=== PATIENT | male | born 1965 | race African-American/Black ===

== ENCOUNTER 2021-02-26 08:40 | Emergency (ER) | payer OTHER, SELFPAY ==
[2021-02-26 08:48] VITALS: BP 140/94; PULSE 78; RESP 20; TEMP 36.6; O2SAT 100
--- NOTE | 2021-02-26 09:06 | ED.URI ---
HPI - URI/Sore Throat General Chief Complaint: Nausea/Vomiting/Diarrhea Stated Complaint: nausea/flu Time Seen by Provider: 02/26/21 08:50 Source: patient and RN notes reviewed Mode of arrival: ambulatory Limitations: no limitations History of Present Illness HPI Narrative: 55-year-old male presents to the [facility] with complaints of generalized body aches and I am sick. States symptoms started after his booster shot of Covid. Received his Covid booster, Pfizer on 02/20. States I am just very unwell. Has a history of kidney disease hypertension and high cholesterol. Related Data Home Medications Medication Instructions Recorded Confirmed amlodipine 02/26/21 atorvastatin 02/26/21 carvedilol 02/26/21 Allergies Allergy/AdvReac Type Severity Reaction Status Date / Time No Known Allergies Allergy Verified 02/26/21 09:06 Review of Systems Review of Systems: All systems reviewed & are unremarkable except as noted in HPI and below Constitutional: Constitutional: Reports as per HPI, Denies chills, Reports fatigue and Denies fever(s) Eyes: Eyes: Reports no additional eye complaints ENT: Reports as per HPI and Reports nasal congestion Cardiovascular: Cardiovascular: Reports no additional cardiovascular complaints and Denies chest pain Respiratory: Respiratory: Reports no additional respiratory complaints and Denies cough Gastrointestinal: Gastrointestinal: Reports no additional gastrointestinal complaints Musculoskeletal: Musculoskeletal: Reports no additional musculoskeletal complaints Integumentary/Breasts: Skin/Breast: Reports system reviewed and no additional complaints, except as docu Neurologic: Reports as per HPI and Reports headache(s) (Intermittent) Psychiatric: Psychiatric: Reports no additional psychiatric complaints Allergic/Immunologic: Allergic/Immunologic: Reports no additional allergic/immunologic complaints [facility] Past Medical History Medical History (Updated 02/26/21 @ 09:16 by Tamra Gabriel) High cholesterol Hypertension Kidney disease Surgical History Surgical History (Updated 02/26/21 @ 09:17 by Tamra Gabriel) No significant past surgical history Social History Social History (Updated 02/26/21 @ 09:17 by Tamra Gabriel) Living arrangements: with family Occupation/Education: retired Gender identity (if verbalized by the patient): Male Comments At the time of my signature, I reviewed and agree with the nursing past medical, surgical, social, and family history. There is no relevant family history pertinent to the patient complaint. Exam Const: General: healthy appearing, no acute distress and alert Nutritional Appearance: well nourished Orientation/consciousness: patient oriented x3 Limitations: no limitations and altered mental status HENMT: Head: normal to inspection Ears: external ears normal, TM's normal bilaterally (Post cerumen removal) and Abnormal EAC present cerumen impaction bilateral Eyes: Conjunctivae: conjunctivae normal Pupils: Equal, round and reactive pupils present Neck: Neck: normal visual inspection, no lymphadenopathy and no meningeal signs Chest: Chest palpation & inspection: normal inspection of the chest Resp: Effort & Inspection: normal respiratory effort Auscultation: clear to auscultation bilaterally Cardio: Rate: regular rate Rhythm: regular rhythm GI: GI Palp: Yes Soft to palpation and No Tenderness to palpation present (GI) Back/Spine/Pelvis: Back: no CVA tenderness Skin: General skin exam: normal color Rashes: no rashes Wounds: no wounds Neuro: General: patient oriented x3, moves all extremities, no meningeal signs and no focal motor deficits Cranial nerves: Yes Nystagmus not present Speech: normal speech Gait exam (Neuro): Normal gait present Extrem: General: normal to inspection and no pedal edema Psych: Appearance: grossly normal Mental Status: mental status grossly normal Affect: normal affect At
== END 2021-02-26 09:18 | disposition home or self-care (01) ==
PROVIDERS: Emergency Provider Nurse Practitioner; PCP Internal Medicine
DX: R53.83 Other fatigue (principal); U09.9 Post COVID-19 condition, unspecified; H61.23 Impacted cerumen, bilateral; E78.00 Pure hypercholesterolemia, unspecified; I10 Essential (primary) hypertension
CPT/HCPCS: 69210; 99202; G0463

== ENCOUNTER 2022-08-10 07:14 | Outpatient (CLI) | payer OTHER, SELFPAY ==
[2022-08-10 08:24] LABS: Basophils Percent Auto 0.5 % (0.2-1.2); Eosinophils Absolute Auto 0.4 K/mm3 (0-0.3); Eosinophils Percent Auto 6.9 % (0-4.4); Hematocrit 43.2 % (42.0-52.0); Hemoglobin 14.6 g/dL (14.0-18.0); Immature Granulocyte Absolute 0.04 K/mm3 (0.00-0.031); Immature Granulocyte Percent A 0.6 % (0-0.5); Lymphocytes Absolute Auto 0.95 K/mm3 (0.9-3.2); Mean Corpuscular HGB Conc 33.8 g/dl (32-36); Mean Corpuscular Hemoglobin 28.9 pg (26-34); Mean Corpuscular Volume 85.5 fl (80-100); Mean Platelet Volume 9.6 fl (7.4-10.4); Monocytes Absolute Auto 0.6 K/mm3 (0.1-0.6); Monocytes Percent Auto 9.4 % (2.6-8.5); Neutrophils Absolute Auto 4.3 K/mm3 (1.3-6.7); Neutrophils Percent Auto 67.6 % (45.5-73.1); Platelet Count Result 254 k/mm3 (150-375); Red Blood Count 5.05 M/mm3 (4.6-6.20); Red Cell Distribution Width 13.3 % (11.5-14.5); White Blood Count 6.4 K/mm3 (4.5-10.0)
[2022-08-10 08:30] LABS: Albumin Level 4.6 g/dL (3.5-5.1); Anion Gap 10 mmol/L (8-16); Blood Urea Nitrogen 17 mg/dL (9-20); Carbon Dioxide 28 mmol/L (22-30); Chloride 104 mmol/L (98-107); Estimated Glomerular Filt Rate 45; Glucose 77 mg/dL (65-110); Phosphorus 3.1 mg/dL (2.5-4.5); Sodium 142 mmol/L (137-145)
[2022-08-10 08:37] LABS: Creatinine Urine 282.7 mg/dL
[2022-08-10 08:40] LABS: Appearance Urine Clear (Clear); Bacteria Urine None Seen /hpf; Bilirubin Urine Negative (Negative); Blood Urine Negative (Negative); Color Urine Yellow (Yellow); Glucose Urine UA Negative (Negative); Ketones Urine Trace mg/dL (Negative); Leukocyte Esterase Ur Negative LEU/UL (Negative); Need Manual Microscopic Reviewed; Nitrate Urine Negative (Negative); Non Pathogenic Casts >20; Protein Urine 2+ mg/dL (Negative); RBC Urine 0-2 /hpf (0-2); Squamous Epithelial Cell Urine Occasional /hpf (Few); WBC Urine 0-5 /hpf; pH Urine 6.5 (5.0-9.0)
[2022-08-10 08:42] LABS: Add Urine Microscopic? YES
[2022-08-10 08:53] LABS: Alanine Aminotransferase 49 U/L (6-50); Alkaline Phosphatase 146 U/L (38-126); Aspartate Amino Transferase 41 U/L (17-59); Bilirubin,Total 0.9 mg/dL (0.2-1.3)
[2022-08-10 09:00] LABS: Total Protein Urine Random 78 mg/dL
[2022-08-10 09:03] LABS: Parathyroid Intact 208.7 pg/mL (7.5-53.5)
[2022-08-10 09:05] LABS: Vitamin D 25 Hydroxy 20.3 ng/mL
[2022-08-13 20:12] LABS: Vitamin D 1,25 (OH)2 Total 41 pg/mL (18-72); Vitamin D2 1,25 (OH)2 18 pg/mL; Vitamin D3 1,25 (OH)2 23 pg/mL
== END 2022-08-10 07:15 | disposition home or self-care (01) ==
PROVIDERS: PCP Internal Medicine; Visit Provider Internal Medicine Nephrology
DX: I50.22 Chronic systolic (congestive) heart failure (principal); N25.81 Secondary hyperparathyroidism of renal origin; I12.9 Hypertensive chronic kidney disease with stage 1 through stage 4 chronic kidney disease, or unspecified chronic kidney disease; N18.32 Chronic kidney disease, stage 3b
CPT/HCPCS: 36415; 80069; 80076; 81001; 81050; 82306; 82570; 82652; 83970; 84156; 85025

== ENCOUNTER 2023-01-14 10:31 | Outpatient (CLI) | payer OTHER, SELFPAY ==
[2023-01-14 11:16] LABS: Basophils Percent Auto 0.4 % (0.2-1.2); Eosinophils Absolute Auto 0.8 K/mm3 (0-0.3); Eosinophils Percent Auto 11.1 % (0-4.4); Hematocrit 45.6 % (42.0-52.0); Hemoglobin 15.3 g/dL (14.0-18.0); Immature Granulocyte Absolute 0.03 K/mm3 (0.00-0.031); Immature Granulocyte Percent A 0.4 % (0-0.5); Lymphocytes Absolute Auto 1.54 K/mm3 (0.9-3.2); Lymphocytes Percent Auto 20.6 % (18.3-44.2); Mean Corpuscular HGB Conc 33.6 g/dl (32-36); Mean Corpuscular Hemoglobin 28.8 pg (26-34); Mean Corpuscular Volume 85.9 fl (80-100); Mean Platelet Volume 8.8 fl (7.4-10.4); Monocytes Absolute Auto 0.7 K/mm3 (0.1-0.6); Monocytes Percent Auto 8.9 % (2.6-8.5); Neutrophils Absolute Auto 4.4 K/mm3 (1.3-6.7); Neutrophils Percent Auto 58.6 % (45.5-73.1); Platelet Count Result 284 k/mm3 (150-375); Red Blood Count 5.31 M/mm3 (4.6-6.20); Red Cell Distribution Width 14.4 % (11.5-14.5); White Blood Count 7.5 K/mm3 (4.5-10.0)
[2023-01-14 11:30] LABS: Albumin Level 4.4 g/dL (3.5-5.1); Anion Gap 12 mmol/L (8-16); Blood Urea Nitrogen 24 mg/dL (9-20); Calcium 9.1 mg/dL (8.4-10.2); Carbon Dioxide 24 mmol/L (22-30); Chloride 104 mmol/L (98-107); Estimated Glomerular Filt Rate 33; Glucose 95 mg/dL (65-110); Phosphorus 4.1 mg/dL (2.5-4.5); Potassium 3.6 mmol/L (3.4-5.0); Sodium 140 mmol/L (137-145)
[2023-01-14 11:42] LABS: Parathyroid Intact 295.7 pg/mL (7.5-53.5)
== END 2023-01-14 10:32 | disposition home or self-care (01) ==
PROVIDERS: PCP Internal Medicine; Visit Provider Internal Medicine Nephrology
DX: I12.9 Hypertensive chronic kidney disease with stage 1 through stage 4 chronic kidney disease, or unspecified chronic kidney disease (principal); N18.32 Chronic kidney disease, stage 3b
CPT/HCPCS: 36415; 80069; 83970; 85025

== ENCOUNTER 2023-03-28 14:36 | Outpatient (CLI) | payer OTHER, SELFPAY ==
[2023-03-29 11:59] LABS: Collection Time Urine 24 HOURS
[2023-03-29 12:55] LABS: Creatinine Urine 103.1 mg/dL; Patient Weight 195 Lbs
[2023-03-29 13:08] LABS: Total Volume 24 Hour Urine 1100 ml
[2023-03-30 13:59] LABS: Estimated Glomerular Filt Rate 42
[2023-03-31 07:59] LABS: Creatinine Clearance Urine 32.8 ml/min (75-125)
== END 2023-03-29 06:20 | disposition home or self-care (01) ==
LOC: ANHLAB 04-19 14:36
PROVIDERS: PCP Surgery; Visit Provider Internal Medicine Nephrology
DX: I12.9 Hypertensive chronic kidney disease with stage 1 through stage 4 chronic kidney disease, or unspecified chronic kidney disease (principal); N18.32 Chronic kidney disease, stage 3b
CPT/HCPCS: 36415; 82565; 82575

== ENCOUNTER 2023-07-13 07:28 | Outpatient (CLI) | payer OTHER, SELFPAY ==
[2023-07-13 08:09] LABS: Basophils Percent Auto 0.4 % (0.2-1.2); Eosinophils Absolute Auto 0.4 K/mm3 (0-0.3); Eosinophils Percent Auto 4.5 % (0-4.4); Hematocrit 46.7 % (42.0-52.0); Hemoglobin 15.7 g/dL (14.0-18.0); Immature Granulocyte Absolute 0.02 K/mm3 (0.00-0.031); Immature Granulocyte Percent A 0.3 % (0-0.5); Lymphocytes Absolute Auto 1.23 K/mm3 (0.9-3.2); Lymphocytes Percent Auto 15.9 % (18.3-44.2); Mean Corpuscular HGB Conc 33.6 g/dl (32-36); Mean Corpuscular Hemoglobin 29.1 pg (26-34); Mean Corpuscular Volume 86.5 fl (80-100); Mean Platelet Volume 8.9 fl (7.4-10.4); Monocytes Absolute Auto 0.7 K/mm3 (0.1-0.6); Monocytes Percent Auto 8.9 % (2.6-8.5); Neutrophils Absolute Auto 5.4 K/mm3 (1.3-6.7); Platelet Count Result 253 k/mm3 (150-375); Red Cell Distribution Width 13.9 % (11.5-14.5); White Blood Count 7.7 K/mm3 (4.5-10.0)
[2023-07-13 08:18] LABS: Albumin Level 4.7 g/dL (3.5-5.1); Anion Gap 9 mmol/L (8-16); Blood Urea Nitrogen 13 mg/dL (9-20); Calcium 9.6 mg/dL (8.4-10.2); Carbon Dioxide 28 mmol/L (22-30); Chloride 104 mmol/L (98-107); Estimated Glomerular Filt Rate 38; Glucose 91 mg/dL (65-110); Phosphorus 3.9 mg/dL (2.5-4.5); Potassium 3.8 mmol/L (3.4-5.0); Sodium 141 mmol/L (137-145)
[2023-07-13 08:27] LABS: Parathyroid Intact 282.7 pg/mL (7.5-53.5)
== END 2023-07-13 07:29 | disposition home or self-care (01) ==
LOC: ANHLAB 07:29
PROVIDERS: PCP Surgery; Visit Provider Internal Medicine Nephrology
DX: N18.4 Chronic kidney disease, stage 4 (severe) (principal); I50.22 Chronic systolic (congestive) heart failure; N25.81 Secondary hyperparathyroidism of renal origin
CPT/HCPCS: 36415; 80069; 83970; 85025

== ENCOUNTER 2024-03-03 06:36 | Outpatient (CLI) | payer OTHER, SELFPAY ==
[2024-03-03 07:46] LABS: Basophils Percent Auto 0.4 % (0.2-1.2); Eosinophils Absolute Auto 0.7 K/mm3 (0-0.3); Eosinophils Percent Auto 9.1 % (0-4.4); Hematocrit 46.2 % (42.0-52.0); Immature Granulocyte Absolute 0.02 K/mm3 (0.00-0.031); Immature Granulocyte Percent A 0.3 % (0-0.5); Lymphocytes Absolute Auto 1.15 K/mm3 (0.9-3.2); Lymphocytes Percent Auto 15.4 % (18.3-44.2); Mean Corpuscular HGB Conc 34.6 g/dl (32-36); Mean Corpuscular Hemoglobin 29.4 pg (26-34); Mean Corpuscular Volume 84.8 fl (80-100); Mean Platelet Volume 8.3 fl (7.4-10.4); Monocytes Absolute Auto 0.6 K/mm3 (0.1-0.6); Neutrophils Percent Auto 66.8 % (45.5-73.1); Platelet Count Result 264 k/mm3 (150-375); Red Blood Count 5.45 M/mm3 (4.6-6.20); Red Cell Distribution Width 13.4 % (11.5-14.5); White Blood Count 7.5 K/mm3 (4.5-10.0)
[2024-03-03 07:58] LABS: Alanine Aminotransferase 20 U/L (6-50); Albumin Level 4.5 g/dL (3.5-5.1); Alkaline Phosphatase 136 U/L (38-126); Anion Gap 8 mmol/L (4-12); Aspartate Amino Transferase 28 U/L (17-59); Blood Urea Nitrogen 15 mg/dL (9-20); Calcium 9.4 mg/dL (8.4-10.2); Carbon Dioxide 27 mmol/L (22-30); Chloride 105 mmol/L (98-107); Cholesterol 186 mg/dL (0-200); Estimated Glomerular Filt Rate 45; Glucose 91 mg/dL (65-110); HDL Direct 67 mg/dL; Potassium 4.2 mmol/L (3.4-5.0); Sodium 140 mmol/L (137-145); Triglycerides 121 mg/dL (<150)
[2024-03-03 08:09] LABS: LDL Cholesterol Direct 70 mg/dL
[2024-03-03 09:56] LABS: Hemoglobin A1C 5.7 % (<5.7)
== END 2024-03-03 06:37 | disposition home or self-care (01) ==
PROVIDERS: PCP Internal Medicine; Visit Provider Internal Medicine
DX: F31.9 Bipolar disorder, unspecified (principal); E78.5 Hyperlipidemia, unspecified
CPT/HCPCS: 36415; 80053; 80061; 83036; 84443; 85025

== ENCOUNTER 2024-05-10 08:02 | Emergency (ER) | payer OTHER, SELFPAY ==
[2024-05-10] VITALS (20 sets, daily range): BP systolic 113–148; BP diastolic 79–100; PULSE 70–105; RESP 14–27; TEMP 35.9–36.6; O2SAT 93–100
--- NOTE | ~2024-05-10 | XR_ITS ---
EXAMINATION: XR chest 2V DATE: 05/10/2024 10:06 INDICATION: Shortness of breath TECHNIQUE: PA and lateral views of the chest were obtained. COMPARISON: None FINDINGS: The lungs are clear with no focal airspace opacities, pulmonary edema, pleural effusion or pneumothor ax. The cardiomediastinal silhouette is normal. Three lead pacemaker/AICD seen with leads projecting over the expected locations of the right atrial appendage, apex of the right ventricle and overlying the left ventricle likely having traversed the coronary sinus. IMPRESSION: 1. No acute cardiopulmonary disease. Reviewed, dictated and finalized at location [employer]
--- NOTE | 2024-05-10 08:47 | ECG_ITS ---
Test Date: 2024-05-10 09:05:09 Measurements Intervals [place] Rate: 100 P: 68 IA: 157 QRS: 155 QRSD: 159 T: 4 QT: 398 QTc: 515 Interpretive Statements ELECTRONIC VENTRICULAR PACEMAKER ABNORMAL RHYTHM ECG Electronically Signed On 05-10-2024 12:06:01 ENTRY WRITER by Melvin Encinas M.D.
--- NOTE | 2024-05-10 08:48 | ED_ITS ---
HPI - General Adult General Chief complaint: Shortness of Breath/Dyspnea Stated complaint: fluid in lungs, sob Time Seen by Provider: 05/10/24 08:35 History of Present Illness HPI narrative: 58-year-old male presenting to the emergency department for evaluation for worsening shortness breath is recurrent over the last 2 weeks. Patient does have a history of chronic kidney disease and congestive heart failure. Patient states his current symptoms started approximately 2 weeks ago and was associated with increased cough and congestion. Patient is on a diuretic but states he is not taking it regularly. Patient feels that he takes it too often that he feels lightheaded and drained. Patient did present to an outside hospital on Tuesday and received no specific diagnosis other than that his lungs were noisy. Patient does complain increased shortness of breath when lying down flat. Patient denies any chest pain. Patient has noticed no increased lower extremity swelling. Related Data Home Medications ?Medication ?Instructions ?Recorded ?Confirmed ?Last Taken ?Type albuterol sulfate 90 mcg/actuation 2 puff inhalation TID 11/11/22 Unknown History aerosol inhaler amitriptyline 150 mg tablet 150 mg PO QHS 11/11/22 Unknown History amlodipine 10 mg tablet 10 mg PO DAILY 11/11/22 Unknown History atorvastatin 40 mg tablet 40 mg PO DAILY 11/11/22 Unknown History carvedilol 25 mg tablet 25 mg PO BID 11/11/22 Unknown History cyanocobalamin (vitamin B-12) 1,000 mcg subcut MONTHLY 11/11/22 Unknown History 1,000 mcg/mL injection kit famotidine 20 mg tablet 20 mg PO BID 11/11/22 Unknown History furosemide 40 mg tablet 40 mg PO BID 11/11/22 Unknown History hydralazine 10 mg tablet 20 mg PO TID 11/11/22 Unknown History hydroxyzine HCl 10 mg tablet 10 mg PO DAILY PRN 11/11/22 Unknown History isosorbide dinitrate 20 mg tablet 20 mg PO DAILY 11/11/22 Unknown History loratadine 10 mg tablet 10 mg PO DAILY PRN 11/11/22 Unknown History losartan 100 mg tablet 100 mg PO DAILY 11/11/22 Unknown History lurasidone 20 mg tablet (Latuda) 20 mg PO DAILY 11/11/22 Unknown History paroxetine HCl 40 mg tablet 40 mg PO DAILY 11/11/22 Unknown History spironolactone 25 mg tablet 25 mg PO DAILY 11/11/22 Unknown History tizanidine 4 mg capsule 4 mg PO BID PRN 11/11/22 Unknown History Allergies Allergy/AdvReac Type Severity Reaction Status Date / Time No Known Allergies Allergy Verified 05/10/24 08:08 Review of Systems 2 Review of Systems: All systems reviewed & are unremarkable except as noted in HPI and below PMFSH Past Medical History Medical History (Updated 05/10/24 @ 11:31 by Gregory Phillips MD) Asthma Obesity Vitamin D deficiency Chronic GERD Essential hypertension CHF (congestive heart failure) Agoraphobia with panic attacks Recurrent major depression Antinuclear factor positive Chronic fatigue syndrome CKD (chronic kidney disease) stage 2 Hyperlipidemia Generalized anxiety disorder Bipolar 1 disorder Surgical History Surgical History (System 03/02/24 @ 11:34 by Monica Vick) History of tonsillectomy History of cardiac cath Family History Family History (System 03/02/24 @ 11:34 by Monica Vick) Mother Kidney disease Hypothyroidism Cataracts, bilateral Asthma Other Bipolar 1 disorder Schizophrenia Amyotrophic lateral sclerosis (ALS) Father Mental disorder Hypertension Heart disease Grandparent Diabetes mellitus Social History Social History (System 03/02/24 @ 11:34 by Monica Vick) Living arrangements: with family Occupation/Education: retired Gender identity (if verbalized by the patient): Male Exam 2 Narrative: APPEARANCE: Well appearing, no pain, no distress, well-nourished. HEAD: normocephalic, atraumatic. EYES: PERRLA/EOMI, conjunctivae clear. NOSE: Normal no drainage EARS:TMS clear with good light reflex. THROAT: Pharynx clear, no exudate. NECK: Supple. No adenopathy, no masses. RESPIRATORY: Wheezing and rhonchi bilaterally CARDIOVASCULAR: Regular rate and rhythm without murmurs rubs or gallops. ABDOMINAL: Soft, nontender, nondistended, normal bowel sounds MUSCULOSKELETAL: Moves all extremities. Strength/ROM intact, No edema, No calf tenderness. NEURO: Alert. Cranial nerves II through XII intact. Good gait. Good coordination SKIN: Warm, dry. Normal Color Course Vital Signs Vital signs: Vital Signs Temperature 97.5 F L 05/10/24 08:04 Pulse Rate 70 05/10/24 08:04 Respiratory Rate 18 05/10/24 08:04 Blood Pressure 148/93 H 05/10/24 08:04 Pulse Oximetry 93 05/10/24 08:04 Oxygen Delivery Room Air 05/10/24 08:04 Temperature 96.7 F L 05/10/24 11:11 Pulse Rate 93 05/10/24 11:11 Respiratory Rate 19 05/10/24 11:11 Blood Pressure 141/100 H 05/10/24 11:10 Pulse Oximetry 100 05/10/24 11:11 Oxygen Delivery Room Air 05/10/24 08:47 Medical Decision Making MDM Narrative Medical decision making narrative: 58-year-old male presenting to the emergency department for evaluation for cough congested and orthopnea. Patient is afebrile with no leukocytosis and hemoglobin of 15.3. Patient's INR 0.9. Patient has no acute abnormalities on his CMP patient's BNP is not significantly elevated it is 232. UA was negative for infection patient was negative influenza RSV and for COVID. Chest x-ray showed no acute cardiopulmonary abnormality. Upon initial evaluation patient was wheezing. Patient was treated with nebulized albuterol and does feel improved. Suspect viral etiology causing wheeze. Patient states the symptoms have been ongoing for greater than 2 weeks. Patient will be treated for suspected pneumonia. Patient will be started on antibiotics in the emergency department discharged home with antibiotics Tessalon Perles and albuterol. Patient was updated the results of the workup was comfortable the plan for discharge and close follow-up. Differential Diagnosis Differential Diagnosis: Pneumonia, CHF, COPD, pneumothorax COVID, RSV, influenza Vital Signs Vital Signs: Vital Signs Temperature 97.5 F L 05/10/24 08:04 Pulse Rate 70 05/10/24 08:04 Respiratory Rate 18 05/10/24 08:04 Blood Pressure 148/93 H 05/10/24 08:04 Pulse Oximetry 93 05/10/24 08:04 Oxygen Delivery Room Air 05/10/24 08:04 Temperature 96.7 F L 05/10/24 11:11 Pulse Rate 93 05/10/24 11:11 Respiratory Rate 19 05/10/24 11:11 Blood Pressure 141/100 H 05/10/24 11:10 Pulse Oximetry 100 05/10/24 11:11 Oxygen Delivery Room Air 05/10/24 08:47 Lab Data Lab results reviewed: Yes I reviewed the patient's lab results. 05/10/24 09:01 05/10/24 09:01 Labs: Lab Results 05/10/24 05/10/24 05/10/24 Range/Units 08:57 09:01 10:41 WBC 9.1 (4.5-10.0) K/mm3 RBC 5.34 (4.6-6.20) M/mm3 Hgb 15.3 (14.0-18.0) g/dL Hct 46.1 (42.0-52.0) % MCV 86.3 (80-100) fl MCH 28.7 (26-34) pg MCHC 33.2 (32-36) g/dl RDW 14.5 (11.5-14.5) % Plt Count 256 (150-375) k/mm3 MPV 8.6 (7.4-10.4) fl Immature Gran % (Auto) 0.6 H (0-0.5) % Neut % (Auto) 65.0 (45.5-73.1) % Lymph % (Auto) 14.8 L (18.3-44.2) % [place] % (Auto) 8.6 H (2.6-8.5) % Eos % (Auto) 10.6 H (0-4.4) % Baso % (Auto) 0.4 (0.2-1.2) % Lymph # (Auto) 1.34 (0.9-3.2) K/mm3 [place] # (Auto) 0.8 H (0.1-0.6) K/mm3 Eos # (Auto) 1.0 H (0-0.3) K/mm3 Baso # (Auto) 0.0 (0.0-0.1) K/mm3 Abs Immat Gran (auto) 0.05 H (0.00-0.031) K/mm3 Absolute Neuts (auto) 5.9 (1.3-6.7) K/mm3 Absolute Nucleated RBC 0.000 (0.0-0.012) K/mm3 Nucleated RBC % 0.0 (0.0-0.2) % PT 12.8 (11.1-14.7) Seconds INR 0.9 APTT 26.6 (22.3-36.8) Seconds Sodium 139 (137-145) mmol/L Potassium 3.9 (3.4-5.0) mmol/L Chloride 108 H (98-107) mmol/L Carbon Dioxide 26 (22-30) mmol/L Anion Gap 5 (4-12) mmol/L BUN 15 (9-20) mg/dL Creatinine 1.60 H (0.7-1.3) mg/dL Estim Creat Clear Calc 48 ml/min Estimated GFR 54 L (59 - ) Glucose 94 (65-110) mg/dL Calcium 9.0 (8.4-10.2) mg/dL Total Bilirubin 0.7 (0.2-1.3) mg/dL AST 28 (17-59) U/L ALT 22 (6-50) U/L Alkaline Phosphatase 121 (38-126) U/L NT-Pro-B Natriuret Pep 232 H (19.9-100) pg/mL Total Protein 8.0 (6.3-8.2) g/dL Albumin 4.5 (3.5-5.1) g/dL Urine Color Yellow (Yellow) Urine Appearance Clear (Clear) Urine pH 5.5 (5.0-9.0) Ur Specific [place] 1.025 (1.001-1.035) Urine Protein 1+ H (Negative) mg/dL Urine Glucose (UA) 3+ H (Negative) mg/dL Urine Ketones Negative (Negative) mg/dL Ur Blood (Man) Negative (Negative) Urine Nitrate Negative (Negative) Urine Bilirubin Negative (Negative) Urine Urobilinogen 1.0 (<2.0) mg/dL Leukocyte Esterase Rfl Negative (Negative) UMA/UL Influenza A (RT-PCR) Negative (Negative) Influenza B (RT-PCR) Negative (Negative) RSV (RT-PCR) Negative (Negative) SARS-CoV-2 RNA (RT-PCR) Negative (Negative) Imaging Data Radiologist's impression: Impressions Chest X-Ray 05/10/24 10:11 IMPRESSION: 1. No acute cardiopulmonary disease. Discharge Plan Discharge Clinical Impression: Community acquired pneumonia Patient Disposition: Home, Self-Care Condition: Stable Instructions: Antibiotic Form, Community Acquired Pneumonia (ED), Wheezing (ED) Additional Instructions: Antibiotics as directed until completed. Albuterol inhaler for cough and shortness of breath. Tessalon Perles for cough. Have close follow-up with your primary care physician. Take your other home medications as scheduled. If you have any worsening symptoms then please call or return to the emergency department. Patient Language: Greenlandic Prescriptions: New amoxicillin-pot clavulanate 875-125 mg tablet 1 tablet PO Q12H Qty: 14 0RF azithromycin 250 mg tablet See Rx Instructions .ROUTE .COMPLEX Qty: 6 0RF Rx Instructions: For 250 mg dose pack: take 500 mg today (day 1), then 250 mg for 4 days (days 2-5) albuterol sulfate 90 mcg/actuation HFA aerosol inhaler 1 inh inhalation QID PRN (Reason: shortness of breath or wheezing) Qty: 6.7 0RF benzonatate 100 mg capsule 100 mg PO TID PRN (Reason: cough) Qty: 14 0RF No Action albuterol sulfate 90 mcg/actuation HFA aerosol inhaler 2 puff inhalation TID amitriptyline 150 mg tablet 150 mg PO QHS amlodipine 10 mg tablet 10 mg PO DAILY atorvastatin 40 mg tablet 40 mg PO DAILY carvedilol 25 mg tablet 25 mg PO BID cyanocobalamin (vitamin B-12) 1,000 mcg/mL kit 1,000 mcg subcut MONTHLY famotidine 20 mg tablet 20 mg PO BID furosemide 40 mg tablet 40 mg PO BID hydralazine 10 mg tablet 20 mg PO TID hydroxyzine HCl 10 mg tablet 10 mg PO DAILY PRN isosorbide dinitrate 20 mg tablet 20 mg PO DAILY lurasidone [Latuda] 20 mg tablet 20 mg PO DAILY Rx Instructions: must administer with food (at least 350 calories) loratadine 10 mg tablet 10 mg PO DAILY PRN losartan 100 mg tablet 100 mg PO DAILY paroxetine HCl 40 mg tablet 40 mg PO DAILY spironolactone 25 mg tablet 25 mg PO DAILY tizanidine 4 mg capsule 4 mg PO BID PRN Follow-up/Referrals: Varsha,MD Naomy [Primary Care Provider] -
[2024-05-10] MEDS: ALBUTEROL SULFATE NEB 2.5 MG/3 ML INH 5 MG INHALATION (09:01)
[2024-05-10 09:09] LABS: Basophils Percent Auto 0.4 % (0.2-1.2); Eosinophils Percent Auto 10.6 % (0-4.4); Hematocrit 46.1 % (42.0-52.0); Hemoglobin 15.3 g/dL (14.0-18.0); Immature Granulocyte Absolute 0.05 K/mm3 (0.00-0.031); Immature Granulocyte Percent A 0.6 % (0-0.5); Lymphocytes Absolute Auto 1.34 K/mm3 (0.9-3.2); Lymphocytes Percent Auto 14.8 % (18.3-44.2); Mean Corpuscular HGB Conc 33.2 g/dl (32-36); Mean Corpuscular Hemoglobin 28.7 pg (26-34); Mean Corpuscular Volume 86.3 fl (80-100); Mean Platelet Volume 8.6 fl (7.4-10.4); Monocytes Absolute Auto 0.8 K/mm3 (0.1-0.6); Monocytes Percent Auto 8.6 % (2.6-8.5); Neutrophils Absolute Auto 5.9 K/mm3 (1.3-6.7); Platelet Count Result 256 k/mm3 (150-375); Red Blood Count 5.34 M/mm3 (4.6-6.20); Red Cell Distribution Width 14.5 % (11.5-14.5); White Blood Count 9.1 K/mm3 (4.5-10.0)
[2024-05-10 09:19] LABS: Alanine Aminotransferase 22 U/L (6-50); Albumin Level 4.5 g/dL (3.5-5.1); Alkaline Phosphatase 121 U/L (38-126); Anion Gap 5 mmol/L (4-12); Aspartate Amino Transferase 28 U/L (17-59); Bilirubin,Total 0.7 mg/dL (0.2-1.3); Blood Urea Nitrogen 15 mg/dL (9-20); Carbon Dioxide 26 mmol/L (22-30); Chloride 108 mmol/L (98-107); Estimated CRCL calculation 48 ml/min; Estimated Glomerular Filt Rate 54; Glucose 94 mg/dL (65-110); Potassium 3.9 mmol/L (3.4-5.0); Sodium 139 mmol/L (137-145)
[2024-05-10 09:27] LABS: INR 0.9; NT Pro B Type Natriuretic Pept 232 pg/mL (19.9-100); Prothrombin Time 12.8 Seconds (11.1-14.7)
[2024-05-10 09:28] LABS: Partial Thromboplastin Time 26.6 Seconds (22.3-36.8)
[2024-05-10 09:32] LABS: Add Urine Microscopic? YES; Appearance Urine Clear (Clear); Bilirubin Urine Negative (Negative); Blood Urine Negative (Negative); Color Urine Yellow (Yellow); Glucose Urine UA 3+ mg/dL (Negative); Ketones Urine Negative (Negative); Leukocyte Esterase Ur Negative LEU/UL (Negative); Nitrate Urine Negative (Negative); Protein Urine 1+ mg/dL (Negative); Specific Grav Ur 1.025 (1.001-1.035); pH Urine 5.5 (5.0-9.0)
[2024-05-10 11:23] LABS: Influenza A QL RT-PCR Negative (Negative); Influenza B QL RT-PCR Negative (Negative); RSV RNA, RT-PCR Negative (Negative); SARS-CoV-2 RNA PCR Negative (Negative)
--- OUTSIDE RECORDS SUMMARY | 2024-05-17 12:00 | XMS_ITS | Encounter Summary ---
Author Organization [facility] Address [address] [place] [address]. [address] [address] Care Team Providers Care Real Estate Assistant Name Role Phone Naomy Maddox MD Primary Care Provider [phone] Encounter Details Date Type Department Care Team (Latest Contact Info) Description 02/28/2024 Travel Social History Tobacco Use Types Packs/Day Years Used Date Smoking Tobacco: Never Smokeless Tobacco: Never Alcohol Use Standard Drinks/Week Comments Yes 0 (1 standard drink = 0.6 oz pur e alcohol) Sex and Gender Information Value Date Recorded Sex Assigned at Not on file Legal Sex Male 8:04 PM CDT Gender Identity Not on file Sexual Orientation Not on file documented as of this encounter Plan of Treatment Not on file documented as of this encounter Visit Diagnoses Not on filedocumented in this encounter Care Teams Real Estate Assistant Relationship Specialty Start Date End Date Naomy Maddox MD [address] [place] [address] PCP - General INTERNAL MEDICINE 07/07/22 05/05/24 documented as of this encounter
--- OUTSIDE RECORDS SUMMARY | 2024-05-17 12:00 | XMS_ITS | Encounter Summary ---
Author Organization [facility] Address [address] [place] [address]. [place], [place] [id number] [place] [id number] Care Team Providers Care Physical Geographer Name Role Phone Naomy Maddox MD Primary Care Provider [phone] Encounter Details Date Type Department Care Team (Late st Contact Info) Description 02/03/2024 Orders Only [facility] [address] [id number] [place] [address] [facility] [address] [place] [address] Social History Tobacco Use Types Packs/Day Years [...] on file documented as of this encounter Results * (ABNORMAL) RENAL FUNCTION PANEL (02/03/2024 8:33 AM CDT) GLUCOSE 87 70 - 99 MG/DL 02/03/2024 9:58 AM CDT [facility] BUN 11 7 - 18 MG/DL 02/03/2024 9:58 AM CDT [facility] CREATININE S/P/B 1.92(H) 0.7 - 1.3 MG/DL 02/03/2024 9:58 AM [facility] SODIUM S/P/B 142 136 - 145 MMOL/L 02/03/2024 9:58 AM [facility] POTASSIUM S/P/B 4.0 3.5 - 5.1 MMOL/L 02/03/2024 9:58 AM [facility] CHLORIDE S/P/B 105 100 - 108 MMOL/L 02/03/2024 9:58 AM [facility] CO2 27.8 21 - 32 MMOL/L 02/03/2024 9:58 AM [facility] CALCIUM S/P/B 9.3 8.5 - 10.1 MG/DL 02/03/2024 9:58 AM [facility] ALBUMIN S/P/B 3.8 3.4 - 5.0 G/DL 02/03/2024 9:58 AM [facility] PHOSPHORUS 2.1(L) 2.5 - 4.9 MG/DL 02/03/2024 9:58 AM [facility] ANION GAP 9.2 5 - 15 MMOL/L 02/03/2024 9:58 AM [facility] BUN CREATININE RATIO 5.7(L) 6 - 26 02/03/2024 9:58 AM [facility] GFR ESTIMATE 40(L) >90 ML/MIN/1.7 3 M2 02/03/2024 9:58 AM [facility] Comment: NOTE: eGFR is not calculated for patients <18 years of age. This is an estimated GFR calculation using the new CKD EPI creatinine equation without race and so does not require a correction factor for race. This estimated GFR should not be used for calculating drug doses. 02/03/2024 8:33 AM CDT us Bryon Meeks MD LABORATORY Final Result [facility] [address] [place] [address], [place] [phone] * (ABNORMAL) CBC W/DIFF AUTOMATED (02/03/2024 8:33 AM CDT) WBC 7.51 4.4 - 11.0 x10'3/uL 02/03/2024 9:38 AM CDT [facility] RBC 5.34 4.50 - 5.90 x10'6/uL 02/03/2024 9:38 AM CDT [facility] HGB 15.7 14.0 - 17.5 G/DL 02/03/2024 9:38 AM CDT [facility] HCT 46.3 41.5 - 50.4 % 02/03/2024 9:38 AM CDT [facility] MCV 86.7 80.0 - 96.0 FL 02/03/2024 9:38 AM CDT [facility] MCH 29.4 26.5 - 31.4 PG 02/03/2024 9:38 AM CDT [facility] MCHC 33.9 31.9 - 34.8 G/DL 02/03/2024 9:38 AM CDT [facility] RDW 13.6 12.3 - 14.3 % 02/03/2024 9:38 AM CDT [facility] PLT 245 151 - 353 x10'3/uL 02/03/2024 9:38 AM CDT [facility] MPV 9.3(L) 9.7 - 11.9 FL 02/03/2024 9:38 AM CDT [facility] RBC MORPHOLOGY NORMAL 02/03/2024 9:38 AM CDT [facility] PLT MORPH. NORMAL 02/03/2024 9:38 AM CDT [facility] WBC MORPHOLOGY NORMAL 02/03/2024 9:38 AM CDT [facility] LYMPHOCYTES % 11.9(L) 15.8 - 45.0 % 02/03/2024 9:38 AM CDT [facility] NEUTROPHILS % 71.5 42.1 - 71.9 % 02/03/2024 9:38 AM CDT [facility] MONOCYTES % 7.6 5.7 - 12.5 % 02/03/2024 9:38 AM CDT [facility] EOSINOPHILS 8.3(H) 0.0 - 5.6 % 02/03/2024 9:38 AM CDT [facility] BASOPHILS 0.4 0.0 - 1.3 % 02/03/2024 9:38 AM CDT [facility] ABS. NEUTROPHILS 5.38 1.40 - 6.00 x10'3/uL 02/03/2024 9:38 AM CDT [facility] IMMATURE GRANS % 0.3 0.0 - 0.5 % 02/03/2024 9:38 AM CDT [facility] ABS. LYMPHOCYTES 0.89 0.80 - 4.70 x10'3/uL 02/03/2024 9:38 AM T [facility] 02/03/2024 8:33 AM CDT us Bryon Meeks MD LABORATORY Final Result [facility] [address] [place] [address], [place] [phone] * (ABNORMAL) PROTEIN CREAT RATIO URINE (02/03/2024 8:33 AM CDT) PROTEIN URINE TOTAL RANDOM 37.9(H) <10 MG/DL 02/03/2024 10:14 AM CDT [facility] CREATININE (U) 229.8 39 - 259 MG/DL 02/03/2024 10:14 AM CDT [facility] PROTEIN/CREATIN INE RATIO 0.2 02/03/2024 10:14 AM CDT [facility] URINE SPECIMEN / Unknown 02/03/2024 8:33 AM CDT us Bryon Meeks MD URINE ORDERABLES Final Result [facility] [address] [place] [address], [place] [phone] * (ABNORMAL) PTH - INTACT (02/03/2024 8:33 AM CDT) PTH INTACT 151.3(H) 18.4 - 80.1 PG/ML 02/03/2024 3:16 PM CDT [facility] 02/03/2024 8:33 AM CDT us Bryon Meeks MD LABORATORY Final Result [facility] [address] [place] [address], [place] [phone] documented in this encounter Visit Diagnoses Diagnosis Chronic kidney disease, stage IV (severe) (CMS/HCC [facility]/HCC)- Primary Chronic kidney disease, Stage IV (severe) Renal hypertension Unspecified hypertensive kidney disease with chronic kidney disease stage I through stage IV, or unspecified Essential hypertension, malignant documented in this encounter Care Teams Physical Geographer Relationship Specialty Start Date End Date Naomy Maddox MD [address] [place] [address] PCP - General INTERNAL MEDICINE 07/07/22 05/05/24 documented as of this encounter
--- OUTSIDE RECORDS SUMMARY | 2024-05-17 12:00 | XMS_ITS | Encounter Summary ---
Author Organization [facility] Address [address] [place] [address]. [address] [address] Care Team Providers Care Spectral Scientist Name Role Phone Zak Anderson MD Primary Care Provider [phone] Encounter Details Date Type Department Care Team (Latest Contact Info) Description 05/06/2024 Travel Social History Tobacco Use Types Packs/Day [...] on filedocumented in this encounter Care Teams Spectral Scientist Relationship Specialty Start Date End Date Zak Anderson MD [address] [place] [address] PCP - General INTERVENTIONAL CARDIOLOGY 05/06/24 documented as of this encounter
--- OUTSIDE RECORDS SUMMARY | 2024-05-17 12:00 | XMS_ITS | Clinical Summary ---
Author Organization [facility] Address [address] [place] [address]. [place], [place] [address] [place] [id number] Care Team Providers Care Dog Breeder Name Role Phone Zak Anderson MD Primary Care Provider [phone] Allergies No known active allergies Medications ondansetron (ZOFRAN-ODT) 4 MG disintegrating tablet Take 1 tablet (4 mg total) by mouth every 8 (eight) hours as needed for Nausea. 20 tablet 3 Active metoclopramide (REGLAN) 5 MG tablet Take 1 tablet (5 mg total) by mouth every 6 (six) hours as needed. 15 tablet 3 Active amLODIPine (NORVASC) 10 MG tablet Take 1 tablet (10 mg total) by mouth daily. 4 Active ARIPiprazole (ABILIFY) 5 MG tablet Take 1 tablet (5 mg total) by mouth daily. 4 Active atorvastatin (LIPITOR) 40 MG tablet Take 1 tablet (40 mg total) by mouth daily. 4 Active carvedilol (COREG) 25 MG tablet Take 1 tablet (25 mg total) by mouth 2 (two) times daily. Active furosemide (LASIX) 40 MG tablet Take 1 tablet (40 mg total) by mouth 2 (two) times daily. Active hydrALAZINE (APRESOLINE) 10 MG tablet Take 2 tablets (20 mg total) by mouth 3 (three) times daily. 4 09/07/19 25 Active hydrOXYzine (ATARAX) 10 MG tablet Take 1 tablet (10 mg total) by mouth daily. 4 Active PARoxetine (PAXIL) 40 MG tablet Take 1 tablet (40 mg total) by mouth daily. 4 Active albuterol sulfate HFA 108 (90 Base) MCG/ACT inhaler Inhale 2 puffs into the lungs every 6 (six) hours as needed for Wheezing. 8 g 4 Active LORazepam (ATIVAN) 0.5 MG tabletIndications:S OB (shortness of breath) Take 1 tablet (0.5 mg total) by mouth every 8 (eight) hours as needed for Anxiety. 2 tablet 5 Active carbamide peroxide (EAR DROPS) 6.5 % otic solution Place 5 drops into both ears 2 (two) times daily for 10 days. 15 mL 4 04/22/20 24 ciprofloxacin-dexam ethasone (CIPRODEX) otic suspension Place 4 drops into the right ear 2 (two) times daily for 5 days. 7.5 mL 4 04/17/20 24 Encounters Date Type Department Care Team Description 05/17/2024 5:20 AM [facility] - 05/17/2024 7:07 AM [facility] Emergency [facility] Emergency Room [address] [place] [id number] Esteban Whittington MD Shortness Of Breath Discharge Disposition: Home or Self Care (Routine Discharge) 05/17/2024 Travel 05/06/2024 8:45 AM PATHOLOGY LAB TECHNICIAN - 05/06/2024 10:42 AM [facility] Emergency [facility] Emergency Room [address] [place] [id number] Wilian Granado MD Medical Problem Discharge Disposition: Home or Self Care (Routine Discharge) 05/06/2024 Travel 04/12/2024 12:33 PM PATHOLOGY LAB TECHNICIAN - 04/12/2024 1:17 PM [facility] Emergency Room [address] [place] [id number] Soraida Laguna MD URI Discharge Disposition: Home or Self Care (Routine Discharge) 04/12/2024 Travel 02/28/2024 12:43 AM CDT - 02/28/2024 1:52 AM CDT Emergency [facility] Emergency Room [id number] [place] [address] Chuck Cormier MD Urinary Symptoms Discharge Disposition: Home or Self Care (Routine Discharge) 02/28/2024 Travel from Last 3 Months Social History Tobacco Use Types Packs/Day Years Used Date Smoking Tobacco: Never Smokeless Tobacco: Never Tobacco Cessation:Counseling Given: Not Answered Alcohol Use Standard Drinks/Week Comments Not Currently 0 (1 standard drink = 0.6 oz pur e alcohol) Sex and Gender Information Value Date Recorded Sex Assigned at Not on file Legal Sex Male 8:04 PM CDT Gender Identity Not on file Sexual Orientation Not on file Last Filed Vital Signs Vital Sign Reading Time Taken Comments Blood Pressure 140/94 05/17/2024 6:30 AM PATHOLOGY LAB TECHNICIAN Pulse 86 05/17/2024 6:45 AM PATHOLOGY LAB TECHNICIAN Temperature 37.2 ??C (98.9 ??F) 05/17/2024 7:00 AM CS T Respiratory Rate 18 05/17/2024 6:45 AM PATHOLOGY LAB TECHNICIAN Oxygen Saturation 96% 05/17/2024 6:45 AM PATHOLOGY LAB TECHNICIAN Inhaled Oxygen Concentration - - Weight 88.5 kg (195 lb) 05/17/2024 5:25 AM PATHOLOGY LAB TECHNICIAN Height 177.8 cm (5' 10 ) 05/17/2024 5:25 AM PATHOLOGY LAB TECHNICIAN Body Mass Index 27.98 05/17/2024 5:25 AM PATHOLOGY LAB TECHNICIAN Plan of Treatment Health Maintenance Due Date Last Done Comments Colorectal Cancer Screening Colonoscopy (10 Years) 1965 Annual Physical 10/07/1970 Hepatitis C 10/07/1985 Hepatitis B Vaccines (1 of 3 - 19+ 3-dose series) 10/07/1986 Zoster Vaccines (1 of 2) 10/07/2017 COVID-19 Vaccine (2023-2 5 season) 2024 02/20/2021, 08/20/2020, 07/23/2020 Influenza Adult (#1) 2024 04/13/2021, 08/13/2015 DTaP, Tdap and Td Vaccines ( 2 - Td or Tdap) 08/12/2025 08/13/2015 Meningococcal Vaccine Aged Out No nola ernesto eligible based on patient's age to complete this topic Pneumococcal Vaccine: Pediatrics (0 to 5 Years) and At-Risk Patients (6 to 64 Years) Aged Out No longer eligible b ased on patient's age to complete this topic RSV Immunizations Under 20 Months Aged Out No longer eligible b ased on patient's age to complete this topic Procedures Procedure Name Priority Date/Time Associated Diagnosis Comments XR CHEST PORTABLE STAT 05/17/2024 6:2 1 AM PATHOLOGY LAB TECHNICIAN INFLUENZA A & B STAT 05/17/2024 5:48 AM PATHOLOGY LAB TECHNICIAN CORONAVIRUS (COVID 19) STAT 05/17/2024 5:48 AM PATHOLOGY LAB TECHNICIAN TROPONIN, QUANT STAT 05/17/2024 5:44 AM PATHOLOGY LAB TECHNICIAN PRO-BRAIN NATRIURETIC PEPTIDE STAT 05/17/2024 5:44 AM PATHOLOGY LAB TECHNICIAN COMPREHENSIVE METABOLIC PANEL STAT 05/17/2024 5:44 AM PATHOLOGY LAB TECHNICIAN CBC W/DIFF AUTOMATED STAT 05/17/2024 5:44 AM PATHOLOGY LAB TECHNICIAN ECG 12-LEAD Routine 05/17/2024 5:43 AM PATHOLOGY LAB TECHNICIAN Procedure Note - 05/17/2024 5:43 AM CSTThis note is in progress. [facility] Test Date: 2024-05-17 Pat Name: NATAN LAGUNA Department: 85 Room: EXAM 303 Gender: Male It Administrative Assistant: : [id number] Requested By: ESTEBAN WHITTINGTON Order Number: [id number] Stephanie MD: Measurements Intervals [place] Rate: 89 P: 74 MT: 157 QRS: 182 QRSD: 165 T: 67 QT: 425 QTc: 520 Interpretive Statements ELECTRONIC VENTRICULAR PACEMAKER ABNORMAL RHYTHM ECG Compared to ECG 05/06/2024 09:08:59 No significant changes XR CHEST PA+LAT STAT 05/06/2024 9:21 AM PATHOLOGY LAB TECHNICIAN PRO-BRAIN NATRIURETIC PEPTIDE STAT 05/06/2024 9:16 AM PATHOLOGY LAB TECHNICIAN TROPONIN, QUANT STAT 05/06/2024 9:16 AM PATHOLOGY LAB TECHNICIAN COMPREHENSIVE METABOLIC PANEL STAT 05/06/2024 9:16 AM PATHOLOGY LAB TECHNICIAN CBC W/DIFF AUTOMATED STAT 05/06/2024 9:16 AM PATHOLOGY LAB TECHNICIAN ECG 12-LEAD Routine 05/06/2024 9:08 AM PATHOLOGY LAB TECHNICIAN CHLAMYDIA GC RNA STAT 02/28/2024 12:46 AM CDT URINALYSIS, AUTO, COMPLETE STAT 02/28/2024 12:46 AM CDT from Last 3 Months Results * XR CHEST PORTABLE (05/17/2024 6:21 AM PATHOLOGY LAB TECHNICIAN) Anatomical Region Laterality Modality Chest Radiographic Lucila ging 05/17/2024 6:32 AM PATHOLOGY LAB TECHNICIAN Impressions 05/17/2024 6:33 AM PATHOLOGY LAB TECHNICIAN IMPRESSION: 1. ??NO RADIOGRAPHIC EVIDENCE OF ACTIVE DISEASE THE CHEST. Signed: Winston Bassett MD Referred By: ?? Interpreted By: Winston Bassett MD, 05/17/2024 6:32 AM Narrative 05/17/2024 6:33 AM PATHOLOGY LAB TECHNICIAN [facility] [address] [facility] [place] [address] PATIENT NAME: NATAN LAGUNA EXAM: Chest one view DATE OF EXAM: 05/17/2024 COMPARISON EXAM: 05/06/2024 INDICATION: Short of breath TECHNIQUE: AP chest FINDINGS: Patient slightly rotated. ??Heart size within normal limits. ??Pulmonary vasculature unremarkable. ??Left subclavian transvenous ICD lead placements unchanged. ??No acute pulmonary parenchymal opacity. ??No pleural effusion. ??No hyperinflation. Procedure Note Winston Bassett MD - 05/17/2024 [facility] [address] [facility] [place] [address] PATIENT NAME: NATAN LAGUNA EXAM: Chest one view DATE OF EXAM: 05/17/2024 COMPARISON EXAM: 05/06/2024 INDICATION: Short of breath TECHNIQUE: AP chest FINDINGS: Patient slightly rotated. Heart size within normal limits.Pulmonary vasculature unremarkable. Left subclavian transvenous ICD leadplacements unchanged. No acute pulmonary parenchymal opacity. No pleuraleffusion. No hyperinflation. IMPRESSION: 1. NO RADIOGRAPHIC EVIDENCE OF ACTIVE DISEASE THE CHEST. Signed: Winston Bassett MD Referred By: Interpreted By: Winston Bassett MD, 05/17/2024 6:32 AM Esteban Whittington MD GENERAL IMAGING Final Result * CORONAVIRUS (COVID-19) MOLECULAR (05/17/2024 5:48 AM PATHOLOGY LAB TECHNICIAN) CORONAVIRUS SARS COV 2 RNA NEGATIVE NEGATIVE 05/17/2024 6:12 AM PATHOLOGY LAB TECHNICIAN [facility] Comment: NEGATIVE RESULTS DO NOT RULE OUT COVID 19 AND SHOULD NOT BE USED THE SOLE BASIS FOR TREATMENT OR PATIENT MANAGEMENT DECISIONS, INCLUDING INFECTION CONTROL DECISIONS. NEGATIVE RESULTS SHOULD BE CONSIDERED IN THE CONTEXT OF A PATIENT'S RECENT EXPOSURES, HISTORY AND THE PRESENCE OF CLINICAL SIGNS AND SYMPTOMS CONSISTENT WITH COVID 19. THE ID NOW COVID-19 2.0 TEST HAS BEEN AUTHORIZED BY THE FDA UNDER EAU FOR USE BY AUTHORIZED LABORATORIES. PERFORMED BY NUCLEIC ACID AMPLIFICATION FOR MOLECULAR QUALITATIVE DETECTION OF SARS-COV-2. SPECIMEN TYPE NASAL 05/17/2024 5:50 AM PATHOLOGY LAB TECHNICIAN [facility] NASOPHARYNGEAL SWAB / Unknown 05/17/2024 5:48 AM PATHOLOGY LAB TECHNICIAN Esteban Whittington MD MICROBIOLOGY - G ENERAL ORDERABLES Final Result [facility] [address] [place] [address], * INFLUENZA A & B (05/17/2024 5:48 AM PATHOLOGY LAB TECHNICIAN) SPECIMEN TYPE NASOPHARYNX 05/17/2024 5:58 AM PATHOLOGY LAB TECHNICIAN [facility] INFLUENZA A NEGATIVE NEGATIVE 05/17/2024 6:17 AM PATHOLOGY LAB TECHNICIAN [facility] INFLUENZA B NEGATIVE NEGATIVE 05/17/2024 6:17 AM PATHOLOGY LAB TECHNICIAN [facility] NASAL STRUCTURE / Unknown 05/17/2024 5:48 AM PATHOLOGY LAB TECHNICIAN Esteban Whittington MD MICROBIOLOGY - G ENERAL ORDERABLES Final Result [facility] [address] [place] [address], * PRO-BRAIN NATRIURETIC PEPTIDE (05/17/2024 5:44 AM PATHOLOGY LAB TECHNICIAN) Only the most recent of2 resultswithin the time period is included. PRO-B TYPE NATRIURETIC PEPTIDE 110 <125 PG/ML 05/17/2024 6:15 AM PATHOLOGY LAB TECHNICIAN [facility] Comment: CUT POINTS ESTABLISHED BY [employer] ON NT PROBNP (ICON) STUDY (2006). AGE INDEPENDENT: <300 PG/ML HAS A 99% NEGATIVE PREDICTIVE VALUE FOR EXCLUDING ACUTE CHF <50 YEARS: >450 PG/ML IS CONSISTENT WITH ACUTE CHF 50-75 YEARS: >900 PG/ML IS CONSISTENT WITH ACUTE CHF >75 YEARS: >1800 PG/ML IS CONSISTENT WITH ACUTE CHF IN PATIENTS WITH RENAL INSUFFICIENCY (GFR <60), >1200 PG/ML YIELDS A DIAGNOSTIC SENSITIVITY AND SPECIFICITY OF 89% AND 72% FOR ACUTE CHF. 05/17/2024 5:44 AM PATHOLOGY LAB TECHNICIAN us Esteban Whittington MD LABORATORY Final Result [facility] [address] [place] [address], [place] [phone] * (ABNORMAL) COMPREHENSIVE METABOLIC PANEL (05/17/2024 5:44 AM PATHOLOGY LAB TECHNICIAN) Only the most recent of2 resultswithin the time period is included. [facility] GLUCOSE 107(H) 70 - 99 MG/DL 05/17/2024 6:15 AM [facility] BUN 11 7 - 18 MG/DL 05/17/2024 6:15 AM [facility] CREATININE S/P/B 1.72(H) 0.7 - 1.3 MG/DL 05/17/2024 6:15 AM [facility] SODIUM S/P/B 141 136 - 145 MMOL/L 05/17/2024 6:15 AM [facility] POTASSIUM S/P/B 4.1 3.5 - 5.1 MMOL/L 05/17/2024 6:15 AM [facility] CHLORIDE S/P/B 105 100 - 108 MMOL/L 05/17/2024 6:15 AM [facility] CO2 24.3 21 - 32 MMOL/L 05/17/2024 6:15 AM [facility] CALCIUM S/P/B 8.8 8.5 - 10.1 MG/DL 05/17/2024 6:15 AM [facility] BILIRUBIN TOTAL S/P/B 0.8 0.2 - 1.2 MG/DL 05/17/2024 6:15 AM [facility] TOTAL PROTEIN S/P/B 7.5 6.4 - 8.2 G/DL 05/17/2024 6:15 AM [facility] ALBUMIN S/P/B 3.7 3.4 - 5.0 G/DL 05/17/2024 6:15 AM [facility] AST 21 15 - 37 U/L 05/17/2024 6:15 AM [facility] ALT 17 16 - 60 U/L 05/17/2024 6:15 AM [facility] ALKALINE PHOSPHATASE S/P/B 129 50 - 136 U/L 05/17/2024 6:15 AM [facility] ANION GAP 11.7 5 - 15 MMOL/L 05/17/2024 6:15 AM [facility] BUN CREATININE RATIO 6.4 6 - 26 05/17/2024 6:15 AM [facility] A/G RATIO 1.0 1.0 - 2.0 RATIO 05/17/2024 6:15 AM [facility] GFR ESTIMATE 46(L) >90 ML/MIN/1.7 3 M2 05/17/2024 6:15 AM [facility] Comment: NOTE: eGFR is not calculated for patients <18 years of age. This is an estimated GFR calculation using the new CKD EPI creatinine equation without race and so does not require a correction factor for race. This estimated GFR should not be used for calculating drug doses. 05/17/2024 5:44 AM PATHOLOGY LAB TECHNICIAN Esteban Whittington MD LABORATORY Final Result [facility] [address] [place] [address], * (ABNORMAL) CBC W/DIFF AUTOMATED (05/17/2024 5:44 AM PATHOLOGY LAB TECHNICIAN) Only the most recent of2 resultswithin the time period is included. WBC 7.58 4.4 - 11.0 x10'3/uL 05/17/2024 5:58 AM [facility] RBC 5.00 4.50 - 5.90 x10'6/uL 05/17/2024 5:58 AM [facility] HGB 14.3 14.0 - 17.5 G/DL 05/17/2024 5:58 AM [facility] HCT 42.6 41.5 - 50.4 % 05/17/2024 5:58 AM [facility] MCV 85.2 80.0 - 96.0 FL 05/17/2024 5:58 AM [facility] MCH 28.6 26.5 - 31.4 PG 05/17/2024 5:58 AM [facility] MCHC 33.6 31.9 - 34.8 G/DL 05/17/2024 5:58 AM [facility] RDW 14.6(H) 12.3 - 14.3 % 05/17/2024 5:58 AM [facility] PLT 244 151 - 353 x10'3/uL 05/17/2024 5:58 AM [facility] MPV 8.9(L) 9.7 - 11.9 FL 05/17/2024 5:58 AM [facility] RBC MORPHOLOGY NORMAL 05/17/2024 5:58 AM [facility] PLT MORPH. NORMAL 05/17/2024 5:58 AM [facility] WBC MORPHOLOGY NORMAL 05/17/2024 5:58 AM [facility] LYMPHOCYTES % 10.8(L) 15.8 - 45.0 % 05/17/2024 5:58 AM [facility] NEUTROPHILS % 72.7(H) 42.1 - 71.9 % 05/17/2024 5:58 AM [facility] MONOCYTES % 8.3 5.7 - 12.5 % 05/17/2024 5:58 AM [facility] EOSINOPHILS 7.5(H) 0.0 - 5.6 % 05/17/2024 5:58 AM PATHOLOGY LAB TECHNICIAN [facility] BASOPHILS 0.4 0.0 - 1.3 % 05/17/2024 5:58 AM [facility] ABS. NEUTROPHILS 5.51 1.40 - 6.00 x10'3/uL 05/17/2024 5:58 AM PATHOLOGY LAB TECHNICIAN [facility] IMMATURE GRANS % 0.3 0.0 - 0.5 % 05/17/2024 5:58 AM [facility] ABS. LYMPHOCYTES 0.82 0.80 - 4.70 x10'3/uL 05/17/2024 5:58 AM [facility] 05/17/2024 5:44 AM PATHOLOGY LAB TECHNICIAN us Esteban Whittington MD LABORATORY Final Result Performing Organization Address [facility]/ZIP Co de Phone Number [facility] [address] [place] [address], [place] [phone] * TROPONIN, QUANT (05/17/2024 5:44 AM PATHOLOGY LAB TECHNICIAN) Only the most recent of2 resultswithin the time period is included. TROPONIN I HIGH SENSITIVITY 10 0 - 75 ng/L 05/17/2024 6:13 AM PATHOLOGY LAB TECHNICIAN [facility] Comment: HIGH DOSES OF BIOTIN, TROPONIN-SPECIFIC AUTOANTIBODIES, AND ANTIBODY THERAPY CONTAINING HAMA MAY INTERFERE WITH THIS TEST RESULT. CORRELATION TO CLINICAL HISTORY AND PRESENTATION RECOMMENDED. 05/17/2024 5:44 AM PATHOLOGY LAB TECHNICIAN us Esteban Whittington MD LABORATORY Final Result Performing Organization Address [facility]/ZIP Co de Phone Number [facility] [address] [place] [address], [place] [phone] * XR CHEST PA+LAT (05/06/2024 9:21 AM PATHOLOGY LAB TECHNICIAN) Anatomical Region Laterality Modality Chest Radiographic Lucila ging 05/06/2024 9:23 AM PATHOLOGY LAB TECHNICIAN Impressions 05/06/2024 9:25 AM PATHOLOGY LAB TECHNICIAN IMPRESSION: No acute cardiopulmonary findings. Referred By: ?? Interpreted By: Agusto Oconnell MD, 05/06/2024 9:23 AM Narrative 05/06/2024 9:25 AM PATHOLOGY LAB TECHNICIAN [facility] [address] [place] [address] XR CHEST PA+LAT INDICATION: noises in lungs , shortness of breath. TECHNIQUE: PA and lateral view of the chest. COMPARISON: Chest radiograph 09/22/2023. FINDINGS: Left subclavian approach biventricular AICD in similar position. ??Cardiomediastinal silhouette is within normal limits. ??No pulmonary vascular congestion. ??No focal pulmonary consolidation, pleural effusions, or pneumothorax identified. ??Mild thoracic spondylosis. Procedure Note Agusto Oconnell MD - 05/06/2024 [facility] [address] [place] [address] XR CHEST PA+LAT INDICATION: noises in lungs , shortness of breath. TECHNIQUE: PA and lateral view of the chest. COMPARISON: Chest radiograph 09/22/2023. FINDINGS: Left subclavian approach biventricular AICD in similar position.Cardiomediastinal silhouette is within normal limits. No pulmonaryvascular congestion. No focal pulmonary consolidation, pleural effusions,or pneumothorax identified. Mild thoracic spondylosis. IMPRESSION: No acute cardiopulmonary findings. Referred By: Interpreted By: Agusto Oconnell MD, 05/06/2024 9:23 AM us Wilian Granado MD GENERAL IMAGING Final R esult * ECG 12 lead (05/06/2024 9:08 AM PATHOLOGY LAB TECHNICIAN) 05/06/2024 9:08 AM PATHOLOGY LAB TECHNICIAN Narrative [facility] - 05/06/2024 11:14 AM PATHOLOGY LAB TECHNICIAN ?[facility] ? Test Date: ?2024-05-06 Pat Name: ? NATAN LAGUNA ?Department: ?? 85 ? Room: ? EXAM 101 Gender: ? Male ? It Administrative Assistant: ?? : ?[id number] ? Requested By: WILIAN GRANADO Order Number: [id number] ? Reading MD: ?? Benson Russo ? Measurements Intervals ?[place] ? Rate: ? 103 ?P: ?76 MT: ? 163 ?QRS: ?124 QRSD: ? 167 ?T: ?29 QT: ? 409 ? QTc: ?536 ? Interpretive Statements ELECTRONIC VENTRICULAR PACEMAKER ABNORMAL RHYTHM ECG Compared to ECG 09/22/2023 14:50:31 No significant changes OLOGY LAB TECHNICIAN Procedure Note Benson Russo MD - 05/06/2024 [facility] Test Date: 2024-05-06 Pat Name: NATAN LAGUNA Department: 85 Room: EXAM 101 Gender: Male It Administrative Assistant: : 1965 Requested By: WILIAN GRANADO Order Number: [id number] Reading MD: Benson Russo Measurements Intervals [place] Rate: 103 P: 76 MT: 163 QRS: 124 QRSD: 167 T: 29 QT: 409 QTc: 536 Interpretive Statements ELECTRONIC VENTRICULAR PACEMAKER ABNORMAL RHYTHM ECG Compared to ECG 09/22/2023 14:50:31 No significant changes OLOGY LAB TECHNICIAN us Wilian Granado MD ECG ORDERABLES Final R esult [facility] * CHLAMYDIA GC RNA (02/28/2024 12:46 AM CDT) SPECIMEN SOURCE URINE 1:41 AM CDT [facility] CHLAMYDIA PCR NEGATIVE NEGATIVE 02/29/2024 12:39 AM CDT [facility] Comment:PERFORMED BY NUCLEIC ACID AMPLIFICATION N.GONORRHOEAE RNA TMA NEGATIVE NEGATIVE 02/29/2024 12:39 AM CDT [facility] Comment:PERFORMED BY NUCLEIC ACID AMPLIFICATION URINE SPECIMEN / Unknown 02/28/2024 12:46 AM CDT Chuck Cormier MD MICROBIOLOGY - GENERAL ORD ERABLES Final Result [facility] [address] [place] [address], [place] [phone] [facility] [address] [place] [address], [place] [phone] * (ABNORMAL) URINALYSIS, AUTO, COMPLETE (02/28/2024 12:46 AM CDT) COLOR (U) YELLOW 02/28/2024 1:25 AM CDT [facility] TRANSPARENCY HAZY 02/28/2024 1:25 AM CDT [facility] SPECIFIC GRAVITY (U) 1.025 1.000 - 1.030 02/28/2024 1:25 AM CDT [facility] U PH 6.0 5.0 - 9.0 02/28/2024 1:25 AM CDT [facility] LEUKOCYTES (U) NEGATIVE NEGATIVE 02/28/2024 1:25 AM CDT [facility] NITRITES NEGATIVE NEGATIVE 02/28/2024 1:25 AM CDT [facility] PROTEIN RANDOM (U) 2+(A) NEGATIVE 02/28/2024 1:25 AM CDT [facility] GLUCOSE (U) 3+(A) NEGATIVE 02/28/2024 1:25 AM CDT [facility] KETONES MG/DL (U) NEGATIVE NEGATIVE 02/28/2024 1:25 AM CDT [facility] BILIRUBIN (U) NEGATIVE NEGATIVE 02/28/2024 1:25 AM CDT [facility] BLOOD (U) 3+(A) NEGATIVE 02/28/2024 1:25 AM CDT [facility] WBC/HPF 0-5 0 - 5 /HPF 02/28/2024 1:25 AM CDT [facility] RBC/HPF 10-25 0 - 5 /HPF 02/28/2024 1:25 AM CDT [facility] EPI/HPF NONE SEEN /HPF 02/28/2024 1:25 AM CDT [facility] URINE SPECIMEN OBTAINED BY CLEAN CATCH PROCEDURE / Unknown 02/28/2024 12:46 AM CDT us Chuck Cormier MD URINE ORDERABLES Final Res ult [facility] [address] [place] [address], [place] [phone] from Last 3 Months Insurance Care Teams Dog Breeder Relationship Specialty Start Date End Date Zak Anderson MD [address] [place] [address] PCP - General INTERVENTIONAL CARDIOLOGY 05/06/24
--- OUTSIDE RECORDS SUMMARY | 2024-05-17 12:00 | XMS_ITS | Encounter Summary ---
Author Organization [facility] Address [address] [place] [address]. [place], [place] [id number] [place] [address] Care Team Providers Care Export Sales Manager Name Role Phone Naomy Maddox MD Primary Care Provider [phone] Reason for Visit * Reason Comments URI Encounter Details Date Type Department Care Team (Late st Contact Info) Description 04/12/2024 12:33 PM SHEETER MACHINE OPERATOR - 04/12/2024 1:17 PM SHEETER MACHINE OPERATOR Emergency [facility] Emergency Room [address] [place] [address] Soraida Laguna MD [address] [place] [address] URI Discharge Disposition: Home or Self Care (Routine Discharge) Social History Tobacco Use Types Packs/Day Years [...] on file documented as of this encounter Last Filed Vital Signs Vital Sign Reading Time Taken Comments Blood Pressure 153/110 04/12/2024 12:36 PM SHEETER MACHINE OPERATOR Pulse 88 04/12/2024 12:36 PM SHEETER MACHINE OPERATOR Temperature 36.7 ??C (98 ??F) 04/12/2024 12:36 PM SHEETER MACHINE OPERATOR Respiratory Rate 18 04/12/2024 12:36 PM SHEETER MACHINE OPERATOR Oxygen Saturation 99% 04/12/2024 12:36 PM SHEETER MACHINE OPERATOR Inhaled Oxygen Concentration - - Weight 88.5 kg (195 lb 1.7 oz) 04/12/2024 12:36 PM SHEETER MACHINE OPERATOR Height 177.8 cm (5' 10 ) 04/12/2024 12:36 PM SHEETER MACHINE OPERATOR Body Mass Index 27.99 04/12/2024 12:36 PM SHEETER MACHINE OPERATOR documented in this encounter Discharge Instructions * Discharge Instructions* Soraida Laguna MD - 04/12/2024 12:57 PM SHEETER MACHINE OPERATOR You had ear wax impaction. You will be sent home with prescriptions for antibiotic ear drops, you can use these for 5 days to help with healing/removal of wax. You can also get over the counter ear drops with carbamide peroxide. I have sent a prescription but these are over the counter. You can use Flonase to help with nasalcongestion, nasal saline and you can use zyrtec to help with your symptoms. Please schedule a follow up appointment with your primary care physician within the next 5-7 days Please return to the Emergency Department for any new or worsening concern TER MACHINE OPERATOR TER MACHINE OPERATOR * Attachments The following attachments cannot be sent through Care Everywhere. * Ear wax impaction (Turkish) documented in this encounter Medications at Time of Discharge albuterol sulfate HFA 108 (90 Base) MCG/ACT inhaler Inhale 2 puffs into the lungs every 6 (six) hours as needed for Wheezing. 8 g 09/22/2023 amLODIPine (NORVASC) 10 MG tablet Take 1 tablet (10 mg total) by mouth daily. 08/05/2023 ARIPiprazole (ABILIFY) 5 MG tablet Take 1 tablet (5 mg total) by mouth daily. 09/07/2023 atorvastatin (LIPITOR) 40 MG tablet Take 1 tablet (40 mg total) by mouth daily. 08/05/2023 carvedilol (COREG) 25 MG tablet Take 1 tablet (25 mg total) by mouth 2 (two) times daily. furosemide (LASIX) 40 MG tablet Take 1 tablet (40 mg total) by mouth 2 (two) times daily. hydrALAZINE (APRESOLINE) 10 MG tablet Take 2 tablets (20 mg total) by mouth 3 (three) times daily. 09/07/2023 5 hydrOXYzine (ATARAX) 10 MG tablet Take 1 tablet (10 mg total) by mouth daily. 08/08/2023 metoclopramide (REGLAN) 5 MG tablet Take 1 tablet (5 mg total) by mouth every 6 (six) hours as needed. 15 tablet 10/14/2022 ondansetron (ZOFRAN-ODT) 4 MG disintegrating tablet Take 1 tablet (4 mg total) by mouth every 8 (eight) hours as needed for Nausea. 20 tablet 07/07/2022 PARoxetine (PAXIL) 40 MG tablet Take 1 tablet (40 mg total) by mouth daily. 09/04/2023 carbamide peroxide (EAR DROPS) 6.5 % otic solution Place 5 drops into both ears 2 (two) times daily for 10 days. 15 mL 04/12/2024 4 ciprofloxacin-dexame thasone (CIPRODEX) otic suspension Place 4 drops into the right ear 2 (two) times daily for 5 days. 7.5 mL 04/12/2024 4 documented as of this encounter ED Notes * Mandi Lundberg RN - 04/12/2024 12:38 PM CST 3 day history of right ear pain and sinus congestion TER MACHINE OPERATOR * Soraida Laguna MD - 04/12/2024 12:31 PM CST Chief Complaint Chief Complaint Patient presents with URI History of Present Illness Patient is a 58 yo M w/ PMH of HTN, CHF, CKD presenting with ear pain and fullness. He reports for about 3 days he has had ear pain. He is supposed to see his primary care physician tomorrow but was uncomfortable and couldn't wait. He also notes rhinorrhea, congestion. No fevers or chills. He has marci, nonproductive cough. No CP or lightheadedness, no dyspnea. No nausea, vomiting, abdominal pain. No other complaints at this time. He hasn't yet taken his morning BP medications. No known COVID/flu exposures. Medical History ALLERGIES: Review of patient's allergies indicates: No Known Allergies MEDICATIONS: Prior to Admission medications Medication Sig Start Date End Date Taking? Authorizing Provider carbamide peroxide (EAR DROPS) 6.5 % otic solution Place 5 drops into both ears 2 (two) times dailyfor 10 days. 04/12/24 04/22/24 Yes Soraida Laguna MD ciprofloxacin-dexamethasone (CIPRODEX) otic suspension Place 4 drops into the right ear 2 (two) times daily for 5 days. 04/12/24 04/17/24 Yes Soraida Laguna MD albuterol sulfate HFA 108 (90 Base) MCG/ACT inhaler Inhale 2 puffs into the lungs every 6 (six) hours as needed for Wheezing. 09/22/23 Ping Hernández MD amLODIPine (NORVASC) 10 MG tablet Take 1 tablet (10 mg total) by mouth daily. 08/05/23 Default History Genericprovider ARIPiprazole (ABILIFY) 5 MG tablet Take 1 tablet (5 mg total) by mouth daily. 09/07/23 Default History Genericprovider atorvastatin (LIPITOR) 40 MG tablet Take 1 tablet (40 mg total) by mouth daily. 08/05/23 Default History Genericprovider carvedilol (COREG) 25 MG tablet Take 1 tablet (25 mg total) by mouth 2 (two) times daily. Default History Genericprovider furosemide (LASIX) 40 MG tablet Take 1 tablet (40 mg total) by mouth 2 (two) times daily. Default History Genericprovider hydrALAZINE (APRESOLINE) 10 MG tablet Take 2 tablets (20 mg total) by mouth 3 (three) times daily. 09/07/23 09/06/24 Default History Genericprovider hydrOXYzine (ATARAX) 10 MG tablet Take 1 tablet (10 mg total) by mouth daily. 08/08/23 Default History Genericprovider metoclopramide (REGLAN) 5 MG tablet Take 1 tablet (5 mg total) by mouth every 6 (six) hours as needed. 10/14/22 Pascual Leal MD ondansetron (ZOFRAN-ODT) 4 MG disintegrating tablet Take 1 tablet (4 mg total) by mouth every 8 (eight) hours as needed for Nausea. 07/07/22 Devonte Mckinnon MD,PHD PARoxetine (PAXIL) 40 MG tablet Take 1 tablet (40 mg total) by mouth daily. 09/04/23 Default HistoryGenericprovider PAST MEDICAL HISTORY: Past Medical History: Diagnosis Date CHF (congestive heart failure) ([facility]) Hypertension Renal disorder PAST SURGICAL HISTORY: Past Surgical History: Procedure Laterality Date INTERNAL DEFIBRILLATOR TONSILLECTOMY FAMILY HISTORY: No family history on file. SOCIAL HISTORY: Social History Tobacco Use Smoking status: Never Smokeless tobacco: Never Vaping Use Vaping status: Never Used Substance Use Topics Alcohol use: Yes Drug use: Never Review of Systems Review of Systems Constitutional: Negative for chills and fever. HENT: Positive for congestion, ear pain and rhinorrhea. Negative for ear discharge and sore throat. Respiratory: Negative for cough and shortness of breath. Cardiovascular: Negative for chest pain. Gastrointestinal: Negative for abdominal pain, constipation, diarrhea, nausea and vomiting. Genitourinary: Negative for decreased urine volume and difficulty urinating. Physical Exam Filed Vitals: 04/12/24 1236 BP: (!) 153/110 Pulse: 88 Resp: 18 Temp: 98 ??F (36.7 ??C) TempSrc: Temporal SpO2: 99% Weight: 88.5 kg (195 lb 1.7 oz) Height: 1.778 m (5' 10 ) Physical Exam Vitals and nursing note reviewed. Constitutional: General: He is not in acute distress. Appearance: Normal appearance. HENT: Head: Normocephalic and atraumatic. Right Ear: There is impacted cerumen. Left Ear: Tympanic membrane, ear canal and external ear normal. Mouth/Throat: Mouth: Mucous membranes are moist. Pharynx: Oropharynx is clear. No oropharyngeal exudate or posterior oropharyngeal erythema. Cardiovascular: Rate and Rhythm: Normal rate and regular rhythm. Pulmonary: Effort: Pulmonary effort is normal. Breath sounds: Normal breath sounds. Abdominal: Tenderness: There is no abdominal tenderness. Neurological: Mental Status: He is alert. Psychiatric: Behavior: Behavior normal. Diagnostic Studies / Procedures ELECTROCARDIOGRAMS: No results found for this visit on 04/12/24. LABORATORY STUDIES: No results found for this visit on 04/12/24. IMAGING STUDIES No orders to display ED Course / Medical Decision Making Patient is a 55-year-old male presenting with ear pain as described above. Hemodynamically he is hypertensive on arrival. States he has not yet taken his blood pressure medication this morning. Denies chest pain, lightheadedness, dyspnea. He reports rhinorrhea, congestion, cough. He does not want COVID, flu testing at this time. He is not worried about strep throat. Lungs are clear bilaterally, offered chest x-ray but at this time he does not want that done. On examination he does have earwax impaction of the right ear canal. Using an ear curette I was able to remove a large portion of the cerumen buildup in his ear. He is feeling better and hearing much better. He does have some erythema of the canal will treat with Ciprodex drops. I also given information for carbamide peroxide that he can use when he is in the Ciprodex drops. Recommended Flonase, nasal saline rinses and his nose to help with rhinorrhea and congestion. He does not want any blood work done at this time as he is otherwise feeling well. He feels safe for discharge to home. He is going to see his primary care provider tomorrow. Discussed strict return precautions. Recommended he take his blood pressure medications as soon as he gets home, he does not want to take them here. Patient is able to express understandingof diagnosis and care plan. Medical Decision Making Clinical Impression Right ear impacted cerumen (Primary) Disposition: Discharge Soraida Laguna MD 04/12/24 1304 TER MACHINE OPERATOR documented in this encounter Plan of Treatment Not on file documented as of this encounter Visit Diagnoses Diagnosis Right ear impacted cerumen- Primary Impacted cerumen documented in this encounter Care Teams Export Sales Manager Relationship Specialty Start Date End Date Naomy Maddox MD [address] [place] [address] PCP - General INTERNAL MEDICINE 07/07/22 05/05/24 documented as of this encounter
--- OUTSIDE RECORDS SUMMARY | 2024-05-17 12:00 | XMS_ITS | Encounter Summary ---
Author Organization [facility] Address [address] [place] [address]. [address] [address] Care Team Providers Care Watch Inspector Name Role Phone Naomy Maddox MD Primary Care Provider [phone] Encounter Details Date Type Department Care Team (Latest Contact Info) Description 09/22/2023 Travel Social History Tobacco Use Types Packs/Day [...] on filedocumented in this encounter Care Teams Watch Inspector Relationship Specialty Start Date End Date Naomy Maddox MD [address] [place] [address] PCP - General INTERNAL MEDICINE 07/07/22 05/05/24 documented as of this encounter
--- OUTSIDE RECORDS SUMMARY | 2024-05-17 12:00 | XMS_ITS | Encounter Summary ---
Author Organization [facility] Address [address] [place] [address]. [place], [place] [address] [place] [address] Care Team Providers Care Mgmt Analyst Name Role Phone Naomy Maddox MD Primary Care Provider [phone] Encounter Details Date Type Department Care Team (Latest Contact Info) Description 02/03/2024 7:10 AM CDT - 02/03/2024 11:59 PM T Hospital Encounter [facility] [address] [place] [address] [place] [address] [facility] [address] [place] [address] Discharge Disposition: Home or Self Care (Routine [...] on file documented as of this encounter Medications at Time of Discharge [...] by mouth 3 (three) times daily. 09/07/2023 hydrOXYzine (ATARAX) 10 MG tablet Take 1 [...] (40 mg total) by mouth daily. 09/04/2023 calcitriol (ROCALTROL) 0.25 MCG capsule Take 1 capsule (0.25 mcg total) by mouth. 04/12/2023 4 documented as of this encounter Plan of Treatment Not on file documented as of this encounter Procedures Procedure Name Priority Date/Time Associated Diagnosis Comments HC CREATININE OTH SOURCE Routine 02/03/2024 8:33 AM CDT Chronic kidney disease, stage IV (severe) ([facility]/HCC HHS/HCC) Renal hypertension Essential hypertension, malignant PTH - INTACT Routine 02/03/2024 8:33 AM CDT Chronic kidney disease, stage IV (severe) (CMS/HCC HHS/HCC) Renal hypertension Essential hypertension, malignant RENAL FUNCTION PANEL Routine 02/03/2024 8:33 AM CDT Chronic kidney disease, stage IV (severe) (CMS/HCC HHS/HCC) Renal hypertension Essential hypertension, malignant CBC W/DIFF AUTOMATED Routine 02/03/2024 8:33 AM CDT Chronic kidney disease, stage IV (severe) (CMS/HCC HHS/HCC) Renal hypertension Essential hypertension, malignant documented in this encounter Results * (ABNORMAL) RENAL FUNCTION PANEL (02/03/2024 8:33 AM CDT) GLUCOSE 87 70 - 99 MG/DL 02/03/2024 9:58 AM T [facility] BUN 11 7 - 18 MG/DL 02/03/2024 9:58 AM T [facility] CREATININE S/P/B 1.92(H) 0.7 - 1.3 MG/DL 02/03/2024 9:58 AM T [facility] SODIUM S/P/B 142 136 - 145 MMOL/L 02/03/2024 9:58 AM CDT [facility] POTASSIUM S/P/B 4.0 3.5 - 5.1 MMOL/L 02/03/2024 9:58 AM T [facility] CHLORIDE S/P/B 105 100 - 108 MMOL/L 02/03/2024 9:58 AM T [facility] CO2 27.8 21 - 32 MMOL/L 02/03/2024 9:58 AM [facility] CALCIUM S/P/B 9.3 8.5 - 10.1 MG/DL 02/03/2024 9:58 AM T [facility] ALBUMIN S/P/B 3.8 3.4 - 5.0 G/DL 02/03/2024 9:58 AM T [facility] PHOSPHORUS 2.1(L) 2.5 - 4.9 MG/DL 02/03/2024 9:58 AM T [facility] ANION GAP 9.2 5 - 15 MMOL/L 02/03/2024 9:58 AM CDT [facility] BUN CREATININE RATIO 5.7(L) 6 - 26 02/03/2024 9:58 AM CDT [facility] GFR ESTIMATE 40(L) >90 ML/MIN/1.7 3 M2 02/03/2024 9:58 AM CDT [facility] Comment: NOTE: eGFR is not calculated for patients <18 years of age. This is an estimated GFR calculation using the new CKD EPI creatinine equation without race and so does not require a correction factor for race. This estimated GFR should not be used for calculating drug doses. 02/03/2024 8:33 AM CDT Bryon Meeks MD LABORATORY Final Result [facility] [address] [place] [address], * (ABNORMAL) CBC W/DIFF AUTOMATED (02/03/2024 8:33 AM CDT) WBC 7.51 4.4 - 11.0 x10'3/uL 02/03/2024 9:38 AM CDT [facility] RBC 5.34 4.50 - 5.90 x10'6/uL 02/03/2024 9:38 AM CDT [facility] HGB 15.7 14.0 - 17.5 G/DL 02/03/2024 9:38 AM CDT [facility] HCT 46.3 41.5 - 50.4 % 02/03/2024 9:38 AM CDT [facility] MCV 86.7 80.0 - 96.0 FL 02/03/2024 9:38 AM CDT [facility] MCH 29.4 26.5 - 31.4 PG 02/03/2024 9:38 AM CDT [facility] MCHC 33.9 31.9 - 34.8 G/DL 02/03/2024 9:38 AM CDT [facility] RDW 13.6 12.3 - 14.3 % 02/03/2024 9:38 AM CDT [facility] PLT 245 151 - 353 x10'3/uL 02/03/2024 9:38 AM T [facility] MPV 9.3(L) 9.7 - 11.9 FL 02/03/2024 9:38 AM T [facility] RBC MORPHOLOGY NORMAL 02/03/2024 9:38 AM T [facility] PLT MORPH. NORMAL 02/03/2024 9:38 AM T [facility] WBC MORPHOLOGY NORMAL 02/03/2024 9:38 AM T [facility] LYMPHOCYTES % 11.9(L) 15.8 - 45.0 % 02/03/2024 9:38 AM CDT [facility] NEUTROPHILS % 71.5 42.1 - 71.9 % 02/03/2024 9:38 AM T [facility] MONOCYTES % 7.6 5.7 - 12.5 % 02/03/2024 9:38 AM T [facility] EOSINOPHILS 8.3(H) 0.0 - 5.6 % 02/03/2024 9:38 AM T [facility] BASOPHILS 0.4 0.0 - 1.3 % 02/03/2024 9:38 AM T [facility] ABS. NEUTROPHILS 5.38 1.40 - 6.00 x10'3/uL 02/03/2024 9:38 AM CDT [facility] IMMATURE GRANS % 0.3 0.0 - 0.5 % 02/03/2024 9:38 AM CDT [facility] ABS. LYMPHOCYTES 0.89 0.80 - 4.70 x10'3/uL 02/03/2024 9:38 AM CDT [facility] 02/03/2024 8:33 AM CDT us Bryon Meeks MD LABORATORY Final Result Performing Organization Address [facility] Co de Phone Number [facility] [address] [place] [address], [place] [phone] * (ABNORMAL) PROTEIN CREAT RATIO URINE (02/03/2024 8:33 AM CDT) PROTEIN URINE TOTAL RANDOM 37.9(H) <10 MG/DL 02/03/2024 10:14 AM CDT [facility] CREATININE (U) 229.8 39 - 259 MG/DL 02/03/2024 10:14 AM CDT [facility] PROTEIN/CREATIN INE RATIO 0.2 02/03/2024 10:14 AM CDT [facility] URINE SPECIMEN / Unknown 02/03/2024 8:33 AM CDT us Bryon Meeks MD URINE ORDERABLES Final Result Performing Organization Address City/[facility]/ZIP Co de Phone Number [facility] [address] [place] [address], [place] [phone] * (ABNORMAL) PTH - INTACT (02/03/2024 8:33 AM CDT) PTH INTACT 151.3(H) 18.4 - 80.1 PG/ML 02/03/2024 3:[address] [facility] 02/03/2024 8:33 AM CDT Bryon Meeks MD LABORATORY Final Result [facility] [address] [place] [address], [place] [phone] documented in this encounter Visit Diagnoses Diagnosis Chronic kidney disease, stage IV (severe) (CMS/HCC [facility]/HCC) Chronic kidney disease, Stage IV (severe) Renal hypertension Unspecified hypertensive kidney disease with chronic kidney disease stage I through stage IV, or unspecified Essential hypertension, malignant documented in this encounter Care Teams Mgmt Analyst Relationship Specialty Start Date End Date Naomy Maddox MD [address] [place] [address] PCP - General INTERNAL MEDICINE 07/07/22 05/05/24 documented as of this encounter
--- OUTSIDE RECORDS SUMMARY | 2024-05-17 12:00 | XMS_ITS | Encounter Summary ---
Author Organization [facility] Address [address] [place] [address]. [place], [place] [address] [place] [id number] Care Team Providers Care Manager Of Health Name Role Phone Naomy Maddox MD Primary Care Provider [phone] Reason for Referral * Imaging (Emergency) - New Request Specialty Diagnoses / Procedures Referred By Tanesha dennis Referred To Contact RADIOLOGY Procedures CTA CHEST Ping Chaparro MD [address] [place] [address] Phone: tel: fax: Referral ID Status Reason Start Date Expiration Date V isits Requested Visits Authorized [id number] New Request 09/22/2023 09/21/2024 1 1 Reason for Visit * Reason Comments Medical Problem States he has fluid on his lungs Encounter Details Date Type Department Care Team (Late st Contact Info) Description 09/22/2023 2:11 PM CDT - 09/22/2023 5:44 PM CDT Emergency [facility] Emergency Room [address] [place] [address] Ping Chaparro MD [address] [place] [id number] Medical Problem (States he has fluid on his lungs) Discharge Disposition: Home or Self Care (Routine [...] Sign Reading Time Taken Comments Blood Pressure 104/74 09/22/2023 2:30 PM CDT Pulse 95 09/22/2023 2:30 PM CDT Temperature 36.4 ??C (97.6 ??F) 09/22/2023 2:11 PM CD T Respiratory Rate 20 09/22/2023 2:30 PM CDT Oxygen Saturation 95% 09/22/2023 2:30 PM CDT Inhaled Oxygen Concentration - - Weight 88.5 kg (195 lb) 09/22/2023 2:11 PM CDT Height 177.8 cm (5' 10 ) 09/22/2023 2:11 PM CDT Body Mass Index 27.98 09/22/2023 2:11 PM CDT documented in this encounter Discharge Instructions * Discharge Instructions* Ping Chaparro MD - 09/22/2023 5:08 PM CDT Take medications as prescribed. Follow-up with primary care doctor in 2 to 3 days. Return to ED symptoms worsen. Continue your other routine medications. * Attachments The following attachments cannot be sent through Care Everywhere. * Acute Bronchitis Discharge Instructions, Adult (Kazakh) documented in this encounter Medications at Time [...] (0.25 mcg total) by mouth. 04/12/2023 4 furosemide (LASIX) 80 MG tablet Take 1 tablet (80 mg total) by mouth daily. 09/09/2023 4 predniSONE (DELTASONE) 20 MG tablet Take 2 tablets (40 mg total) by mouth daily for 5 days. 10 tablet 09/22/2023 4 documented as of this encounter ED Notes * Ping Chaparro MD - 09/22/2023 2:44 PM CDT Chief Complaint Chief Complaint Patient presents with Medical Problem States he has fluid on his lungs History of Present Illness Patient is a 57-year-old male who presents with complaints of shortness of breath. He reports that he had increased shortness of breath over the past 2 days. Of note patient has a history of congestive heart failure and has a pacemaker defibrillator in place. He denies any lower extremity swelling.He denies any nausea or vomiting. No chest pain. No cough. No fever or chills. Medical History ALLERGIES: Review of patient's allergies indicates: No Known Allergies MEDICATIONS: Prior to Admission medications Medication Sig Start Date End Date Taking? Authorizing Provider albuterol sulfate HFA 108 (90 Base) MCG/ACT inhaler Inhale 2 puffs into the lungs every 6 (six) hours as needed for Wheezing. 09/22/23 Yes Ping Moreno MD furosemide (LASIX) 80 MG tablet Take 1 tablet (80 mg total) by mouth daily. 09/09/23 10/09/23 Yes Default History Genericprovider predniSONE (DELTASONE) 20 MG tablet Take 2 tablets (40 mg total) by mouth daily for 5 days. 09/22/23 09/27/23 Yes Ping Chaparro MD amLODIPine (NORVASC) 10 MG tablet Take 1 tablet (10 mg total) by mouth daily. 08/05/23 Default History Genericprovider ARIPiprazole (ABILIFY) 5 MG tablet Take 1 tablet (5 mg total) by mouth daily. 09/07/23 Default History Genericprovider atorvastatin (LIPITOR) 40 MG tablet Take 1 tablet (40 mg total) by mouth daily. 08/05/23 Default History Genericprovider calcitriol (ROCALTROL) 0.25 MCG capsule Take 1 capsule (0.25 mcg total) by mouth. 04/12/23 04/11/24Default History Genericprovider carvedilol (COREG) 25 MG tablet [...] History: Diagnosis Date CHF (congestive heart failure) ([facility]) Hypertension Renal disorder PAST SURGICAL HISTORY: Past Surgical History: Procedure Laterality Date INTERNAL DEFIBRILLATOR TONSILLECTOMY FAMILY HISTORY: No family history on file. SOCIAL HISTORY: Social History Tobacco Use Smoking status: Never Smokeless tobacco: Never Vaping Use Vaping status: Never Used Substance Use Topics Alcohol use: Yes Drug use: Never Review of Systems Review of Systems Constitutional: Negative for chills and fever. HENT: Negative for ear pain and sore throat. Eyes: Negative for visual disturbance. Respiratory: Positive for shortness of breath and wheezing. Negative for cough. Cardiovascular: Negative for chest pain, palpitations and leg swelling. Gastrointestinal: Negative for abdominal pain, nausea and vomiting. Endocrine: Negative. Genitourinary: Negative for dysuria, flank pain and frequency. Musculoskeletal: Negative for back pain and neck pain. Skin: Negative for rash. Allergic/Immunologic: Negative. Neurological: Negative for dizziness and headaches. Psychiatric/Behavioral: Negative. Physical Exam Filed Vitals: 09/22/23 1411 09/22/23 1430 BP: 106/71 104/74 Pulse: 97 95 Resp: 22 20 Temp: 97.6 ??F (36.4 ??C) SpO2: 92% 95% Weight: 88.5 kg (195 lb) Height: 1.778 m (5' 10 ) Physical Exam Vitals and nursing note reviewed. Constitutional: General: He is not in acute distress. Appearance: Normal appearance. HENT: Head: Normocephalic. Nose: Nose normal. Mouth/Throat: Mouth: Mucous membranes are moist. Cardiovascular: Rate and Rhythm: Normal rate and regular rhythm. Heart sounds: Normal heart sounds. Pulmonary: Effort: Pulmonary effort is normal. Breath sounds: Normal breath sounds. Abdominal: General: Bowel sounds are normal. Palpations: Abdomen is soft. Tenderness: There is no abdominal tenderness. Musculoskeletal: General: No swelling or tenderness. Normal range of motion. Cervical back: Normal range of motion and neck supple. Neurological: General: No focal deficit present. Mental Status: He is alert and oriented to person, place, and time. Psychiatric: Mood and Affect: Mood normal. Diagnostic Studies / Procedures ELECTROCARDIOGRAMS: Results for orders placed or performed during the hospital encounter of 09/22/[address] 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1965 Requested By: PING CHAPARRO Order Number: [id number] Reading MD: Sujit Hunter Measurements Intervals [place] Rate: 91 P: 63 VA: 167 QRS: 111 QRSD: 147 T: -40 QT: 399 QTc: 492 Interpretive Statements ELECTRONIC VENTRICULAR PACEMAKER ABNORMAL RHYTHM ECG Compared to ECG 09/15/2023 09:17:03 No significant changes LABORATORY STUDIES: Results for orders placed or performed during the hospital encounter of 09/22/23 COMPREHENSIVE METABOLIC PANEL Result Value Ref Range GLUCOSE 106 (H) 70 - 99 MG/DL BUN 16 7 - 18 MG/DL CREATININE S/P/B 2.01 (H) 0.7 - 1.3 MG/DL SODIUM S/P/B 138 136 - 145 MMOL/L POTASSIUM S/P/B 3.9 3.5 - 5.1 MMOL/L CHLORIDE S/P/B 101 100 - 108 MMOL/L CO2 26.4 21 - 32 MMOL/L CALCIUM S/P/B 8.9 8.5 - 10.1 MG/DL BILIRUBIN TOTAL S/P/B 0.6 0.2 - 1.2 MG/DL TOTAL PROTEIN S/P/B 7.9 6.4 - 8.2 G/DL ALBUMIN S/P/B 3.7 3.4 - 5.0 G/DL AST 22 15 - 37 U/L ALT 18 16 - 60 U/L ALKALINE PHOSPHATASE S/P/B 119 50 - 136 U/L ANION GAP 10.6 5 - 15 MMOL/L BUN CREATININE RATIO 8.0 6 - 26 A/G RATIO 0.9 (L) 1.0 - 2.0 RATIO GFR ESTIMATE 38 (L) >90 ML/MIN/1.73 M2 CBC W/DIFF AUTOMATED Result Value Ref Range WBC 8.53 4.4 - 11.0 x10'3/uL RBC 5.19 4.50 - 5.90 x10'6/uL HGB 15.2 14.0 - 17.5 G/DL HCT 44.5 41.5 - 50.4 % MCV 85.7 80.0 - 96.0 FL MCH 29.3 26.5 - 31.4 PG MCHC 34.2 31.9 - 34.8 G/DL RDW 13.7 12.3 - 14.3 % PLT 268 151 - 353 x10'3/uL MPV 9.0 (L) 9.7 - 11.9 FL RBC MORPHOLOGY NORMAL PLT MORPH. NORMAL WBC MORPHOLOGY NORMAL LYMPHOCYTES 16.8 15.8 - 45.0 % NEUTROPHILS 62.6 42.1 - 71.9 % MONOCYTES 8.9 5.7 - 12.5 % EOSINOPHILS 10.7 (H) 0.0 - 5.6 % BASOPHILS 0.6 0.0 - 1.3 % ABS. NEUTROPHILS 5.35 1.40 - 6.00 x10'3/uL IMMATURE GRANS 0.4 0.0 - 0.5 % ABS. LYMPHOCYTES 1.43 0.80 - 4.70 x10'3/uL PRO-BRAIN NATRIURETIC PEPTIDE Result Value Ref Range PRO-B TYPE NATRIURETIC PEPTIDE 43 <125 PG/ML TROPONIN, QUANT Result Value Ref Range TROPONIN I HIGH SENSITIVITY 5 <76 ng/L D-DIMER, QUANTITATIVE Result Value Ref Range D-DIMER 904 (H) 0 - 500 ng[FEU]/mL IMAGING STUDIES CTA CHEST Final Result by User, [id number] (09/21 1618) EXAMINATION: CTA CHEST WITH CONTRAST EXAM DATE/TIME: 09/22/2023 3:36 PM REASON FOR EXAM: Pulmonary embolism (PE) suspected, unknown D-dimer History of CHF COMPARISON: 09/15/2023 TECHNIQUE: Computed tomography angiography was performed of the chest after administration of intravenous contrast, 50 mL of Isovue-370, according to routine protocol. Additional 3-D reconstructions and postprocessing were performed independently by the attending radiologist and a separate dedicated 3-D workstation. A dose lowering technique was used for this procedure, which may include, but is not limited to, dose reduction technique, automated exposure control, iterative reconstruction, ALARA (As Low As Reasonably Achievable), or Image Gently techniques. Due to technical factors, there is a delay in contrast bolus timing. The mass, opacification of the pulmonary arteries is suboptimal. FINDINGS: VASCULAR FINDINGS: Poor opacification of the pulmonary arteries. No evidence of acute pulmonary embolism. Segmental and subsegmental branches not well evaluated.. Atherosclerotic aorta without dilatation or dissection.. Stable enlargement of the main pulmonary outflow tract at 3.6 cm. May be due to pulmonary arterial hypertension. NONVASCULAR FINDINGS: On lung windows, no suspicious pulmonary lesion, pneumothorax, or pleural effusion.. Mild peribronchial wall thickening may be due to bronchitis versus reactive airway disease. Resolution of secretions within the trachea. On soft tissue windows, no axillary or supraclavicular lymphadenopathy. On mediastinal windows, no evidence of hilar or mediastinal lymphadenopathy. Heart size normal. No pericardial effusion Advanced coronary artery calcifications. Please correlate with cardiac risk profile in this 57-year-old. Left-sided pacer leads in place. Epicardial leads noted. Limited evaluation of the upper abdomen demonstrates no acute abnormality.. 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 Cystic lesion in mid right kidney measuring 7.1 cm. On bone windows, no suspicious skeletal lesion or acute compression fracture deformity. IMPRESSION: 1. No evidence of acute pulmonary embolism. Exam is limited due to poor contrast bolus as detailed above.. 2. Stable possible pulmonary control hypertension as detailed above. 3. No patchy infiltrate or effusion. Possible mild bronchitis versus reactive airway disease. Ordered By: PING CHAPARRO Interpreted By: Gary Meléndez, 09/22/2023 4:05 PM XR CHEST PORTABLE Final Result by User, [id number] (09/22 1519) EXAMINATION: CHEST RADIOGRAPH SINGLE VIEW Exam date/time: 09/22/2023 2:54 PM Reason For Exam: sob Comparison: September 15, 2023 Technique: Upright AP view of the chest Findings: Heart size normal. Proximal airways unremarkable. No suspicious pulmonary lesion, pneumothorax, or pleural effusion.. Poor inspiration limits exam. Intact left-sided pacer leads. =====IMPRESSION:===== No acute findings. Ordered By: PING CHAPARRO Interpreted By: Gary Meléndez, 09/22/2023 3:16 PM ED Course / Medical Decision Making Medical Decision Making Patient presents with symptoms secondary to acute bronchitis. He will continue albuterol inhaler asneeded and prednisone course for 5 days. Problems Addressed: Acute bronchitis: acute illness or injury Amount and/or Complexity of Data Reviewed Labs: ordered. Radiology: ordered. ECG/medicine tests: ordered. Risk OTC drugs. Prescription drug management. ED Course as of 09/23/23 0715 [place] September 22, 2023 1712 He reports significant improvement with DuoNeb treatment today. CT suggestive of acute bronchitis versus reactive airway disease. Patient will continue outpatient follow-up for further pulmonaryevaluation. [AK] ED Course User Index [AK] Ping Chaparro MD Clinical Impression Acute bronchitis (Primary) Disposition: Discharge iPng Chaparro MD 09/23/23 0717 * Rita Leija RN - 09/22/2023 2:13 PM CDT 57 year old male in with complaints of feeling there is fluid on his lungs. Patient notes he has felt like there has been fluid he can hear on his lungs for over 2 weeks, patient states he takes 80 mg of lasix daily with no improvement. Patient notes he recently increased his lasix from 40 to 80 approx 10-11 days ago. Patient alert and oriented. documented in this encounter Plan of Treatment Not on file documented as of this encounter Procedures Procedure Name Priority Date/Time Associated Diagnosis Comments CTA CHEST STAT 09/22/2023 3:59 PM CDT XR CHEST PORTABLE STAT 09/22/2023 3:0 0 PM CDT ECG 12-LEAD Routine 09/22/2023 2:50 PM CDT PRO-BRAIN NATRIURETIC PEPTIDE STAT 09/22/2023 2:19 PM CDT COMPREHENSIVE METABOLIC PANEL STAT 09/22/2023 2:19 PM CDT D-DIMER, QUANTITATIVE STAT 09/22/2023 2:19 PM CDT CBC W/DIFF AUTOMATED STAT 09/22/2023 2:19 PM CDT TROPONIN, QUANT STAT 09/22/2023 2:19 PM CDT documented in this encounter Results * CTA CHEST (09/22/2023 3:59 PM CDT) Anatomical Region Laterality Modality Chest Computed Tomogra phy 09/22/2023 4:05 PM CDT Impressions 09/22/2023 4:16 PM CDT IMPRESSION: 1. ??No evidence of acute pulmonary embolism. Exam is limited due to poor contrast bolus as detailed above.. 2. ??Stable possible pulmonary control hypertension as detailed above. 3. ??No patchy infiltrate or effusion. Possible mild bronchitis versus reactive airway disease. Ordered By: PING CHAPARRO Interpreted By: Gary Meléndez, 09/22/2023 4:05 PM Narrative 09/22/2023 4:16 PM CDT EXAMINATION: CTA CHEST WITH CONTRAST EXAM DATE/TIME: 09/22/2023 3:36 PM REASON FOR EXAM: ??Pulmonary embolism (PE) suspected, unknown D-dimer ? History of CHF COMPARISON: 09/15/2023 TECHNIQUE: Computed tomography angiography was performed of the chest after administration of intravenous contrast, 50 mL of Isovue-370, according to routine protocol. Additional 3-D reconstructions and postprocessing were performed independently by the attending radiologist and a separate dedicated 3-D workstation. A dose lowering technique was used for this procedure, which may include, but is not limited to, dose reduction technique, automated exposure control, iterative reconstruction, ALARA (As Low As Reasonably Achievable), or Image Gently techniques. Due to technical factors, there is a delay in contrast bolus timing. The mass, opacification of the pulmonary arteries is suboptimal. FINDINGS: VASCULAR FINDINGS: Poor opacification of the pulmonary arteries. No evidence of acute pulmonary embolism. Segmental and subsegmental branches not well evaluated.. Atherosclerotic aorta without dilatation or dissection.. Stable enlargement of the main pulmonary outflow tract at 3.6 cm. May be due to pulmonary arterial hypertension. NONVASCULAR FINDINGS: On lung windows, no suspicious pulmonary lesion, pneumothorax, or pleural effusion.. Mild peribronchial wall thickening may be due to bronchitis versus reactive airway disease. Resolution of secretions within the trachea. On soft tissue windows, no axillary or supraclavicular lymphadenopathy. On mediastinal windows, no evidence of hilar or mediastinal lymphadenopathy. Heart size normal. No pericardial effusion Advanced coronary artery calcifications. Please correlate with cardiac risk profile in this 57-year-old. Left-sided pacer leads in place. Epicardial leads noted. Limited evaluation of the upper abdomen demonstrates no acute abnormality.. 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 Cystic lesion in mid right kidney measuring 7.1 cm. On bone windows, no suspicious skeletal lesion or acute compression fracture deformity. Procedure Note Richard Meléndez MD - 09/22/2023 EXAMINATION: CTA CHEST WITH CONTRAST EXAM DATE/TIME: 09/22/2023 3:36 PM REASON FOR EXAM: Pulmonary embolism (PE) suspected, unknown D-dimer History of CHF COMPARISON: 09/15/2023 TECHNIQUE: Computed tomography angiography was performed of the chestafter administration of intravenous contrast, 50 mL of Isovue-370,according to routine protocol. Additional 3-D reconstructions andpostprocessing were performed independently by the attending radiologistand a separate dedicated 3-D workstation. A dose lowering technique was used for this procedure, which may include,but is not limited to, dose reduction technique, automated exposurecontrol, iterative reconstruction, ALARA (As Low As ReasonablyAchievable), or Image Gently techniques. Due to technical factors, there is a delay in contrast bolus timing. Themass, opacification of the pulmonary arteries is suboptimal. FINDINGS: VASCULAR FINDINGS: Poor opacification of the pulmonary arteries. No evidence of acutepulmonary embolism. Segmental and subsegmental branches not wellevaluated.. Atherosclerotic aorta without dilatation or dissection.. Stable enlargement of the main pulmonary outflow tract at 3.6 cm. May bedue to pulmonary arterial hypertension. NONVASCULAR FINDINGS: On lung windows, no suspicious pulmonary lesion, pneumothorax, or pleuraleffusion.. Mild peribronchial wall thickening may be due to bronchitis versusreactive airway disease. Resolution of secretions within the trachea. On soft tissue windows, no axillary or supraclavicular lymphadenopathy. On mediastinal windows, no evidence of hilar or mediastinallymphadenopathy. Heart size normal. No pericardial effusion Advanced coronary artery calcifications. Please correlate with cardiacrisk profile in this 57-year-old. Left-sided pacer leads in place.Epicardial leads noted. Limited evaluation of the upper abdomen demonstrates no acuteabnormality.. 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 Cystic lesion in midright kidney measuring 7.1 cm. On bone windows, no suspicious skeletal lesion or acute compressionfracture deformity. IMPRESSION: 1. No evidence of acute pulmonary embolism. Exam is limited due to poorcontrast bolus as detailed above.. 2. Stable possible pulmonary control hypertension as detailed above. 3. No patchy infiltrate or effusion. Possible mild bronchitis versusreactive airway disease. Ordered By: PING CHAPARRO Interpreted By: Gary Meléndez, 09/22/2023 4:05 PM us Ping Chaparro MD CT Final Res ult * XR CHEST PORTABLE (09/22/2023 3:00 PM CDT) Anatomical Region Laterality Modality Chest Radiographic Lucila ging 09/22/2023 3:16 PM CDT Impressions 09/22/2023 3:17 PM CDT =====IMPRESSION:===== No acute findings. Ordered By: PING CHAPARRO Interpreted By: Gary Meléndez, 09/22/2023 3:16 PM Narrative 09/22/2023 3:17 PM CDT EXAMINATION: CHEST RADIOGRAPH SINGLE VIEW Exam date/time: 09/22/2023 2:54 PM Reason For Exam: ??sob ? Comparison: September 15, 2023 Technique: Upright AP view of the chest Findings: ??Heart size normal. Proximal airways unremarkable. No suspicious pulmonary lesion, pneumothorax, or pleural effusion.. Poor inspiration limits exam. Intact left-sided pacer leads. Procedure Note Richard Meléndez MD - 09/22/2023 EXAMINATION: CHEST RADIOGRAPH SINGLE VIEW Exam date/time: 09/22/2023 2:54 PM Reason For Exam: sob Comparison: September 15, 2023 Technique: Upright AP view of the chest Findings: Heart size normal. Proximal airways unremarkable. No suspiciouspulmonary lesion, pneumothorax, or pleural effusion.. Poor inspiration limits exam. Intact left-sided pacer leads. =====IMPRESSION:===== No acute findings. Ordered By: PING CHAPARRO Interpreted By: Gary Meléndez, 09/22/2023 3:16 PM us Ping Chaparro MD GENERAL IMAGING Final Res ult * ECG 12 lead (09/22/2023 2:50 PM CDT) 09/22/2023 2:50 PM CDT Narrative [facility] RAD - 09/23/2023 5:24 AM CDT ?[facility] ? Test Date: ?2023-09-22 Pat Name: ? NATAN LAGUNA ?Department: ?? 85 ? Room: ? EXAM 303 Gender: ? Male ? 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 : ?1965 ? Requested By: PING MORENO Order Number: [id number] ? Reading MD: ?? Sujit Scally ? Measurements Intervals ?[place] ? Rate: ? 91 ? P: ?63 VA: ? 167 ?QRS: ?111 QRSD: ? 147 ?T: ?-40 QT: ? 399 ? QTc: ?492 ? 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1965 Requested By: PING CHAPARRO Order Number: [id number] Reading MD: Sujit Hunter Measurements Intervals [place] Rate: 91 P: 63 VA: 167 QRS: 111 QRSD: 147 T: -40 QT: 399 QTc: 492 Interpretive Statements ELECTRONIC VENTRICULAR PACEMAKER ABNORMAL RHYTHM ECG Compared to ECG 09/15/2023 09:17:03 No significant changes us Ping Chaparro MD ECG ORDERABLES Final Res ult [facility] RAD * (ABNORMAL) D-DIMER, QUANTITATIVE (09/22/2023 2:19 PM CDT) D-DIMER 904(H) 0 - 500 ng{FEU}/mL 09/22/2023 3:04 PM CDT [facility] Comment: D-Dimer values less than or equal to 500 ng/mL FEU have a negative predictive value of >95% for exclusion of deep vein thrombosis and pulmonary embolism. In patients over 50 (who tend to have higher normal baseline D-Dimer values), recent studies suggest age-adjusted D-Dimer cutoff values (calculated as: age [years] x 10 ng/mL) result in equivalent outcomes and no additional false negative findings. 09/22/2023 2:19 PM CDT us Ping Chaparro MD LABORATORY Final Res ult Performing Organization Address [facility]/ZIP Co de Phone Number [facility] [address] [place] [address], [place] [phone] * TROPONIN, QUANT (09/22/2023 2:19 PM CDT) TROPONIN I HIGH SENSITIVITY 5 <76 ng/L 09/22/2023 3:08 PM CDT [facility] Comment: HIGH DOSES OF BIOTIN, TROPONIN-SPECIFIC AUTOANTIBODIES, AND ANTIBODY THERAPY CONTAINING HAMA MAY INTERFERE WITH THIS TEST RESULT. CORRELATION TO CLINICAL HISTORY AND PRESENTATION RECOMMENDED. 09/22/2023 2:19 PM CDT us Ping Chaparro MD LABORATORY Final Res ult Performing Organization Address [facility] Co de Phone Number [facility] [address] [place] [address], [place] [phone] * PRO-BRAIN NATRIURETIC PEPTIDE (09/22/2023 2:19 PM CDT) PRO-B TYPE NATRIURETIC PEPTIDE 43 <125 PG/ML 09/22/2023 3:14 PM CDT [facility] Comment: CUT POINTS ESTABLISHED BY INTERNATIONAL [...] OF 89% AND 72% FOR ACUTE CHF. 09/22/2023 2:19 PM CDT us Ping Chaparro MD LABORATORY Final Res ult [facility] [address] [place] [address], [place] [phone] * (ABNORMAL) CBC W/DIFF AUTOMATED (09/22/2023 2:19 PM CDT) WBC 8.53 4.4 - 11.0 x10'3/uL 09/22/2023 2:55 PM CDT [facility] RBC 5.19 4.50 - 5.90 x10'6/uL 09/22/2023 2:55 PM CDT [facility] HGB 15.2 14.0 - 17.5 G/DL 09/22/2023 2:55 PM CDT [facility] HCT 44.5 41.5 - 50.4 % 09/22/2023 2:55 PM CDT [facility] MCV 85.7 80.0 - 96.0 FL 09/22/2023 2:55 PM CDT [facility] MCH 29.3 26.5 - 31.4 PG 09/22/2023 2:55 PM CDT [facility] MCHC 34.2 31.9 - 34.8 G/DL 09/22/2023 2:55 PM CDT [facility] RDW 13.7 12.3 - 14.3 % 09/22/2023 2:55 PM CDT [facility] PLT 268 151 - 353 x10'3/uL 09/22/2023 2:55 PM CDT [facility] MPV 9.0(L) 9.7 - 11.9 FL 09/22/2023 2:55 PM CDT [facility] RBC MORPHOLOGY NORMAL 09/22/2023 2:55 PM CDT [facility] PLT MORPH. NORMAL 09/22/2023 2:55 PM CDT [facility] WBC MORPHOLOGY NORMAL 09/22/2023 2:55 PM CDT [facility] LYMPHOCYTES % 16.8 15.8 - 45.0 % 09/22/2023 2:55 PM CDT [facility] NEUTROPHILS % 62.6 42.1 - 71.9 % 09/22/2023 2:55 PM CDT [facility] MONOCYTES % 8.9 5.7 - 12.5 % 09/22/2023 2:55 PM CDT [facility] EOSINOPHILS 10.7(H) 0.0 - 5.6 % 09/22/2023 2:55 PM CDT [facility] BASOPHILS 0.6 0.0 - 1.3 % 09/22/2023 2:55 PM CDT [facility] ABS. NEUTROPHILS 5.35 1.40 - 6.00 x10'3/uL 09/22/2023 2:55 PM CDT [facility] IMMATURE GRANS % 0.4 0.0 - 0.5 % 09/22/2023 2:55 PM CDT [facility] ABS. LYMPHOCYTES 1.43 0.80 - 4.70 x10'3/uL 09/22/2023 2:55 PM CDT [facility] 09/22/2023 2:19 PM CDT us Ping Chaparro MD LABORATORY Final Res ult [facility] [address] [place] [address], [place] [phone] * (ABNORMAL) COMPREHENSIVE METABOLIC PANEL (09/22/2023 2:19 PM CDT) GLUCOSE 106(H) 70 - 99 MG/DL 09/22/2023 3:14 PM [facility] BUN 16 7 - 18 MG/DL 09/22/2023 3:14 PM [facility] CREATININE S/P/B 2.01(H) 0.7 - 1.3 MG/DL 09/22/2023 3:14 PM [facility] SODIUM S/P/B 138 136 - 145 MMOL/L 09/22/2023 3:14 PM T [facility] POTASSIUM S/P/B 3.9 3.5 - 5.1 MMOL/L 09/22/2023 3:14 PM [facility] CHLORIDE S/P/B 101 100 - 108 MMOL/L 09/22/2023 3:14 PM [facility] CO2 26.4 21 - 32 MMOL/L 09/22/2023 3:14 PM [facility] CALCIUM S/P/B 8.9 8.5 - 10.1 MG/DL 09/22/2023 3:14 PM [facility] BILIRUBIN TOTAL S/P/B 0.6 0.2 - 1.2 MG/DL 09/22/2023 3:14 PM [facility] TOTAL PROTEIN S/P/B 7.9 6.4 - 8.2 G/DL 09/22/2023 3:14 PM [facility] ALBUMIN S/P/B 3.7 3.4 - 5.0 G/DL 09/22/2023 3:14 PM [facility] AST 22 15 - 37 U/L 09/22/2023 3:14 PM [facility] ALT 18 16 - 60 U/L 09/22/2023 3:14 PM [facility] ALKALINE PHOSPHATASE S/P/B 119 50 - 136 U/L 09/22/2023 3:14 PM CDT [facility] ANION GAP 10.6 5 - 15 MMOL/L 09/22/2023 3:14 PM CDT [facility] BUN CREATININE RATIO 8.0 6 - 26 09/22/2023 3:14 PM CDT [facility] A/G RATIO 0.9(L) 1.0 - 2.0 RATIO 09/22/2023 3:14 PM CDT [facility] GFR ESTIMATE 38(L) >90 ML/MIN/1.7 3 M2 09/22/2023 3:14 PM CDT [facility] Comment: NOTE: eGFR is not calculated for patients <18 years of age. This is an estimated GFR calculation using the new CKD EPI creatinine equation without race and so does not require a correction factor for race. This estimated GFR should not be used for calculating drug doses. 09/22/2023 2:19 PM CDT us Ping Chaparro MD LABORATORY Final Res ult [facility] [address] [place] [address], [place] [phone] documented in this encounter Visit Diagnoses Diagnosis Acute bronchitis- Primary documented in this encounter Administered Medications Inactive Administered Medications - up to 3 most recent administrations Medication Order MAR Action Action Date Dose Rate Site iopamidol (ISOVUE-370) 76 % injection 50 mL 50 mL, Intravenous, IMG once as needed, Contrast, 1 dose, Starting on Tue09/22/23 at 1600, Until Tue09/22/23 at 1558 Given 09/22/2023 3:58 PM CDT 50 mLs Right Arm ipratropium-albuterol (DUONEB) 0.5-2.5 (3) MG/3ML nebulizer solution 3 mL 3 mL, Nebulization, Once, 1 dose, On Malu 09/22/23 at 1700 Given 09/22/2023 4:49 PM CDT 3 mLs methylPREDNISolone sodium succinate (SOLU-Medrol) injection 125 mg 125 mg, Intravenous, Once, 1 dose, On Malu 09/22/23 at 1715, If ordered IV, administer into a vein over 3-15 minutes. Doses >= 2 mg/kg or 250mg should be given by infusion, unless the benefits of IV injection outweigh the risks (life-threatening shock) Given 09/22/2023 5:17 PM CDT 125 mg documented in this encounter Active and Recently Administered Medications Times are shown in CDT. Scheduled Medication Order 09/20/2023 09/21/2023 09/22/2023 ipratropium-albuterol (DUONEB) 0.5-2.5 (3) MG/3ML nebulizer solution 3 mL (COMPLETED) 3 mL, Nebulization, Once, 1 dose, On Malu 09/22/23 at 1700 1649 (Given - Provid er: Lynne Wolf, FINANCIAL COMPLIANCE EXAMINER) methylPREDNISolone sodium succinate (SOLU-Medrol) injection 125 mg (COMPLETED) 125 mg, Intravenous, Once, 1 dose, On Malu 09/22/23 at 1715, If ordered IV, administer into a vein over 3-15 minutes. Doses >= 2 mg/kg or 250mg should be given by infusion, unless the benefits of IV injection outweigh the risks (life-threatening shock) 1717 (Given - Provid er: Olamide Castellanos RN) PRN Medication Order 09/20/2023 09/21/2023 09/22/2023 iopamidol (ISOVUE-370) 76 % injection 50 mL (COMPLETED) 50 mL, Intravenous, IMG once as needed, Contrast, 1 dose, Starting on Malu 09/22/23 at 1600, Until Malu 09/22/23 at 1558 1558 (Given - Provid er: Alis Talley RTR) documented in this encounter Care Teams Manager Of Health Relationship Specialty Start Date End Date Naomy Maddox MD [address] [place] [address] PCP - General INTERNAL MEDICINE 07/07/22 05/05/24 documented as of this encounter
--- OUTSIDE RECORDS SUMMARY | 2024-05-17 12:00 | XMS_ITS | Encounter Summary ---
Author Organization [facility] Address [address] [place] [address]. [place], [place] [address] [place] [id number] Care Team Providers Care Advertising Account Representative Name Role Phone Zak [facility] MD Primary Care Provider [phone] Reason for Visit * Reason Comments Medical Problem Encounter Details Date Type Department Care Team (Late st Contact Info) Description 05/06/2024 8:45 AM [facility] - 05/06/2024 10:42 AM [facility] Emergency [facility] Emergency Room [id number] [place] [address] Wilian Granado MD [address] [place], [place] [address] Medical Problem Discharge Disposition: Home or Self [...] Sign Reading Time Taken Comments Blood Pressure 110/80 05/06/2024 10:29 AM [facility] Pulse 98 05/06/2024 10:29 AM [facility] Temperature 37.1 ??C (98.7 ??F) 05/06/2024 8:51 AM CS T Respiratory Rate 21 05/06/2024 10:29 AM [facility] Oxygen Saturation 96% 05/06/2024 10:29 AM [facility] Inhaled Oxygen Concentration - - Weight 88.5 kg (195 lb 1.7 oz) 05/06/2024 8:51 A M [facility] Height 177.8 cm (5' 10 ) 05/06/2024 8:51 AM [facility] Body Mass Index 27.99 05/06/2024 8:51 AM [facility] documented in this encounter Discharge Instructions * Attachments The following attachments cannot be sent through Care Everywhere. * Heart Failure, Adult (Albanian) documented in this encounter Medications at Time [...] (40 mg total) by mouth daily. 09/04/2023 documented as of this encounter ED Notes * Mandi Lundberg RN - 05/06/2024 10:42 AM CST Patient called and voiced concern due to him feeling he has fluid in his lungs Patient was reassured all testing and results were negative, patient stated I wanted to let you know I'm seeing anattorney tomorrow and will not be back to your hospital Encouraged patient to return to the ER ifconcerned for additional follow up [facility] * Wilian Granado MD - 05/06/2024 9:04 AM CSTSummary: ED NOTE Chief Complaint Chief Complaint Patient presents with Medical Problem History of Present Illness Patient is a 58-year-old male with a past medical history of hypertension, CHF, CKD who presents tot emergency department with concerns of worsening heart failure and fluid on lungs. Patient reports that he can hear some noises when he breathes. He denies any cough. No shortness of breath. No chest pain. No fevers or chills. No nausea or vomiting. He says that he feels like he can hear a wheeze or a noise in his throat while breathing. Medical History ALLERGIES: Review of patient's allergies [...] History: Diagnosis Date CHF (congestive heart failure) ([facility]) Hypertension Renal disorder PAST SURGICAL HISTORY: Past Surgical History: Procedure Laterality Date INTERNAL DEFIBRILLATOR TONSILLECTOMY FAMILY HISTORY: No family history on file. SOCIAL HISTORY: Social History Tobacco Use Smoking status: Never Smokeless tobacco: Never Vaping Use Vaping status: Never Used Substance Use Topics Alcohol use: Yes Drug use: Never Review of Systems Review of Systems Constitutional: Negative for chills, fatigue and fever. HENT: Negative for rhinorrhea and sore throat. Respiratory: Negative for cough and shortness of breath. Cardiovascular: Negative for chest pain. Gastrointestinal: Negative for abdominal pain, diarrhea, nausea and vomiting. Endocrine: Negative for polyuria. Genitourinary: Negative for dysuria and frequency. Musculoskeletal: Negative for joint swelling. Skin: Negative for rash. Allergic/Immunologic: Negative for immunocompromised state. Neurological: Negative for dizziness and headaches. Hematological: Negative for adenopathy. Psychiatric/Behavioral: Negative for confusion. Physical Exam Filed Vitals: 05/06/24 0851 BP: (!) 148/90 Pulse: (!) 107 Resp: 20 Temp: 98.7 ??F (37.1 ??C) TempSrc: Temporal SpO2: 95% Weight: 88.5 kg (195 lb 1.7 oz) Height: 1.778 m (5' 10 ) Physical Exam Constitutional: General: He is not in acute distress. Appearance: Normal appearance. HENT: Head: Normocephalic. Comments: There is no elevated JVP Mouth/Throat: Mouth: Mucous membranes are moist. Pharynx: Oropharynx is clear. Eyes: Conjunctiva/sclera: Conjunctivae normal. Pupils: Pupils are equal, round, and reactive to light. Cardiovascular: Rate and Rhythm: Normal rate and regular rhythm. Pulses: Normal pulses. Heart sounds: No murmur heard. No gallop. Pulmonary: Effort: Pulmonary effort is normal. Breath sounds: No wheezing, rhonchi or rales. Abdominal: General: Abdomen is flat. There is no distension. Tenderness: There is no abdominal tenderness. There is no guarding. Musculoskeletal: Cervical back: Neck supple. Right lower leg: No edema. Left lower leg: No edema. Skin: General: Skin is warm and dry. Capillary Refill: Capillary refill takes less than 2 seconds. Findings: No rash. Neurological: Mental Status: He is alert and oriented to person, place, and time. Mental status is at baseline. Psychiatric: Mood and Affect: Mood normal. Diagnostic Studies / Procedures ELECTROCARDIOGRAMS: Results for orders placed or performed during the hospital encounter of 05/06/24 ECG 12 lead Narrative [facility] Test Date: 2024-05-06 Pat Name: NATAN LAGUNA Department: 85 Room: EXAM 101 Gender: Male Real Estate Financial Analyst: : 1965 Requested By: WILIAN GRANADO Order Number: [id number] Reading MD: Measurements Intervals Brandon Rate: 103 P: 76 TN: 163 QRS: 124 QRSD: 167 T: 29 QT: 409 QTc: 536 Interpretive Statements ELECTRONIC VENTRICULAR PACEMAKER ABNORMAL RHYTHM ECG Compared to ECG 09/22/2023 14:50:31 No significant changes EKG obtained at 0913. Rate 93. Rhythm normal sinus. Brandon normal. Intervals TN 194. QRS 97. QTc 385.There are no clear ST segment changes concerning for MA LABORATORY STUDIES: Results for orders placed or performed during the hospital encounter of 05/06/24 CBC W/DIFF AUTOMATED Result Value Ref Range WBC 7.98 4.4 - 11.0 x10'3/uL RBC 5.29 4.50 - 5.90 x10'6/uL HGB 15.3 14.0 - 17.5 G/DL HCT 44.4 41.5 - 50.4 % MCV 83.9 80.0 - 96.0 FL MCH 28.9 26.5 - 31.4 PG MCHC 34.5 31.9 - 34.8 G/DL RDW 14.4 (H) 12.3 - 14.3 % PLT 267 151 - 353 x10'3/uL MPV 9.3 (L) 9.7 - 11.9 FL RBC MORPHOLOGY NORMAL PLT MORPH. NORMAL WBC MORPHOLOGY NORMAL LYMPHOCYTES % 15.9 15.8 - 45.0 % NEUTROPHILS % 64.5 42.1 - 71.9 % MONOCYTES % 9.5 5.7 - 12.5 % EOSINOPHILS 9.3 (H) 0.0 - 5.6 % BASOPHILS 0.5 0.0 - 1.3 % ABS. NEUTROPHILS 5.15 1.40 - 6.00 x10'3/uL IMMATURE GRANS % 0.3 0.0 - 0.5 % ABS. LYMPHOCYTES 1.27 0.80 - 4.70 x10'3/uL COMPREHENSIVE METABOLIC PANEL Result Value Ref Range GLUCOSE 94 70 - 99 MG/DL BUN 22 (H) 7 - 18 MG/DL CREATININE S/P/B 2.13 (H) 0.7 - 1.3 MG/DL SODIUM S/P/B 142 136 - 145 MMOL/L POTASSIUM S/P/B 3.7 3.5 - 5.1 MMOL/L CHLORIDE S/P/B 104 100 - 108 MMOL/L CO2 25.0 21 - 32 MMOL/L CALCIUM S/P/B 8.8 8.5 - 10.1 MG/DL BILIRUBIN TOTAL S/P/B 0.7 0.2 - 1.2 MG/DL TOTAL PROTEIN S/P/B 7.6 6.4 - 8.2 G/DL ALBUMIN S/P/B 3.6 3.4 - 5.0 G/DL AST 29 15 - 37 U/L ALT 28 16 - 60 U/L ALKALINE PHOSPHATASE S/P/B 139 (H) 50 - 136 U/L ANION GAP 13.0 5 - 15 MMOL/L BUN CREATININE RATIO 10.3 6 - 26 A/G RATIO 0.9 (L) 1.0 - 2.0 RATIO GFR ESTIMATE 36 (L) >90 ML/MIN/1.73 M2 TROPONIN, QUANT Result Value Ref Range TROPONIN I HIGH SENSITIVITY 7 0 - 75 ng/L PRO-BRAIN NATRIURETIC PEPTIDE Result Value Ref Range PRO-B TYPE NATRIURETIC PEPTIDE 52 <125 PG/ML IMAGING STUDIES XR CHEST PA+LAT Final Result by User, [id number] (05/06 930) [facility] [address] [place] [address] XR CHEST PA+LAT INDICATION: noises in lungs , shortness of breath. TECHNIQUE: PA and lateral view of the chest. COMPARISON: Chest radiograph 09/22/2023. FINDINGS: Left subclavian approach biventricular AICD in similar position. Cardiomediastinal silhouette is within normal limits. No pulmonary vascular congestion. No focal pulmonary consolidation, pleural effusions, or pneumothorax identified. Mild thoracic spondylosis. IMPRESSION: No acute cardiopulmonary findings. Referred By: Interpreted By: Agusto Oconnell MD, 05/06/2024 9:23 AM ED Course / Medical Decision Making Ddx: Viral syndrome, ACS, heart failure, PE, COPD Patient is a 58-year-old male with a past medical history of hypertension, CHF, CKD who presents tot emergency department with concerns of worsening heart failure and fluid on lungs. On arrival vitals were remarkable for tachycardia with a heart rate of 107. On exam patient is overall well-appearing. He says that he hears a noise when he breathes although I do not hear any noise when he breathes. His lungs are clear and his heart is regular. Above differentials were considered and labs were obtained. The patient's EKG was without ST segment changes concerning for MA. Patient CBC and CMP were largely within normal limits. Patient does have CKD but no findings concerning for TATUM. His BNP was 52. Troponin was negative. Please note that I actually recommended against obtaining labs but patient was requesting labs multiple times and therefore they were obtained. Chest x-ray was negative. I reassured patient. Told patient to follow-up with PCP and return for new or worsening symptoms. Patient was agreeable with above plan and discharged in good condition. Medical Decision Making Amount and/or Complexity of Data Reviewed Labs: ordered. Radiology: ordered. ECG/medicine tests: ordered. Clinical Impression Noisy breathing (Primary) Disposition: Discharge Wilian Granado MD 05/06/24 1024 [facility] * Mandi Lundberg RN - 05/06/2024 8:53 AM CST Has a history of CHF is concerned he may have fluid in his lungs no edema and no weight gain. Has been in contact with his health club attendant through my chart. Resp easy and non labored skin warm and dry color good will continue to observe [facility] documented in this encounter Plan of Treatment Not on file documented as of this encounter Procedures Procedure Name Priority Date/Time Associated Diagnosis Comments XR CHEST PA+LAT STAT 05/06/2024 9:21 AM [facility] PRO-BRAIN NATRIURETIC PEPTIDE STAT 05/06/2024 9:16 AM [facility] COMPREHENSIVE METABOLIC PANEL STAT 05/06/2024 9:16 AM [facility] CBC W/DIFF AUTOMATED STAT 05/06/2024 9:16 AM [facility] TROPONIN, QUANT STAT 05/06/2024 9:16 AM [facility] ECG 12-LEAD Routine 05/06/2024 9:08 AM [facility] documented in this encounter Results * XR CHEST PA+LAT (05/06/2024 9:21 AM [facility]) Anatomical Region Laterality Modality Chest Radiographic Lucila ging 05/06/2024 9:23 AM [facility] Impressions 05/06/2024 9:25 AM [facility] IMPRESSION: No acute cardiopulmonary findings. Referred By: ?? Interpreted By: Agusto Oconnell MD, 05/06/2024 9:23 AM Narrative 05/06/2024 9:25 AM [facility] [address] [place] [address] XR CHEST PA+LAT INDICATION: noises in lungs , shortness of breath. TECHNIQUE: PA and lateral view of the chest. COMPARISON: Chest radiograph 09/22/2023. FINDINGS: Left subclavian approach biventricular AICD in similar position. ??Cardiomediastinal silhouette is within normal limits. ??No pulmonary vascular congestion. ??No focal pulmonary consolidation, pleural effusions, or pneumothorax identified. ??Mild thoracic spondylosis. Procedure Note Agusto Oconnell MD - 05/06/2024 [facility] [address] [place] [address] XR CHEST PA+LAT INDICATION: noises in lungs [...] By: Agusto Oconnell MD, 05/06/2024 9:23 AM Wilian Granado MD GENERAL IMAGING Final R esult * PRO-BRAIN NATRIURETIC PEPTIDE (05/06/2024 9:16 AM [facility]) PRO-B TYPE NATRIURETIC PEPTIDE 52 <125 PG/ML 05/06/2024 10:17 AM [facility] Comment: CUT POINTS ESTABLISHED BY INTERNATIONAL [...] OF 89% AND 72% FOR ACUTE CHF. 05/06/2024 9:16 AM [facility] Wilian Granado MD [facility]ORATORY [facility] Performing Organization Address [facility]/ZIP Co de Phone Number [facility] [address] [place] [address], [place] [phone] * TROPONIN, QUANT (05/06/2024 9:16 AM [facility]) Pathologist [facility] TROPONIN I HIGH SENSITIVITY 7 0 - 75 ng/L 05/06/2024 10:14 AM [facility] Comment: HIGH DOSES OF BIOTIN, TROPONIN-SPECIFIC AUTOANTIBODIES, AND ANTIBODY THERAPY CONTAINING HAMA MAY INTERFERE WITH THIS TEST RESULT. CORRELATION TO CLINICAL HISTORY AND PRESENTATION RECOMMENDED. 05/06/2024 9:16 AM [facility] Wilian Granado MD LABORATORY Final R [facility] Performing Organization Address [facility] Co de Phone Number [facility] [address] [place] [address], [place] [phone] * (ABNORMAL) COMPREHENSIVE METABOLIC PANEL (05/06/2024 9:16 AM [facility]) [facility] GLUCOSE 94 70 - 99 MG/DL 05/06/2024 10:17 AM [facility] BUN 22(H) 7 - 18 MG/DL 05/06/2024 10:17 AM [facility] CREATININE S/P/B 2.13(H) 0.7 - 1.3 MG/DL 05/06/2024 10:17 AM [facility] SODIUM S/P/B 142 136 - 145 MMOL/L 05/06/2024 10:17 AM [facility] POTASSIUM S/P/B 3.7 3.5 - 5.1 MMOL/L 05/06/2024 10:17 AM [facility] CHLORIDE S/P/B 104 100 - 108 MMOL/L 05/06/2024 10:17 AM [facility] CO2 25.0 21 - 32 MMOL/L 05/06/2024 10:17 AM [facility] CALCIUM S/P/B 8.8 8.5 - 10.1 MG/DL 05/06/2024 10:17 AM [facility] BILIRUBIN TOTAL S/P/B 0.7 0.2 - 1.2 MG/DL 05/06/2024 10:17 AM [facility] TOTAL PROTEIN S/P/B 7.6 6.4 - 8.2 G/DL 05/06/2024 10:17 AM [facility] ALBUMIN S/P/B 3.6 3.4 - 5.0 G/DL 05/06/2024 10:17 AM [facility] AST 29 15 - 37 U/L 05/06/2024 10:17 AM [facility] ALT 28 16 - 60 U/L 05/06/2024 10:17 AM [facility] ALKALINE PHOSPHATASE S/P/B 139(H) 50 - 136 U/L 05/06/2024 10:17 AM [facility] ANION GAP 13.0 5 - 15 MMOL/L 05/06/2024 10:17 AM [facility] BUN CREATININE RATIO 10.3 6 - 26 05/06/2024 10:17 AM [facility] A/G RATIO 0.9(L) 1.0 - 2.0 RATIO 05/06/2024 10:17 AM [facility] GFR ESTIMATE 36(L) >90 ML/MIN/1.7 3 M2 05/06/2024 10:17 AM [facility] Comment: NOTE: eGFR is not calculated for patients <18 years of age. This is an estimated GFR calculation using the new CKD EPI creatinine equation without race and so does not require a correction factor for race. This estimated GFR should not be used for calculating drug doses. 05/06/2024 9:16 AM [facility] Wilian Granado MD LABORATORY Final R esult [facility] [address] [place] [address], * (ABNORMAL) CBC W/DIFF AUTOMATED (05/06/2024 9:16 AM [facility]) WBC 7.98 4.4 - 11.0 x10'3/uL 05/06/2024 9:55 AM [facility] RBC 5.29 4.50 - 5.90 x10'6/uL 05/06/2024 9:55 AM [facility] HGB 15.3 14.0 - 17.5 G/DL 05/06/2024 9:55 AM [facility] HCT 44.4 41.5 - 50.4 % 05/06/2024 9:55 AM [facility] MCV 83.9 80.0 - 96.0 FL 05/06/2024 9:55 AM [facility] MCH 28.9 26.5 - 31.4 PG 05/06/2024 9:55 AM [facility] MCHC 34.5 31.9 - 34.8 G/DL 05/06/2024 9:55 AM [facility] RDW 14.4(H) 12.3 - 14.3 % 05/06/2024 9:55 AM [facility] PLT 267 151 - 353 x10'3/uL 05/06/2024 9:55 AM [facility] MPV 9.3(L) 9.7 - 11.9 FL 05/06/2024 9:55 AM [facility] RBC MORPHOLOGY NORMAL 05/06/2024 9:55 AM [facility] PLT MORPH. NORMAL 05/06/2024 9:55 AM [facility] WBC MORPHOLOGY NORMAL 05/06/2024 9:55 AM [facility] LYMPHOCYTES % 15.9 15.8 - 45.0 % 05/06/2024 9:55 AM [facility] NEUTROPHILS % 64.5 42.1 - 71.9 % 05/06/2024 9:55 AM [facility] MONOCYTES % 9.5 5.7 - 12.5 % 05/06/2024 9:55 AM [facility] EOSINOPHILS 9.3(H) 0.0 - 5.6 % 05/06/2024 9:55 AM [facility] BASOPHILS 0.5 0.0 - 1.3 % 05/06/2024 9:55 AM [facility] ABS. NEUTROPHILS 5.15 1.40 - 6.00 x10'3/uL 05/06/2024 9:55 AM [facility] IMMATURE GRANS % 0.3 0.0 - 0.5 % 05/06/2024 9:55 AM [facility] ABS. LYMPHOCYTES 1.27 0.80 - 4.70 x10'3/uL 05/06/2024 9:55 AM [facility] 05/06/2024 9:16 AM [facility] us Wilian Granado MD LABORATORY Final R esult [facility] [address] [place] [address], * ECG 12 lead (05/06/2024 9:08 AM [facility]) 05/06/2024 9:08 AM [facility] Narrative [facility] RAD - 05/06/2024 11:14 AM [facility] ?[facility] ? Test Date: ?2024-05-06 Pat Name: ? NATAN LAGUNA ?Department: ?? 85 ? Room: ? EXAM 101 Gender: ? Male ? Real Estate Financial Analyst: ?? : ?1965 ? Requested By: WILIAN GRANADO Order Number: [id number] ? Reading MD: ?? Benson Russo ? Measurements Intervals ?Brandon ? Rate: ? 103 ?P: ?76 TN: ? 163 ?QRS: ?124 QRSD: ? 167 ?T: ?29 QT: ? 409 ? QTc: ?536 ? Interpretive Statements ELECTRONIC VENTRICULAR PACEMAKER ABNORMAL RHYTHM ECG Compared to ECG 09/22/2023 14:50:31 No significant changes [facility] Procedure Note Benson Russo MD - 05/06/2024 [facility] Test Date: 2024-05-06 Pat Name: NATAN LAGUNA Department: 85 Room: EXAM 101 Gender: Male Real Estate Financial Analyst: : 1965 Requested By: WILIAN GRANADO Order Number: [id number] Reading MD: Benson Russo Measurements Intervals Brandon Rate: 103 P: 76 TN: 163 QRS: 124 QRSD: 167 T: 29 QT: 409 QTc: 536 Interpretive Statements ELECTRONIC VENTRICULAR PACEMAKER ABNORMAL RHYTHM ECG Compared to ECG 09/22/2023 14:50:31 No significant changes [facility] us Wilian Granado MD ECG ORDERABLES Final R esult [facility] ([facility]) RAD documented in this encounter Visit Diagnoses Diagnosis Noisy breathing- Primary Other dyspnea and respiratory abnormality documented in this encounter Care Teams Advertising Account Representative Relationship Specialty Start Date End Date Zak Anderson MD [address] [place] [address] PCP - General INTERVENTIONAL CARDIOLOGY 05/06/24 documented as of this encounter
--- OUTSIDE RECORDS SUMMARY | 2024-05-17 12:00 | XMS_ITS | Encounter Summary ---
Author Organization [facility] Address [address] [place] [address]. [place] [id number] [place] [address] Care Team Providers Care Technical Editor Name Role Phone Naomy Maddox MD Primary Care Provider [phone] Encounter Details Date Type Department Care Team (Latest Contact Info) Description 09/15/2023 Travel Social History Tobacco Use Types Packs/Day [...] Diagnoses Not on filedocumented in this encounter Additional Health Concerns Infection Onset Date Last Indicated Resolved Time COVID-19 Rule Out 09/15/2023 09/15/2023 09/15/2023 10:07 AM CDT documented as of this encounter Care Teams Technical Editor Relationship Specialty Start Date End Date Naomy Maddox MD [address] [place] [address] PCP - General INTERNAL MEDICINE 07/07/22 05/05/24 documented as of this encounter
--- OUTSIDE RECORDS SUMMARY | 2024-05-17 12:00 | XMS_ITS | Encounter Summary ---
Author Organization [facility] Address [address] [place] [address]. [address] [address] Care Team Providers Care Can Labeler Name Role Phone Naomy Maddox MD Primary Care Provider [phone] Encounter Details Date Type Department Care Team (Latest Contact Info) Description 04/12/2024 Travel Social History Tobacco Use Types Packs/Day [...] on filedocumented in this encounter Care Teams Can Labeler Relationship Specialty Start Date End Date Naomy Maddox MD [address] [place] [address] PCP - General INTERNAL MEDICINE 07/07/22 05/05/24 documented as of this encounter
--- OUTSIDE RECORDS SUMMARY | 2024-05-17 12:00 | XMS_ITS | Encounter Summary ---
Author Organization [facility] Address [address] [place] [address]. [place], [place] [id number] [place] [address] Care Team Providers Care Leaded Glass Installer Name Role Phone Naomy Maddox MD Primary Care Provider [phone] Reason for Visit * Reason Comments Urinary Symptoms Encounter Details Date Type Department Care Team (Late st Contact Info) Description 02/28/2024 12:43 AM CDT - 02/28/2024 1:52 AM CDT Emergency [facility] Emergency Room [address] [place] [address] Chuck Cormier MD [address] [place] [address] Urinary Symptoms Discharge Disposition: Home or Self [...] Sign Reading Time Taken Comments Blood Pressure 128/84 02/28/2024 1:30 AM CDT Pulse 89 02/28/2024 1:30 AM CDT Temperature 36.4 ??C (97.5 ??F) 02/28/2024 12:49 AM C DT Respiratory Rate 17 02/28/2024 1:30 AM CDT Oxygen Saturation 96% 02/28/2024 1:30 AM CDT Inhaled Oxygen Concentration - - Weight 88.5 kg (195 lb) 02/28/2024 12:49 AM CDT Height 177.8 cm (5' 10 ) 02/28/2024 12:49 AM CDT Body Mass Index 27.98 02/28/2024 12:49 AM CDT documented in this encounter Discharge Instructions * Discharge Instructions* Chuck Cormier MD - 02/28/2024 1:46 AM CDT Take the Pyridium to see if it improves your urinary symptoms. There is no evidence of infection atthis time. Follow-up with your primary care doctor to continue to evaluate the glucose that is in your urine as this may indicate diabetes. Call in the morning to arrange follow-up * Attachments The following attachments cannot be sent through Care Everywhere. * Urethritis Discharge Instructions (Guamanian) documented in this encounter Medications at Time [...] (0.25 mcg total) by mouth. 04/12/2023 4 phenazopyridine (PYRIDIUM) 100 MG tablet Take 1 tablet (100 mg total) by mouth 3 (three) times daily as needed for Pain. 9 tablet 02/28/2024 4 documented as of this encounter ED Notes * Chuck Cormier MD - 02/28/2024 12:51 AM CDT Chief Complaint Chief Complaint Patient presents with ??? Urinary Symptoms History of Present Illness 58-year-old male with a history of hypertension, CHF, kidney disease here with complaints of burning with urination for the last 3 days. No fevers. He does report some urinary frequency. He denies other constitutional symptoms. Tolerating oral intake without difficulty. No nausea or vomiting. Medical History ALLERGIES: Review of patient's allergies indicates: No Known Allergies MEDICATIONS: Prior to Admission medications Medication Sig Start Date End Date Taking? Authorizing Provider phenazopyridine (PYRIDIUM) 100 MG tablet Take 1 tablet (100 mg total) by mouth 3 (three) times daily as needed for Pain. 02/28/24 03/02/24 Yes Chuck Cormier MD albuterol sulfate HFA 108 (90 Base) [...] MEDICAL HISTORY: Past Medical History: Diagnosis Date ??? CHF (congestive heart failure) (CMS/HCC HHS/HCC) ??? Hypertension ??? Renal disorder PAST SURGICAL HISTORY: Past Surgical History: Procedure Laterality Date ??? INTERNAL DEFIBRILLATOR ??? TONSILLECTOMY FAMILY HISTORY: No family history on file. SOCIAL HISTORY: Social History Tobacco Use ??? Smoking status: Never ??? Smokeless tobacco: Never Vaping Use ??? Vaping status: Never Used Substance Use Topics ??? Alcohol use: Yes ??? Drug use: Never Review of Systems Review of Systems Physical Exam Filed Vitals: 02/28/24 0049 02/28/24 0100 02/28/24 0130 BP: (!) 135/95 123/85 128/84 Pulse: 94 88 89 Resp: 19 17 17 Temp: 97.5 ??F (36.4 ??C) TempSrc: Oral SpO2: 100% 95% 96% Weight: 88.5 kg (195 lb) Height: 1.778 m (5' 10 ) Physical Exam Vitals and nursing note reviewed. Constitutional: General: He is not in acute distress. Appearance: He is well-developed. HENT: Head: Normocephalic and atraumatic. Right Ear: External ear normal. Left Ear: External ear normal. Nose: Nose normal. Eyes: General: No scleral icterus. Pupils: Pupils are equal, round, and reactive to light. Cardiovascular: Rate and Rhythm: Normal rate and regular rhythm. Pulses: Normal pulses. Heart sounds: Normal heart sounds. Pulmonary: Effort: Pulmonary effort is normal. No respiratory distress. Breath sounds: Normal breath sounds. No stridor. No wheezing. Abdominal: General: Bowel sounds are normal. There is no distension. Palpations: Abdomen is soft. Tenderness: There is no right CVA tenderness or left CVA tenderness. Comments: No palpable bladder distention Musculoskeletal: General: No deformity. Normal range of motion. Cervical back: Normal range of motion and neck supple. Skin: General: Skin is warm and dry. Capillary Refill: Capillary refill takes less than 2 seconds. Findings: No rash. Neurological: Mental Status: He is alert and oriented to person, place, and time. Cranial Nerves: No cranial nerve deficit. Psychiatric: Mood and Affect: Mood normal. Behavior: Behavior normal. Diagnostic Studies / Procedures ELECTROCARDIOGRAMS: No results found for this visit on 02/28/24. LABORATORY STUDIES: Results for orders placed or performed during the hospital encounter of 02/28/24 URINALYSIS, AUTO, COMPLETE Result Value Ref Range COLOR (U) YELLOW TRANSPARENCY HAZY SPECIFIC GRAVITY (U) 1.025 1.000 - 1.030 U PH 6.0 5.0 - 9.0 LEUKOCYTES (U) NEGATIVE NEGATIVE NITRITES NEGATIVE NEGATIVE PROTEIN RANDOM (U) 2+ (A) NEGATIVE GLUCOSE (U) 3+ (A) NEGATIVE KETONES MG/DL (U) NEGATIVE NEGATIVE BILIRUBIN (U) NEGATIVE NEGATIVE BLOOD (U) 3+ (A) NEGATIVE WBC/HPF 0-5 0 - 5 /HPF RBC/HPF 10-25 0 - 5 /HPF EPI/HPF NONE SEEN /HPF IMAGING STUDIES No orders to display ED Course / Medical Decision Making Medical Decision Making 58-year-old male with a history of hypertension, CHF, kidney disease here with complaints of burning with urination for the last 3 days. No fevers. He does report some urinary frequency. He denies other constitutional symptoms. Tolerating oral intake without difficulty. No nausea or vomiting. Vitalsigns are stable. Exam is benign. Urinalysis was obtained and demonstrated no evidence of UTI. GC and Chlamydia were added to the urine specimen provided. Those do not result today. Glucose was present in the urine. This may indicate diabetes which patient states his grape crusher has also considered. Patient was discharged to home. As a means of using symptoms a course of Pyridium was prescribed. Problems Addressed: Urethritis, nonspecific: acute illness or injury Amount and/or Complexity of Data Reviewed Labs: ordered. Decision-making details documented in ED Course. Risk OTC drugs. Clinical Impression Urethritis, nonspecific (Primary) Disposition: Discharge Chuck Cormier MD 02/28/24 0720 * Genaro eMndez RN - 02/28/2024 12:48 AM CDT Pt to ed with c/o burning with urination. State sx's have been going on for past 3 days. Denies fevers. Also reports urinary frequency. Pt a&ox4. documented in this encounter Plan of Treatment Not on file documented as of this encounter Procedures Procedure Name Priority Date/Time Associated Diagnosis Comments CHLAMYDIA GC RNA STAT 02/28/2024 12:4 6 AM CDT URINALYSIS, AUTO, COMPLETE STAT 02/28/2024 12:46 AM CDT documented in this encounter Results * CHLAMYDIA GC RNA (02/28/2024 12:46 AM CDT) SPECIMEN SOURCE URINE 1:41 AM CDT [facility] CHLAMYDIA PCR NEGATIVE NEGATIVE 02/29/2024 12:39 AM CDT [facility] Comment:PERFORMED BY NUCLEIC ACID AMPLIFICATION N.GONORRHOEAE RNA TMA NEGATIVE NEGATIVE 02/29/2024 12:39 AM CDT [facility] Comment:PERFORMED BY NUCLEIC ACID AMPLIFICATION URINE SPECIMEN / Unknown 02/28/2024 12:46 AM CDT Chuck Cormier MD MICROBIOLOGY - GENERAL ORD ERABLES Final Result Performing Organization Address City/State/[facility] Co de Phone Number [facility] [address] [place] [address], [place] [phone] [facility] [address] [place] [address], [place] [phone] * (ABNORMAL) URINALYSIS, AUTO, COMPLETE (02/28/2024 12:46 AM CDT) COLOR (U) YELLOW 02/28/2024 1:25 AM CDT [facility] TRANSPARENCY HAZY 02/28/2024 1:25 AM CDT [facility] SPECIFIC GRAVITY (U) 1.025 1.000 - 1.030 02/28/2024 1:25 AM CDT [facility] U PH 6.0 5.0 - 9.0 02/28/2024 1:25 AM CDT [facility] LEUKOCYTES (U) NEGATIVE NEGATIVE 02/28/2024 1:25 AM CDT [facility] NITRITES NEGATIVE NEGATIVE 02/28/2024 1:25 AM CDT [facility] PROTEIN RANDOM (U) 2+(A) NEGATIVE 02/28/2024 1:25 AM CDT [facility] GLUCOSE (U) 3+(A) NEGATIVE 02/28/2024 1:25 AM CDT [facility] KETONES MG/DL (U) NEGATIVE NEGATIVE 02/28/2024 1:25 AM CDT [facility] BILIRUBIN (U) NEGATIVE NEGATIVE 02/28/2024 1:25 AM CDT [facility] BLOOD (U) 3+(A) NEGATIVE 02/28/2024 1:25 AM CDT [facility] WBC/HPF 0-5 0 - 5 /HPF 02/28/2024 1:25 AM CDT [facility] RBC/HPF 10-25 0 - 5 /HPF 02/28/2024 1:25 AM CDT [facility] EPI/HPF NONE SEEN /HPF 02/28/2024 1:25 AM CDT [facility] URINE SPECIMEN OBTAINED BY CLEAN CATCH PROCEDURE / Unknown 02/28/2024 12:46 AM CDT us Chuck Cormier MD URINE ORDERABLES Final Res ult [facility] [address] [place] [address], [place] [phone] documented in this encounter Visit Diagnoses Diagnosis Urethritis, nonspecific- Primary Unspecified nongonococcal urethritis (KRYSTYNA) documented in this encounter Administered Medications Inactive Administered Medications - up to 3 most recent administrations Medication Order MAR Action Action Date Dose Rate Site phenazopyridine (PYRIDIUM) tablet 100 mg 100 mg, Oral, Once, 1 dose, On Tue02/28/24 at 0200 Given 02/28/2024 1:49 AM CDT 100 mg documented in this encounter Active and Recently Administered Medications Times are shown in CDT. Scheduled Medication Order 02/26/2024 02/27/2024 02/28/2024 phenazopyridine (PYRIDIUM) tablet 100 mg (COMPLETED) 100 mg, Oral, Once, 1 dose, On Tue02/28/24 at 0200 0149 (Given - Provid er: Genaro Mendez RN) documented in this encounter Care Teams Leaded Glass Installer Relationship Specialty Start Date End Date Naomy Maddox MD [address] [place] [address] PCP - General INTERNAL MEDICINE 07/07/22 05/05/24 documented as of this encounter
--- OUTSIDE RECORDS SUMMARY | 2024-05-17 12:00 | XMS_ITS | Encounter Summary ---
Author Organization [facility] Address [address] [place] [address]. [address] [address] Care Team Providers Care Mattress And Boxsprings Supervisor Name Role Phone Naomy Maddox MD Primary Care Provider [phone] Encounter Details Date Type Department Care Team (Latest Contact Info) Description 02/03/2024 Travel Social History Tobacco Use Types Packs/Day [...] on filedocumented in this encounter Care Teams Mattress And Boxsprings Supervisor Relationship Specialty Start Date End Date Naomy Maddox MD [address] [place] [address] PCP - General INTERNAL MEDICINE 07/07/22 05/05/24 documented as of this encounter
--- OUTSIDE RECORDS SUMMARY | 2024-05-17 12:01 | XMS_ITS | Encounter Summary ---
Author Organization [facility] Address [address] [place] [address]. [place], [place] [address] [place] [address] Care Team Providers Care Salesperson Florist Supplies Name Role Phone None, Provider MD Primary Care Provider Unavaila ble Reason for Visit * Reason Comments Sore Throat Congestion Encounter Details Date Type Department Care Team (Late st Contact Info) Description 05/05/2022 8:07 AM HOSPITAL PRODUCT SPECIALIST - 05/05/2022 9:38 AM HOSPITAL PRODUCT SPECIALIST Emergency [facility] Emergency Room [address] [place] [address] Kasia Kim MD [address] [place] [address] Sore Throat; Congestion Discharge Disposition: Home or Self Care (Routine Discharge) Social History Tobacco Use Types Packs/Day Years Used Date Smoking Tobacco: Never Assessed Sex and Gender Information Value Date Recorded Sex Assigned at Not on file Legal Sex Male 8:04 PM CDT Gender Identity Not on file Sexual Orientation Not on file COVID-19 Exposure Response Date Recorded In the last 10 days, have yo u been in contact with someone who was confirmed or suspected to have Coronavirus/COVID-19? No / Unsure 05/05/2022 7:50 AM HOSPITAL PRODUCT SPECIALIST documented as of this encounter Last Filed Vital Signs Vital Sign Reading Time Taken Comments Blood Pressure 130/74 05/05/2022 8:08 AM HOSPITAL PRODUCT SPECIALIST Pulse 105 05/05/2022 8:08 AM HOSPITAL PRODUCT SPECIALIST Temperature 36.4 ??C (97.6 ??F) 05/05/2022 8:08 AM CS T Respiratory Rate 18 05/05/2022 8:08 AM HOSPITAL PRODUCT SPECIALIST Oxygen Saturation 99% 05/05/2022 8:08 AM HOSPITAL PRODUCT SPECIALIST Inhaled Oxygen Concentration - - Weight 87.1 kg (192 lb) 05/05/2022 8:08 AM HOSPITAL PRODUCT SPECIALIST Height 177.8 cm (5' 10 ) 05/05/2022 8:08 AM HOSPITAL PRODUCT SPECIALIST Body Mass Index 27.55 05/05/2022 8:08 AM HOSPITAL PRODUCT SPECIALIST documented in this encounter Discharge Instructions * Discharge Instructions* Kasia Kim MD - 05/05/2022 8:58 AM HOSPITAL PRODUCT SPECIALIST Good handwashing. Drink plenty of fluids. Tylenol or ibuprofen for aches. Return to ED if worse in any way ITAL PRODUCT SPECIALIST * Attachments The following attachments cannot be sent through Care Everywhere. * Viral Syndrome Discharge Instructions (Chinese) documented in this encounter ED Notes * Kasia Kim MD - 05/05/2022 8:38 AM CST Chief Complaint Chief Complaint Patient presents with ??? Sore Throat ??? Congestion History of Present Illness This is a 56-year-old male with a history of CHF presenting with complaints of cough, congestion, body aches, sore throat that has been going on since Tuesday. He denies any fevers or chills. Denies feeling short of breath. Denies any chest pain. Denies ear pain. Medical History ALLERGIES: No Known Allergies MEDICATIONS: Prior to Admission medications Not on File PAST MEDICAL HISTORY: No past medical history on file. PAST SURGICAL HISTORY: No past surgical history on file. FAMILY HISTORY: No family history on file. SOCIAL HISTORY: Review of Systems Review of Systems Constitutional: Negative for chills and fever. HENT: Positive for congestion. Eyes: Negative for photophobia and visual disturbance. Respiratory: Positive for cough. Negative for chest tightness and shortness of breath. Cardiovascular: Negative for chest pain and leg swelling. Gastrointestinal: Negative for abdominal pain, diarrhea, nausea and vomiting. Musculoskeletal: Negative for neck pain and neck stiffness. Neurological: Negative for headaches. Psychiatric/Behavioral: Negative for confusion. All other systems reviewed and are negative. Physical Exam Filed Vitals: 05/05/22 0808 BP: 130/74 Pulse: 105 Resp: 18 Temp: 97.6 ??F (36.4 ??C) SpO2: 99% Weight: 87.1 kg (192 lb) Height: 5' 10 (1.778 m) Physical Exam Vitals and nursing note reviewed. Constitutional: Appearance: Normal appearance. HENT: Head: Normocephalic and atraumatic. Right Ear: External ear normal. Left Ear: External ear normal. Mouth/Throat: Mouth: Mucous membranes are moist. Comments: No oropharyngeal erythema. No exudates. No trip Eyes: Conjunctiva/sclera: Conjunctivae normal. Cardiovascular: Rate and Rhythm: Normal rate and regular rhythm. Pulses: Normal pulses. Pulmonary: Effort: Pulmonary effort is normal. No respiratory distress. Breath sounds: Normal breath sounds. No wheezing, rhonchi or rales. Chest: Chest wall: No tenderness. Abdominal: Palpations: Abdomen is soft. Tenderness: There is no abdominal tenderness. There is no guarding or rebound. Musculoskeletal: General: Normal range of motion. Cervical back: Normal range of motion and neck supple. No rigidity. Skin: General: Skin is warm and dry. Neurological: Mental Status: He is alert and oriented to person, place, and time. Diagnostic Studies / Procedures ELECTROCARDIOGRAMS: No results found for this visit on 05/05/22. LABORATORY STUDIES: Results for orders placed or performed during the hospital encounter of 05/05/22 RAPID STREP A Specimen: THROAT Result Value Ref Range RAPID STREP TEST NEGATIVE NEGATIVE CORONAVIRUS (COVID-19) ANTIGEN [RAPID IN HOUSE TEST] Specimen: NASAL Result Value Ref Range CORONAVIRUS ANTIGEN IA NEGATIVE NEGATIVE Specimen Type NASAL FIRST TEST UNKNOWN EMPLOYED IN HEALTHCARE NO SYMPTOMATIC DEFINED BY CDC YES DATE OF SYMPTOM ONSET [id number] HOSPITALIZATION STATUS UNKNOWN PATIENT IN ICU UNKNOWN RESIDENT OF [facility] CARE NO NO INFLUENZA A & B Specimen: NASOPHARYNGEAL SWAB Result Value Ref Range Specimen Type NASOPHARYNGEAL SWAB INFLUENZA A NEGATIVE NEGATIVE INFLUENZA B NEGATIVE NEGATIVE IMAGING STUDIES No orders to display ED Course / Medical Decision Making MDM Number of Diagnoses or Management Options Viral URI with cough Diagnosis management comments: 56yo male presenting with cough, congestion, body aches since Tuesday. Lungs are clear to auscultation bilaterally. He is 99% on room air. He has normal vital signs on my evaluation. COVID and strep testing are negative. Influenza negative. Patient reassured. Likely viral URI. Discussed reasons to return to ED. Will be discharged home in stable condition. Discussed supportive care. He was comfortable with this plan and will return if worse in any way Amount and/or Complexity of Data Reviewed Clinical lab tests: reviewed ED Course as of 05/05/22 0900 TueMay 05, 2022 0856 INFLUENZA A & B [GJ] ED Course User Index [GJ] Kasia Kim MD Clinical Impression Viral URI with cough (Primary) Disposition: Discharge Kasia Kim MD 05/05/22 0900 ITAL PRODUCT SPECIALIST * Teresita Castillo RN - 05/05/2022 8:07 AM CST Pt ambulated into ER with c/o congestion and sore throat since this past Tuesday. Pt denies fever, SOB or chest pain. ITAL PRODUCT SPECIALIST documented in this encounter Plan of Treatment Not on file documented as of this encounter Procedures Procedure Name Priority Date/Time Associated Diagnosis Comments CORONAVIRUS (COVID-19) ANTIGEN DIRECT OPTICAL STAT 05/05/2022 8:13 AM HOSPITAL PRODUCT SPECIALIST RAPID STREP A STAT 05/05/2022 8:13 AM HOSPITAL PRODUCT SPECIALIST HC QL INFLUENZA A/B STAT 05/05/2022 8 :13 AM HOSPITAL PRODUCT SPECIALIST documented in this encounter Results * INFLUENZA A & B (05/05/2022 8:13 AM HOSPITAL PRODUCT SPECIALIST) SPECIMEN TYPE NASOPHARYNGEAL SWAB 05/05/2022 8:18 AM HOSPITAL PRODUCT SPECIALIST [facility] INFLUENZA A NEGATIVE NEGATIVE 05/05/2022 8:52 AM HOSPITAL PRODUCT SPECIALIST [facility] INFLUENZA B NEGATIVE NEGATIVE 05/05/2022 8:52 AM HOSPITAL PRODUCT SPECIALIST [facility] NASOPHARYNGEAL SWAB / Unknown 05/05/2022 8:13 AM HOSPITAL PRODUCT SPECIALIST Kasia Kim MD MICROBIOLOGY - GENERAL ORD ERABLES Final Result [facility] [address] [place] [address], * CORONAVIRUS (COVID-19) ANTIGEN [RAPID IN HOUSE TEST] (05/05/2022 8:13 AM HOSPITAL PRODUCT SPECIALIST) CORONAVIRUS ANTIGEN IA NEGATIVE NEGATIVE 05/05/2022 8:34 AM HOSPITAL PRODUCT SPECIALIST [facility] Comment: NEGATIVE RESULTS DO NOT RULE OUT SARS-COV-2 INFECTION AND SHOULD NOT BE USED THE SOLE BASIS FOR TREATMENT OR PATIENT MANAGEMENT DECISIONS, INCLUDING INFECTION CONTROL DECISIONS. NEGATIVE RESULTS SHOULD BE CONSIDERED IN THE CONTEXT OF A PATIENT'S RECENT EXPOSURES, HISTORY AND THE PRESENCE OF CLINICAL SIGNS AND SYMPTOMS CONSISTENT WITH COVID 19. THIS TEST HAS BEEN AUTHORIZED BY THE FDA UNDER AN EMERGENCY USE AUTHORIZATION (EUA) FOR USE BY AUTHORIZED LABORATORIES. SPECIMEN TYPE NASAL 05/05/2022 8:13 AM [facility] FIRST TEST UNKNOWN 05/05/2022 8:13 AM [facility] EMPLOYED IN HEALTHCARE NO 05/05/2022 8:13 AM [facility] SYMPTOMATIC DEFINED BY CDC YES 05/05/2022 8:13 AM [facility] DATE OF SYMPTOM ONSET 2022050405/05/2022 8:13 AM [facility] HOSPITALIZATION STATUS UNKNOWN 05/05/2022 8:13 AM HOSPITAL PRODUCT SPECIALIST [facility] PATIENT IN ICU UNKNOWN 05/05/2022 8:18 AM [facility] RESIDENT OF [facility] CARE NO 05/05/2022 8:13 AM [facility] NO 05/05/2022 8:18 AM HOSPITAL PRODUCT SPECIALIST [facility] NASAL NASAL STRUCTURE / Unknown 05/05/2022 8:13 AM HOSPITAL PRODUCT SPECIALIST Kasia Kim MD MICROBIOLOGY - GENERAL ORD ERABLES Final Result Performing Organization Address City/[facility]/ZIP Co de Phone Number [facility] [address] [place] [address], [place] [phone] * RAPID STREP A (05/05/2022 8:13 AM HOSPITAL PRODUCT SPECIALIST) RAPID STREP TEST NEGATIVE NEGATIVE 05/05/2022 8:31 AM HOSPITAL PRODUCT SPECIALIST [facility] STRUCTURE OF ANTERIOR PORTION OF NECK / Unknown 05/05/2022 8:13 AM HOSPITAL PRODUCT SPECIALIST Kasia Kim MD MICROBIOLOGY - GENERAL ORD ERABLES Final Result Performing Organization Address City/[facility] Co de Phone Number [facility] [address] [place] [address], [place] [phone] documented in this encounter Visit Diagnoses Diagnosis Viral URI with cough- Primary Acute upper respiratory infections of unspecified site documented in this encounter Additional Health Concerns Infection Onset Date Last Indicated Resolved Time COVID-19 Rule Out 05/05/2022 05/05/2022 05/05/2022 8:34 AM HOSPITAL PRODUCT SPECIALIST documented as of this encounter Care Teams Salesperson Florist Supplies Relationship Specialty Start Date End Date None, Provider, PCP - General UNKNOWN PHYSICIAN SPECIALTY 03/16/22 documented as of this encounter
--- OUTSIDE RECORDS SUMMARY | 2024-05-17 12:01 | XMS_ITS | Encounter Summary ---
Author Organization [facility] Address [address] [place] [address]. [place], [place] [id number] [place] [id number] Care Team Providers Care Housing Case Manager Name Role Phone None, Provider Primary Care Provider Unavaila ble Encounter Details Date Type Department Care Team (Latest Contact Info) Description 05/05/2022 Travel Social History Tobacco Use Types Packs/Day Years Used Date Smoking Tobacco: Never Assessed Sex and Gender Information Value Date Recorded Sex Assigned at Not on file Legal Sex Male 8:04 PM CDT Gender Identity Not on file Sexual Orientation Not on file COVID-19 Exposure Response Date Recorded In the last 10 days, have alcides u been in contact with someone who was confirmed or suspected to have Coronavirus/COVID-19? No / Unsure 05/05/2022 7:50 AM BODY COVERER documented as of this encounter Plan of Treatment Not on file documented as of this encounter Visit Diagnoses Not on filedocumented in this encounter Additional Health Concerns Infection Onset Date Last Indicated Resolved Time COVID-19 Rule Out 05/05/2022 05/05/2022 05/05/2022 8:34 AM BODY COVERER documented as of this encounter Care Teams Housing Case Manager Relationship Specialty Start Date End Date None, Provider, PCP - General UNKNOWN PHYSICIAN SPECIALTY 03/16/22 documented as of this encounter
--- OUTSIDE RECORDS SUMMARY | 2024-05-17 12:01 | XMS_ITS | Encounter Summary ---
Author Organization [facility] Address [address] [place] [address]. [place], [place] [id number] [place] [id number] Care Team Providers Care Client Account Assistant Name Role Phone Naomy Maddox MD Primary Care Provider [phone] Encounter Details Date Type Department Care Team (Latest Contact Info) Description 08/04/2022 Travel Social History Tobacco Use Types Packs/Day [...] suspected to have Coronavirus/COVID-19? No / Unsure 08/04/2022 10:45 AM CDT documented as of this encounter Plan of Treatment Not on file documented as of this encounter Visit Diagnoses Not on filedocumented in this encounter Care Teams Client Account Assistant Relationship Specialty Start Date End Date Naomy Maddox MD [address] [place] [address] PCP - General INTERNAL MEDICINE 07/07/22 05/05/24 documented as of this encounter
--- OUTSIDE RECORDS SUMMARY | 2024-05-17 12:01 | XMS_ITS | Encounter Summary ---
Author Organization [facility] Address [address] [place] [address]. [place], [place] [id number] [place] [id number] Care Team Providers Care Clinical Data Programmer Name Role Phone Naomy Maddox MD Primary Care Provider [phone] Encounter Details Date Type Department Care Team (Latest Contact Info) Description 10/14/2022 Travel Social History Tobacco Use Types Packs/Day [...] suspected to have Coronavirus/COVID-19? No / Unsure 10/14/2022 5:36 PM CDT documented as of this encounter Plan of Treatment Not on file documented as of this encounter Visit Diagnoses Not on filedocumented in this encounter Care Teams Clinical Data Programmer Relationship Specialty Start Date End Date Naomy Maddox MD [address] [place] [address] PCP - General INTERNAL MEDICINE 07/07/22 05/05/24 documented as of this encounter
--- OUTSIDE RECORDS SUMMARY | 2024-05-17 12:01 | XMS_ITS | Encounter Summary ---
Author Organization [facility] Address [address] [place] [address]. [place], [place] [id number] [place] [id number] Care Team Providers Care Assisted Living Executive Director Name Role Phone Naomy Maddox MD Primary Care Provider [phone] Encounter Details Date Type Department Care Team (Latest Contact Info) Description 07/07/2022 Travel Social History Tobacco Use Types Packs/Day [...] suspected to have Coronavirus/COVID-19? 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
--- OUTSIDE RECORDS SUMMARY | 2024-05-17 12:01 | XMS_ITS | Encounter Summary ---
Author Organization [facility] Address [address] [place] [address]. [place], [place] [id number] [place] [id number] Care Team Providers Care Marine Engineer Name Role Phone Naomy Maddox MD Primary Care Provider [phone] Reason for Referral * Imaging (Emergency) - Closed Specialty Diagnoses / Procedures Referred By Tanesha dennis Referred To Contact RADIOLOGY Procedures CT ABD+PEL WO CON Africa Trammell MD [address] [place] [address] Phone: tel: fax: Referral ID Status Reason Start Date Expiration Date Visits Re quested Visits Authorized [id number] Closed 07/07/2022 07/07/2023 1 1 S TYPE SCREW MACHINE OPERATOR Reason for Visit * Reason Comments Abdominal Pain Nausea Encounter Details Date Type Department Care Team (Late st Contact Info) Description 07/07/2022 2:29 PM SWISS TYPE SCREW MACHINE OPERATOR - 07/07/2022 10:07 PM SWISS TYPE SCREW MACHINE OPERATOR Emergency [facility] Emergency Room [address] [place] [address] Africa Trammell MD [address] [place] [address] Abdominal Pain; Nausea Discharge Disposition: Home or Self Care (Routine Discharge) Social History Tobacco Use Types Packs/Day Years Used Date Smoking Tobacco: Never Smokeless Tobacco: Never Tobacco Cessation:Counseling Given: Not Answered Alcohol Use Standard Drinks/Week Comments Yes 0 [...] Coronavirus/COVID-19? No / Unsure 07/07/2022 2:05 PM SWISS TYPE SCREW MACHINE OPERATOR documented as of this encounter Last Filed Vital Signs Vital Sign Reading Time Taken Comments Blood Pressure 116/73 07/07/2022 10:02 PM SWISS TYPE SCREW MACHINE OPERATOR Pulse 85 07/07/2022 10:02 PM SWISS TYPE SCREW MACHINE OPERATOR Temperature 36.7 ??C (98.1 ??F) 07/07/2022 10:[address] Respiratory Rate 18 07/07/2022 10:02 PM SWISS TYPE SCREW MACHINE OPERATOR Oxygen Saturation 100% 07/07/2022 10:02 PM SWISS TYPE SCREW MACHINE OPERATOR Inhaled Oxygen Concentration - - Weight 87.1 kg (192 lb) 07/07/2022 2:34 PM SWISS TYPE SCREW MACHINE OPERATOR Height 177.8 cm (5' 10 ) 07/07/2022 2:34 PM SWISS TYPE SCREW MACHINE OPERATOR Body Mass Index 27.55 07/07/2022 2:34 PM SWISS TYPE SCREW MACHINE OPERATOR documented in this encounter Discharge Instructions * Discharge Instructions* Devonte Mckinnon MD,PHD - 07/07/2022 9:51 PM SWISS TYPE SCREW MACHINE OPERATOR Clear liquid diet only for the next 24 hours S TYPE SCREW MACHINE OPERATOR * Attachments The following attachments cannot be sent through Care Everywhere. * Clear Liquid Diet (Mexican) documented in this encounter Medications at Time of Discharge ondansetron (ZOFRAN-ODT) 4 MG disintegrating tablet Take 1 tablet (4 mg total) by mouth every 8 (eight) hours as needed for Nausea. 20 tablet 07/07/2022 magnesium-aluminum- simethicone (MYLANTA MAXIMUM STRENGTH) 400-400-40 MG/5ML suspension Take 15 mLs by mouth every 6 (six) hours as needed for Indigestion (abdominal pain). 355 mL 07/07/2022 07/18/19 documented as of this encounter ED Notes * Devonte Mckinnon MD,PHD - 07/07/2022 9:52 PM CST Signed out to me pending a repeat troponin. His repeat troponin is normal and unchanged at 7. I reviewed his field marketing associate notes from care everywhere. He saw his field marketing associate in clinic on May 21, it is documented by the field marketing associate that he had a left bundle branch block at that time. He had a cardiac catheterization in March with 80% OM stenosis. Current management is medical in nature. The patient reports that he has an outpatient echo coming up. The patient's history of cardiomyopathy explains his elevated BNP. He denies being short of breath,dizzy, or having any chest pain. His abdominal pain and nausea have improved to near resolution. The patient tells me that his pain gets worse about 30 seconds to 1 minute after p.o. intake. He has improved after a Maalox and Pepcid. His CT is otherwise unremarkable. I thus suspect that his symptoms are due to gastritis. Patient was thus deemed stable for discharge from the emergency department CLINICAL IMPRESSION Upper abdominal pain DISPOSITION Discharge home Patient was provided with a prescription for ondansetron and maalox Patient provided with printed and verbal discharge care instructions and was instructed to return to the emergency department immediately with worsening symptoms or new worrisome symptoms. Patient was instructed to follow-up with primary care physician within 1 week for further evaluation and treatment. Diagnoses & treatment discussed with patient Patient expressed understanding and agreed. Devonte Mckinnon MD,PHD 07/07/22 [id number] S TYPE SCREW MACHINE OPERATOR * Africa Trammell MD - 07/07/2022 8:33 PM CSTAssociated Order(s): EKG Reading Chief Complaint Chief Complaint Patient presents with ??? Abdominal Pain ??? Nausea History of Present Illness The patient is a 56-year-old male with a past medical history of CHF, chronic renal disease, and coronary artery disease. Patient states that for the past several days has had upper abdominal pain. He cannot identify any exacerbating or alleviating factors other than drinking apple juice. The pain does not appear to radiate into his chest. He denies any significant shortness of breath, cough, chills or fevers. He denies any vomiting, diarrhea, or constipation. He denies similar symptoms in the past. He receives his care at an outside facility. Medical History ALLERGIES: No Known Allergies MEDICATIONS: Prior to Admission medications Not on File PAST MEDICAL HISTORY: Past Medical History: Diagnosis Date ??? CHF (congestive heart failure) ([facility]) ??? Hypertension ??? Renal disorder PAST SURGICAL HISTORY: Past Surgical History: Procedure Laterality Date ??? TONSILLECTOMY FAMILY HISTORY: No family history on file. SOCIAL HISTORY: Social History Tobacco Use ??? Smoking status: Never ??? Smokeless tobacco: Never Vaping Use ??? Vaping Use: Never used Substance Use Topics ??? Alcohol use: Yes ??? Drug use: Never Review of Systems Review of Systems Constitutional: Negative for chills and fever. HENT: Negative for congestion and sore throat. Eyes: Negative for pain and visual disturbance. Respiratory: Negative for cough and shortness of breath. Cardiovascular: Negative for chest pain and palpitations. Gastrointestinal: Positive for abdominal pain. Negative for diarrhea and vomiting. Genitourinary: Negative for difficulty urinating and dysuria. Musculoskeletal: Negative for back pain and neck pain. Skin: Negative for rash and wound. Neurological: Negative for syncope and headaches. Psychiatric/Behavioral: Negative for confusion and suicidal ideas. All other systems reviewed and are negative. Physical Exam Filed Vitals: 07/07/22 1434 07/07/22 1837 BP: 109/72 110/70 Pulse: 96 Resp: 18 18 Temp: 97.9 ??F (36.6 ??C) TempSrc: Temporal SpO2: 100% 100% Weight: 87.1 kg (192 lb) Height: 5' 10 (1.778 m) Physical Exam Vitals and nursing note reviewed. Constitutional: Appearance: Normal appearance. HENT: Head: Normocephalic and atraumatic. Nose: Nose normal. Mouth/Throat: Pharynx: Oropharynx is clear. Eyes: Conjunctiva/sclera: Conjunctivae normal. Cardiovascular: Rate and Rhythm: Normal rate and regular rhythm. Heart sounds: Normal heart sounds. Pulmonary: Effort: Pulmonary effort is normal. Breath sounds: Normal breath sounds. Abdominal: General: Bowel sounds are normal. Palpations: Abdomen is soft. Tenderness: There is abdominal tenderness (mild epigastric tenderness). Musculoskeletal: General: Normal range of motion. Cervical back: Normal range of motion and neck supple. Skin: General: Skin is warm and dry. Capillary Refill: Capillary refill takes less than 2 seconds. Neurological: General: No focal deficit present. Mental Status: He is alert and oriented to person, place, and time. Psychiatric: Mood and Affect: Mood normal. Behavior: Behavior normal. Diagnostic Studies / Procedures ELECTROCARDIOGRAMS: Results for orders placed or performed during the hospital encounter of 07/07/[address] [facility] Test Date: 2022-07-07 Pat Name: NATAN LAGUNA Department: 85 Room: [place] [address] Gender: Male Weigher And Mixer: : 1965 Requested By: AFRICA TRAMMELL Order Number: [id number] Reading MD: Measurements Intervals [place] Rate: 87 P: 56 PA: 188 QRS: -17 QRSD: 185 T: 143 QT: 418 QTc: 503 Interpretive Statements SINUS RHYTHM LEFT BUNDLE BRANCH BLOCK [120+ ms QRS DURATION, 80+ ms Q/S IN V1/V2, 85+ ms R IN I/aVL/V5/V6] Compared to ECG 01/27/2009 10:13:46 Left bundle-branch block now present Left ventricular hypertrophy no longer present LABORATORY STUDIES: Results for orders placed or performed during the hospital encounter of 07/07/22 CBC W/DIFF AUTOMATED Result Value Ref Range WBC 6.42 4.4 - 11.0 x10'3/uL RBC 4.79 4.50 - 5.90 x10'6/uL HGB 14.1 14.0 - 17.5 G/DL HCT 42.2 41.5 - 50.4 % MCV 88.1 80.0 - 96.0 FL MCH 29.4 26.5 - 31.4 PG MCHC 33.4 31.9 - 34.8 G/DL RDW 13.7 12.3 - 14.3 % PLT 284 151 - 353 x10'3/uL MPV 9.2 (L) 9.7 - 11.9 FL RBC MORPHOLOGY NORMAL PLT MORPH. NORMAL WBC MORPHOLOGY NORMAL LYMPHOCYTES 18.1 15.8 - 45.0 % NEUTROPHILS 64.7 42.1 - 71.9 % MONOCYTES 10.1 5.7 - 12.5 % EOSINOPHILS 5.8 (H) 0.0 - 5.6 % BASOPHILS 0.8 0.0 - 1.3 % ABS. NEUTROPHILS 4.16 1.40 - 6.00 x10'3/uL IMMATURE GRANS 0.5 0.0 - 0.5 % ABS. LYMPHOCYTES 1.16 0.80 - 4.70 x10'3/uL COMPREHENSIVE METABOLIC PANEL Result Value Ref Range GLUCOSE 107 (H) 70 - 99 MG/DL BUN 19 (H) 7 - 18 MG/DL CREATININE S/P/B 2.41 (H) 0.7 - 1.3 MG/DL SODIUM 142 136 - 145 MMOL/L POTASSIUM 4.1 3.5 - 5.1 MMOL/L CHLORIDE S/P/B 105 100 - 108 MMOL/L CO2 28.6 21 - 32 MMOL/L CALCIUM 9.1 8.5 - 10.1 MG/DL BILIRUBIN TOTAL S/P/B 0.3 0.2 - 1.2 MG/DL TOTAL PROTEIN S/P/B 7.6 6.4 - 8.2 G/DL ALBUMIN S/P/B 3.8 3.4 - 5.0 G/DL AST 28 15 - 37 U/L ALT 37 16 - 60 U/L ALKALINE PHOSPHATASE S/P/B 127 50 - 136 U/L ANION GAP 8.4 5 - 15 MMOL/L BUN CREATININE RATIO 7.9 6 - 26 A/G RATIO 1.0 1.0 - 2.0 RATIO GFR ESTIMATE 31 (L) >90 ML/MIN/1.73 M2 TROPONIN, QUANT Result Value Ref Range TROPONIN I HIGH SENSITIVITY 7 <76 ng/L LIPASE Result Value Ref Range LIPASE 260 73 - 393 UNITS/L PRO-BRAIN NATRIURETIC PEPTIDE Result Value Ref Range PRO-B TYPE NATRIURETIC PEPTIDE 538 (H) <125 PG/ML IMAGING STUDIES CT ABD+PEL WO CON Final Result by User, [id number] (07/07 1952) EXAMINATION: CT ABDOMEN/PELVIS WITHOUT CONTRAST INDICATION: upper abd pain Abdominal pain, acute, nonlocalized COMPARISON: None available. TECHNIQUE: Computed tomography of the abdomen, and pelvis was performed without administration of intravenous contrast. Sagittal and coronal reconstructions. A dose lowering technique was used for this procedure, which may include, but is not limited to, dose reduction techniques, automated exposure control, the use of a iterative reconstruction, and ALARA (as low as reasonably achievable)/image gently techniques. FINDINGS: Lower Chest: Visualized portions of the lung bases are clear. No cardiomegaly or pericardial thickening/effusion. No hiatal hernia. Hepatobiliary: Although limited due to lack of intravenous contrast, normal appearance without focal gross abnormality. No evidence of calcified gallstones or biliary ductal dilatation. Pancreas: No pancreatic ductal dilation or surrounding inflammatory changes. Spleen: Normal in size without focal abnormality. Adrenals/Urinary Tract: Both adrenal glands appear normal. There is a 5 cm low-density cyst seen within the upper pole the right kidney. There is a 3 mm calculus in the lower pole of the right kidney. No hydronephrosis. The bladder is unremarkable. Stomach/Bowel: The stomach, small bowel, and colon are normal in appearance. No inflammatory changes, wall thickening, or obstructive findings. The appendix is normal. Lymph Nodes/ Vascular: No significant gross vascular findings are present given the lack of intravenous contrast. There are no enlarged abdominal or pelvic lymph nodes. Pelvis: The prostate gland is unremarkable. Other: No abdominal wall mass or hernia. No free fluid. Musculoskeletal: No acute or significant osseous abnormality. IMPRESSION: No acute intra-abdominal or pelvic pathology to explain the patient's symptoms Nonobstructing right renal calculus. Referred By: Interpreted By: Jazzmine Olivo MD, 07/07/2022 7:42 PM XR CHEST PORTABLE (Results Pending) EKG Reading Date/Time: 07/07/2022 8:35 PM Performed by: Africa Trammell MD Authorized by: Africa Trammell MD Interpreted by ED physician Rhythm: sinus rhythm Comments: Wide QRS complex, Sgarbossa criteria not met ED Course / Medical Decision Making Medical Decision Making The patient had minimal relief after GI cocktail and Pepcid. CT without contrast due to his renal function was ordered, which was largely unrevealing for any acute pathology. EKG was wide-complex QRS; no previous EKG with which to compare, however notes from outside facility do note an intraventricular conduction delay. Initial troponin negative. Repeat troponin ordered along with a chest x-ray. The patient has been endorsed to oncoming ED MD. Amount and/or Complexity of Data Reviewed External Data Reviewed: ECG and notes. Labs: ordered. Decision-making details documented in ED Course. Radiology: ordered and independent interpretation performed. ECG/medicine tests: ordered. Decision-making details documented in ED Course. Clinical Impression Pain of upper abdomen (Primary) Disposition: Data Unavailable Africa Trammell MD 07/07/222037 S TYPE SCREW MACHINE OPERATOR * Juli Rivera RN - 07/07/2022 2:29 PM CST Pt presents to ED via self with C/O upper mid abdominal pain that has been going on for the past 10days. States he has a hx of acid reflux, but this isn't the same. Pain is rated 8/10 and he denies taking anything for pain. Denies calling his PCP due to her being in [place] and too far away. Denies any pain in chest and pain stays in same place. S TYPE SCREW MACHINE OPERATOR documented in this encounter Plan of Treatment Not on file documented as of this encounter Procedures Procedure Name Priority Date/Time Associated Diagnosis Comments TROPONIN, QUANT STAT 07/07/2022 8:56 PM SWISS TYPE SCREW MACHINE OPERATOR ECG 12-LEAD Routine 07/07/2022 8:53 PM SWISS TYPE SCREW MACHINE OPERATOR ELECTROCARDIOGRAM REPORT Routine 023 8:35 PM SWISS TYPE SCREW MACHINE OPERATOR XR CHEST PORTABLE STAT 07/07/2022 8:2 8 PM SWISS TYPE SCREW MACHINE OPERATOR CT ABD+PEL WO CON STAT 07/07/2022 7:3 1 PM SWISS TYPE SCREW MACHINE OPERATOR ECG 12-LEAD Routine 07/07/2022 5:33 PM SWISS TYPE SCREW MACHINE OPERATOR PRO-BRAIN NATRIURETIC PEPTIDE Routine 07/07/2022 5:27 PM SWISS TYPE SCREW MACHINE OPERATOR COMPREHENSIVE METABOLIC PANEL STAT 07/07/2022 5:26 PM SWISS TYPE SCREW MACHINE OPERATOR CBC W/DIFF AUTOMATED STAT 07/07/2022 5:26 PM SWISS TYPE SCREW MACHINE OPERATOR TROPONIN, QUANT STAT 07/07/2022 5:26 PM SWISS TYPE SCREW MACHINE OPERATOR LIPASE STAT 07/07/2022 5:26 PM SWISS TYPE SCREW MACHINE OPERATOR documented in this encounter Results * TROPONIN, QUANT (07/07/2022 8:56 PM SWISS TYPE SCREW MACHINE OPERATOR) TROPONIN I HIGH SENSITIVITY 7 <76 ng/L 07/07/2022 9:30 PM SWISS TYPE SCREW MACHINE OPERATOR [facility] Comment: HIGH DOSES OF BIOTIN, TROPONIN-SPECIFIC AUTOANTIBODIES, AND ANTIBODY THERAPY CONTAINING HAMA MAY INTERFERE WITH THIS TEST RESULT. CORRELATION TO CLINICAL HISTORY AND PRESENTATION RECOMMENDED. 07/07/2022 8:56 PM SWISS TYPE SCREW MACHINE OPERATOR us Africa Trammell MD LABORATORY Final Res ult [facility] [address] [place] [address], * ECG 12 lead (07/07/2022 8:53 PM SWISS TYPE SCREW MACHINE OPERATOR) 07/07/2022 8:53 PM SWISS TYPE SCREW MACHINE OPERATOR Narrative [facility] RAD - 07/09/2022 11:29 AM SWISS TYPE SCREW MACHINE OPERATOR ?[facility] ? Test Date: ?2022-07-07 Pat Name: ? NATAN LAGUNA ?Department: ?? 85 ? Room: ? HALLH01 Gender: ? Male ? Weigher And Mixer: ?? : ?1965 ? Requested By: AFRICA HORTONJIMMIE Order Number: [id number] ? Reading MD: ?? Sujit Scally ? Measurements Intervals ?[place] ? Rate: ? 88 ? P: ?56 PA: ? 210 ?QRS: ?-17 QRSD: ? 195 ?T: ?136 QT: ? 437 ? QTc: ?529 ? Interpretive Statements SINUS RHYTHM WITH FIRST DEGREE AV BLOCK LEFT BUNDLE BRANCH BLOCK ??[120+ ms QRS DURATION, 80+ ms Q/S IN V1/V2, 85+ ms R IN I/aVL/V5/V6] Compared to ECG 07/07/2022 17:33:49 First degree AV block now present S TYPE SCREW MACHINE OPERATOR Procedure Note Sujit Hunter MD - 07/09/[address]22 [facility] Test Date: 2022-07-07 Pat Name: NATAN LAGUNA Department: 85 Room: [place] [address] Gender: Male Weigher And Mixer: : 1965 Requested By: AFRICA TRAMMELL Order Number: [id number] Reading MD: Sujit Hunter Measurements Intervals [place] Rate: 88 P: 56 PA: 210 QRS: -17 QRSD: 195 T: 136 QT: 437 QTc: 529 Interpretive Statements SINUS RHYTHM WITH FIRST DEGREE AV BLOCK LEFT BUNDLE BRANCH BLOCK [120+ ms QRS DURATION, 80+ ms Q/S IN V1/V2, 85+ms R IN I/aVL/V5/V6] Compared to ECG 07/07/2022 17:33:49 First degree AV block now present S TYPE SCREW MACHINE OPERATOR us Africa Trammell MD ECG ORDERABLES Final Res ult [facility] ([facility]) RAD * EKG Reading (07/07/2022 8:35 PM SWISS TYPE SCREW MACHINE OPERATOR) Africa Ayon MD - 07/07/2022 8:35 PM SWISS TYPE SCREW MACHINE OPERATOR Africa Trammell MD ? 07/07/2022 ??8:38 PM EKG Reading Date/Time: 07/07/2022 8:35 PM Performed by: Africa Trammell MD Authorized by: Africa Trammell MD Interpreted by ED physician Rhythm: sinus rhythm Comments: Wide QRS complex, Sgarbossa criteria not met us Africa Trammell MD [facility] Final Result * XR CHEST PORTABLE (07/07/2022 8:28 PM SWISS TYPE SCREW MACHINE OPERATOR) Anatomical Region Laterality Modality Chest Radiographic Lucila ging 07/07/2022 8:36 PM SWISS TYPE SCREW MACHINE OPERATOR Impressions 07/07/2022 8:38 PM SWISS TYPE SCREW MACHINE OPERATOR Impression: No acute chest findings. Referred By: ?? Interpreted By: Jamaal Dukes MD, 07/07/2022 8:36 PM Narrative 07/07/2022 8:38 PM SWISS TYPE SCREW MACHINE OPERATOR Examination: Chest 1 view portable History: Upper abdominal pain DATE/TIME: 07/07/2022 8:23 PM Comparison: 01/27/2009 Technique: AP upright portable view of the chest was obtained. Findings: Heart size, mediastinal contours and pulmonary vasculature are within normal limits. ??No pulmonary consolidation, pleural effusion or pneumothorax. ??No acute osseous abnormality. Procedure Note Jamaal Dukes MD - 07/07/2022 Examination: Chest 1 view portable History: Upper abdominal pain DATE/TIME: 07/07/2022 8:23 PM Comparison: 01/27/2009 Technique: AP upright portable view of the chest was obtained. Findings: Heart size, mediastinal contours and pulmonary vasculature arewithin normal limits. No pulmonary consolidation, pleural effusion orpneumothorax. No acute osseous abnormality. Impression: No acute chest findings. Referred By: Interpreted By: Jamaal Dukes MD, 07/07/2022 8:36 PM us Africa Trammell MD GENERAL IMAGING Final Res ult * CT ABD+PEL WO CON (07/07/2022 7:31 PM SWISS TYPE SCREW MACHINE OPERATOR) Anatomical Region Laterality Modality Abdomen Computed Tomogra phy 07/07/2022 7:42 PM SWISS TYPE SCREW MACHINE OPERATOR Impressions 07/07/2022 7:48 PM SWISS TYPE SCREW MACHINE OPERATOR IMPRESSION: No acute intra-abdominal or pelvic pathology to explain the patient's symptoms Nonobstructing right renal calculus. Referred By: ?? Interpreted By: Jazzmine Olivo MD, 07/07/2022 7:42 PM Narrative 07/07/2022 7:48 PM SWISS TYPE SCREW MACHINE OPERATOR EXAMINATION: CT ABDOMEN/PELVIS WITHOUT CONTRAST INDICATION: upper abd pain Abdominal pain, acute, nonlocalized COMPARISON: None available. TECHNIQUE: Computed tomography of the abdomen, and pelvis was performed without administration of intravenous contrast. Sagittal and coronal reconstructions. A dose lowering technique was used for this procedure, which may include, but is not limited to, dose reduction techniques, automated exposure control, the use of a iterative reconstruction, and ALARA (as low as reasonably achievable)/image gently techniques. FINDINGS: Lower Chest: Visualized portions of the lung bases are clear. No cardiomegaly or pericardial thickening/effusion. No hiatal hernia. Hepatobiliary: Although limited due to lack of intravenous contrast, normal appearance without focal gross abnormality. No evidence of calcified gallstones or biliary ductal dilatation. Pancreas: No pancreatic ductal dilation or surrounding inflammatory changes. Spleen: Normal in size without focal abnormality. Adrenals/Urinary Tract: Both adrenal glands appear normal. ??There is a 5 cm low-density cyst seen within the upper pole the right kidney. ??There is a 3 mm calculus in the lower pole of the right kidney. ??No hydronephrosis. ??The bladder is unremarkable. Stomach/Bowel: The stomach, small bowel, and colon are normal in appearance. No inflammatory changes, wall thickening, or obstructive findings. ??The appendix is normal. Lymph Nodes/ Vascular: No significant gross vascular findings are present given the lack of intravenous contrast. There are no enlarged abdominal or pelvic lymph nodes. Pelvis: The prostate gland is unremarkable. Other: No abdominal wall mass or hernia. No free fluid. Musculoskeletal: No acute or significant osseous abnormality. Procedure Note Maddie Olivo MD - 07/07/2022 EXAMINATION: CT ABDOMEN/PELVIS WITHOUT CONTRAST INDICATION: upper abd pain Abdominal pain, acute, nonlocalized COMPARISON: None available. TECHNIQUE: Computed tomography of the abdomen, and pelvis was performedwithout administration of intravenous contrast. Sagittal and coronalreconstructions. A dose lowering technique was used for this procedure,which may include, but is not limited to, dose reduction techniques,automated exposure control, the use of a iterative reconstruction, andALARA (as low as reasonably achievable)/image gently techniques. FINDINGS: Lower Chest: Visualized portions of the lung bases are clear. Nocardiomegaly or pericardial thickening/effusion. No hiatal hernia. Hepatobiliary: Although limited due to lack of intravenous contrast,normal appearance without focal gross abnormality. No evidence ofcalcified gallstones or biliary ductal dilatation. Pancreas: No pancreatic ductal dilation or surrounding inflammatorychanges. Spleen: Normal in size without focal abnormality. Adrenals/Urinary Tract: Both adrenal glands appear normal. There is a 5cm low- density cyst seen within the upper pole the right kidney. There chavez 3 mm calculus in the lower pole of the right kidney. No hydronephrosis.The bladder is unremarkable. Stomach/Bowel: The stomach, small bowel, and colon are normal inappearance. No inflammatory changes, wall thickening, or obstructivefindings. The appendix is normal. Lymph Nodes/ Vascular: No significant gross vascular findings are presentgiven the lack of intravenous contrast. There are no enlarged abdominal orpelvic lymph nodes. Pelvis: The prostate gland is unremarkable. Other: No abdominal wall mass or hernia. No free fluid. Musculoskeletal: No acute or significant osseous abnormality. IMPRESSION: No acute intra-abdominal or pelvic pathology to explain the patient'ssymptoms Nonobstructing right renal calculus. Referred By: Interpreted By: Jazzmine Olivo MD, 07/07/2022 7:42 PM us Africa Trammell MD CT Final Res ult * ECG 12 lead (07/07/2022 5:33 PM SWISS TYPE SCREW MACHINE OPERATOR) 07/07/2022 5:33 PM SWISS TYPE SCREW MACHINE OPERATOR Narrative [facility] ([facility]) RAD - 07/09/2022 11:26 AM SWISS TYPE SCREW MACHINE OPERATOR ?[facility] ? Test Date: ?2022-07-07 Pat Name: ? NATAN LAGUNA ?Department: ?? 85 ? Room: ? HALLH01 Gender: ? Male ? Weigher And Mixer: ?? : ?1965 ? Requested By: AFRICA TRAMMELL Order Number: [id number] ? Reading MD: ?? Sujit Scally ? Measurements Intervals ?[place] ? Rate: ? 87 ? P: ?56 PA: ? 188 ?QRS: ?-17 QRSD: ? 185 ?T: ?143 QT: ? 418 ? QTc: ?503 ? Interpretive Statements SINUS RHYTHM LEFT BUNDLE BRANCH BLOCK ??[120+ ms QRS DURATION, 80+ ms Q/S IN V1/V2, 85+ ms R IN I/aVL/V5/V6] Compared to ECG 01/27/2009 10:13:46 Left bundle-branch block now present Left ventricular hypertrophy no longer present S TYPE SCREW MACHINE OPERATOR Procedure Note Sujit Hunter MD - 07/09/2022 [facility] Test Date: 2022-07-07 Pat Name: NATAN LAGUNA Department: 85 Room: [place] [address] Gender: Male Weigher And Mixer: : [id number] Requested By: AFRICA TRAMMELL Order Number: [id number] Reading MD: Sujit Hunter Measurements Intervals [place] Rate: 87 P: 56 PA: 188 QRS: -17 QRSD: 185 T: 143 QT: 418 QTc: 503 Interpretive Statements SINUS RHYTHM LEFT BUNDLE BRANCH BLOCK [120+ ms QRS DURATION, 80+ ms Q/S IN V1/V2, 85+ms R IN I/aVL/V5/V6] Compared to ECG 01/27/2009 10:13:46 Left bundle-branch block now present Left ventricular hypertrophy no longer present S TYPE SCREW MACHINE OPERATOR us Africa Trammell MD ECG ORDERABLES Final Res ult [facility] ([facility]) RAD * (ABNORMAL) PRO-BRAIN NATRIURETIC PEPTIDE (07/07/2022 5:27 PM SWISS TYPE SCREW MACHINE OPERATOR) [facility] PRO-B TYPE NATRIURETIC PEPTIDE 538(H) <125 PG/ML 07/07/2022 7:46 PM SWISS TYPE SCREW MACHINE OPERATOR [facility] Comment: CUT POINTS ESTABLISHED BY [...] OF 89% AND 72% FOR ACUTE CHF. 07/07/2022 5:27 PM SWISS TYPE SCREW MACHINE OPERATOR Africa Trammell MD LABORATORY Final Res ult Performing Organization Address [facility]/ZIP Co de Phone Number [facility] [address] [place] [address], [place] [phone] * LIPASE (07/07/2022 5:26 PM SWISS TYPE SCREW MACHINE OPERATOR) LIPASE 260 73 - 393 UNITS/L 07/07/2022 6:17 PM SWISS TYPE SCREW MACHINE OPERATOR [facility] 07/07/2022 5:26 PM SWISS TYPE SCREW MACHINE OPERATOR Africa Trammell MD LABORATORY Final Res ult Performing Organization Address [facility]/ZIP Co de Phone Number [facility] [address] [place] [address], [place] [phone] * TROPONIN, QUANT (07/07/2022 5:26 PM SWISS TYPE SCREW MACHINE OPERATOR) TROPONIN I HIGH SENSITIVITY 7 <76 ng/L 07/07/2022 5:54 PM SWISS TYPE SCREW MACHINE OPERATOR [facility] Comment: HIGH DOSES OF BIOTIN, TROPONIN-SPECIFIC AUTOANTIBODIES, AND ANTIBODY THERAPY CONTAINING HAMA MAY INTERFERE WITH THIS TEST RESULT. CORRELATION TO CLINICAL HISTORY AND PRESENTATION RECOMMENDED. 07/07/2022 5:26 PM SWISS TYPE SCREW MACHINE OPERATOR us Africa Trammell MD LABORATORY Final Res ult [facility] [address] [place] [address], [place] [phone] * (ABNORMAL) COMPREHENSIVE METABOLIC PANEL (07/07/2022 5:26 PM SWISS TYPE SCREW MACHINE OPERATOR) [facility] GLUCOSE 107(H) 70 - 99 MG/DL 07/07/2022 6:17 PM SWISS TYPE SCREW MACHINE OPERATOR [facility] BUN 19(H) 7 - 18 MG/DL 07/07/2022 6:17 PM [facility] CREATININE S/P/B 2.41(H) 0.7 - 1.3 MG/DL 07/07/2022 6:17 PM [facility] SODIUM S/P/B 142 136 - 145 MMOL/L 07/07/2022 6:17 PM [facility] POTASSIUM S/P/B 4.1 3.5 - 5.1 MMOL/L 07/07/2022 6:17 PM [facility] CHLORIDE S/P/B 105 100 - 108 MMOL/L 07/07/2022 6:17 PM [facility] CO2 28.6 21 - 32 MMOL/L 07/07/2022 6:17 PM [facility] CALCIUM S/P/B 9.1 8.5 - 10.1 MG/DL 07/07/2022 6:17 PM [facility] BILIRUBIN TOTAL S/P/B 0.3 0.2 - 1.2 MG/DL 07/07/2022 6:17 PM [facility] TOTAL PROTEIN S/P/B 7.6 6.4 - 8.2 G/DL 07/07/2022 6:17 PM [facility] ALBUMIN S/P/B 3.8 3.4 - 5.0 G/DL 07/07/2022 6:17 PM [facility] AST 28 15 - 37 U/L 07/07/2022 6:17 PM [facility] ALT 37 16 - 60 U/L 07/07/2022 6:17 PM [facility] ALKALINE PHOSPHATASE S/P/B 127 50 - 136 U/L 07/07/2022 6:17 PM [facility] ANION GAP 8.4 5 - 15 MMOL/L 07/07/2022 6:17 PM [facility] BUN CREATININE RATIO 7.9 6 - 26 07/07/2022 6:17 PM [facility] A/G RATIO 1.0 1.0 - 2.0 RATIO 07/07/2022 6:17 PM [facility] GFR ESTIMATE 31(L) >90 ML/MIN/1.7 3 M2 07/07/2022 6:17 PM [facility] Comment: NOTE: eGFR is not calculated for patients <18 years of age. This is an estimated GFR calculation using the new CKD EPI creatinine equation without race and so does not require a correction factor for race. This estimated GFR should not be used for calculating drug doses. 07/07/2022 5:26 PM SWISS TYPE SCREW MACHINE OPERATOR us Africa Trammell MD LABORATORY Final Res ult [facility] [address] [place] [address], [place] [phone] * (ABNORMAL) CBC W/DIFF AUTOMATED (07/07/2022 5:26 PM SWISS TYPE SCREW MACHINE OPERATOR) WBC 6.42 4.4 - 11.0 x10'3/uL 07/07/2022 5:29 PM [facility] RBC 4.79 4.50 - 5.90 x10'6/uL 07/07/2022 5:29 PM [facility] HGB 14.1 14.0 - 17.5 G/DL 07/07/2022 5:29 PM [facility] HCT 42.2 41.5 - 50.4 % 07/07/2022 5:29 PM [facility] MCV 88.1 80.0 - 96.0 FL 07/07/2022 5:29 PM [facility] MCH 29.4 26.5 - 31.4 PG 07/07/2022 5:29 PM [facility] MCHC 33.4 31.9 - 34.8 G/DL 07/07/2022 5:29 PM [facility] RDW 13.7 12.3 - 14.3 % 07/07/2022 5:29 PM [facility] PLT 284 151 - 353 x10'3/uL 07/07/2022 5:29 PM [facility] MPV 9.2(L) 9.7 - 11.9 FL 07/07/2022 5:29 PM [facility] RBC MORPHOLOGY NORMAL 07/07/2022 5:29 PM [facility] PLT MORPH. NORMAL 07/07/2022 5:29 PM [facility] WBC MORPHOLOGY NORMAL 07/07/2022 5:29 PM [facility] LYMPHOCYTES % 18.1 15.8 - 45.0 % 07/07/2022 5:29 PM [facility] NEUTROPHILS % 64.7 42.1 - 71.9 % 07/07/2022 5:29 PM [facility] MONOCYTES % 10.1 5.7 - 12.5 % 07/07/2022 5:29 PM SWISS TYPE SCREW MACHINE OPERATOR [facility] EOSINOPHILS 5.8(H) 0.0 - 5.6 % 07/07/2022 5:29 PM SWISS TYPE SCREW MACHINE OPERATOR [facility] BASOPHILS 0.8 0.0 - 1.3 % 07/07/2022 5:29 PM SWISS TYPE SCREW MACHINE OPERATOR [facility] ABS. NEUTROPHILS 4.16 1.40 - 6.00 x10'3/uL 07/07/2022 5:29 PM SWISS TYPE SCREW MACHINE OPERATOR [facility] IMMATURE GRANS % 0.5 0.0 - 0.5 % 07/07/2022 5:29 PM SWISS TYPE SCREW MACHINE OPERATOR [facility] ABS. LYMPHOCYTES 1.16 0.80 - 4.70 x10'3/uL 07/07/2022 5:29 PM [facility] 07/07/2022 5:26 PM SWISS TYPE SCREW MACHINE OPERATOR us Africa Trammell MD LABORATORY Final Res ult [facility] [address] [place] [address], documented in this encounter Visit Diagnoses Diagnosis Pain of upper abdomen- Primary Abdominal pain, other specified site documented in this encounter Administered Medications Inactive Administered Medications - up to 3 most recent administrations Medication Order MAR Action Action Date Dose Rate Site famotidine (PF) (PEPCID) injection 20 mg 20 mg, Intravenous, Once, 1 dose, On Tue07/07/22 at 1730, IV Push over 2 minutes Given 07/07/2022 6:04 PM SWISS TYPE SCREW MACHINE OPERATOR 20 mg maalox plus-lidocaine viscous (GI [place]) 45 mL suspension Oral, Once, 1 dose, On Tue07/07/22 at 1730 Given 07/07/2022 6:05 PM SWISS TYPE SCREW MACHINE OPERATOR documented in this encounter Active and Recently Administered Medications Times are shown in SWISS TYPE SCREW MACHINE OPERATOR. Scheduled Medication Order 07/05/2022 07/06/2022 07/07/2022 famotidine (PF) (PEPCID) injection 20 mg (COMPLETED) 20 mg, Intravenous, Once, 1 dose, On Tue07/07/22 at 1730, IV Push over 2 minutes 1804 (Given - Provid er: Juli Rivera RN) maalox plus-lidocaine viscous (GI [place]) 45 mL suspension (COMPLETED) Oral, Once, 1 dose, On Tue07/07/22 at 1730 1805 (Given - Provid er: Juli Rivera RN) documented in this encounter Care Teams Marine Engineer Relationship Specialty Start Date End Date Naomy Maddox MD [address] [place] [address] PCP - General INTERNAL MEDICINE 07/07/22 05/05/24 documented as of this encounter
--- OUTSIDE RECORDS SUMMARY | 2024-05-17 12:01 | XMS_ITS | Encounter Summary ---
Author Organization [facility] Address [address] [place] [address]. [place], [place] [id number] [place] [address] Care Team Providers Care Chart Picker Name Role Phone Renita Loya MD Primary Care Provider Unavailable Encounter Details Date Type Department Care Team (Late st Contact Info) Description 10/15/[address] [facility] [place] [address] Joseph Thomas MD [address] [place] [address] [place] [address] Social History Tobacco Use Types Packs/Day Years Used Date Smoking Tobacco: Never Assessed Sex and Gender Information Value Date Recorded Sex Assigned at Not on file Legal Sex Male 8:04 PM CDT Gender Identity Not on file Sexual Orientation Not on file documented as of this encounter Plan of Treatment Not on file documented as of this encounter Visit Diagnoses Diagnosis Headache(784.0) Headache documented in this encounter Care Teams Chart Picker Relationship Specialty Start Date End Date Renita Loya MD PCP - General 10/15/10 documented as of this encounter
--- OUTSIDE RECORDS SUMMARY | 2024-05-17 12:01 | XMS_ITS | Encounter Summary ---
Author Organization [facility] Address [address] [place] [address]. [place], [place] [id number] [place] [address] Care Team Providers Care Can Filling And Closing Machine Tender Name Role Phone Naomy Maddox MD Primary Care Provider [phone] Encounter Details Date Type Department Care Team (Late st Contact Info) Description 01/23/2023 2:26 PM CDT - 01/23/2023 3:11 PM CDT Emergency [facility] Emergency Room [address] [place] [address] Chuck Cormier MD [address] [place] [address] Discharge Disposition: Home or Self Care (Routine [...] this encounter Medications at Time of Discharge metoclopramide (REGLAN) 5 MG tablet Take 1 tablet (5 mg total) by mouth every 6 (six) hours as needed. 15 tablet 10/14/2022 ondansetron (ZOFRAN-ODT) 4 MG disintegrating tablet Take 1 tablet (4 mg total) by mouth every 8 (eight) hours as needed for Nausea. 20 tablet 07/07/2022 documented as of this encounter Progress Notes * Jasmin Guerrero MD - 01/23/2023 2:26 PM CDT Additional documentation from 01/09/23-01/25/23 may be found under the media tab. [employer] FIELD SUPERVISOR documented in this encounter Plan of Treatment Not on file documented as of this encounter Visit Diagnoses Not on filedocumented in this encounter Care Teams Can Filling And Closing Machine Tender Relationship Specialty Start Date End Date Naomy Maddox MD [address] [place] [address] PCP - General INTERNAL MEDICINE 07/07/22 05/05/24 documented as of this encounter
--- OUTSIDE RECORDS SUMMARY | 2024-05-17 12:01 | XMS_ITS | Encounter Summary ---
Author Organization [facility] Address [address] [place] [address]. [place] [address] [place] [address] Care Team Providers Care Oracle Technical Architect Name Role Phone Naomy Maddox MD Primary Care Provider [phone] Reason for Referral * Imaging (Urgent) - Closed Specialty Diagnoses / Procedures Referred By Tanesha dennis Referred To Contact RADIOLOGY Procedures CT ABD+PEL WO CON CT ABD+PEL W IV CON ONLY Tyson Solares MD [address] [place] [address] Phone: tel: fax: Referral ID Status Reason Start Date Expiration Date Visits Re quested Visits Authorized [id number] Closed 10/14/2022 10/15/2023 1 1 Reason for Visit * Reason Comments Abdominal Pain Encounter Details Date Type Department Care Team (Late st Contact Info) Description 10/14/2022 5:38 PM CDT - 10/14/2022 8:[address] [facility] Emergency Room [id number] [place] [id number] Tyson Solares MD [address] [place] [id number] Pascual Leal MD [address] [place] [address] Abdominal Pain Discharge Disposition: Home or Self Care (Routine [...] PM CDT documented as of this encounter Last Filed Vital Signs Vital Sign Reading Time Taken Comments Blood Pressure 110/80 10/14/2022 8:30 PM CDT Pulse 98 10/14/2022 8:30 PM CDT Temperature 36.4 ??C (97.6 ??F) 10/14/2022 8:30 PM CD T Respiratory Rate 18 10/14/2022 8:30 PM CDT Oxygen Saturation 99% 10/14/2022 8:30 PM CDT Inhaled Oxygen Concentration - - Weight 86.2 kg (190 lb) 10/14/2022 5:42 PM CDT Height 177.8 cm (5' 10 ) 10/14/2022 5:42 PM CDT Body Mass Index 27.26 10/14/2022 5:42 PM CDT documented in this encounter Discharge Instructions * Attachments The following attachments cannot be sent through Care Everywhere. * Abdominal pain (Venezuelan) * Nausea and Vomiting Discharge Instructions, Adult (Venezuelan) documented in this encounter Medications at Time of Discharge metoclopramide (REGLAN) 5 MG tablet Take 1 tablet (5 mg total) by mouth every 6 (six) hours as needed. 15 tablet 10/14/2022 ondansetron (ZOFRAN-ODT) 4 MG disintegrating tablet Take 1 tablet (4 mg total) by mouth every 8 (eight) hours as needed for Nausea. 20 tablet 07/07/2022 documented as of this encounter ED Notes * Pascual Leal MD - 10/14/2022 8:26 PM CDT Emergency Department Assumed Care Note Patient signed out to me by Dr Keys. Please see their note for details. Briefly, Natan Laguna is a 57-year-old male is being evaluated for nausea and LLQ abdominalpain. CT and labs showing only constipation and slightly worsened CKD. Patient given IVF. He has established nephrology. Plan discharge home with Rx reglan 5mg PO q6h PRN for nausea which should alsohelp with his constipation. Dose adjusted from 10mg given CKD and 50% dose reduction. Vitals: 10/14/22 1744 BP: Pulse: Resp: Temp: 97.6 ??F (36.4 ??C) SpO2: Labs Reviewed CBC W/DIFF AUTOMATED - Abnormal; Notable for the following components: Result Value HGB 13.8 (*) MPV 8.7 (*) EOSINOPHILS 8.5 (*) All other components within normal limits COMPREHENSIVE METABOLIC PANEL - Abnormal; Notable for the following components: GLUCOSE 106 (*) BUN 27 (*) CREATININE S/P/B 3.21 (*) GFR ESTIMATE 22 (*) All other components within normal limits TROPONIN, QUANT LIPASE URINALYSIS, AUTO, COMPLETE CT ABD+PEL WO CON Final Result by User, [id number] (10/15 1855) STUDY: CT ABD+PEL WO CON: 10/14/2022 6:25 PM CLINICAL INFORMATION: Abdominal pain, acute, nonlocalized COMPARISON: CT abdomen/pelvis 07/07/2022 TECHNIQUE: CT acquisition of the abdomen and pelvis. Coronal and sagittal reformatted images provided. A dose lowering technique was utilized for this procedure which may include but is not limited to dose reduction techniques, automated exposure control, and/or the use of iterative reconstruction in accordance with ALARA principle. IV Contrast: None Oral contrast: None. FINDINGS: LOWER CHEST: Moderate coronary artery calcifications. Prominent pulmonary vasculature in the dependent lower lobes. Dependent atelectasis. ABDOMEN/PELVIS: Liver: Normal. Gallbladder/biliary: Normal gallbladder. No biliary ductal dilation. Pancreas: Normal. Spleen: Normal. Adrenal glands: Normal. Kidneys and ureters: Unchanged water attenuating right renal cyst. Unchanged 3 mm calcification within the right inferior pole Bladder: Normal. Reproductive organs: Normal for age. Stomach/bowel: Unremarkable appearance of the stomach and small bowel. Moderate stool burden. Appendix: Normal. Lymph nodes: No lymphadenopathy. Peritoneum: No intraperitoneal free air. No intraperitoneal free fluid. Vessels: Diffuse arterial calcifications. MUSCULOSKELETAL: Abdominal wall: No hernia or soft tissue mass. Bones: No acute osseous abnormality. Soft tissues: Unremarkable. IMPRESSION: 1. No acute findings of the abdomen or pelvis. 2. Unchanged nonobstructing right renal stone. 3. Moderate stool burden. Referred By: Interpreted By: Teresita Guerrero DO, 10/14/2022 6:45 PM Medications metoclopramide (REGLAN) injection 5 mg (has no administration in time range) sodium chloride 0.9% bolus infusion 1,000 mL (0 mLs Intravenous Infusion Stop Time 10/14/22 191) ondansetron (ZOFRAN) injection 4 mg (4 mg Intravenous Given 10/14/22 180) Diagnosis: SNOMED CT(R) 1. Left lower quadrant abdominal pain LEFT LOWER QUADRANT PAIN 2. Nausea NAUSEA 3. Chronic kidney disease, unspecified CKD stage CHRONIC KIDNEY DISEASE Disposition: Discharge Pascual Leal MD 10/14/2022 8:27 PM Pascual Leal MD 10/14/222026 * Alicja Geller RN - 10/14/2022 5:47 PM CDT Patient presents to ED for chief complaint of lower abdominal pain and accompanying nausea that hasbeen going on for the past 2 days. Patient denies vomiting, diarrhea, or constipation. Patient had similar episode a few months ago and was seen in the ED at that time as well.Patient reports he did not follow up with his primary care after last visit. * Tyson Solares MD - 10/14/2022 5:44 PM CDT Chief Complaint Chief Complaint Patient presents with Abdominal Pain History of Present Illness 57yo male with hx of HTN and CHF presenting with complaints of nausea and abdominal pain. He statesthat its been going on for the last couple days. He states he has had this before a few months ago.He denies any dysuria. Denies any blood in the stool. Last bowel movement was today. Denies any chest pain or shortness of breath. Denies any fevers or chills. Denies vomiting or diarrhea Medical History ALLERGIES: Review of patient's allergies indicates: No Known Allergies MEDICATIONS: Prior to Admission medications Medication Sig Start Date End Date Taking? Authorizing Provider ondansetron (ZOFRAN-ODT) 4 MG disintegrating tablet Take 1 tablet (4 mg total) by mouth every 8 (eight) hours as needed for Nausea. 07/07/22 Devonte Mckinnon MD,PHD PAST MEDICAL HISTORY: Past Medical History: Diagnosis Date CHF (congestive heart failure) ([facility]) Hypertension Renal disorder PAST SURGICAL HISTORY: Past Surgical History: Procedure Laterality Date TONSILLECTOMY FAMILY HISTORY: No family history on file. SOCIAL HISTORY: Social History Tobacco Use Smoking status: Never Smokeless tobacco: Never Vaping Use Vaping Use: Never used Substance Use Topics Alcohol use: Yes Drug use: Never Review of Systems Review of Systems Constitutional: Negative for chills and fever. Respiratory: Negative for chest tightness and shortness of breath. Cardiovascular: Negative for chest pain. Gastrointestinal: Positive for abdominal pain and nausea. Negative for diarrhea and vomiting. All other systems reviewed and are negative. Physical Exam Filed Vitals: 10/14/22 1742 10/14/22 1744 BP: 117/73 Pulse: (!) 119 Resp: 18 Temp: 97.6 ??F (36.4 ??C) SpO2: 98% Weight: 86.2 kg (190 lb) Height: 5' 10 (1.778 m) Physical Exam Vitals and nursing note reviewed. Constitutional: Appearance: Normal appearance. HENT: Head: Normocephalic and atraumatic. Right Ear: External ear normal. Left Ear: External ear normal. Eyes: Conjunctiva/sclera: Conjunctivae normal. Cardiovascular: Rate and Rhythm: Regular rhythm. Tachycardia present. Pulses: Normal pulses. Pulmonary: Effort: Pulmonary effort is normal. Breath sounds: Normal breath sounds. Abdominal: General: Bowel sounds are normal. Palpations: Abdomen is soft. Tenderness: There is no right CVA tenderness or left CVA tenderness. Comments: Mild diffuse lower abdominal tenderness. No guarding or rebound Musculoskeletal: Cervical back: Normal range of motion and neck supple. Right lower leg: No edema. Left lower leg: No edema. Skin: General: Skin is warm and dry. Neurological: Mental Status: He is alert and oriented to person, place, and time. Diagnostic Studies / Procedures ELECTROCARDIOGRAMS: Results for orders placed or performed during the hospital encounter of 10/14/[address] [facility] Test Date: 2022-10-14 Pat Name: NATAN LAGUNA Department: 85 Room: [place] [address] Gender: Male Recording Engineer: : 1965 Requested By: TYSON SOLARES Order Number: [id number] Reading MD: Measurements Intervals [place] Rate: 103 P: 113 IA: 184 QRS: 64 QRSD: 203 T: -71 QT: 349 QTc: 457 Interpretive Statements SINUS TACHYCARDIA LEFT ATRIAL ENLARGEMENT [-0.15mV P-WAVE IN V1/V2] INTRAVENTRICULAR CONDUCTION DELAY [130+ ms QRS DURATION] LATERAL MYOCARDIAL INFARCTION , PROBABLY RECENT [40+ ms Q WAVE AND/OR ST/T ABNORMALITY IN I/aVL/V5/V6] PROBABLE INFERIOR MYOCARDIAL INFARCTION , OF INDETERMINATE AGE [35 ms Q WAVE IN II/aVF] +++ ACUTE NE +++ Compared to ECG 07/07/2022 20:53:42 Atrial abnormality now present Intraventricular conduction delay now present Myocardial infarct finding now present Sinus rhythm no longer present First degree AV block no longer present Left bundle-branch block no longer present LABORATORY STUDIES: Results for orders placed or performed during the hospital encounter of 10/14/22 CBC W/DIFF AUTOMATED Result Value Ref Range WBC 7.54 4.4 - 11.0 x10'3/uL RBC 4.89 4.50 - 5.90 x10'6/uL HGB 13.8 (L) 14.0 - 17.5 G/DL HCT 41.7 41.5 - 50.4 % MCV 85.3 80.0 - 96.0 FL MCH 28.2 26.5 - 31.4 PG MCHC 33.1 31.9 - 34.8 G/DL RDW 13.6 12.3 - 14.3 % PLT 268 151 - 353 x10'3/uL MPV 8.7 (L) 9.7 - 11.9 FL RBC MORPHOLOGY NORMAL PLT MORPH. NORMAL WBC MORPHOLOGY NORMAL LYMPHOCYTES 16.6 15.8 - 45.0 % NEUTROPHILS 64.7 42.1 - 71.9 % MONOCYTES 9.2 5.7 - 12.5 % EOSINOPHILS 8.5 (H) 0.0 - 5.6 % BASOPHILS 0.7 0.0 - 1.3 % ABS. NEUTROPHILS 4.89 1.40 - 6.00 x10'3/uL IMMATURE GRANS 0.3 0.0 - 0.5 % ABS. LYMPHOCYTES 1.25 0.80 - 4.70 x10'3/uL COMPREHENSIVE METABOLIC PANEL Result Value Ref Range GLUCOSE 106 (H) 70 - 99 MG/DL BUN 27 (H) 7 - 18 MG/DL CREATININE S/P/B 3.21 (H) 0.7 - 1.3 MG/DL SODIUM S/P/B 140 136 - 145 MMOL/L POTASSIUM S/P/B 3.8 3.5 - 5.1 MMOL/L CHLORIDE S/P/B 103 100 - 108 MMOL/L CO2 26.6 21 - 32 MMOL/L CALCIUM S/P/B 8.9 8.5 - 10.1 MG/DL BILIRUBIN TOTAL S/P/B 0.4 0.2 - 1.2 MG/DL TOTAL PROTEIN S/P/B 8.0 6.4 - 8.2 G/DL ALBUMIN S/P/B 4.0 3.4 - 5.0 G/DL AST 30 15 - 37 U/L ALT 38 16 - 60 U/L ALKALINE PHOSPHATASE S/P/B 134 50 - 136 U/L ANION GAP 10.4 5 - 15 MMOL/L BUN CREATININE RATIO 8.4 6 - 26 A/G RATIO 1.0 1.0 - 2.0 RATIO GFR ESTIMATE 22 (L) >90 ML/MIN/1.73 M2 TROPONIN, QUANT Result Value Ref Range TROPONIN I HIGH SENSITIVITY 8 <76 ng/L LIPASE Result Value Ref Range LIPASE 76 16 - 77 UNITS/L IMAGING STUDIES CT ABD+PEL WO CON (Results Pending) ED Course / Medical Decision Making Medical Decision Making ED Course as of 10/14/22 1852 [place] Oct 14, 2022 1758 EKG shows sinus tachycardia. Ventricular rate 103 bpm. IA interval is 184 ms, QRS duration 203ms. QTc 408 ms. There is a left bundle branch block. There is also T wave inversions in the inferior lateral leads. EKG looks similar to previous in June of 2022. [GJ] 1807 CBC W/DIFF AUTOMATED(!) WBC of 7.54. Hgb 13.8 [GJ] 1825 Patient has known renal disease. His last creatinine was 2.41 three months ago and today is 3.21 [GJ] 1825 TROPONIN, QUANT His troponin is not elevated at 8. This is unlikely to be ACS [GJ] 1825 LIPASE Lipase not elevated at 76. Unlikely to be pancreatitis [GJ] 1838 Due to renal function, CT will be performed without contrast [GJ] [address] imaging, patient care turned over to oncoming physician at shift change [GJ] ED Course User Index [] Tyson Solares MD Clinical Impression None Disposition: Data Unavailable Tyson Solares MD 10/14/221851 documented in this encounter Plan of Treatment Not on file documented as of this encounter Procedures Procedure Name Priority Date/Time Associated Diagnosis Comments URINALYSIS, AUTO, COMPLETE STAT 10/14/2022 7:[address] ABD+PEL WO CON STAT 10/14/2022 6:4 0 PM CDT ECG 12-LEAD Routine 10/14/2022 5:58 PM CDT COMPREHENSIVE METABOLIC PANEL STAT 10/14/2022 5:55 PM CDT CBC W/DIFF AUTOMATED STAT 10/14/2022 5:55 PM CDT TROPONIN, QUANT STAT 10/14/2022 5:55 PM CDT LIPASE STAT 10/14/2022 5:55 PM CDT documented in this encounter Results * URINALYSIS, AUTO, COMPLETE (10/14/2022 7:17 PM CDT) Pathologist [facility] COLOR (U) YELLOW 10/14/2022 7:33 PM CDT [facility] TRANSPARENCY CLEAR 10/14/2022 7:33 PM T [facility] SPECIFIC GRAVITY (U) 1.025 1.000 - 1.030 10/14/2022 7:33 PM T [facility] U PH 5.5 5.0 - 9.0 10/14/2022 7:33 PM T [facility] LEUKOCYTES (U) NEGATIVE NEGATIVE 10/14/2022 7:33 PM T [facility] NITRITES NEGATIVE NEGATIVE 10/14/2022 7:33 PM T [facility] PROTEIN (U) NEGATIVE NEGATIVE 10/14/2022 7:33 PM T [facility] URINE GLUCOSE NEGATIVE NEGATIVE 10/14/2022 7:33 PM T [facility] KETONES MG/DL (U) NEGATIVE NEGATIVE 10/14/2022 7:33 PM T [facility] BILIRUBIN (U) NEGATIVE NEGATIVE 10/14/2022 7:33 PM T [facility] BLOOD (U) NEGATIVE NEGATIVE 10/14/2022 7:33 PM T [facility] WBC/HPF NONE SEEN 0 - 5 /HPF 10/14/2022 7:33 PM T [facility] RBC/HPF NONE SEEN 0 - 5 /HPF 10/14/2022 7:33 PM T [facility] EPI/HPF FEW /HPF 10/14/2022 7:33 PM [facility] CULTURE & SENSITIVITY INDICATED? CULTURE IS NOT INDICATED 10/14/2022 7:33 PM T [facility] OTHER CASTS (U) FEW /LPF 7:33 PM T [facility] Comment:HYALINE URINE SPECIMEN OBTAINED BY CLEAN CATCH PROCEDURE / Unknown 10/14/2022 7:17 PM CDT Tyson Solares MD URINE ORDERABLES Final Res ult [facility] [address] [place] [address], * CT ABD+PEL WO CON (10/14/2022 6:40 PM CDT) Anatomical Region Laterality Modality Abdomen Computed Tomogra phy 10/14/2022 6:45 PM CDT Impressions 10/14/2022 6:51 PM CDT IMPRESSION: 1. ??No acute findings of the abdomen or pelvis. 2. ??Unchanged nonobstructing right renal stone. 3. ??Moderate stool burden. Referred By: ?? Interpreted By: Teresita Guerrero DO, 10/14/2022 6:45 PM Narrative 10/14/2022 6:51 PM CDT STUDY: CT ABD+PEL WO CON: 10/14/2022 6:25 PM CLINICAL INFORMATION: Abdominal pain, acute, nonlocalized COMPARISON: CT abdomen/pelvis 07/07/2022 TECHNIQUE: CT acquisition of the abdomen and pelvis. Coronal and sagittal reformatted images provided. A dose lowering technique was utilized for this procedure which may include but is not limited to dose reduction techniques, automated exposure control, and/or the use of iterative reconstruction in accordance with ALARA principle. IV Contrast: None Oral contrast: None. ?? FINDINGS: LOWER CHEST: Moderate coronary artery calcifications. ??Prominent pulmonary vasculature in the dependent lower lobes. ??Dependent atelectasis. ABDOMEN/PELVIS: Liver: Normal. Gallbladder/biliary: Normal gallbladder. No biliary ductal dilation. Pancreas: Normal. Spleen: Normal. Adrenal glands: Normal. Kidneys and ureters: Unchanged water attenuating right renal cyst. ??Unchanged 3 mm calcification within the right inferior pole Bladder: Normal. Reproductive organs: Normal for age. Stomach/bowel: Unremarkable appearance of the stomach and small bowel. ??Moderate stool burden. Appendix: Normal. Lymph nodes: No lymphadenopathy. Peritoneum: No intraperitoneal free air. No intraperitoneal free fluid. Vessels: Diffuse arterial calcifications. MUSCULOSKELETAL: Abdominal wall: No hernia or soft tissue mass. Bones: No acute osseous abnormality. Soft tissues: Unremarkable. Procedure Note Teresita Guerrero DO - 10/14/2022 STUDY: CT ABD+PEL WO CON: 10/14/2022 6:25 PM CLINICAL INFORMATION: Abdominal pain, acute, nonlocalized COMPARISON: CT abdomen/pelvis 07/07/2022 TECHNIQUE: CT acquisition of the abdomen and pelvis. Coronal and sagittalreformatted images provided. A dose lowering technique was utilized forthis procedure which may include but is not limited to dose reductiontechniques, automated exposure control, and/or the use of iterativereconstruction in accordance with ALARA principle. IV Contrast: None Oral contrast: None. FINDINGS: LOWER CHEST: Moderate coronary artery calcifications. Prominent pulmonary vasculaturein the dependent lower lobes. Dependent atelectasis. ABDOMEN/PELVIS: Liver: Normal. Gallbladder/biliary: Normal gallbladder. No biliary ductal dilation. Pancreas: Normal. Spleen: Normal. Adrenal glands: Normal. Kidneys and ureters: Unchanged water attenuating right renal cyst.Unchanged 3 mm calcification within the right inferior pole Bladder: Normal. Reproductive organs: Normal for age. Stomach/bowel: Unremarkable appearance of the stomach and small bowel.Moderate stool burden. Appendix: Normal. Lymph nodes: No lymphadenopathy. Peritoneum: No intraperitoneal free air. No intraperitoneal free fluid. Vessels: Diffuse arterial calcifications. MUSCULOSKELETAL: Abdominal wall: No hernia or soft tissue mass. Bones: No acute osseous abnormality. Soft tissues: Unremarkable. IMPRESSION: 1. No acute findings of the abdomen or pelvis. 2. Unchanged nonobstructing right renal stone. 3. Moderate stool burden. Referred By: Interpreted By: Teresita Guerrero DO, 10/14/2022 6:45 PM us Tyson Solares MD CT Final Resu lt * ECG 12 lead (10/14/2022 5:58 PM CDT) 10/14/2022 5:58 PM CDT Narrative [facility] - 10/14/2022 8:43 PM CDT ?[facility] ? Test Date: ?2022-10-14 Pat Name: ? NATAN LAGUNA ?Department: ?? 85 ? Room: ? TRA1 TR1 Gender: ? Male ? Recording Engineer: ?? : ?1965 ? Requested By: TYSON BECK Order Number: [id number] ? Reading MD: ?? Benson Russo ? Measurements Intervals ?[place] ? Rate: ? 103 ?P: ?113 IA: ? 184 ?QRS: ?64 QRSD: ? 203 ?T: ?-71 QT: ? 349 ? QTc: ?457 ? Interpretive Statements SINUS TACHYCARDIA left buddle branch block LEFT ATRIAL ENLARGEMENT ??[-0.15mV P-WAVE IN V1/V2] INTRAVENTRICULAR CONDUCTION DELAY ??[130+ ms QRS DURATION] LATERAL MYOCARDIAL INFARCTION , PROBABLY RECENT [40+ ms Q WAVE AND/OR ST/T ABNORMALITY IN I/aVL/V5/V6] PROBABLE INFERIOR MYOCARDIAL INFARCTION , OF INDETERMINATE AGE [35 ms Q WAVE IN II/aVF] +++ ACUTE NE +++ Compared to ECG 07/07/2022 20:53:42 Atrial abnormality now presen Myocardial infarct finding now present Procedure Note Benson Russo MD - 10/14/2022 [facility] Test Date: 2022-10-14 Pat Name: NATAN LAGUNA Department: 85 Room: [place] [address] Gender: Male Recording Engineer: : 1965 Requested By: TYSON SOLARES Order Number: [id number] Stephanie MD: Benson Russo Measurements Intervals [place] Rate: 103 P: 113 IA: 184 QRS: 64 QRSD: 203 T: -71 QT: 349 QTc: 457 Interpretive Statements SINUS TACHYCARDIA left buddle branch block LEFT ATRIAL ENLARGEMENT [-0.15mV P-WAVE IN V1/V2] INTRAVENTRICULAR CONDUCTION DELAY [130+ ms QRS DURATION] LATERAL MYOCARDIAL INFARCTION , PROBABLY RECENT [40+ ms Q WAVE AND/ORST/T ABNORMALITY IN I/aVL/V5/V6] PROBABLE INFERIOR MYOCARDIAL INFARCTION , OF INDETERMINATE AGE [35 ms QWAVE IN II/aVF] +++ ACUTE NE +++ Compared to ECG 07/07/2022 20:53:42 Atrial abnormality now presen Myocardial infarct finding now present Tyson Solares MD ECG ORDERABLES Final Resu lt Performing Organization Address City/[facility]/ZIP Co de Phone Number [facility] * LIPASE (10/14/2022 5:55 PM CDT) [facility] LIPASE 76 16 - 77 UNITS/L 10/14/2022 6:20 PM CDT [facility] Comment: PLEASE NOTE: NEW LIPASE REFERENCE RANGE, EFFECTIVE 09/07/2022 NEW REFERENCE RANGE 16-77 U/L 10/14/2022 5:55 PM CDT Tyson Solares MD LABORATORY Final Resu lt Performing Organization Address [facility] Co de Phone Number [facility] [address] [place] [address], [place] [phone] * TROPONIN, QUANT (10/14/2022 5:55 PM CDT) [facility] TROPONIN I HIGH SENSITIVITY 8 <76 ng/L 10/14/2022 6:22 PM CDT [facility] Comment: HIGH DOSES OF BIOTIN, TROPONIN-SPECIFIC AUTOANTIBODIES, AND ANTIBODY THERAPY CONTAINING HAMA MAY INTERFERE WITH THIS TEST RESULT. CORRELATION TO CLINICAL HISTORY AND PRESENTATION RECOMMENDED. 10/14/2022 5:55 PM CDT Tyson Solares MD LABORATORY Final Resu lt Performing Organization Address City/[facility]/ZIP Co de Phone Number [facility] [address] [place] [address], [place] [phone] * (ABNORMAL) COMPREHENSIVE METABOLIC PANEL (10/14/2022 5:55 PM CDT) [facility] GLUCOSE 106(H) 70 - 99 MG/DL 10/14/2022 6:20 PM CDT [facility] BUN 27(H) 7 - 18 MG/DL 10/14/2022 6:20 PM CDT [facility] CREATININE S/P/B 3.21(H) 0.7 - 1.3 MG/DL 10/14/2022 6:20 PM CDT [facility] SODIUM S/P/B 140 136 - 145 MMOL/L 10/14/2022 6:20 PM CDT [facility] POTASSIUM S/P/B 3.8 3.5 - 5.1 MMOL/L 10/14/2022 6:20 PM CDT [facility] CHLORIDE S/P/B 103 100 - 108 MMOL/L 10/14/2022 6:20 PM T [facility] CO2 26.6 21 - 32 MMOL/L 10/14/2022 6:20 PM CDT [facility] CALCIUM S/P/B 8.9 8.5 - 10.1 MG/DL 10/14/2022 6:20 PM T [facility] BILIRUBIN TOTAL S/P/B 0.4 0.2 - 1.2 MG/DL 10/14/2022 6:20 PM CDT [facility] TOTAL PROTEIN S/P/B 8.0 6.4 - 8.2 G/DL 10/14/2022 6:20 PM CDT [facility] ALBUMIN S/P/B 4.0 3.4 - 5.0 G/DL 10/14/2022 6:20 PM CDT [facility] AST 30 15 - 37 U/L 10/14/2022 6:20 PM CDT [facility] ALT 38 16 - 60 U/L 10/14/2022 6:20 PM CDT [facility] ALKALINE PHOSPHATASE S/P/B 134 50 - 136 U/L 10/14/2022 6:20 PM CDT [facility] ANION GAP 10.4 5 - 15 MMOL/L 10/14/2022 6:20 PM CDT [facility] BUN CREATININE RATIO 8.4 6 - 26 10/14/2022 6:20 PM T [facility] A/G RATIO 1.0 1.0 - 2.0 RATIO 10/14/2022 6:20 PM CDT [facility] GFR ESTIMATE 22(L) >90 ML/MIN/1.7 3 M2 10/14/2022 6:20 PM CDT [facility] Comment: NOTE: eGFR is not calculated for patients <18 years of age. This is an estimated GFR calculation using the new CKD EPI creatinine equation without race and so does not require a correction factor for race. This estimated GFR should not be used for calculating drug doses. 10/14/2022 5:55 PM CDT us Tyson Solares MD LABORATORY Final Resu lt [facility] [address] [place] [address], * (ABNORMAL) CBC W/DIFF AUTOMATED (10/14/2022 5:55 PM CDT) WBC 7.54 4.4 - 11.0 x10'3/uL 10/14/2022 6:05 PM CDT [facility] RBC 4.89 4.50 - 5.90 x10'6/uL 10/14/2022 6:05 PM CDT [facility] HGB 13.8(L) 14.0 - 17.5 G/DL 10/14/2022 6:05 PM T [facility] HCT 41.7 41.5 - 50.4 % 10/14/2022 6:05 PM T [facility] MCV 85.3 80.0 - 96.0 FL 10/14/2022 6:05 PM T [facility] MCH 28.2 26.5 - 31.4 PG 10/14/2022 6:05 PM T [facility] MCHC 33.1 31.9 - 34.8 G/DL 10/14/2022 6:05 PM T [facility] RDW 13.6 12.3 - 14.3 % 10/14/2022 6:05 PM [facility] PLT 268 151 - 353 x10'3/uL 10/14/2022 6:05 PM [facility] MPV 8.7(L) 9.7 - 11.9 FL 10/14/2022 6:05 PM [facility] RBC MORPHOLOGY NORMAL 10/14/2022 6:05 PM [facility] PLT MORPH. NORMAL 10/14/2022 6:05 PM [facility] WBC MORPHOLOGY NORMAL 10/14/2022 6:05 PM T [facility] [facility] LYMPHOCYTES % 16.6 15.8 - 45.0 % 10/14/2022 6:05 PM [facility] NEUTROPHILS % 64.7 42.1 - 71.9 % 10/14/2022 6:05 PM T [facility] MONOCYTES % 9.2 5.7 - 12.5 % 10/14/2022 6:05 PM CDT [facility] EOSINOPHILS 8.5(H) 0.0 - 5.6 % 10/14/2022 6:05 PM CDT [facility] BASOPHILS 0.7 0.0 - 1.3 % 10/14/2022 6:05 PM CDT [facility] ABS. NEUTROPHILS 4.89 1.40 - 6.00 x10'3/uL 10/14/2022 6:05 PM CDT [facility] IMMATURE GRANS % 0.3 0.0 - 0.5 % 10/14/2022 6:05 PM CDT [facility] ABS. LYMPHOCYTES 1.25 0.80 - 4.70 x10'3/uL 10/14/2022 6:05 PM CDT [facility] 10/14/2022 5:55 PM CDT us Tyson Solares MD LABORATORY Final Resu lt [facility] [id number] [place] [address], documented in this encounter Visit Diagnoses Diagnosis Left lower quadrant abdominal pain- Primary Nausea Nausea alone Chronic kidney disease, unspecified CKD stage documented in this encounter Administered Medications Inactive Administered Medications - up to 3 most recent administrations Medication Order MAR Action Action Date Dose Rate Site metoclopramide (REGLAN) injection 5 mg 5 mg, Intravenous, Once, 1 dose, On [place]ml[place] 10/14/22 at 2030, Administer IV over 1-2 minutes Given 10/14/2022 8:27 PM CDT 5 mg ondansetron (ZOFRAN) injection 4 mg 4 mg, Intravenous, Once, 1 dose, On [place] 10/14/22 at 1800, IV push over 2-5 minutes. Given 10/14/2022 6:04 PM CDT 4 mg sodium chloride 0.9% bolus infusion 1,000 mL 1,000 mL, Intravenous, Administer over 60 Minutes, Once, 1 dose, On Malu 10/14/22 at 1800 New Bag 10/14/2022 6:04 PM CDT 1,000 mLs documented in this encounter Active and Recently Administered Medications Times are shown in CDT. Scheduled Medication Order 10/12/2022 10/13/2022 10/14/2022 metoclopramide (REGLAN) injection 5 mg (COMPLETED) 5 mg, Intravenous, Once, 1 dose, On Mal[place] 10/14/22 at 2030, Administer IV over 1-2 minutes 2026 (Given - Provid er: Janeen Ramos, MURPHY) ondansetron (ZOFRAN) injection 4 mg (COMPLETED) 4 mg, Intravenous, Once, 1 dose, On [place] 10/14/22 at 1800, IV push over 2-5 minutes. 1803 (Given - Provid er: Alicja Geller, MURPHY) sodium chloride 0.9% bolus infusion 1,000 mL (COMPLETED) 1,000 mL, Intravenous, Administer over 60 Minutes, Once, 1 dose, On Malu 10/14/22 at 1800 1804 (New Bag - Prov ider: Alicja Geller, MURPHY)191 (Infusion Stop Time - Provider: Rita Leija RN) documented in this encounter Care Teams Oracle Technical Architect Relationship Specialty Start Date End Date Naomy Maddox MD [address] [place] [address] PCP - General INTERNAL MEDICINE 07/07/22 05/05/24 documented as of this encounter
--- OUTSIDE RECORDS SUMMARY | 2024-05-17 12:01 | XMS_ITS | Encounter Summary ---
Author Organization [facility] Address [address] [place] [address]. [place], [place] [address] [place] [id number] Care Team Providers Care Wireless Watcher Name Role Phone Naomy Maddox MD Primary Care Provider [phone] Reason for Referral * Imaging (Emergency) - New Request Specialty Diagnoses / Procedures Referred By Tanesha dennis Referred To Contact RADIOLOGY Procedures CTA CHEST PE PROTOCOL Desi Michaud MD [address] [place] [address] Phone: tel: fax: Referral ID Status Reason Start Date Expiration Date V isits Requested Visits Authorized [id number] New Request 09/15/2023 09/14/2024 1 1 Reason for Visit * Reason Comments Cough Shortness Of Breath Encounter Details Date Type Department Care Team (Late st Contact Info) Description 09/15/2023 9:08 AM CDT - 09/15/2023 12:23 PM CDT Emergency [facility] Emergency Room [address] [place] [address] Desi Michaud MD [address] [place] [address] Cough; Shortness Of Breath Discharge Disposition: Home or [...] Sign Reading Time Taken Comments Blood Pressure 126/81 09/15/2023 12:00 PM CDT Pulse 79 09/15/2023 12:00 PM CDT Temperature 36.9 ??C (98.4 ??F) 09/15/2023 12:00 PM C DT Respiratory Rate 15 09/15/2023 12:00 PM CDT Oxygen Saturation 95% 09/15/2023 12:00 PM CDT Inhaled Oxygen Concentration - - Weight 88.5 kg (195 lb) 09/15/2023 9:08 AM CDT Height 177.8 cm (5' 10 ) 09/15/2023 9:08 AM CDT Body Mass Index 27.98 09/15/2023 9:08 AM CDT documented in this encounter Discharge Instructions * Discharge Instructions* Desi Michaud MD - 09/15/2023 12:[address] scan and chest x-rays were within normal limits. You have no congestive heart failure, pulmonary embolism, or pneumonia. All your viral studies are negative. You may have a viral syndrome butotherwise no acute findings. I recommend following up with your doctor in 1 week. But if you develop any chest pain or shortness of breath worsening cough runny nose or fever, return to the ED immediately. * Attachments The following attachments cannot be sent through Care Everywhere. * Viral Syndrome Discharge Instructions (Swiss) documented in this encounter Medications at Time of Discharge amLODIPine (NORVASC) 10 MG tablet Take 1 [...] capsule (0.25 mcg total) by mouth. 04/12/2023 furosemide (LASIX) 80 MG tablet Take 1 tablet (80 mg total) by mouth daily. 09/09/2023 4 documented as of this encounter ED Notes * Desi Michaud MD - 09/15/2023 9:25 AM CDT ED NOTE Chief Complaint Chief Complaint Patient presents with Cough Shortness Of Breath History of Present Illness Cough Associated symptoms: shortness of breath Associated symptoms: no chest pain, no chills, no fever and no headaches Shortness Of Breath Pertinent negatives include no abdominal pain, chest pain, fever, headaches or vomiting. Patient is a 57-year-old white male who presents to the emergency room with a complaint of shortness of breath and he states what appears to be flulike symptoms with some congestion and cough that isnonproductive but denies any fever or sore throat. Patient states he has a history of congestive heart failure and status post CO with implantation of AICD approximately 2 years ago. Patient is usually seen at [facility]. Patient states symptoms has been going on for few days. He denies any nausea vomiting diarrhea any runny nose but admits to some congestion. Patient states he has not taken his Lasix in the past 2 days. He states he has not taken it because it stopped working for him and th at he wants to be started on hydrochlorothiazide. 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 Patient states he is recently moved here. Patient is not up-to-date on his immunizations. He is without nausea vomiting diarrhea no dysuria urgency or frequency and no abdominal pain. Patient admits to dyspnea on exertion but denies orthopnea or PND. Patient comes to the emergency room by way of car and appears to be in no apparent distress respiratory otherwise satting 99% on room air Medical History ALLERGIES: Review of patient's allergies indicates: No Known Allergies MEDICATIONS: Prior to Admission medications Medication Sig Start Date End Date Taking? Authorizing Provider amLODIPine (NORVASC) 10 MG tablet Take 1 tablet (10 mg total) by mouth daily. 08/05/23 Yes Default History Genericprovider ARIPiprazole (ABILIFY) 5 MG tablet Take 1 tablet (5 mg total) by mouth daily. 09/07/23 Yes Default History Genericprovider atorvastatin (LIPITOR) 40 MG tablet Take 1 tablet (40 mg total) by mouth daily. 08/05/23 Yes DefaultHistory Genericprovider calcitriol (ROCALTROL) 0.25 MCG capsule Take 1 capsule (0.25 mcg total) by mouth. 04/12/23 04/11/24Yes Default History Genericprovider furosemide (LASIX) 80 MG tablet Take 1 tablet (80 mg total) by mouth daily. 09/09/23 10/09/23 Yes Default History Genericprovider hydrALAZINE (APRESOLINE) 10 MG tablet Take 2 tablets (20 mg total) by mouth 3 (three) times daily. 09/07/23 09/06/24 Yes Default History Genericprovider hydrOXYzine (ATARAX) 10 MG tablet Take 1 tablet (10 mg total) by mouth daily. 08/08/23 Yes Default History Genericprovider PARoxetine (PAXIL) 40 MG tablet Take 1 tablet (40 mg total) by mouth daily. 09/04/23 Yes Default History Genericprovider carvedilol (COREG) 25 MG tablet Take 1 tablet (25 mg total) by mouth 2 (two) times daily. Default History Genericprovider furosemide (LASIX) 40 MG tablet Take 1 tablet (40 mg total) by mouth 2 (two) times daily. Default History Genericprovider metoclopramide (REGLAN) 5 MG [...] History: Diagnosis Date CHF (congestive heart failure) ([facility]) Hypertension Renal disorder PAST SURGICAL HISTORY: Past Surgical History: Procedure Laterality Date TONSILLECTOMY FAMILY HISTORY: No family history on file. SOCIAL HISTORY: Social History Tobacco Use Smoking status: Never Smokeless tobacco: Never Vaping Use Vaping status: Never Used Substance Use Topics Alcohol use: Yes Drug use: Never Review of Systems Review of Systems Constitutional: Negative for chills and fever. HENT: Positive for congestion. Respiratory: Positive for cough and shortness of breath. Cardiovascular: Negative for chest pain. Gastrointestinal: Negative for abdominal pain, diarrhea, nausea and vomiting. Genitourinary: Negative for dysuria, frequency and urgency. Neurological: Negative for dizziness, weakness and headaches. All other systems reviewed and are negative. Physical Exam Filed Vitals: 09/15/23 1000 09/15/23 1125 09/15/23 1130 09/15/23 1135 BP: 111/75 125/83 125/83 Pulse: 83 81 89 84 Resp: 16 19 18 15 Temp: TempSrc: SpO2: 97% 96% 95% Weight: Height: Physical Exam Vitals and nursing note reviewed. Constitutional: General: He is not in acute distress. Appearance: Normal appearance. He is not ill-appearing, toxic-appearing or diaphoretic. HENT: Head: Normocephalic and atraumatic. Nose: Congestion present. No rhinorrhea. Mouth/Throat: Mouth: Mucous membranes are moist. Neck: Vascular: No carotid bruit. Cardiovascular: Rate and Rhythm: Normal rate and regular rhythm. Pulses: Normal pulses. Heart sounds: Normal heart sounds. No murmur heard. No friction rub. No gallop. Pulmonary: Effort: Pulmonary effort is normal. No respiratory distress. Breath sounds: Normal breath sounds. No stridor. No wheezing, rhonchi or rales. Chest: Chest wall: No tenderness. Abdominal: General: Abdomen is flat. Bowel sounds are normal. There is no distension. Palpations: There is no mass. Tenderness: There is no abdominal tenderness. There is no right CVA tenderness, left CVA tenderness, guarding or rebound. Hernia: No hernia is present. Musculoskeletal: General: No swelling, tenderness, deformity or signs of injury. Normal range of motion. Cervical back: Normal range of motion and neck supple. No rigidity or tenderness. Right lower leg: No edema. Left lower leg: No edema. Lymphadenopathy: Cervical: No cervical adenopathy. Skin: General: Skin is warm. Capillary Refill: Capillary refill takes less than 2 seconds. Coloration: Skin is not jaundiced or pale. Findings: No bruising, erythema, lesion or rash. Neurological: General: No focal deficit present. Mental Status: He is alert and oriented to person, place, and time. Cranial Nerves: No cranial nerve deficit. Sensory: No sensory deficit. Motor: No weakness. Coordination: Coordination normal. Psychiatric: Mood and Affect: Mood normal. Behavior: Behavior normal. Thought Content: Thought content normal. 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[id number] Requested By: DESI MICHAUD Order Number: [id number] Reading MD: Measurements Intervals [place] Rate: 87 P: 65 NH: 173 QRS: 108 QRSD: 158 T: -34 QT: 397 QTc: 480 Interpretive Statements ELECTRONIC VENTRICULAR PACEMAKER ABNORMAL RHYTHM ECG Compared to ECG 10/14/2022 17:58:57 Sinus tachycardia no longer present Atrial abnormality no longer present Intraventricular conduction delay no longer present Myocardial infarct finding no longer present LABORATORY STUDIES: Results for orders placed or performed during the hospital encounter of 09/15/23 CBC W/DIFF AUTOMATED Result Value Ref Range WBC 7.61 4.4 - 11.0 x10'3/uL RBC 5.01 4.50 - 5.90 x10'6/uL HGB 14.6 14.0 - 17.5 G/DL HCT 42.7 41.5 - 50.4 % MCV 85.2 80.0 - 96.0 FL MCH 29.1 26.5 - 31.4 PG MCHC 34.2 31.9 - 34.8 G/DL RDW 13.3 12.3 - 14.3 % PLT 248 151 - 353 x10'3/uL MPV 8.7 (L) 9.7 - 11.9 FL RBC MORPHOLOGY NORMAL PLT MORPH. NORMAL WBC MORPHOLOGY NORMAL LYMPHOCYTES 15.2 (L) 15.8 - 45.0 % NEUTROPHILS 65.6 42.1 - 71.9 % MONOCYTES 7.4 5.7 - 12.5 % EOSINOPHILS 11.0 (H) 0.0 - 5.6 % BASOPHILS 0.5 0.0 - 1.3 % ABS. NEUTROPHILS 4.99 1.40 - 6.00 x10'3/uL IMMATURE GRANS 0.3 0.0 - 0.5 % ABS. LYMPHOCYTES 1.16 0.80 - 4.70 x10'3/uL PROTIME/INR, VENOUS Result Value Ref Range PROTIME 12.0 9.1 - 12.4 SEC INR 1.1 PARTIAL THROMBOPLASTIN TIME,PTT Result Value Ref Range PTT 36.9 (H) 27.0 - 36.8 SEC D-DIMER, QUANTITATIVE Result Value Ref Range D-DIMER 1,166 (H) 0 - 500 ng[FEU]/mL COMPREHENSIVE METABOLIC PANEL Result Value Ref Range GLUCOSE 117 (H) 70 - 99 MG/DL BUN 8 7 - 18 MG/DL CREATININE S/P/B 1.93 (H) 0.7 - 1.3 MG/DL SODIUM S/P/B 138 136 - 145 MMOL/L POTASSIUM S/P/B 3.4 (L) 3.5 - 5.1 MMOL/L CHLORIDE S/P/B 102 100 - 108 MMOL/L CO2 24.9 21 - 32 MMOL/L CALCIUM S/P/B 8.3 (L) 8.5 - 10.1 MG/DL BILIRUBIN TOTAL S/P/B 0.7 0.2 - 1.2 MG/DL TOTAL PROTEIN S/P/B 7.1 6.4 - 8.2 G/DL ALBUMIN S/P/B 3.4 3.4 - 5.0 G/DL AST 19 15 - 37 U/L ALT 19 16 - 60 U/L ALKALINE PHOSPHATASE S/P/B 110 50 - 136 U/L ANION GAP 11.1 5 - 15 MMOL/L BUN CREATININE RATIO 4.1 (L) 6 - 26 A/G RATIO 0.9 (L) 1.0 - 2.0 RATIO GFR ESTIMATE 40 (L) >90 ML/MIN/1.73 M2 TROPONIN, QUANT Result Value Ref Range TROPONIN I HIGH SENSITIVITY 7 <76 ng/L CK (CPK) Result Value Ref Range CPK 139 39 - 308 U/L LIPASE Result Value Ref Range LIPASE 74 16 - 77 UNITS/L LACTIC ACID W REFLEX (SEPSIS) Result Value Ref Range LACTIC ACID VENOUS 1.5 0.4 - 2.0 MMOL/L PRO-BRAIN NATRIURETIC PEPTIDE Result Value Ref Range PRO-B TYPE NATRIURETIC PEPTIDE 136 (H) <125 PG/ML TSH W/REFLEX Result Value Ref Range TSH 0.815 0.358 - 3.74 uIU/ML DRUG SCREEN RAPID Result Value Ref Range AMPHETAMINE (U) NONE DETECTED NONE DETECTED BARBITURATES SCREEN (U) NONE DETECTED NONE DETECTED BENZODIAZEPINES SCREEN (U) NONE DETECTED NONE DETECTED BUPRENORPHINE SCREEN (U) NONE DETECTED NONE DETECTED COCAINE METABOLITES (U) NONE DETECTED NONE DETECTED METHAMPHETAMINE (U) NONE DETECTED NONE DETECTED METHADONE (U) NONE DETECTED NONE DETECTED OPIATE SCREEN (U) NONE DETECTED NONE DETECTED OXYCODONE SCREEN (U) NONE DETECTED NONE DETECTED PHENCYCLIDINE PCP (U) NONE DETECTED NONE DETECTED CANNABINOIDS SCREEN (U) NONE DETECTED NONE DETECTED TRICYCLIC ANTIDEPRESSANT SCREEN (U) DETECTED (A) NONE DETECTED ARTERIAL BLOOD GAS Result Value Ref Range PH ARTERIAL 7.41 7.35 - 7.45 PCO2 35.4 35 - 48 MM HG PO2 74 (L) 83 - 108 MM HG BICARB ARTERIAL 23.5 21 - 28 MMOL/L BASE DEFICIT 1 0 - 2 MMOL/L TOTAL CO2 ARTERIAL 25.0 22 - 28 MMOL/L O2 SATURATION 96.4 95.0 - 99.0 % CARBON MONOXIDE 0.9 0.5 - 1.5 % METHEMOGLOBIN 0.1 0.0 - 1.5 % O2 ADMIN ARTERIAL ROOM AIR DRAW SITE DRAWN FROM RIGHT WRIST PERRY TEST POSITIVE PERRY TEST % O2 HEMOGLOBIN ARTERIAL 95.5 94.0 - 98.0 % REDUCED HGB ARTERIAL 3.6 0.0 - 5.0 % INFLUENZA A & B Specimen: NASOPHARYNGEAL SWAB; NASAL Result Value Ref Range Specimen Type NASOPHARYNGEAL SWAB INFLUENZA A NEGATIVE NEGATIVE INFLUENZA B NEGATIVE NEGATIVE RESP SYNCYTIAL VIRUS Specimen: NASOPHARYNGEAL SWAB Result Value Ref Range Specimen Type NASOPHARYNGEAL SWAB RAPID RSV NEGATIVE NEGATIVE CORONAVIRUS (COVID-19) MOLECULAR Specimen: NASOPHARYNGEAL SWAB Result Value Ref Range CORONAVIRUS SARS COV 2 RNA NEGATIVE NEGATIVE Specimen Type NASAL IMAGING STUDIES CTA CHEST PE PROTOCOL Final Result by User, [id number] (09/14 114) EXAMINATION: CTA CHEST WITH CONTRAST EXAM DATE/TIME: 09/15/2023 10:10 AM REASON FOR EXAM: Pulmonary embolism (PE) suspected, high prob Shortness of breath. Fluid retention. COMPARISON: TECHNIQUE: Computed tomography angiography was performed of the chest after administration of intravenous contrast, 75 mL of Isovue-370, according to routine protocol. Additional 3-D reconstructions and postprocessing were performed independently by the attending radiologist and a separate dedicated 3-D workstation. A dose lowering technique was used for this procedure, which may include, but is not limited to, dose reduction technique, automated exposure control, iterative reconstruction, ALARA (As Low As Reasonably Achievable), or Image Gently techniques. FINDINGS: VASCULAR FINDINGS: Adequate opacification of the pulmonary arteries. No evidence of acute pulmonary embolism.. Atherosclerotic aorta without dilatation or dissection. Enlargement of the main pulmonary outflow tract at 3.5 cm. May be due to pulmonary arterial hypertension. NONVASCULAR FINDINGS: On lung windows, no suspicious pulmonary lesion, pneumothorax, or pleural effusion. Mild peribronchial wall thickening may be due to bronchitis versus reactive airway disease. Mild retained secretions within the trachea. On soft tissue windows, no axillary or supraclavicular lymphadenopathy. On mediastinal windows, no evidence of hilar or mediastinal lymphadenopathy. Heart size normal. No pericardial effusion.. Advanced coronary artery calcifications. Please correlate with cardiac risk profile. Left-sided pacer leads are in place. Epicardial leads noted. Limited evaluation of the upper abdomen demonstrates no acute abnormality.. 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 Cystic lesion in mid right kidney measuring 7.1 cm. Nonobstructing 6 mm calculus in lower pole right kidney. On bone windows, no suspicious skeletal lesion or acute compression fracture deformity. IMPRESSION: 1. No evidence of acute pulmonary embolism.. 2. Possible pulmonary arterial hypertension as detailed above. 3. No patchy infiltrate or effusion. Possible mild bronchitis versus reactive airway disease with mild peribronchial wall thickening. Mild retained secretions within the trachea. Ordered By: DESI MICHAUD Interpreted By: Gary Meléndez, 09/15/2023 11:20 AM XR CHEST PORTABLE Final Result by User, [id number] (09/14 952) EXAMINATION: CHEST RADIOGRAPH SINGLE VIEW Exam date/time: 09/15/2023 9:40 AM Reason For Exam: sob Cough. Congestion. Comparison: July 07, 2022. Technique: Upright AP view of the chest Findings: Heart size normal. Proximal airways unremarkable. No suspicious pulmonary lesion, pneumothorax, or pleural effusion.. Intact left-sided pacer leads. =====IMPRESSION:===== No acute findings. Ordered By: DESI MICHAUD Interpreted By: Gary Meléndez, 09/15/2023 9:49 AM ED Course / Medical Decision Making MDM Number of Diagnoses or Management Options Diagnosis management comments: Patient has negative workup. While studies are negative patient CT of the chest revealed no pneumonia or congestive heart failure or PE chest x-ray is normal EKG reveals no acute changes troponin is negative as well patient has no white count he does not appear to be dehydrated. However patient has a low potassium. Patient may have a viral syndrome but I have not heard patient cough. He denies any sore throat and there is no shortness of breath or O2 sats of 99%. Patient's oxygen is at [address] scan shows the patient may have some pulmonary hypertension. Patient states he moved over here but his doctors in [place]. I do recommend the patient follow-up with his instruction librarian today. Patient develops any fever or shortness of breath or chest pain patient is to return here otherwise patient diagnosis is viral syndrome. Risk of Complications, Morbidity, and/or Mortality Presenting problems: high Diagnostic procedures: high Management options: low Patient Progress Patient progress: stable Medications potassium chloride CR (KLOR-CON M) tablet 40 mEq (40 mEq Oral Given 09/15/23 1128) iopamidol (ISOVUE-370) 76 % injection 75 mL (75 mLs Intravenous Given 09/15/23 1031) Clinical Impression Viral syndrome (Primary) Disposition: Discharge Current Discharge Medication List Follow-up: Naomy Maddox MD [address] [place] [id number] In 1 week Naomy Maddox MD [address] [place] [address] In 1 week Desi Michaud MD 09/15/2023 12:14 Desi Michaud MD 09/15/23 1214 * Rita Leija RN - 09/15/2023 9:09 AM CDT 57 year old male in with complaints of cough, congestion and increased shortness of breath since Tuesday. Patient notes he has history of heart failure and has had a 3 lb weight gain since Tuesday.Patient denies pain at this time but states he is experiencing increased shortness of breath with exertion and states he has not taken his water pill the last several days. documented in this encounter Plan of Treatment Not on file documented as of this encounter Procedures Procedure Name Priority Date/Time Associated Diagnosis Comments CTA CHEST PE PROTOCOL STAT 09/15/2023 10:31 AM CDT DRUG SCREEN RAPID STAT 09/15/2023 10: 06 AM CDT BLOOD GAS, ARTERIAL LAB STAT 09/15/19 9:48 AM CDT XR CHEST PORTABLE STAT 09/15/2023 9:4 6 AM CDT CULTURE, BACTERIA, BLOOD STAT 09/15/2023 9:45 AM CDT LACTIC ACID W REFLEX (SEPSIS) STAT 09/15/2023 9:35 AM CDT CULTURE, BACTERIA, BLOOD STAT 09/15/2023 9:35 AM CDT CORONAVIRUS (COVID 19) STAT 9:20 AM CDT TSH W/REFLEX STAT 09/15/2023 9:20 AM CDT PRO-BRAIN NATRIURETIC PEPTIDE STAT 09/15/2023 9:20 AM CDT INFLUENZA A & B STAT 09/15/2023 9:20 AM CDT PARTIAL THROMBOPLASTIN TIME,PTT STAT 09/15/2023 9:20 AM CDT RESP SYNCYTIAL VIRUS STAT 09/15/2023 9:20 AM CDT PROTHROMBIN TIME, VENOUS STAT 09/15/2023 9:20 AM CDT COMPREHENSIVE METABOLIC PANEL STAT 09/15/2023 9:20 AM CDT D-DIMER, QUANTITATIVE STAT 09/15/2023 9:20 AM CDT CBC W/DIFF AUTOMATED STAT 09/15/2023 9:20 AM CDT TROPONIN, QUANT STAT 09/15/2023 9:20 AM CDT LIPASE STAT 09/15/2023 9:20 AM CDT CK (CPK) STAT 09/15/2023 9:20 AM CDT ECG 12-LEAD Routine 09/15/2023 9:17 AM CDT documented in this encounter Results * CTA CHEST PE PROTOCOL (09/15/2023 10:31 AM CDT) Anatomical Region Laterality Modality Chest Computed Tomogra phy 09/15/2023 11:2 0 AM CDT Impressions 09/15/2023 11:44 AM CDT IMPRESSION: 1. ??No evidence of acute pulmonary embolism.. 2. ??Possible pulmonary arterial hypertension as detailed above. 3. ??No patchy infiltrate or effusion. Possible mild bronchitis versus reactive airway disease with mild peribronchial wall thickening. Mild retained secretions within the trachea. Ordered By: DESI MICHAUD Interpreted By: Gary Meléndez, 09/15/2023 11:20 AM Narrative 09/15/2023 11:44 AM CDT EXAMINATION: CTA CHEST WITH CONTRAST EXAM DATE/TIME: 09/15/2023 10:10 AM REASON FOR EXAM: ??Pulmonary embolism (PE) suspected, high prob ? Shortness of breath. Fluid retention. COMPARISON: TECHNIQUE: Computed tomography angiography was performed of the chest after administration of intravenous contrast, 75 mL of Isovue-370, according to routine protocol. Additional 3-D reconstructions and postprocessing were performed independently by the attending radiologist and a separate dedicated 3-D workstation. A dose lowering technique was used for this procedure, which may include, but is not limited to, dose reduction technique, automated exposure control, iterative reconstruction, ALARA (As Low As Reasonably Achievable), or Image Gently techniques. FINDINGS: VASCULAR FINDINGS: Adequate opacification of the pulmonary arteries. No evidence of acute pulmonary embolism.. Atherosclerotic aorta without dilatation or dissection. Enlargement of the main pulmonary outflow tract at 3.5 cm. May be due to pulmonary arterial hypertension. NONVASCULAR FINDINGS: On lung windows, no suspicious pulmonary lesion, pneumothorax, or pleural effusion. Mild peribronchial wall thickening may be due to bronchitis versus reactive airway disease. Mild retained secretions within the trachea. On soft tissue windows, no axillary or supraclavicular lymphadenopathy. On mediastinal windows, no evidence of hilar or mediastinal lymphadenopathy. Heart size normal. No pericardial effusion.. Advanced coronary artery calcifications. Please correlate with cardiac risk profile. Left-sided pacer leads are in place. Epicardial leads noted. Limited evaluation of the upper abdomen demonstrates no acute abnormality.. 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 Cystic lesion in mid right kidney measuring 7.1 cm. Nonobstructing 6 mm calculus in lower pole right kidney. On bone windows, no suspicious skeletal lesion or acute compression fracture deformity. Procedure Note Richard Meléndez MD - 09/15/2023 EXAMINATION: CTA CHEST WITH CONTRAST EXAM DATE/TIME: 09/15/2023 10:10 AM REASON FOR EXAM: Pulmonary embolism (PE) suspected, high prob Shortness of breath. Fluid retention. COMPARISON: TECHNIQUE: Computed tomography angiography was performed of the chestafter administration of intravenous contrast, 75 mL of Isovue-370,according to routine protocol. Additional 3-D reconstructions andpostprocessing were performed independently by the attending radiologistand a separate dedicated 3-D workstation. A dose lowering technique was used for this procedure, which may include,but is not limited to, dose reduction technique, automated exposurecontrol, iterative reconstruction, ALARA (As Low As ReasonablyAchievable), or Image Gently techniques. FINDINGS: VASCULAR FINDINGS: Adequate opacification of the pulmonary arteries. No evidence of acutepulmonary embolism.. Atherosclerotic aorta without dilatation or dissection. Enlargement of the main pulmonary outflow tract at 3.5 cm. May be due topulmonary arterial hypertension. NONVASCULAR FINDINGS: On lung windows, no suspicious pulmonary lesion, pneumothorax, or pleuraleffusion. Mild peribronchial wall thickening may be due to bronchitisversus reactive airway disease. Mild retained secretions within thetrachea. On soft tissue windows, no axillary or supraclavicular lymphadenopathy. On mediastinal windows, no evidence of hilar or mediastinallymphadenopathy. Heart size normal. No pericardial effusion.. Advanced coronary artery calcifications. Please correlate with cardiacrisk profile. Left-sided pacer leads are in place. Epicardial leadsnoted. Limited evaluation of the upper abdomen demonstrates no acuteabnormality.. 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 Cystic lesion in mid rightkidney measuring 7.1 cm. Nonobstructing 6 mm calculus in lower pole rightkidney. On bone windows, no suspicious skeletal lesion or acute compressionfracture deformity. IMPRESSION: 1. No evidence of acute pulmonary embolism.. 2. Possible pulmonary arterial hypertension as detailed above. 3. No patchy infiltrate or effusion. Possible mild bronchitis versusreactive airway disease with mild peribronchial wall thickening. Mildretained secretions within the trachea. Ordered By: DESI MICHAUD Interpreted By: Gary Meléndez, 09/15/2023 11:20 AM Desi Michaud MD CT Final Result * (ABNORMAL) DRUG SCREEN RAPID (09/15/2023 10:06 AM CDT) [facility] AMPHETAMINE (U) NONE DETECTED NONE DETECTED 09/15/2023 10:26 AM CDT [facility] BARBITURATES SCREEN (U) NONE DETECTED NONE DETECTED 09/15/2023 10:26 AM CDT [facility] BENZODIAZEPINES SCREEN (U) NONE DETECTED NONE DETECTED 09/15/2023 10:26 AM CDT [facility] BUPRENORPHINE SCREEN (U) NONE DETECTED NONE DETECTED 09/15/2023 10:26 AM T [facility] COCAINE METABOLITES (U) NONE DETECTED NONE DETECTED 09/15/2023 10:26 AM CDT [facility] METHAMPHETAMINE (U) NONE DETECTED NONE DETECTED 09/15/2023 10:26 AM T [facility] METHADONE (U) NONE DETECTED NONE DETECTED 09/15/2023 10:26 AM CDT [facility] OPIATE SCREEN (U) NONE DETECTED NONE DETECTED 09/15/2023 10:26 AM T [facility] OXYCODONE SCREEN (U) NONE DETECTED NONE DETECTED 09/15/2023 10:26 AM CDT [facility] PHENCYCLIDINE PCP (U) NONE DETECTED NONE DETECTED 09/15/2023 10:26 AM CDT [facility] CANNABINOIDS SCREEN (U) NONE DETECTED NONE DETECTED 09/15/2023 10:26 AM CDT [facility] TRICYCLIC ANTIDEPRESSANT SCREEN (U) DETECTED(A) NONE DETECTED 09/15/2023 10:26 AM CDT [facility] Comment: NOTE: RESULTS OF THIS DRUG SCREEN SHOULD BE USED FOR MEDICAL PURPOSES ONLY AND NOT FOR LEGAL OR EMPLOYEMENT PURPOSES. MEDICATIONS CONTAINING EPHEDRINE MAY CAUSE FALSE POSITIVE AMPHETAMINE. AMPHETAMINE- ?500 NG/ML BARBITURATE- ?200 NG/ML BENZODIAZEPINE- ?? 150 NG/ML BUPRENORPHINE- ? 10 NG/ML COCAINE- ?150 NG/ML METHAMPHETAMINES- 500 NG/ML METHADONE- ?200 NG/ML OPIATE- ? 100 NG/ML OXYCODONE- ?100 NG/ML PCP- ? 25 NG/ML THC- ? 50 NG/ML TCA- ?300 NG/ML URINE SPECIMEN / Unknown 09/15/2023 10:06 AM CDT Desi Michaud MD URINE ORDERABLES Final Result Performing Organization Address [facility]/State/[facility] Co de Phone Number [facility] [address] [place] [address], * (ABNORMAL) ARTERIAL BLOOD GAS (09/15/2023 9:48 AM CDT) Pathologist [facility] [place] PH ARTERIAL 7.41 7.35 - 7.45 09/15/2023 9:55 AM CDT [facility] PCO2 35.4 35 - 48 MM HG 09/15/2023 9:55 AM CDT [facility] PO2 74(L) 83 - 108 MM HG 09/15/2023 9:55 AM CDT [facility] BICARB ARTERIAL 23.5 21 - 28 MMOL/L 09/15/2023 9:55 AM [facility] BASE DEFICIT 1 0 - 2 MMOL/L 09/15/2023 9:55 AM [facility] TOTAL CO2 ARTERIAL 25.0 22 - 28 MMOL/L 09/15/2023 9:55 AM [facility] O2 SATURATION 96.4 95.0 - 99.0 % 09/15/2023 9:55 AM [facility] CARBON MONOXIDE 0.9 0.5 - 1.5 % 09/15/2023 9:55 AM [facility] Comment: CARBOXYHEMOGLOBIN RANGES NONSMOKER ? 0.5-1.5% MODERATE SMOKER ? <2.3% SMOKER ?2.1-4.2% HEAVY SMOKER ?8-9% METHEMOGLOBIN 0.1 0.0 - 1.5 % 09/15/2023 9:55 AM [facility] Comment: SYMPTOMS ASSOCIATED WITH HIGHER LEVELS OF METHEMOGLOIN ARE FOLLOWS. PERCENT ?? SYMPTOMS 15-20% ?? CYANOSIS 25-50% ?? HEADACHE, DYSPNEA, LIGHTHEADEDNESS, SYNSCOPE, ? WEAKNESS, PALPITATIONS 50-75% ?? ABNORMAL CARDIAC RHYTHMS, ALTERED MENTAL ? DELIRIUM, SEIZURES, COMA, PROFOUND ACIDOSIS >70% ? O2 ADMIN ARTERIAL ROOM AIR 024 9:55 AM [facility] DRAW SITE DRAWN FROM RIGHT WRIST 09/15/2023 9:55 AM [facility] PERRY TEST POSITIVE PRERY TEST 09/15/2023 9:55 AM [facility] % O2 HEMOGLOBIN ARTERIAL 95.5 94.0 - 98.0 % 09/15/2023 9:55 AM [facility] REDUCED HGB ARTERIAL 3.6 0.0 - 5.0 % 09/15/2023 9:55 AM CDT [facility] 09/15/2023 9:48 AM CDT Desi Michaud MD LABORATORY Final Result Performing Organization Address City/State/[facility] Co de Phone Number [facility] [address] [place] [address], * XR CHEST PORTABLE (09/15/2023 9:46 AM CDT) Anatomical Region Laterality Modality Chest Radiographic Lucila ging 09/15/2023 9:49 AM CDT Impressions 09/15/2023 9:50 AM CDT =====IMPRESSION:===== No acute findings. Ordered By: DESI MICHAUD Interpreted By: Gary Meléndez, 09/15/2023 9:49 AM Narrative 09/15/2023 9:50 AM CDT EXAMINATION: CHEST RADIOGRAPH SINGLE VIEW Exam date/time: 09/15/2023 9:40 AM Reason For Exam: ??sob ? Cough. Congestion. Comparison: July 07, 2022. Technique: Upright AP view of the chest Findings: ??Heart size normal. Proximal airways unremarkable. No suspicious pulmonary lesion, pneumothorax, or pleural effusion.. Intact left-sided pacer leads. Procedure Note Richard Meléndez MD - 09/15/2023 EXAMINATION: CHEST RADIOGRAPH SINGLE VIEW Exam date/time: 09/15/2023 9:40 AM Reason For Exam: sob Cough. Congestion. Comparison: July 07, 2022. Technique: Upright AP view of the chest Findings: Heart size normal. Proximal airways unremarkable. No suspiciouspulmonary lesion, pneumothorax, or pleural effusion.. Intact left-sided pacer leads. =====IMPRESSION:===== No acute findings. Ordered By: DESI MICHAUD Interpreted By: Gary Meléndez, 09/15/2023 9:49 AM us Desi Michaud MD GENERAL IMAGING Final Result * CULTURE, BACTERIA, BLOOD (09/15/2023 9:45 AM CDT) SPEC DESCRIPTION BLOOD 09/15/2023 9:27 AM CDT [facility] SPECIAL REQUESTS NO SPECIAL REQUEST 09/15/2023 9:27 AM CDT [facility] CULTURE RESULT NO GROWTH 5 DAYS 09/24/2023 11:01 AM CDT [facility] BLOOD SPECIMEN OBTAINED FOR BLOOD CULTURE / Unknown 09/15/2023 9:45 AM CDT 09/15/2023 9:54 AM CDT Desi Michaud MD MICROBIOLOGY - GENERAL ORDERABL ES Final Result Performing Organization Address [facility]/ZIP Co de Phone Number [facility] [address] [place] [address], [place] [phone] * CULTURE, BACTERIA, BLOOD (09/15/2023 9:35 AM CDT) SPEC DESCRIPTION BLOOD 09/15/2023 9:27 AM CDT [facility] SPECIAL REQUESTS NO SPECIAL REQUEST 09/15/2023 9:27 AM CDT [facility] CULTURE RESULT NO GROWTH 5 DAYS 09/24/2023 11:00 AM CDT [facility] BLOOD SPECIMEN OBTAINED FOR BLOOD CULTURE / Unknown 09/15/2023 9:35 AM CDT 09/15/2023 9:53 AM CDT us Desi Michaud MD MICROBIOLOGY - GENERAL ORDERABL ES Final Result [facility] [address] [place] [address], [place] [phone] * LACTIC ACID W REFLEX (SEPSIS) (09/15/2023 9:35 AM CDT) LACTIC ACID VENOUS 1.5 0.4 - 2.0 MMOL/L 09/15/2023 10:26 AM CDT [facility] 09/15/2023 9:35 AM CDT us Desi Michaud MD LABORATORY Final Result Performing Organization Address [facility] Co de Phone Number [facility] [address] [place] [address], [place] [phone] * CORONAVIRUS (COVID-19) MOLECULAR (09/15/2023 9:20 AM CDT) Pathologist [facility] [place] CORONAVIRUS SARS COV 2 RNA NEGATIVE NEGATIVE 09/15/2023 10:06 AM CDT [facility] Comment: NEGATIVE RESULTS DO NOT [...] QUALITATIVE DETECTION OF SARS-COV-2. SPECIMEN TYPE NASAL 09/15/2023 9:29 AM CDT [facility] NASOPHARYNGEAL SWAB / Unknown 09/15/2023 9:20 AM CDT us Desi Michaud MD MICROBIOLOGY - GENERAL ORDERABL ES Final Result Performing Organization Address City/[facility]/ZIP Co de Phone Number [facility] [address] [place] [address], [place] [phone] * RESP SYNCYTIAL VIRUS (09/15/2023 9:20 AM CDT) SPECIMEN TYPE NASOPHARYNGEAL SWAB 09/15/2023 9:29 AM CDT [facility] RAPID RSV NEGATIVE NEGATIVE 09/15/2023 10:03 AM CDT [facility] NASOPHARYNGEAL SWAB / Unknown 09/15/2023 9:20 AM CDT us Desi Michaud MD MICROBIOLOGY - GENERAL ORDERABL ES Final Result Performing Organization Address City/[facility]/ZIP Co de Phone Number [facility] [address] [place] [address], [place] [phone] * INFLUENZA A & B (09/15/2023 9:20 AM CDT) SPECIMEN TYPE NASOPHARYNGEAL SWAB 09/15/2023 9:36 AM CDT [facility] INFLUENZA A NEGATIVE NEGATIVE 09/15/2023 10:03 AM CDT [facility] INFLUENZA B NEGATIVE NEGATIVE 09/15/2023 10:03 AM CDT [facility] NASAL NASOPHARYNGEAL SWAB / Unknown 09/15/2023 9:20 AM CDT us Desi Michaud MD MICROBIOLOGY - GENERAL ORDERABL ES Final Result Performing Organization Address City/[facility]/ZIP Co de Phone Number [facility] [address] [place] [address], [place] [phone] * TSH W/REFLEX (09/15/2023 9:20 AM CDT) TSH 0.815 0.358 - 3.74 uIU/ML 09/15/2023 10:08 AM CDT [facility] Comment: HIGH DOSES OF BIOTIN MAY INTERFERE WITH THIS TEST RESULT. CORRELATION TO CLINICAL HISTORY AND PRESENTATION RECOMMENDED. FREE T4 NOT INDICATED 09/15/2023 9:20 AM CDT us Desi Michaud MD LABORATORY Final Result Performing Organization Address [facility] Co de Phone Number [facility] [address] [place] [address], [place] [phone] * (ABNORMAL) PRO-BRAIN NATRIURETIC PEPTIDE (09/15/2023 9:20 AM CDT) PRO-B TYPE NATRIURETIC PEPTIDE 136(H) <125 PG/ML 09/15/2023 10:08 AM CDT [facility] Comment: CUT POINTS ESTABLISHED BY [...] OF 89% AND 72% FOR ACUTE CHF. 09/15/2023 9:20 AM CDT us Desi Michaud MD LABORATORY Final Result Performing Organization Address [facility] Co de Phone Number [facility] [address] [place] [address], [place] [phone] * LIPASE (09/15/2023 9:20 AM CDT) LIPASE 74 16 - 77 UNITS/L 09/15/2023 10:08 AM CDT [facility] 09/15/2023 9:20 AM CDT us Desi Michaud MD LABORATORY Final Result Performing Organization Address City/[facility]/ZIP Co de Phone Number [facility] [address] [place] [address], [place] [phone] * CK (CPK) (09/15/2023 9:20 AM CDT) CPK 139 39 - 308 U/L 09/15/2023 10:08 AM CDT [facility] 09/15/2023 9:20 AM CDT us Desi Michaud MD LABORATORY Final Result Performing Organization Address City/[facility]/ZIP Co de Phone Number [facility] [address] [place] [address], [place] [phone] * TROPONIN, QUANT (09/15/2023 9:20 AM CDT) Pathologist [facility] [place] TROPONIN I HIGH SENSITIVITY 7 <76 ng/L 09/15/2023 10:05 AM CDT [facility] Comment: HIGH DOSES OF BIOTIN, TROPONIN-SPECIFIC AUTOANTIBODIES, AND ANTIBODY THERAPY CONTAINING HAMA MAY INTERFERE WITH THIS TEST RESULT. CORRELATION TO CLINICAL HISTORY AND PRESENTATION RECOMMENDED. 09/15/2023 9:20 AM CDT us Desi Michaud MD LABORATORY Final Result Performing Organization Address City/[facility]/ZIP Co de Phone Number [facility] [address] [place] [address], [place] [phone] * (ABNORMAL) COMPREHENSIVE METABOLIC PANEL (09/15/2023 9:20 AM CDT) GLUCOSE 117(H) 70 - 99 MG/DL 09/15/2023 10:08 AM CDT [facility] BUN 8 7 - 18 MG/DL 09/15/2023 10:08 AM CDT [facility] CREATININE S/P/B 1.93(H) 0.7 - 1.3 MG/DL 09/15/2023 10:08 AM [facility] SODIUM S/P/B 138 136 - 145 MMOL/L 09/15/2023 10:08 AM [facility] POTASSIUM S/P/B 3.4(L) 3.5 - 5.1 MMOL/L 09/15/2023 10:08 AM [facility] CHLORIDE S/P/B 102 100 - 108 MMOL/L 09/15/2023 10:08 AM [facility] CO2 24.9 21 - 32 MMOL/L 09/15/2023 10:08 AM [facility] CALCIUM S/P/B 8.3(L) 8.5 - 10.1 MG/DL 09/15/2023 10:08 AM [facility] BILIRUBIN TOTAL S/P/B 0.7 0.2 - 1.2 MG/DL 09/15/2023 10:08 AM [facility] TOTAL PROTEIN S/P/B 7.1 6.4 - 8.2 G/DL 09/15/2023 10:08 AM [facility] ALBUMIN S/P/B 3.4 3.4 - 5.0 G/DL 09/15/2023 10:08 AM [facility] AST 19 15 - 37 U/L 09/15/2023 10:08 AM [facility] ALT 19 16 - 60 U/L 09/15/2023 10:08 AM [facility] ALKALINE PHOSPHATASE S/P/B 110 50 - 136 U/L 09/15/2023 10:08 AM [facility] ANION GAP 11.1 5 - 15 MMOL/L 09/15/2023 10:08 AM CDT [facility] BUN CREATININE RATIO 4.1(L) 6 - 26 09/15/2023 10:08 AM CDT [facility] A/G RATIO 0.9(L) 1.0 - 2.0 RATIO 09/15/2023 10:08 AM CDT [facility] GFR ESTIMATE 40(L) >90 ML/MIN/1.7 3 M2 09/15/2023 10:08 AM CDT [facility] Comment: NOTE: eGFR is not calculated for patients <18 years of age. This is an estimated GFR calculation using the new CKD EPI creatinine equation without race and so does not require a correction factor for race. This estimated GFR should not be used for calculating drug doses. 09/15/2023 9:20 AM CDT Desi Michaud MD LABORATORY Final Result Performing Organization Address [facility] de Phone Number [facility] [address] [place] [address], [place] [phone] * (ABNORMAL) D-DIMER, QUANTITATIVE (09/15/2023 9:20 AM CDT) [facility] D-DIMER 1,166(H) 0 - 500 ng{FEU}/mL 09/15/2023 9:53 AM CDT [facility] Comment: D-Dimer values less than [...] outcomes and no additional false negative findings. 09/15/2023 9:20 AM CDT Desi Michaud MD LABORATORY Final Result Performing Organization Address [facility] Co de Phone Number [facility] [address] [place] [address], [place] [phone] * (ABNORMAL) PARTIAL THROMBOPLASTIN TIME,PTT (09/15/2023 9:20 AM CDT) Pathologist [facility] [place] PTT 36.9(H) 27.0 - 36.8 SEC 09/15/2023 9:53 AM CDT [facility] 09/15/2023 9:20 AM CDT us Desi Michaud MD LABORATORY Final Result [facility] [address] [place] [address], [place] [phone] * PROTIME/INR, VENOUS (09/15/2023 9:20 AM CDT) Pathologist [facility] [place] PROTIME 12.0 9.1 - 12.4 SEC 09/15/2023 9:53 AM CDT [facility] INR 1.1 09/15/2023 9:53 AM CDT [facility] Comment: Recommend INR ranges for Oral Anticoagulant Therapy: Mechanical Cardiac Values 2.5-3.5 All others indication 2.0-3.0 09/15/2023 9:20 AM CDT us Desi Michaud MD LABORATORY Final Result [facility] [address] [place] [address], [place] [phone] * (ABNORMAL) CBC W/DIFF AUTOMATED (09/15/2023 9:20 AM CDT) Pathologist [facility] [place] WBC 7.61 4.4 - 11.0 x10'3/uL 09/15/2023 9:43 AM CDT [facility] RBC 5.01 4.50 - 5.90 x10'6/uL 09/15/2023 9:43 AM CDT [facility] HGB 14.6 14.0 - 17.5 G/DL 09/15/2023 9:43 AM T [facility] HCT 42.7 41.5 - 50.4 % 09/15/2023 9:43 AM T [facility] MCV 85.2 80.0 - 96.0 FL 09/15/2023 9:43 AM T [facility] MCH 29.1 26.5 - 31.4 PG 09/15/2023 9:43 AM T [facility] MCHC 34.2 31.9 - 34.8 G/DL 09/15/2023 9:43 AM [facility] RDW 13.3 12.3 - 14.3 % 09/15/2023 9:43 AM [facility] PLT 248 151 - 353 x10'3/uL 09/15/2023 9:43 AM [facility] MPV 8.7(L) 9.7 - 11.9 FL 09/15/2023 9:43 AM [facility] RBC MORPHOLOGY NORMAL 09/15/2023 9:43 AM T [facility] PLT MORPH. NORMAL 09/15/2023 9:43 AM [facility] WBC MORPHOLOGY NORMAL 09/15/2023 9:43 AM T [facility] LYMPHOCYTES % 15.2(L) 15.8 - 45.0 % 09/15/2023 9:43 AM [facility] NEUTROPHILS % 65.6 42.1 - 71.9 % 09/15/2023 9:43 AM T [facility] MONOCYTES % 7.4 5.7 - 12.5 % 09/15/2023 9:43 AM CDT [facility] EOSINOPHILS 11.0(H) 0.0 - 5.6 % 09/15/2023 9:43 AM CDT [facility] BASOPHILS 0.5 0.0 - 1.3 % 09/15/2023 9:43 AM CDT [facility] ABS. NEUTROPHILS 4.99 1.40 - 6.00 x10'3/uL 09/15/2023 9:43 AM CDT [facility] IMMATURE GRANS % 0.3 0.0 - 0.5 % 09/15/2023 9:43 AM CDT [facility] ABS. LYMPHOCYTES 1.16 0.80 - 4.70 x10'3/uL 09/15/2023 9:43 AM CDT [facility] 09/15/2023 9:20 AM CDT us Desi Michaud MD LABORATORY Final Result Performing Organization Address City/State/[facility] Co de Phone Number [facility] [address] [place] [address], * ECG 12 lead (09/15/2023 9:17 AM CDT) 09/15/2023 9:17 AM CDT Narrative [facility] RAD - 09/15/2023 9:52 PM CDT ?[facility] ? Test Date: ?2023-09-15 Pat Name: ? NATAN LAGUNA ?Department: ?? 85 ? Room: ? EXAM 303 Gender: ? Male ? 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 Requested By: DESI PENAGS Order Number: [id number] ? Reading MD: ?? Benson Russo ? Measurements Intervals ?[place] ? Rate: ? 87 ? P: ?65 NH: ? 173 ?QRS: ?108 QRSD: ? 158 ?T: ?-34 QT: ? 397 ? QTc: ?480 ? 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: : 1965 Requested By: DESI MICHAUD Order Number: [id number] Reading MD: Benson Russo Measurements Intervals [place] Rate: 87 P: 65 NH: 173 QRS: 108 QRSD: 158 T: -34 QT: 397 QTc: 480 Interpretive Statements ELECTRONIC VENTRICULAR PACEMAKER ABNORMAL RHYTHM ECG Compared to ECG 10/14/2022 17:58:57 Sinus tachycardia no longer present Atrial abnormality no longer present Intraventricular conduction delay no longer present Myocardial infarct finding no longer present us Desi Michaud MD ECG ORDERABLES Final Result [facility] documented in this encounter Visit Diagnoses Diagnosis Viral syndrome- Primary Unspecified viral infection, in conditions classified elsewhere and of unspecified site documented in this encounter Administered Medications Inactive Administered Medications - up to 3 most recent administrations Medication Order MAR Action Action Date Dose Rate Site iopamidol (ISOVUE-370) 76 % injection 75 mL 75 mL, Intravenous, IMG once as needed, Contrast, 1 dose, Starting on Malu 09/15/23 at 1031, Until Malu 09/15/23 at 1031 Given 09/15/2023 10:31 AM CDT 75 mLs potassium chloride CR (KLOR-CON M) tablet 40 mEq 40 mEq, Oral, Once, 1 dose, On Malu 09/15/23 at 1030, Do not chew, crush, or suck on tablet. May break in half. May dissolve whole tablet in 120 mL of water and drink immediately. Given 09/15/2023 11:28 AM CDT 40 mEq documented in this encounter Active and Recently Administered Medications Times are shown in CDT. Scheduled Medication Order 09/13/2023 09/14/2023 09/15/2023 potassium chloride CR (KLOR-CON M) tablet 40 mEq (COMPLETED) 40 mEq, Oral, Once, 1 dose, On Malu 09/15/23 at 1030, Do not chew, crush, or suck on tablet. May break in half. May dissolve whole tablet in 120 mL of water and drink immediately. 1128 (Given - Provid er: Michelle Cordero RN) PRN Medication Order 09/13/2023 09/14/2023 09/15/2023 iopamidol (ISOVUE-370) 76 % injection 75 mL (COMPLETED) 75 mL, Intravenous, IMG once as needed, Contrast, 1 dose, Starting on Malu 09/15/23 at 1031, Until Malu 09/15/23 at 1031 1031 (Given - Provid er: DERECK Thomas) documented in this encounter Additional Health Concerns Infection Onset Date Last Indicated Resolved Time COVID-19 Rule Out 09/15/2023 09/15/2023 09/15/2023 10:07 AM CDT documented as of this encounter Care Teams Wireless Watcher Relationship Specialty Start Date End Date Naomy Maddox MD [address] [place] [address] PCP - General INTERNAL MEDICINE 07/07/22 05/05/24 documented as of this encounter
--- OUTSIDE RECORDS SUMMARY | 2024-05-17 12:02 | XMS_ITS | Encounter Summary ---
Author Organization [facility] Address [address] [place] [address]. [place], [place] [address] [place] [id number] Care Team Providers Care Social Media Coordinator Name Role Phone Renita Loya MD Primary Care Provider Unavailable Renita Loya MD Primary Care Provider Unavailable Encounter Details Date Type Department Care Team (Late st Contact Info) Description 07/03/2008 [place] [address] Renita Loya MD Social History Tobacco Use Types Packs/Day Years [...] on filedocumented in this encounter Care Teams Social Media Coordinator Relationship Specialty Start Date End Date Renita Loya MD PCP - General 10/15/10 Renita Loya MD PCP - General 10/03/10 1 documented as of this encounter
--- OUTSIDE RECORDS SUMMARY | 2024-05-17 12:02 | XMS_ITS | Encounter Summary ---
Author Organization [facility] Address [address] [place] [address]. [place], [place] [address] [place] [address] Care Team Providers Care Clinical Data Specialist Name Role Phone Renita Loya MD Primary Care Provider Unavailable Renita Loya MD Primary Care Provider Unavailable Encounter Details Date Type Department Care Team (Late st Contact Info) Description 12/19/2009 Abstract [place] [address] Tawnya Negron MD [address] [place] [id number] Social History Tobacco Use Types Packs/Day Years [...] in this encounter Care Teams Clinical Data Specialist Relationship Specialty Start Date End Date Renita Loya MD PCP - General 10/15/10 Renita Loya MD PCP - General 10/03/10 1 documented as of this encounter
--- OUTSIDE RECORDS SUMMARY | 2024-05-17 12:02 | XMS_ITS | Encounter Summary ---
Author Organization [facility] Address [address] [place] [address]. [place], [place] [id number] [place] [id number] Care Team Providers Care Hydro Sprayer Operator Name Role Phone Renita Loya MD Primary Care Provider Unavailable Renita Loya MD Primary Care Provider Unavailable Encounter Details Date Type Department Care Team (Late st Contact Info) Description 12/16/2009 Abstract [place] [address] Tawnya Negron MD [address] [place] [id number] Social History Tobacco Use Types Packs/Day [...] on filedocumented in this encounter Care Teams Hydro Sprayer Operator Relationship Specialty Start Date End Date Renita Loya MD PCP - General 10/15/10 Renita Loya MD PCP - General 10/03/10 1 documented as of this encounter
--- OUTSIDE RECORDS SUMMARY | 2024-05-17 12:02 | XMS_ITS | Encounter Summary ---
Author Organization [facility] Address [address] [place] [address]. [place], [place] [id number] [place] [id number] Care Team Providers Care Income Tax Investigator Name Role Phone Renita Loya MD Primary Care Provider Unavailable Renita Loya MD Primary Care Provider Unavailable Encounter Details Date Type Department Care Team (Late st Contact Info) Description 03/11/2008 Abstract [place] [address] Renita Loya MD Social History Tobacco Use [...] on filedocumented in this encounter Care Teams Income Tax Investigator Relationship Specialty Start Date End Date Renita Loya MD PCP - General 10/15/10 Renita Loya MD PCP - General 10/03/10 1 documented as of this encounter
--- OUTSIDE RECORDS SUMMARY | 2024-05-17 12:02 | XMS_ITS | Encounter Summary ---
Author Organization [facility] Address [address] [place] [address]. [place], [place] [address] [place] [address] Care Team Providers Care Manager Math Name Role Phone Renita Loya MD Primary Care Provider Unavailable Renita Loya MD Primary Care Provider Unavailable Encounter Details Date Type Department Care Team (Late st Contact Info) Description 10/29/1997 Abstract [place] [address] Renita Loya MD Social History Tobacco Use [...] on filedocumented in this encounter Care Teams Manager Math Relationship Specialty Start Date End Date Renita Loya MD PCP - General 10/15/10 Renita Loya MD PCP - General 10/03/10 1 documented as of this encounter
--- OUTSIDE RECORDS SUMMARY | 2024-05-17 12:02 | XMS_ITS | Encounter Summary ---
Author Organization [facility] Address [address] [place] [address]. [place], [place] [address] [place] [address] Care Team Providers Care Stonemason Apprentice Name Role Phone Renita Loya MD Primary Care Provider Unavailable Renita Loya MD Primary Care Provider Unavailable Encounter Details Date Type Department Care Team (Late st Contact Info) Description 05/19/2003 Abstract [facility] [address] [place] [address] Renita Loya MD Social History Tobacco Use [...] on filedocumented in this encounter Care Teams Stonemason Apprentice Relationship Specialty Start Date End Date Renita Loya MD PCP - General 10/15/10 Renita Loya MD PCP - General 10/03/10 1 documented as of this encounter
--- OUTSIDE RECORDS SUMMARY | 2024-05-17 12:02 | XMS_ITS | Encounter Summary ---
Author Organization [facility] Address [address] [place] [address]. [place], [place] [address] [place] [address] Care Team Providers Care Manager Of Program Name Role Phone Renita Loya MD Primary Care Provider Unavailable Renita Loya MD Primary Care Provider Unavailable Encounter Details Date Type Department Care Team (Late st Contact Info) Description 08/28/2005 Abstract [facility] [address] [place] [address] Renita Loya MD Social History Tobacco Use [...] filedocumented in this encounter Care Teams Manager Of Program Relationship Specialty Start Date End Date Renita Loya MD PCP - General 10/15/10 Renita Loya MD PCP - General 10/03/10 1 documented as of this encounter
--- OUTSIDE RECORDS SUMMARY | 2024-05-17 12:02 | XMS_ITS | Encounter Summary ---
Author Organization [facility] Address [address] [place] [address]. [place], [place] [address] [place] [address] Care Team Providers Care Coil Cutter Name Role Phone Renita Loya MD Primary Care Provider Unavailable Renita Loya MD Primary Care Provider Unavailable Encounter Details Date Type Department Care Team (Late st Contact Info) Description 12/08/1997 Abstract [place] [address] Renita Loya MD Social History Tobacco Use [...] on filedocumented in this encounter Care Teams Coil Cutter Relationship Specialty Start Date End Date Renita Loya MD PCP - General 10/15/10 Renita Loya MD PCP - General 10/03/10 1 documented as of this encounter
--- OUTSIDE RECORDS SUMMARY | 2024-05-17 12:02 | XMS_ITS | Encounter Summary ---
Author Organization [facility] Address [address] [place] [address]. [place], [place] [address] [place] [address] Care Team Providers Care Roll Operator Name Role Phone Renita Loya MD Primary Care Provider Unavailable Renita Loya MD Primary Care Provider Unavailable Encounter Details Date Type Department Care Team (Late st Contact Info) Description 09/24/2008 [place] [address] Renita Loya MD Social History Tobacco Use [...] on filedocumented in this encounter Care Teams Roll Operator Relationship Specialty Start Date End Date Renita Loya MD PCP - General 10/15/10 Renita Loya MD PCP - General 10/03/10 1 documented as of this encounter
--- OUTSIDE RECORDS SUMMARY | 2024-05-17 12:02 | XMS_ITS | Encounter Summary ---
Author Organization [facility] Address [address] [place] [address]. [place], [place] [address] [place] [address] Care Team Providers Care Data Collection Technician Name Role Phone Renita Loya MD Primary Care Provider Unavailable Renita Loya MD Primary Care Provider Unavailable Encounter Details Date Type Department Care Team (Late st Contact Info) Description 03/24/2008 Emergency [facility] [place] [address] Jamaica Nunes MD Social History Tobacco Use Types Packs/Day [...] on filedocumented in this encounter Care Teams Data Collection Technician Relationship Specialty Start Date End Date Renita Loya MD PCP - General 10/15/10 Renita Loya MD PCP - General 10/03/10 1 documented as of this encounter
--- OUTSIDE RECORDS SUMMARY | 2024-05-17 12:02 | XMS_ITS | Encounter Summary ---
Author Organization [facility] Address [address] [place] [address]. [place], [place] [address] [place] [address] Care Team Providers Care Terrazzo Polisher Helper Name Role Phone Renita Loya MD Primary Care Provider Unavailable Renita Loya MD Primary Care Provider Unavailable Encounter Details Date Type Department Care Team (Late st Contact Info) Description 01/27/2009 Abstract [place] [address] Renita Loya MD Social History Tobacco Use [...] on filedocumented in this encounter Care Teams Terrazzo Polisher Helper Relationship Specialty Start Date End Date Renita Loya MD PCP - General 10/15/10 Renita Loya MD PCP - General 10/03/10 1 documented as of this encounter
--- OUTSIDE RECORDS SUMMARY | 2024-05-17 12:02 | XMS_ITS | Encounter Summary ---
Author Organization [facility] Address [address] [place] [address]. [place], [place] [address] [place] [address] Care Team Providers Care Master Coastal Waters Name Role Phone Renita Loya MD Primary Care Provider Unavailable Renita Loya MD Primary Care Provider Unavailable Encounter Details Date Type Department Care Team (Late st Contact Info) Description 02/15/1998 [place] [address] Renita Loya MD Social History Tobacco Use [...] on filedocumented in this encounter Care Teams Master Coastal Waters Relationship Specialty Start Date End Date Renita Loya MD PCP - General 10/15/10 Renita Loya MD PCP - General 10/03/10 1 documented as of this encounter
--- OUTSIDE RECORDS SUMMARY | 2024-05-17 12:02 | XMS_ITS | Encounter Summary ---
Author Organization [facility] Address [address] [place] [address]. [place], [place] [address] [place] [address] Care Team Providers Care [place] Boatman Name Role Phone Renita Loya MD Primary Care Provider Unavailable Renita Loya MD Primary Care Provider Unavailable Encounter Details Date Type Department Care Team (Late st Contact Info) Description 08/02/2008 Abstract [place] [address] Renita Loya MD Social History Tobacco Use [...] on filedocumented in this encounter Care Teams [place] Boatman Relationship Specialty Start Date End Date Renita Loya MD PCP - General 10/15/10 Renita Loya MD PCP - General 10/03/10 1 documented as of this encounter
--- OUTSIDE RECORDS SUMMARY | 2024-05-17 12:02 | XMS_ITS | Encounter Summary ---
Author Organization [facility] Address [address] [place] [address]. [place], [place] [address] [place] [address] Care Team Providers Care Apprentice Architect Name Role Phone Renita Loya MD Primary Care Provider Unavailable Renita Loya MD Primary Care Provider Unavailable Encounter Details Date Type Department Care Team (Late st Contact Info) Description 10/03/2010 Abstract [facility] [place] [address] Tawnya Negron MD [address] [place] [id number] Rivas Gaming MD [address] [place] [address] Social History Tobacco Use Types Packs/Day Years Used Date Smoking Tobacco: Never Assessed Sex and Gender Information Value Date Recorded Sex Assigned at Not on file Legal Sex Male 8:04 PM CDT Gender Identity Not on file Sexual Orientation Not on file documented as of this encounter Plan of Treatment Not on file documented as of this encounter Visit Diagnoses Diagnosis Major depressive disorder, recurrent episode, moderate (CMS/HCC HHS/HCC) Major depressive disorder, recurrent episode, moderate documented in this encounter Care Teams Apprentice Architect Relationship Specialty Start Date End Date Renita Loya MD PCP - General 10/15/10 Renita Loya MD PCP - General 10/03/10 1 documented as of this encounter
--- OUTSIDE RECORDS SUMMARY | 2024-05-17 12:02 | XMS_ITS | Encounter Summary ---
Author Organization [facility] Address [address] [place] [address]. [place], [place] [address] [place] [address] Care Team Providers Care Depilatory Painter Name Role Phone Renita Loya MD Primary Care Provider Unavailable Renita Loya MD Primary Care Provider Unavailable Encounter Details Date Type Department Care Team (Late st Contact Info) Description 03/04/1998 Abstract [place] [address] Renita Loya MD Social History Tobacco Use [...] on filedocumented in this encounter Care Teams Depilatory Painter Relationship Specialty Start Date End Date Renita Loya MD PCP - General 10/15/10 Renita Loya MD PCP - General 10/03/10 1 documented as of this encounter
--- OUTSIDE RECORDS SUMMARY | 2024-05-17 12:02 | XMS_ITS | Encounter Summary ---
Author Organization [facility] Address [address] [place] [address]. [place], [place] [address] [place] [address] Care Team Providers Care Virtualization Engineer Name Role Phone Renita Loya MD Primary Care Provider Unavailable Renita Loya MD Primary Care Provider Unavailable Encounter Details Date Type Department Care Team (Late st Contact Info) Description 10/30/2003 Abstract [facility] [address] [place] [address] Curt Cordova MD Social History Tobacco Use Types Packs/Day [...] on filedocumented in this encounter Care Teams Virtualization Engineer Relationship Specialty Start Date End Date Renita Loya MD PCP - General 10/15/10 Renita Loya MD PCP - General 10/03/10 1 documented as of this encounter
--- OUTSIDE RECORDS SUMMARY | 2024-05-17 12:02 | XMS_ITS | Encounter Summary ---
Author Organization [facility] Address [address] [place] [address]. [place], [place] [address] [place] [address] Care Team Providers Care General Farm Hand Name Role Phone Renita Loya MD Primary Care Provider Unavailable Renita Loya MD Primary Care Provider Unavailable Encounter Details Date Type Department Care Team (Late st Contact Info) Description 01/31/1998 Abstract [place] [address] Renita Loya MD Social History Tobacco Use [...] on filedocumented in this encounter Care Teams General Farm Hand Relationship Specialty Start Date End Date Renita Loya MD PCP - General 10/15/10 Renita Loya MD PCP - General 10/03/10 1 documented as of this encounter
--- OUTSIDE RECORDS SUMMARY | 2024-05-17 12:02 | XMS_ITS | Encounter Summary ---
Author Organization [facility] Address [address] [place] [address]. [place], [place] [address] [place] [address] Care Team Providers Care Purse Seiner Name Role Phone Renita Loya MD Primary Care Provider Unavailable Renita Loya MD Primary Care Provider Unavailable Encounter Details Date Type Department Care Team (Late st Contact Info) Description 07/09/2008 Emergency [facility] [place] [address] Renita Loya MD Social History Tobacco Use [...] on filedocumented in this encounter Care Teams Purse Seiner Relationship Specialty Start Date End Date Renita Loya MD PCP - General 10/15/10 Renita Loya MD PCP - General 10/03/10 1 documented as of this encounter
--- OUTSIDE RECORDS SUMMARY | 2024-05-17 12:02 | XMS_ITS | Encounter Summary ---
Author Organization [facility] Address [address] [place] [address]. [place], [place] [address] [place] [address] Care Team Providers Care Clinical Mental Health Counselor Name Role Phone Renita Loya MD Primary Care Provider Unavailable Renita Loya MD Primary Care Provider Unavailable Encounter Details Date Type Department Care Team (Late st Contact Info) Description 01/04/1998 [place] [address] Renita Loya MD Social History Tobacco Use [...] filedocumented in this encounter Care Teams Clinical Mental Health Counselor Relationship Specialty Start Date End Date Renita Loya MD PCP - General 10/15/10 Renita Loya MD PCP - General 10/03/10 1 documented as of this encounter
--- OUTSIDE RECORDS SUMMARY | 2024-05-17 12:02 | XMS_ITS | Encounter Summary ---
Author Organization [facility] Address [address] [place] [address]. [place], [place] [address] [place] [address] Care Team Providers Care Religious Leader Name Role Phone Renita Loya MD Primary Care Provider Unavailable Renita Loya MD Primary Care Provider Unavailable Encounter Details Date Type Department Care Team (Late st Contact Info) Description 03/23/2008 Emergency [facility] [place] [address] Jamaica Nunes MD Social History Tobacco Use [...] on filedocumented in this encounter Care Teams Religious Leader Relationship Specialty Start Date End Date Renita Loya MD PCP - General 10/15/10 Renita Loya MD PCP - General 10/03/10 1 documented as of this encounter
--- OUTSIDE RECORDS SUMMARY | 2024-05-17 12:02 | XMS_ITS | Encounter Summary ---
Author Organization [facility] Address [address] [place] [address]. [place] [address] [place] [address] Care Team Providers Care Security Systems Administrator Name Role Phone Renita Loya MD Primary Care Provider Unavailable Renita Loya MD Primary Care Provider Unavailable Encounter Details Date Type Department Care Team (Late st Contact Info) Description 12/11/2009 Emergency [facility] Emergency Room [place], [place] [id number] Melissa Turpin MD [address] [place] [address] [id number] Social History Tobacco Use Types Packs/Day Years [...] on filedocumented in this encounter Care Teams Security Systems Administrator Relationship Specialty Start Date End Date Renita Loya MD PCP - General 10/15/10 Renita Loya MD PCP - General 10/03/10 1 documented as of this encounter
--- OUTSIDE RECORDS SUMMARY | 2024-05-17 12:03 | XMS_ITS | Encounter Summary ---
Author Organization [facility] Address [address] [place] [address]. [place], [place] [address] [place] [address] Care Team Providers Care Web Database Developer Name Role Phone Renita Loya MD Primary Care Provider Unavailable Renita Loya MD Primary Care Provider Unavailable Encounter Details Date Type Department Care Team (Late st Contact Info) Description 06/06/1995 Abstract [place] [address] Renita Loya MD Social History Tobacco Use [...] on filedocumented in this encounter Care Teams Web Database Developer Relationship Specialty Start Date End Date Renita Loya MD PCP - General 10/15/10 Renita Loya MD PCP - General 10/03/10 1 documented as of this encounter
--- OUTSIDE RECORDS SUMMARY | 2024-05-17 12:03 | XMS_ITS | Encounter Summary ---
Author Organization [facility] Address [address] [place] [address]. [place], [place] [address] [place] [address] Care Team Providers Care Speaking Unit Assembler Name Role Phone Renita Loya MD Primary Care Provider Unavailable Renita Loya MD Primary Care Provider Unavailable Encounter Details Date Type Department Care Team (Late st Contact Info) Description 07/14/1995 Abstract [place] [address] Renita Loya MD Social History Tobacco Use [...] on filedocumented in this encounter Care Teams Speaking Unit Assembler Relationship Specialty Start Date End Date Renita Loya MD PCP - General 10/15/10 Renita Loya MD PCP - General 10/03/10 1 documented as of this encounter
--- OUTSIDE RECORDS SUMMARY | 2024-05-17 12:03 | XMS_ITS | Encounter Summary ---
Author Organization [facility] Address [address] [place] [address]. [place], [place] [address] [place] [address] Care Team Providers Care Application Systems Engineer Name Role Phone Renita Loya MD Primary Care Provider Unavailable Renita Loya MD Primary Care Provider Unavailable Encounter Details Date Type Department Care Team (Late st Contact Info) Description 04/25/1997 [place] [address] Renita Loya MD Social History Tobacco Use [...] on filedocumented in this encounter Care Teams Application Systems Engineer Relationship Specialty Start Date End Date Renita Loya MD PCP - General 10/15/10 Renita Loya MD PCP - General 10/03/10 1 documented as of this encounter
--- OUTSIDE RECORDS SUMMARY | 2024-05-17 12:03 | XMS_ITS | Encounter Summary ---
Author Organization [facility] Address [address] [place] [address]. [place], [place] [address] [place] [address] Care Team Providers Care Key Account Coordinator Name Role Phone Renita Loya MD Primary Care Provider Unavailable Renita Loya MD Primary Care Provider Unavailable Encounter Details Date Type Department Care Team (Late st Contact Info) Description 09/28/1993 [place] [address] Renita Loya MD Social History Tobacco Use [...] on filedocumented in this encounter Care Teams Key Account Coordinator Relationship Specialty Start Date End Date Renita Loya MD PCP - General 10/15/10 Renita Loya MD PCP - General 10/03/10 1 documented as of this encounter
--- OUTSIDE RECORDS SUMMARY | 2024-05-17 12:03 | XMS_ITS | Encounter Summary ---
Author Organization [facility] Address [address] [place] [address]. [place], [place] [address] [place] [address] Care Team Providers Care Precision Grinder Name Role Phone Renita Loya MD Primary Care Provider Unavailable Renita Loya MD Primary Care Provider Unavailable Encounter Details Date Type Department Care Team (Late st Contact Info) Description 04/15/1995 Abstract [place] [address] Renita Loya MD Social History Tobacco Use [...] on filedocumented in this encounter Care Teams Precision Grinder Relationship Specialty Start Date End Date Renita Loya MD PCP - General 10/15/10 Renita Loya MD PCP - General 10/03/10 1 documented as of this encounter
--- OUTSIDE RECORDS SUMMARY | 2024-05-17 12:03 | XMS_ITS | Encounter Summary ---
Author Organization [facility] Address [address] [place] [address]. [place], [place] [address] [place] [address] Care Team Providers Care Electrical Automation Engineer Name Role Phone Renita Loya MD Primary Care Provider Unavailable Renita Loya MD Primary Care Provider Unavailable Encounter Details Date Type Department Care Team (Late st Contact Info) Description 11/25/1996 Abstract [place] [address] Renita Loya MD Social History Tobacco Use [...] on filedocumented in this encounter Care Teams Electrical Automation Engineer Relationship Specialty Start Date End Date Renita Loya MD PCP - General 10/15/10 Renita Loya MD PCP - General 10/03/10 1 documented as of this encounter
--- OUTSIDE RECORDS SUMMARY | 2024-05-17 12:03 | XMS_ITS | Encounter Summary ---
Author Organization [facility] Address [address] [place] [address]. [place], [place] [address] [place] [address] Care Team Providers Care Supervisor Unloading Name Role Phone Renita Loya MD Primary Care Provider Unavailable Renita Loya MD Primary Care Provider Unavailable Encounter Details Date Type Department Care Team (Late st Contact Info) Description 09/11/1994 Abstract [place] [address] Renita Loya MD Social History Tobacco Use [...] on filedocumented in this encounter Care Teams Supervisor Unloading Relationship Specialty Start Date End Date Renita Loya MD PCP - General 10/15/10 Renita Loya MD PCP - General 10/03/10 1 documented as of this encounter
--- OUTSIDE RECORDS SUMMARY | 2024-05-17 12:03 | XMS_ITS | Encounter Summary ---
Author Organization [facility] Address [address] [place] [address]. [place], [place] [address] [place] [address] Care Team Providers Care Keying Machine Operator Name Role Phone Renita Loya MD Primary Care Provider Unavailable Renita Loya MD Primary Care Provider Unavailable Encounter Details Date Type Department Care Team (Late st Contact Info) Description 02/14/1993 Abstract [place] [address] Renita Loya MD Social History Tobacco Use [...] on filedocumented in this encounter Care Teams Keying Machine Operator Relationship Specialty Start Date End Date Renita Loya MD PCP - General 10/15/10 Renita Loya MD PCP - General 10/03/10 1 documented as of this encounter
--- OUTSIDE RECORDS SUMMARY | 2024-05-17 12:03 | XMS_ITS | Encounter Summary ---
Author Organization [facility] Address [address] [place] [address]. [place], [place] [address] [place] [address] Care Team Providers Care Software Engineer Intern Name Role Phone Renita Loya MD Primary Care Provider Unavailable Renita Loya MD Primary Care Provider Unavailable Encounter Details Date Type Department Care Team (Late st Contact Info) Description 04/08/1993 Abstract [place] [address] Renita Loya MD Social History Tobacco Use [...] on filedocumented in this encounter Care Teams Software Engineer Intern Relationship Specialty Start Date End Date Renita Loya MD PCP - General 10/15/10 Renita Loya MD PCP - General 10/03/10 1 documented as of this encounter
--- OUTSIDE RECORDS SUMMARY | 2024-05-17 12:03 | XMS_ITS | Encounter Summary ---
Author Organization [facility] Address [address] [place] [address]. [place], [place] [address] [place] [address] Care Team Providers Care Superintendent Gas Distribution Name Role Phone Renita Loya MD Primary Care Provider Unavailable Renita Loya MD Primary Care Provider Unavailable Encounter Details Date Type Department Care Team (Late st Contact Info) Description 09/08/1995 Abstract [place] [address] Renita Loya MD Social History Tobacco Use [...] on filedocumented in this encounter Care Teams Superintendent Gas Distribution Relationship Specialty Start Date End Date Renita Loya MD PCP - General 10/15/10 Renita Loya MD PCP - General 10/03/10 1 documented as of this encounter
--- OUTSIDE RECORDS SUMMARY | 2024-05-17 12:03 | XMS_ITS | Encounter Summary ---
Author Organization [facility] Address [address] [place] [address]. [place], [place] [address] [place] [address] Care Team Providers Care Trail Maintenance Worker Name Role Phone Renita Loya MD Primary Care Provider Unavailable Renita Loya MD Primary Care Provider Unavailable Encounter Details Date Type Department Care Team (Late st Contact Info) Description 06/09/1993 Abstract [place] [address] Renita Loya MD Social History Tobacco Use [...] on filedocumented in this encounter Care Teams Trail Maintenance Worker Relationship Specialty Start Date End Date Renita Loya MD PCP - General 10/15/10 Renita Loya MD PCP - General 10/03/10 1 documented as of this encounter
--- OUTSIDE RECORDS SUMMARY | 2024-05-17 12:03 | XMS_ITS | Encounter Summary ---
Author Organization [facility] Address [address] [place] [address]. [place], [place] [id number] [place] [address] Care Team Providers Care On Line Csr Name Role Phone Renita Loya MD Primary Care Provider Unavailable Renita Loya MD Primary Care Provider Unavailable Encounter Details Date Type Department Care Team (Late st Contact Info) Description 11/21/1995 Abstract [place] [address] Renita Loya MD Social History Tobacco Use [...] on filedocumented in this encounter Care Teams On Line Csr Relationship Specialty Start Date End Date Renita Loya MD PCP - General 10/15/10 Renita Loya MD PCP - General 10/03/10 1 documented as of this encounter
--- OUTSIDE RECORDS SUMMARY | 2024-05-17 12:03 | XMS_ITS | Encounter Summary ---
Author Organization [facility] Address [address] [place] [address]. [place], [place] [id number] [place] [address] Care Team Providers Care Fabrication Technician Name Role Phone Renita Loya MD Primary Care Provider Unavailable Renita Loya MD Primary Care Provider Unavailable Encounter Details Date Type Department Care Team (Late st Contact Info) Description 03/18/1994 [place] [address] Renita Loya MD Social History Tobacco Use [...] on filedocumented in this encounter Care Teams Fabrication Technician Relationship Specialty Start Date End Date Renita Loya MD PCP - General 10/15/10 Renita Loya MD PCP - General 10/03/10 1 documented as of this encounter
--- OUTSIDE RECORDS SUMMARY | 2024-05-17 12:03 | XMS_ITS | Encounter Summary ---
Author Organization [facility] Address [address] [place] [address]. [place], [place] [id number] [place] [address] Care Team Providers Care Field Marketer Name Role Phone Renita Loya MD Primary Care Provider Unavailable Renita Loya MD Primary Care Provider Unavailable Encounter Details Date Type Department Care Team (Late st Contact Info) Description 08/03/1995 [place] [address] Renita Loya MD Social History Tobacco Use [...] on filedocumented in this encounter Care Teams Field Marketer Relationship Specialty Start Date End Date Renita Loya MD PCP - General 10/15/10 Renita Loya MD PCP - General 10/03/10 1 documented as of this encounter
--- OUTSIDE RECORDS SUMMARY | 2024-05-17 12:03 | XMS_ITS | Encounter Summary ---
Author Organization [facility] Address [address] [place] [address]. [place], [place] [id number] [place] [address] Care Team Providers Care Talent Acquisition Administrator Name Role Phone Renita Loya MD Primary Care Provider Unavailable Renita Loya MD Primary Care Provider Unavailable Encounter Details Date Type Department Care Team (Late st Contact Info) Description 08/30/1992 [place] [address] Renita Loya MD Social History Tobacco Use [...] on filedocumented in this encounter Care Teams Talent Acquisition Administrator Relationship Specialty Start Date End Date Renita Loya MD PCP - General 10/15/10 Renita Loya MD PCP - General 10/03/10 1 documented as of this encounter
--- OUTSIDE RECORDS SUMMARY | 2024-05-17 12:03 | XMS_ITS | Encounter Summary ---
Author Organization [facility] Address [address] [place] [address]. [place], [place] [id number] [place] [address] Care Team Providers Care Non Destructive Evaluation Specialist Name Role Phone Renita Loya MD Primary Care Provider Unavailable Renita Loya MD Primary Care Provider Unavailable Encounter Details Date Type Department Care Team (Late st Contact Info) Description 08/09/1994 [place] [address] Renita Loya MD Social History Tobacco Use [...] on filedocumented in this encounter Care Teams Non Destructive Evaluation Specialist Relationship Specialty Start Date End Date Renita Loya MD PCP - General 10/15/10 Renita Loya MD PCP - General 10/03/10 1 documented as of this encounter
--- OUTSIDE RECORDS SUMMARY | 2024-05-17 12:03 | XMS_ITS | Encounter Summary ---
Author Organization [facility] Address [address] [place] [address]. [place], [place] [address] [place] [address] Care Team Providers Care Bench Technician Name Role Phone Renita Loya MD Primary Care Provider Unavailable Renita Loya MD Primary Care Provider Unavailable Encounter Details Date Type Department Care Team (Late st Contact Info) Description 07/26/1991 [place] [address] Renita Loya MD Social History Tobacco Use [...] on filedocumented in this encounter Care Teams Bench Technician Relationship Specialty Start Date End Date Renita Loya MD PCP - General 10/15/10 Renita Loya MD PCP - General 10/03/10 1 documented as of this encounter
--- OUTSIDE RECORDS SUMMARY | 2024-05-17 12:03 | XMS_ITS | Encounter Summary ---
Author Organization [facility] Address [address] [place] [address]. [place], [place] [phone] [place] [address] Care Team Providers Care Remittance Clerk Name Role Phone Renita Loya MD Primary Care Provider Unavailable Renita Loya MD Primary Care Provider Unavailable Encounter Details Date Type Department Care Team (Late st Contact Info) Description 04/10/1993 [place] [address] Renita Loya MD Social History Tobacco Use [...] on filedocumented in this encounter Care Teams Remittance Clerk Relationship Specialty Start Date End Date Renita Loya MD PCP - General 10/15/10 Renita Loya MD PCP - General 10/03/10 1 documented as of this encounter
--- OUTSIDE RECORDS SUMMARY | 2024-05-17 12:03 | XMS_ITS | Encounter Summary ---
Author Organization [facility] Address [address] [place] [address]. [place], [place] [address] [place] [address] Care Team Providers Care Linoleum Installer Name Role Phone Renita Loya MD Primary Care Provider Unavailable Renita Loya MD Primary Care Provider Unavailable Encounter Details Date Type Department Care Team (Late st Contact Info) Description 06/29/1995 [place] [address] Renita Loya MD Social History Tobacco Use [...] on filedocumented in this encounter Care Teams Linoleum Installer Relationship Specialty Start Date End Date Renita Loya MD PCP - General 10/15/10 Renita Loya MD PCP - General 10/03/10 1 documented as of this encounter
--- OUTSIDE RECORDS SUMMARY | 2024-05-17 12:03 | XMS_ITS | Encounter Summary ---
Author Organization [facility] Address [address] [place] [address]. [place], [place] [phone] [place] [address] Care Team Providers Care Community Service Officer Coordinator Name Role Phone Renita Loya MD Primary Care Provider Unavailable Renita Loya MD Primary Care Provider Unavailable Encounter Details Date Type Department Care Team (Late st Contact Info) Description 02/18/1994 [place] [address] Renita Loya MD Social History Tobacco Use [...] on filedocumented in this encounter Care Teams Community Service Officer Coordinator Relationship Specialty Start Date End Date Renita Loya MD PCP - General 10/15/10 Renita Loya MD PCP - General 10/03/10 1 documented as of this encounter
--- OUTSIDE RECORDS SUMMARY | 2024-05-17 12:03 | XMS_ITS | Encounter Summary ---
Author Organization [facility] Address [address] [place] [address]. [place], [place] [id number] [place] [address] Care Team Providers Care Clay Hoister Name Role Phone Renita Loya MD Primary Care Provider Unavailable Renita Loya MD Primary Care Provider Unavailable Encounter Details Date Type Department Care Team (Late st Contact Info) Description 04/15/1991 [place] [address] Renita Loya MD Social History Tobacco Use [...] on filedocumented in this encounter Care Teams Clay Hoister Relationship Specialty Start Date End Date Renita Loya MD PCP - General 10/15/10 Renita Loya MD PCP - General 10/03/10 1 documented as of this encounter
--- OUTSIDE RECORDS SUMMARY | 2024-05-17 12:04 | XMS_ITS | Encounter Summary ---
Author Organization [facility] Address [address] [place] [address]. [place], [place] [address] [place] [address] Care Team Providers Care Manometer Technician Name Role Phone Renita Loya MD Primary Care Provider Unavailable Renita Loya MD Primary Care Provider Unavailable Encounter Details Date Type Department Care Team (Late st Contact Info) Description 07/26/1990 Abstract [place] [address] Renita Loya MD Social History Tobacco Use [...] on filedocumented in this encounter Care Teams Manometer Technician Relationship Specialty Start Date End Date Renita Loya MD PCP - General 10/15/10 Renita Loya MD PCP - General 10/03/10 1 documented as of this encounter
--- OUTSIDE RECORDS SUMMARY | 2024-05-17 12:04 | XMS_ITS | Encounter Summary ---
Author Organization [facility] Address [address] [place] [address]. [place], [place] [address] [place] [address] Care Team Providers Care Visual Aid Expert Name Role Phone Renita Loya MD Primary Care Provider Unavailable Renita Loya MD Primary Care Provider Unavailable Encounter Details Date Type Department Care Team (Late st Contact Info) Description 12/19/1990 Abstract [place] [address] Renita Loya MD Social History Tobacco Use [...] on filedocumented in this encounter Care Teams Visual Aid Expert Relationship Specialty Start Date End Date Renita Loya MD PCP - General 10/15/10 Renita Loya MD PCP - General 10/03/10 1 documented as of this encounter
--- OUTSIDE RECORDS SUMMARY | 2024-05-17 12:04 | XMS_ITS | Encounter Summary ---
Author Organization [facility] Address [address] [place] [address]. [place], [place] [address] [place] [address] Care Team Providers Care Junior Sales Representative Name Role Phone Renita Loya MD Primary Care Provider Unavailable Renita Loya MD Primary Care Provider Unavailable Encounter Details Date Type Department Care Team (Late st Contact Info) Description 12/04/1990 [place] [address] Renita Loya MD Social History Tobacco Use [...] on filedocumented in this encounter Care Teams Junior Sales Representative Relationship Specialty Start Date End Date Renita Loya MD PCP - General 10/15/10 Renita Loya MD PCP - General 10/03/10 1 documented as of this encounter
--- OUTSIDE RECORDS SUMMARY | 2024-05-17 12:04 | XMS_ITS | Encounter Summary ---
Author Organization [facility] Address [address] [place] [address]. [place], [place] [address] [place] [address] Care Team Providers Care Child Specialist Name Role Phone Renita Loya MD Primary Care Provider Unavailable Renita Loya MD Primary Care Provider Unavailable Encounter Details Date Type Department Care Team (Late st Contact Info) Description 06/11/1990 Abstract [place] [address] Renita Loya MD Social History Tobacco Use [...] on filedocumented in this encounter Care Teams Child Specialist Relationship Specialty Start Date End Date Renita Loya MD PCP - General 10/15/10 Renita Loya MD PCP - General 10/03/10 1 documented as of this encounter
--- OUTSIDE RECORDS SUMMARY | 2024-05-17 12:04 | XMS_ITS | Encounter Summary ---
Author Organization [facility] Address [address] [place] [address]. [place], [place] [address] [place] [address] Care Team Providers Care Tonsorial Artist Name Role Phone Renita Loya MD Primary Care Provider Unavailable Renita Lyoa MD Primary Care Provider Unavailable Encounter Details Date Type Department Care Team (Late st Contact Info) Description 04/14/1991 Abstract [place] [address] Renita Loya MD Social History Tobacco Use [...] on filedocumented in this encounter Care Teams Tonsorial Artist Relationship Specialty Start Date End Date Renita Loya MD PCP - General 10/15/10 Renita Loya MD PCP - General 10/03/10 1 documented as of this encounter
--- OUTSIDE RECORDS SUMMARY | 2024-05-17 12:04 | XMS_ITS | Encounter Summary ---
Author Organization [facility] Address [address] [place] [address]. [place], [place] [address] [place] [address] Care Team Providers Care Deputy Sheriff Generalist/Bailiff Name Role Phone Renita Loya MD Primary Care Provider Unavailable Renita Loya MD Primary Care Provider Unavailable Encounter Details Date Type Department Care Team (Late st Contact Info) Description 09/05/1990 [place] [address] Renita Loya MD Social History Tobacco Use [...] on filedocumented in this encounter Care Teams Deputy Sheriff Generalist/Bailiff Relationship Specialty Start Date End Date Renita Loya MD PCP - General 10/15/10 Renita Loya MD PCP - General 10/03/10 1 documented as of this encounter
--- OUTSIDE RECORDS SUMMARY | 2024-05-17 12:04 | XMS_ITS | Encounter Summary ---
Author Organization [facility] Address [address] [place] [address]. [place], [place] [address] [place] [address] Care Team Providers Care Strategy Associate Name Role Phone Renita Loya MD Primary Care Provider Unavailable Renita Loya MD Primary Care Provider Unavailable Encounter Details Date Type Department Care Team (Late st Contact Info) Description 12/02/1990 Abstract [place] [address] Renita Loya MD Social History Tobacco Use [...] on filedocumented in this encounter Care Teams Strategy Associate Relationship Specialty Start Date End Date Renita Loya MD PCP - General 10/15/10 Renita Loya MD PCP - General 10/03/10 1 documented as of this encounter
--- OUTSIDE RECORDS SUMMARY | 2024-05-17 12:04 | XMS_ITS | Encounter Summary ---
Author Organization [facility] Address [address] [place] [address]. [place], [place] [address] [place] [address] Care Team Providers Care Manager Agency Name Role Phone Renita Loya MD Primary Care Provider Unavailable Renita Loya MD Primary Care Provider Unavailable Encounter Details Date Type Department Care Team (Late st Contact Info) Description 03/18/1991 [place] [address] Renita Loya MD Social History Tobacco Use [...] filedocumented in this encounter Care Teams Manager Agency Relationship Specialty Start Date End Date Renita Loya MD PCP - General 10/15/10 Renita Loya MD PCP - General 10/03/10 1 documented as of this encounter
--- OUTSIDE RECORDS SUMMARY | 2024-05-17 12:06 | XMS_ITS | Encounter Summary ---
Author Organization [facility] Address [address] [place] [address] Phone Care Team Providers Care Advocacy Director Name Role Phone Naomy Maddox MD Primary Care Provider [phone] Encounter Details Date Type Department Care Team (Late Contact Info) Description 10/23/2021 Transcribe Orders [facility] Central Scheduling [address] [place] [address] Zak Anderson MD [address] [address] Shortness of breath (Primary Dx) Social History Tobacco Use Types Packs/Day Years Used Date Smoking Tobacco: Never Smokeless Tobacco: Never Alcohol Use Standard Drinks/Week Comments No 0 (1 standard drink = 0.6 oz pur e alcohol) Sex and Gender Information Value Date Recorded Sex Assigned at Not on file Legal Sex Male 11:49 PM CDT Gender Identity Not on file Sexual Orientation Not on file documented as of this encounter Plan of Treatment Upcoming Encounters Date Type Department Care Team (Late Contact Info) Description 11/14/2024 8:00 AM CDT Office Visit [facility] [address] [place] [address] George Wright MD #[address] [facility] [address] [place] [address] documented as of this encounter Visit Diagnoses Diagnosis Shortness of breath- Primary documented in this encounter Care Teams Advocacy Director Relationship Specialty Start Date End Date Naomy Maddox MD [address] [facility] [address] [place] [address] PCP - General Internal Medicine 10/13/21 documented as of this encounter
--- OUTSIDE RECORDS SUMMARY | 2024-05-17 12:06 | XMS_ITS | Encounter Summary ---
Author Organization [facility] Address [address] [place] [address] Phone Care Team Providers Care Sales Engineer Engineered Products Name Role Phone Homero Rogers MD Primary Care Provider [phone] George Wright MD Unavailable Reason for Referral * Radiology Services (Routine) - Closed Specialty Diagnoses / Procedures Referred By Tanesha dennis Referred To Contact Radiology Diagnoses Kidney cysts Procedures XR ABDOMEN KUB FLAT PLATE George Wright MD [address] [address] Phone: tel: fax: Referral ID Status Reason Start Date Expiration Date Visits Re quested Visits Authorized [id number] Closed 02/15/2024 1 1 Reason for Visit * Reason Comments New Patient Cyst on kidney * Consult, Test & Initiate Treatment (Routine) - Open Specialty Diagnoses / Procedures Referred By Tanesha dennis Referred To Contact Urology Diagnoses Cyst of kidney, acquired Homero Rogers MD [address] [place] [address] Phone: tel: fax: [facility] [address] [place] [address] Phone: tel: fax: Referral ID Status Reason Start Date Expiration Date Visits Re quested Visits Authorized [id number] Open 1 1 Encounter Details Date Type Department Care Team (Late st Contact Info) Description 02/15/2024 10:00 AM CDT Office Visit [facility] [address] [place] [address] George Wright MD [address], [address] [place] [address] Kidney cysts (Primary Dx) Discharge Disposition: Discharged to home or Selfcare Social History Tobacco Use Types Packs/Day Years Used Date Smoking Tobacco: Never Smokeless Tobacco: Never Alcohol Use Standard Drinks/Week Comments Not Currently 0 (1 standard drink = 0.6 oz pur e alcohol) Sexually Active Control Partners Comments Not Currently Sex and Gender Information Value Date Recorded Sex Assigned at Not on file Legal Sex Male 11:49 PM CDT Gender Identity Not on file Sexual Orientation Not on file documented as of this encounter Last Filed Vital Signs Vital Sign Reading Time Taken Comments Blood Pressure 106/72 02/15/2024 10:29 AM CDT Pulse 98 02/15/2024 10:29 AM CDT Temperature - - Respiratory Rate 18 02/15/2024 10:29 AM CDT Oxygen Saturation 98% 02/15/2024 10:29 AM CDT Inhaled Oxygen Concentration - - Weight 92.7 kg (204 lb 6.4 oz) 02/15/2024 10:29 AM CDT Height 177.8 cm (5' 10 ) 02/15/2024 10:29 AM CDT Body Mass Index 29.33 02/15/2024 10:29 AM CDT documented in this encounter Progress Notes * George Wright MD - 02/15/2024 10:00 AM CDT UROLOGY [facility] [address] [place] [address] PHONE: FAX: Assessment & Plan Renal cyst-enlarging but simple documented since 2017 3 mm right lower pole stone no obstruction Plan: Patient reassured recommended KUB in 9 months -prostate cancer screening PSA-returned today at 1.02 Subjective: 02/15/2024 HPI: HPI: Saroj Laguna presents with a chief complaint of as above. No Known Allergies Current Outpatient Medications on File Prior to Visit Medication Sig Dispense Refill albuterol 108 (90 Base) MCG/ACT Aerosol Solution take 2 Puffs by inhalation. amitriptyline (ELAVIL) 25 MG Tablet Take 150 mg by mouth. amLODIPine (NORVASC) 10 MG Tablet TK 1 T PO QD 2 atorvastatin (LIPITOR) 40 MG Tablet Take 40 mg by mouth daily. calcitRIOL (ROCALTROL) 0.25 MCG Capsule Take 0.25 mcg by mouth. carvedilol (COREG) 6.25 MG Tablet TK 1 T PO BID 0 Entresto 49-51 MG Tablet Take 1 Tablet by mouth 2 times daily. ergocalciferol (VITAMIN D) 83203 UNIT Capsule TK 1 C PO Q WEEK (Patient not taking: Reported on 02/15/2024) 0 furosemide (LASIX) 80 MG Tablet Take 80 mg by mouth. hydrALAZINE 10 MG Tablet TAKE 2 TABLETS BY MOUTH THREE TIMES DAILY hydrOXYzine (ATARAX) 10 MG Tablet TK 1 T PO Q 6 H PRN 0 isosorbide dinitrate (ISORDIL) 20 MG Tablet TAKE 1 TABLET(20 MG) BY MOUTH THREE TIMES DAILY Jardiance 10 MG Tablet Take by mouth. lamoTRIgine (LaMICtal) 25 MG Tablet ondansetron (ZOFRAN) 8 MG Tablet Take 8 mg by mouth. PARoxetine (PAXIL) 40 MG Tablet TK 1 T PO QD 0 pravastatin (PRAVACHOL) 40 MG Tablet Take 40 mg by mouth. No current facility-administered medications on file prior to visit. Past Medical History Positives Diagnosis Date CHF (congestive heart failure) (HCC) Hypertension Kidney disease Past Surgical History: Procedure Laterality Date CARDIAC DEFIBRILLATOR PLACEMENT TONSILLECTOMY Family History Problem Relation Age of Onset Thyroid Disease Mother Kidney Cancer Mother Social History Socioeconomic History Marital status: Single Spouse name: Not on file Number of children: Not on file Years of education: Not on file Highest education level: Not on file Occupational History Not on file Tobacco Use Smoking status: Never Smokeless tobacco: Never Vaping Use Vaping status: Never Used Substance and Sexual Activity Alcohol use: Not Currently Drug use: Never Sexual activity: Not Currently Other Topics Concern Not on file Social History Narrative Not on file Social Determinants of Health Financial Resource Needs: Not on file Food Insecurity Needs: Not on file Transportation Needs: Not on file Physical Activity: Not on file Stress: Not on file Social Integration: Not on file Intimate Partner Violence: Not on file Housing Stability: Not on file ROS: Review of systems was negative, except as documented in HPI. Objective: Vital signs: BP 106/72 (BP Location: Left Arm, BP Position: Sitting, BP Cuff Size: Large) Pulse 98 Resp 18 Ht 5' 10 (1.778 m) Wt 204 lb 6.4 oz (92.7 kg) SpO2 98% BMI 29.33 kg/m?? Vitals: 02/15/24 1029 PainSc: 1 GENERAL: Normal appearance. Patient is sitting in the exam room comfortably. EYES: Extraocular movements intact. No scleral icterus, normal conjuctiva. ENT: Normal external appearance; oral mucosa is pink and moist. NECK: Symmetrical, no visible thyromegaly or masses. CARDIAC: Regular rate RESPIRATORY: Unlabored respirations. Symmetric chest expansion. GASTROINTESTINAL: Abdomen soft, non-tender. GENITOURINARY: Penis normal Testes normal. No appreciable inguinal hernia PAUL - prostate 30 g, smooth, no palpable nodules MUSCULOSKELETAL: No obvious cyanosis or clubbing of digits SKIN: Skin appears pink and dry. No obvious rashes over face, neck, or arms. PSYCHIATRIC: Normal judgment and insight. Oriented to person, place, and time; mood and affect are normal. No results found for: WBC , HEMOGLOBIN , HEMATOCRIT , PLATELETCNT , MCV No results found for: SODIUM , POTASSIUM , CHLORIDE , CO2VEN , ANIONGAP , GLUCOSE , BUN , CREATININE , BCRATIO8 , TOTALPROTEIN , ALBUMIN , AGRATIO , CALCIUM , TBIL , SGOTAST , SGPTALT , ALKALINEPHO , GFRNA , GFRA Lab Results Component Value Date PSASCREEN 1.02 02/15/2024 No results found for this or any previous visit. No results found for: TESTOSTTTL No results found for this or any previous visit from the past 365 days. No results found for this or any previous visit from the past 365 days. No results found for this or any previous visit from the past 365 days. Saroj was seen today for new patient and cyst on kidney. Diagnoses and all orders for this visit: Kidney cysts - POCT UA AUTOMATED W/O MICRO - PSA SCREEN - XR ABDOMEN KUB FLAT PLATE; Future By: George Wright MD, 02/15/2024, 2:49 PM CDT Primary Care Physician: HOMERO ROGERS MD documented in this encounter Plan of Treatment Upcoming Encounters Date Type Department Care Team (Late st Contact Info) Description 11/14/2024 8:00 AM CDT Office Visit [facility] [address] [place] [address] George Wright MD [address], [address] [address] Scheduled Orders Name Type Priority Associated Diagnoses Orde r Schedule XR ABDOMEN KUB FLAT PLATE Imaging Routine Kidney cysts Expected: 02/15/2024, Expires: 03/17/2024 documented as of this encounter Procedures Procedure Name Priority Date/Time Associated Diagnosis Comments PSA SCREEN Routine 02/15/2024 11:18 AM CDT Kidney cysts POCT UA AUTOMATED W/O MICRO Routine 02/15/2024 9:51 AM CDT Kidney cysts documented in this encounter Results * PSA SCREEN (02/15/2024 11:18 AM CDT) PSA SCREEN, TOTAL 1.02 <4.00 ng/mL 02/15/2024 12:54 PM CDT [facility] Blood Venipuncture / Unknown 02/15/2024 11:18 AM CDT 02/15/2024 12:07 PM CDT Narrative [facility] - 02/15/2024 12:54 PM CDT The ALINITY Total PSA assay is a Chemiluminescent Microparticle Immunoassay (CMIA) for the quantitative determination of total PSA (both free PSA and PSA complexed to [id number]) in human serum. Total PSA values obtained with different assay methods, including Elizalde PSA assays, cannot be used interchangeably. us George Wright MD CHEMISTRY ORDERABLES Final Resul t [facility] [address] [place] [address] * (ABNORMAL) POCT UA AUTOMATED W/O MICRO (02/15/2024 9:51 AM CDT) POC UA SPECIFIC GRAVITY 1.015 URINE PH 5.0 5.0 - 9.0 POC URINE LEUKOCYTES Negative Negative Neil/uL POC URINE NITRITE Negative Negative POC URINE PROTEIN Negative Negative mg/dL POC URINE GLUCOSE >1000 mg/dL(A) Negative, Norm mg/dL POC URINE KETONE Negative Negative mg/dL POC URINE UROBILINOGEN Norm Norm, 0.2 E.U./dL (mg/dL), 1 E.U./dL (mg/dL) POC URINE BILIRUBIN Negative Negative mg/dL POC URINE BLOOD INSTRUMENT Negative Negative Edgar/uL POC URINE COLOR Yellow POC URINE CLARITY Clear Urine 02/15/2024 9:51 AM CDT George Wright MD POINT OF CARE TESTING (MANUAL) F inal Result documented in this encounter Visit Diagnoses Diagnosis Kidney cysts- Primary Unspecified congenital cystic kidney disease documented in this encounter Care Teams Sales Engineer Engineered Products Relationship Specialty Start Date End Date Homero Rogers MD [address] [place] [address] PCP - General Internal Medicine 10/13/21 George Wright MD [address], [facility] [address] [place] [address] Consulting Physician Urology 02/15/24 documented as of this encounter
--- OUTSIDE RECORDS SUMMARY | 2024-05-17 12:06 | XMS_ITS | Clinical Summary ---
Author Organization [facility] Address [address] [address] Phone Care Team Providers Care Pairing Machine Operator Name Role Phone Naomy Maddox MD Primary Care Provider [phone] George Wright MD Unavailable Allergies No known active allergies Medications PARoxetine (PAXIL) 40 MG Tablet TK 1 T PO QD 0 10/13/2016 Active amLODIPine (NORVASC) 10 MG Tablet TK 1 T PO QD 2 10/13/2016 Active carvedilol (COREG) 6.25 MG Tablet TK 1 T PO BID 0 10/13/2016 Active ergocalciferol (VITAMIN D) 35130 UNIT Capsule TK 1 C PO Q WEEK 0 10/13/2016 Active hydrOXYzine (ATARAX) 10 MG Tablet TK 1 T PO Q 6 H PRN 0 10/13/2016 Active albuterol 108 (90 Base) MCG/ACT Aerosol Solution take 2 Puffs by inhalation. 09/22/2023 Active amitriptyline (ELAVIL) 25 MG Tablet Take 150 mg by mouth. 05/19/2020 Active atorvastatin (LIPITOR) 40 MG Tablet Take 40 mg by mouth daily. Active Jardiance 10 MG Tablet Take by mouth. 10/27/2023 Active furosemide (LASIX) 80 MG Tablet Take 80 mg by mouth. 09/09/2023 Active isosorbide dinitrate (ISORDIL) 20 MG Tablet TAKE 1 TABLET(20 MG) BY MOUTH THREE TIMES DAILY 11/16/2023 Active hydrALAZINE 10 MG Tablet TAKE 2 TABLETS BY MOUTH THREE TIMES DAILY Active lamoTRIgine (LaMICtal) 25 MG Tablet 02/14/2024 Active ondansetron (ZOFRAN) 8 MG Tablet Take 8 mg by mouth. Active Entresto 49-51 MG Tablet Take 1 Tablet by mouth 2 times daily. Active pravastatin (PRAVACHOL) 40 MG Tablet Take 40 mg by mouth. Active Encounters Date Type Department Care Team Description 02/15/2024 10:00 AM CDT Office Visit [facility] [address] [place] [address] George Wright MD Kidney cysts (Primary Dx) Discharge Disposition: Discharged to home or Selfcare 02/15/2024 Travel from Last 3 Months Immunizations Immunization Administration Dates Next Due Influenza, Injectable, Quadrivalent 04/13/2021,0 08/13/2015 TDAP Vaccine 08/13/2015 Family History Medical History Relation Name Comments Kidney Cancer Mother Thyroid Disease Mother Relation Name Status Comments Mother Social History Tobacco Use Types Packs/Day Years Used Date Smoking Tobacco: Never Smokeless Tobacco: Never Tobacco Cessation:Counseling Given: Yes Alcohol Use Standard Drinks/Week Comments Not Currently [...] Mass Index 29.33 02/15/2024 10:29 AM CDT Plan of Treatment Upcoming Encounters Date Type Department Care Team (Late st Contact Info) Description 11/14/2024 8:00 AM CDT Office Visit [facility] [address] [place] [address] George Wright MD [address], [address] [phone] Health Maintenance Due Date Last Done Comments Hepatitis C Virus (HCV) Screening 1965 Hepatitis B Immunization (1 of 3 - 19+ 3-dose series) 10/07/1986 Colonoscopy 10/07/2012 Colorectal Cancer Screening 10/07/2012 Cologuard 10/07/2017 Immunochemical Fecal Occult Blood 10/07/2017 Pneumococcal Immunization (5 0+ years) (1 of 1 - PCV) 10/07/2017 Zoster Immunization (1 of 2) 10/07/2017 Influenza Immunization (#1) 01/15/2024/2 01/2021, 08/13/2015 SARS-COV-2 Immunization ( season) 2024 02/20/2021, 08/20/2020, 07/23/2020 Td Immunization Every 10 Yea rs (Adults With 1 Tdap) 08/12/2025 08/13/2015 Respiratory Syncytial Virus (RSV) Immunization (Adult) (1 - 1-dose 75+ series) 10/07/2042 DTaP/Tdap/Td Immunization Discontinued 08/13/2015 TdaP Immunization Discontinued 08/13/2015 PSA Discussion Completed 02/15/2024 Meningococcal Immunization (ACWY) Aged Out No longer eligible based on patient's age to complete this topic Pneumococcal Immunization Combined Aged Out No longer eligible based on patient's age to complete this topic Rotavirus Immunization Aged Out No lo nger eligible based on patient's age to complete this topic Procedures Procedure Name Priority Date/Time Associated Diagnosis Comments PSA SCREEN Routine 02/15/2024 11:18 AM CDT Kidney cysts POCT UA AUTOMATED W/O MICRO Routine 02/15/2024 9:51 AM CDT Kidney cysts from Last 3 Months Results * PSA SCREEN (02/15/2024 11:18 AM CDT) [facility] PSA SCREEN, TOTAL 1.02 <4.00 ng/mL 02/15/2024 12:54 PM CDT [facility] Blood Venipuncture / Unknown 02/15/2024 11:18 AM CDT 02/15/2024 12:07 PM CDT Narrative [facility] - 02/15/2024 12:54 PM CDT The [employer] Total PSA assay is a Chemiluminescent Microparticle Immunoassay (CMIA) for the quantitative determination of total PSA (both free PSA and PSA complexed to [id number]) in human serum. Total PSA values obtained with different assay methods, including Elizalde PSA assays, cannot be used interchangeably. us George Wright MD CHEMISTRY ORDERABLES Final Resul t [facility] #[address] [place] [address] * (ABNORMAL) POCT UA AUTOMATED W/O MICRO (02/15/2024 9:51 AM CDT) [facility] POC UA SPECIFIC GRAVITY 1.015 URINE PH [...] CLARITY Clear Urine 02/15/2024 9:51 AM CDT us George Wright MD POINT OF CARE TESTING (MANUAL) F inal Result from Last 3 Months Insurance MEDICAID [facility] Care Teams Pairing Machine Operator Relationship Specialty Start Date End Date Naomy Maddox MD [address] [place] [address] PCP - General Internal Medicine 10/13/21 George Wright MD [address]2 [facility] [address] [place] [address] Consulting Physician Urology 02/15/24
--- OUTSIDE RECORDS SUMMARY | 2024-05-17 12:06 | XMS_ITS | Encounter Summary ---
Author Organization [facility] Address [address] [place] [address] Phone Care Team Providers Care Glue Cook Name Role Phone Grecia Wood Primary Care Provider [phone] Reason for Referral * Radiology Services (Routine) - Closed Specialty Diagnoses / Procedures Referred By Contac t Referred To Contact Radiology Diagnoses Hypertension, unspecified type Abnormal LFTs (liver function tests) Hypertensive kidney disease with stage 3 chronic kidney disease, unspecified whether stage 3a or 3b CKD (HCC) Stage 3 chronic kidney disease, unspecified whether stage 3a or 3b CKD (HCC) Procedures US RENAL COMPLETE Bryon Meeks MD Phone: tel: fax: Referral ID Status Reason Start Date Expiration Date Visits Re quested Visits Authorized [id number] Closed 09/09/2021 1 1 Encounter Details Date Type Department Care Team (Late st Contact Info) Description 09/09/2021 Transcribe Orders [facility] Scheduling [address] [place] [phone] Bryon Meeks MD [address] [place] [address] [id number] Hypertension, unspecified type (Primary Dx); Abnormal LFTs (liver function tests); Hypertensive kidney disease with stage 3 chronic kidney disease, unspecified whether stage 3a or 3b CKD (HCC); Stage 3 chronic kidney disease, unspecified whether stage 3a or 3b CKD (HCC) Social History Tobacco Use Types Packs/Day Years [...] Description 11/14/2024 8:00 AM CDT Office Visit [facility] [address] [place] [phone] George Wright MD #2 [facility], [address] [phone] Scheduled Orders Name Type Priority Associated Diagnoses Orde r Schedule US RENAL COMPLETE Imaging Routine Hypertension, unspecified type Abnormal LFTs (liver function tests) Hypertensive Kidney Disease With Stage 3 Chronic Kidney Disease, Unspecified Whether Stage 3a Or 3b Ckd (Hcc) Stage 3 Chronic Kidney Disease, Unspecified Whether Stage 3a Or 3b Ckd (Hcc) Expected: 09/09/2021, Expires: 09/09/2022 documented as of this encounter Visit Diagnoses Diagnosis Hypertension, unspecified type- Primary Abnormal LFTs (liver function tests) Other abnormal blood chemistry Hypertensive kidney disease with stage 3 chronic kidney disease, unspecified whether stage 3a or 3b CKD (HCC) Stage 3 chronic kidney disease, unspecified whether stage 3a or 3b CKD (HCC) documented in this encounter Care Teams Glue Cook Relationship Specialty Start Date End Date Grecia Wood PA [address] [place] [address] PCP - General Adult Medicine 07/08/16 10/12/21 documented as of this encounter
--- OUTSIDE RECORDS SUMMARY | 2024-05-17 12:06 | XMS_ITS | Encounter Summary ---
Author Organization [facility] Care Team Providers Care Coremaking Machine Operator Name Role Phone Naomy Maddox MD Primary Care Provider [phone] George Wright MD Unavailable Encounter Details Date Type Department Care Team (Latest Contact Info) Description 02/15/2024 Travel Social History Tobacco Use Types Packs/Day [...] Office Visit [facility] [address] [place] [address] George Wright MD [address] [address] documented as of this encounter Visit Diagnoses Not on filedocumented in this encounter Care Teams Coremaking Machine Operator Relationship Specialty Start Date End Date Naomy Maddox MD [address] [place] [address] PCP - General Internal Medicine 10/13/21 George Wright MD [facility] [address] [place] [address] Consulting Physician Urology 02/15/24 documented as of this encounter
--- OUTSIDE RECORDS SUMMARY | 2024-05-17 12:06 | XMS_ITS | Encounter Summary ---
Author Organization [facility] Address [address] [place] [address] Phone Care Team Providers Care Vermin Exterminator Name Role Phone Naomy Maddox MD Primary Care Provider [phone] Reason for Visit * Radiology Services (Routine) - Closed Specialty Diagnoses / Procedures Referred By Contac t Referred To Contact Radiology Diagnoses Shortness of breath Procedures ADULT TRANS THORACIC ECHO 2D COMPLT W CONT ADULT TRANS THORACIC ECHO 2D COMPLETE Zak Anderson MD [address] [place] [address] [address] [place] [address] Phone: tel: fax: Referral ID Status Reason Start Date Expiration Date Visits Re quested Visits Authorized [id number] Closed 10/23/2021 1 1 Encounter Details Date Type Department Care Team (Latest Contact Info) Description 11/04/2021 7:06 AM CDT - 11/04/2021 11:59 PM CDT Hospital [facility] [address] [place] [address] Zak Anderson MD [address] [facility] [address] MUN[address]Z [address] [place] [address] Discharge Disposition: Discharged to home or Selfcare [...] suspected to have Coronavirus/COVID-19? No / Unsure 11/04/2021 6:52 AM CDT documented as of this encounter Medications at Time of Discharge amitriptyline (ELAVIL) 25 MG Tablet Take 150 mg by mouth. 05/19/2020 amLODIPine (NORVASC) 10 MG Tablet TK 1 T PO QD 2 10/13/2016 carvedilol (COREG) 6.25 MG Tablet TK 1 T PO BID 0 10/13/2016 ergocalciferol (VITAMIN D) 49560 UNIT Capsule TK 1 C PO Q WEEK 0 10/13/2016 hydrOXYzine (ATARAX) 10 MG Tablet TK 1 T PO Q 6 H PRN 0 10/13/2016 PARoxetine (PAXIL) 40 MG Tablet TK 1 T PO QD 0 10/13/2016 documented as of this encounter Plan of Treatment Upcoming Encounters Date Type Department Care Team (Late st Contact Info) Description 11/14/2024 8:00 AM CDT Office Visit [facility] [address] [place] [address] George Wright MD [address] [address] [place] [id number] documented as of this encounter Procedures Procedure Name Priority Date/Time Associated Diagnosis Comments ADULT TRANS THORACIC ECHO 2D COMPLT W CONT Routine 11/04/2021 8:16 AM CDT Shortness of breath documented in this encounter Results * ADULT TRANS THORACIC ECHO 2D COMPLT W CONT (11/04/2021 8:16 AM CDT) AV Peak Grad mmHg 4.49 mmHg RESULTING AGENCY Mean Aortic Valve Gradient (MAVG) 3 mmHg RESULTING AGENCY LV end chiquis diam cm 4.58 cm RESULTING AGENCY LV end sys diam cm 3.94 cm RESULTING AGENCY Aortic Root Diam cm 3.5 cm RESULTING AGENCY LA vol index ml/m2 25 ml/m2 RESULTING AGENCY LVOT Peak Grayson m/sec 0.765 m/sec RESULTING AGENCY AV Peak Grayson m/sec 1.06 m/sec RESULTING AGENCY TR Grayson m/sec 2.1 m/sec RESULTI NG AGENCY E/E' 16.1 RESULTING AGENCY AV Area (VTI) cm2 2.36 cm2 RESULTING AGENCY SEPTUM DIASTOLIC CM 1.23 cm RESULTING AGENCY PW DIASTOLIC CM 1.01 cm RESU LTING AGENCY LA VOLUME 51.1 ml RESULTING AGENCY LV EF(estimated)% 30 RESULTING AGENCY Anatomical Region Laterality Modality CARDIO N/A Ultrasound Narrative 11/04/2021 8:41 AM CDT Transthoracic Echocardiography Report (TTE) Patient name ? HERBERT NATAN Plasencia ? 1965 Patient ID (UPI) ? [id number] ? Study Date11/04/2021 Technical quality: Adequate Type of Study: TTE procedure: Adult Trans Thoracic Echo 2D Complete, Adult Trans Thoracic Echo 2D Complt W Cont. Priority:RoutineHR: 86 bpmBP: 100/74 mmHg Contrast Medium: Lumason. Amount - 5 ml Conclusions Summary Left ventricle is mildly dilated. Dyskinetic septum and anterior wall. Ejection fraction is reduced and is estimated at 30%. 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 Mild mitral regurgitation is noted. Aortic Valve The aortic valve is trileaflet with normal structure. There is no evidence of aortic valve stenosis. There is no significant aortic valve insufficiency. 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 Mild tricuspid regurgitation is noted. Pulmonic Valve The pulmonic valve structure appears normal. Mild pulmonic insufficiency is noted Left Atrium The left atrium size is Dilated. Left Ventricle Left ventricle is mildly dilated. Dyskinetic septum and anterior wall. Ejection fraction is reduced and is estimated at 30%. Right Atrium The right atrium size is normal. Right Ventricle Normal right ventricular cavity size and normal systolic function. Pericardial Effusion No evidence of pericardial effusion. Miscellaneous Aortic root and proximal ascending aorta are normal in size. Images are limited due to body habitus and acoustic windows Valves Mitral Valve Peak E-Wave: 0.84 m/s Peak Gradient: 2.86 mmHg ? Deceleration Time: 106 msec Tissue Doppler E' Velocity: 0.09 m/s ?E/E':16.1 ?E/Lat E': 16.1 ?E/Med E':8.7 Aortic Valve Area (continuity): 2.36 cm^2 ? Mean Velocity: 0.75 m/s Area (VTI):2.36 cm^2 ? Mean Gradient: 3 mmHg Peak Velocity: 1.06 m/s ?AV VTI: 16.4 cm Peak Gradient: 4.49 mmHg Cusp Separation: 1.8 cm Tricuspid Valve TR Velocity: 2.1 m/s TR Gradient: 17.64 mmHg Pulmonic Valve Peak Velocity: 0.88 m/s Peak Gradient: 3.1 mmHg LVOT Peak Velocity: 0.76 m/s ? Mean Velocity: 0.52 m/s Peak Gradient: 2 mmHg ? Mean Gradient: 1 mmHg LVOT Diameter: 2 cm ? LVOT VTI: 12.3 cm Stroke Volume: 39 ml ?Stroke Volume Index: 19.02 ml/m^2 Structures Left Ventricle Diastolic Dimension: 4.58 cm ? Systolic Dimension: 3.94 cm Septum Diastolic: 1.23 cm ?Septum Systolic: 1.39 cm PW Diastolic: 1.01 cm ?PW Systolic: 1.44 cm Diastolic Length: 29.6 cm ?Systolic Length: 22.3 cm EF Calculated: 41.2% ? CI: 1.62 l/min*m^2 CO: 3.32 l/min RWT: 0.44 ?LV EDV: 100 ml FS: 13.97 % ?LV EDV Index: 49 m^2 LV Length: 8.23 cm ? LV ESV: 58.8 ml LVOT Diameter: 2 cm ?LV ESV Index: 29 m^2 Right Ventricle ? RVOT (PLAX) diameter:3.53 cm Tissue Doppler RV S': 6.74 Left Atrium LA Dimension: 2.3 cm ?LA Area: 17 cm^2 LA/Aorta: 0.66 ?LA Volume: 51.1 ml LA Systolic Pressure: 22.67 mmHg ?LA Index: 25ml/m^2 Right Atrium ?RA Area: 18.3 cm^2 Great Vessels Aorta Demographics Age ? 56 ?Gender ?Male Race ?Black ? Height ?70 in. ? Weight ?192 lbs. ? BMI (BSA) ? 27.55 kg/m^2 (2.05 ? m^2) Crown Attacher ? Isabella Winnie Interpreting ?Edmar Townsend ?? Referring ? Justin Millerayed Physician ? Faustino ? Physician ? MD Procedure Note Faustino Eddy MD - 11/04/2021 Transthoracic Echocardiography Report (TTE) Patient name HERBERT GAMA Luis Angel HernandezB. 1965 Patient ID (UPI) [id number] Study Date11/04/2021 Technical quality: Adequate Type of Study: TTE procedure: Adult Trans Thoracic Echo 2D Complete, Adult Trans Thoracic Echo 2D Complt W Cont. Priority:RoutineHR: 86 bpmBP: 100/74 mmHg Contrast Medium: Lumason. Amount - 5 ml Conclusions Summary Left ventricle is mildly dilated. Dyskinetic septum and anterior wall. Ejection fraction is reduced and is estimated at 30%. 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 Mild mitral regurgitation is noted. Aortic Valve The aortic valve is trileaflet with normal structure. There is no evidence of aortic valve stenosis. There is no significant aortic valve insufficiency. 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 Mild tricuspid regurgitation is noted. Pulmonic Valve The pulmonic valve structure appears normal. Mild pulmonic insufficiency is noted Left Atrium The left atrium size is Dilated. Left Ventricle Left ventricle is mildly dilated. Dyskinetic septum and anterior wall. Ejection fraction is reduced and is estimated at 30%. Right Atrium The right atrium size is normal. Right Ventricle Normal right ventricular cavity size and normal systolic function. Pericardial Effusion No evidence of pericardial effusion. Miscellaneous Aortic root and proximal ascending aorta are normal in size. Images are limited due to body habitus and acoustic windows Valves Mitral Valve Peak E-Wave: 0.84 m/s Peak Gradient: 2.86 mmHg Deceleration Time: 106 msec Tissue Doppler E' Velocity: 0.09 m/s E/E':16.1 E/Lat E': 16.1 E/Med E':8.7 Aortic Valve Area (continuity): 2.36 cm^2 Mean Velocity: 0.75 m/s Area (VTI):2.36 cm^2 Mean Gradient: 3 mmHg Peak Velocity: 1.06 m/s AV VTI: 16.4 cm Peak Gradient: 4.49 mmHg Cusp Separation: 1.8 cm Tricuspid Valve TR Velocity: 2.1 m/s TR Gradient: 17.64 mmHg Pulmonic Valve Peak Velocity: 0.88 m/s Peak Gradient: 3.1 mmHg LVOT Peak Velocity: 0.76 m/s Mean Velocity: 0.52 m/s Peak Gradient: 2 mmHg Mean Gradient: 1 mmHg LVOT Diameter: 2 cm LVOT VTI: 12.3 cm Stroke Volume: 39 ml Stroke Volume Index: 19.02 ml/m^2 Structures Left Ventricle Diastolic Dimension: 4.58 cm Systolic Dimension: 3.94 cm Septum Diastolic: 1.23 cm Septum Systolic: 1.39 cm PW Diastolic: 1.01 cm PW Systolic: 1.44 cm Diastolic Length: 29.6 cm Systolic Length: 22.3 cm EF Calculated: 41.2% CI: 1.62 l/min*m^2 CO: 3.32 l/min RWT: 0.44 LV EDV: 100 ml FS: 13.97 % LV EDV Index: 49 m^2 LV Length: 8.23 cm LV ESV: 58.8 ml LVOT Diameter: 2 cm LV ESV Index: 29 m^2 Right Ventricle RVOT (PLAX) diameter:3.53 cm Tissue Doppler RV S': 6.74 Left Atrium LA Dimension: 2.3 cm LA Area: 17 cm^2 LA/Aorta: 0.66 LA Volume: 51.1 ml LA Systolic Pressure: 22.67 mmHg LA Index: 25ml/m^2 Right Atrium RA Area: 18.3 cm^2 Great Vessels Aorta Demographics Age 56 Gender Male Race Black Height 70 in. Weight 192 lbs. BMI (BSA) 27.55 kg/m^2 (2.05 m^2) Crown Attacher Isabella Zhou Interpreting Edmar Townsend Referring Justin Crespo Physician Faustino Juarez MD Zak Anderson MD IMG ECHO ORDERABLES Edited Result - Final documented in this encounter Visit Diagnoses Diagnosis Shortness of breath documented in this encounter Administered Medications Inactive Administered Medications - up to 3 most recent administrations Medication Order MAR Action Action Date Dose Rate Site sulfur hexafluoride microsphere (LUMASON) 25 mg in sodium chloride 0.9 % 5 mL total volume syringe 1-5 mL, Intravenous, ONCE, 1 dose, On Tue11/04/21 at 0830 Given 11/04/2021 8:30 AM CDT 5 mL documented in this encounter Care Teams Vermin Exterminator Relationship Specialty Start Date End Date Naomy Maddox MD [address] [place] [address] PCP - General Internal Medicine 10/13/21 documented as of this encounter
--- OUTSIDE RECORDS SUMMARY | 2024-05-17 12:06 | XMS_ITS | Encounter Summary ---
Author Organization [facility] Care Team Providers Care Shagger Name Role Phone Naomy Maddox MD Primary Care Provider [phone] Encounter Details Date Type Department Care Team (Latest Contact Info) Description 11/04/2021 Travel Social History Tobacco Use Types Packs/Day [...] Description 11/14/2024 8:00 AM CDT Office Visit [facility] [address] [place] [address] George Wright MD [address] [address] documented as of this encounter Visit Diagnoses Not on filedocumented in this encounter Care Teams Shagger Relationship Specialty Start Date End Date Naomy Maddox MD [address] [place] [address] PCP - General Internal Medicine 10/13/21 documented as of this encounter
--- OUTSIDE RECORDS SUMMARY | 2024-05-17 12:07 | XMS_ITS | Encounter Summary ---
Author Organization [facility] Healthcare Address [address] [place] [address] Care Team Providers Care Windscreen Fitter Name Role Phone Naomy Maddox MD Primary Care Provider [phone] Encounter Details Date Type Department Care Team (Late st Contact Info) Description 05/04/2024 Orders Only [place] Sales Trader at [address] [address] Zak Anderson MD [address] [place] [address] [address] [place] [address] Congestive heart failure, unspecified HF chronicity, unspecified heart failure type (HCC) (Primary Dx) Social History Tobacco Use Types Packs/Day Years Used Date Smoking Tobacco: Never Personal Safety Answer Date Recorded Have you ever been in or are you currently in a harmful physical or emotional relationship or is someone making you feel afraid or unsafe? Yes;Denies 02/23/2023 Sex and Gender Information Value Date Recorded Sex Assigned at Not on file Legal Sex Male 9:23 PM BUSINESS DEPARTMENT CHAIR Gender Identity Not on file Sexual Orientation Not on file documented as of this encounter Ordered Prescriptions Prescription Sig Dispense Quantity Refills Last Filled Start Date End Date potassium chloride ER (KLOR-CON) 10 mEq CR tablet Take 1 tablet/caps ule (10 mEq total) by mouth daily 30 tablet/capsule 11 05/04/2024 05/04/2025 documented in this encounter Plan of Treatment Scheduled Orders Name Type Priority Associated Diagnoses Orde r Schedule Basic metabolic panel Lab Routine Congestive heart failure, unspecified HF chronicity, unspecified heart failure type (HCC) Expected: 05/04/2024, Expires: 05/04/2025 Pro B-type natriuretic peptide Lab Routine Congestive heart failure, unspecified HF chronicity, unspecified heart failure type (HCC) Expected: 05/04/2024, Expires: 05/04/2025 documented as of this encounter Visit Diagnoses Diagnosis Congestive heart failure, unspecified HF chronicity, unspecified heart failure type (HCC)- Primary documented in this encounter Care Teams Windscreen Fitter Relationship Specialty Start Date End Date Naomy Maddox MD [address] [place] [address] PCP - General Internal Medicine 05/06/20 documented as of this encounter
--- OUTSIDE RECORDS SUMMARY | 2024-05-17 12:07 | XMS_ITS | Referral Summary ---
Author Organization [facility] Address [address] [place] [address] Care Team Providers Care Window Repairer Name Role Phone Naomy Maddox MD Primary Care Provider [phone] Encounters Date Type Department Care Team Description 05/04/2024 Orders Only [place] Spool Sander at [address] [address] Zak Anderson MD Congestive heart failure, unspecified HF chronicity, unspecified heart failure type (HCC) (Primary Dx) 05/04/2024 Telephone [place] Spool Sander at [address] [address] Rosa Miranda MA from Last 3 Months Allergies No known active allergies Medications PARoxetine (PAXIL) 40 mg tablet Take 1 tablet (40 mg total) by mouth daily 10/13/2016 Active hydrOXYzine (ATARAX) 10 mg tablet 03/22/2020 Active famotidine (PEPCID) 20 mg tablet Take 1 tablet (20 mg total) by mouth 2 (two) times a day Active carvediloL (COREG) 25 mg tablet Take 1 tablet (25 mg total) by mouth Active atorvastatin (LIPITOR) 40 mg tablet 05/01/2020 Active amLODIPine (NORVASC) 10 mg tablet Take 1 tablet (10 mg total) by mouth daily 10/13/2016 Active amitriptyline (ELAVIL) 25 mg tablet Take 1 tablet (25 mg total) by mouth nightly 05/19/2020 Active hydrALAZINE (APRESOLINE) 10 mg tablet Take 2 tablets (20 mg total) by mouth 3 (three) times a day 540 tablet 3 09/07/2023 5 Active furosemide (LASIX) 80 mg tablet Take 1 tablet (80 mg total) by mouth daily 30 tablet 09/09/2023 Active Entresto 49-51 mg tablet TAKE 1 TABLET BY MOUTH TWICE DAILY 60 tablet 11 10/27/2023 Active Jardiance 10 mg tablet TAKE 1 TABLET(10 MG) BY MOUTH DAILY 30 tablet 11 10/27/2023 Active isosorbide dinitrate (ISORDIL) 20 mg tablet TAKE 1 TABLET(20 MG) BY MOUTH THREE TIMES DAILY 270 tablet 3 11/16/2023 Active potassium chloride ER (KLOR-CON) 10 mEq CR tablet Take 1 tablet/capsu le (10 mEq total) by mouth daily 30 tablet/capsul e 11 05/04/2024 5 Active Active Problems Problem Noted Date Diagnosed Date Chest pain 02/23/2023 Non-ischemic cardiomyopathy (CMS/HCC) 02/01/2023 LBBB (left bundle branch block) 01/20/2023 Systolic dysfunction 01/20/2023 Congestive heart failure (CMS/HCC) 01/20/2023 Abnormal stress test 01/25/2022 Overview (01/25/2022): Added automatically from request for surgery [id number] Acute on chronic systolic heart failure 09/05/19 22 Essential hypertension 05/20/2020 Assessment & Plan (05/20/2020 3:31 PM PROJECT ACCOUNT MANAGER): Controlled with medication Complicated with CKD Labs on 04/24/20 showing creatinine 1.93 with GFR 45 - patient will be starting with a methods study analyst. Bipolar 1 disorder 05/20/2020 Pure hypercholesterolemia 05/20/2020 Stage 3 chronic kidney disease 05/20/2020 Chronic fatigue syndrome 05/20/2020 Assessment & Plan (05/20/2020 3:35 PM PROJECT ACCOUNT MANAGER): Patient with chronic depression / bipolar disease Has family history of thyroid disease. Plan: We will screen for Hypothyroidism. Vitamin D deficiency 05/20/2020 Abnormal cortisol level 05/20/2020 Assessment & Plan (05/20/2020 3:34 PM PROJECT ACCOUNT MANAGER): Random am serum Cortisol of 4.2 ( 6-19) Done of 04/24/20 to investigate fatigue Labs and notes from PCP reviewed. Normal electrolytes Na 140- K of 4.5 No clinical evidence of low cortisol syndrome Plan: We will re-check Am serum Cortisol with ACTH Follow up and further investigation will be decided after we obtain above test results. Social History Tobacco Use Types Packs/Day Years Used Date Smoking Tobacco: Never Tobacco Cessation:Counseling Given: Not Answered Personal Safety Answer Date Recorded Have you ever been in or are you currently in a harmful physical or emotional relationship or is someone making you feel afraid or unsafe? Yes;Denies 02/23/2023 Sex and Gender Information Value Date Recorded Sex Assigned at Not on file Legal Sex Male 9:23 PM PROJECT ACCOUNT MANAGER Gender Identity Not on file Sexual Orientation Not on file Last Filed Vital Signs Vital Sign Reading Time Taken Comments Blood Pressure 114/78 06/14/2023 12:56 PM PROJECT ACCOUNT MANAGER Pulse 96 06/14/2023 12:56 PM PROJECT ACCOUNT MANAGER Temperature 36.6 ??C (97.9 ??F) 02/24/2023 11:43 AM C DT Respiratory Rate 18 03/03/2023 1:23 PM CDT Oxygen Saturation 93% 02/24/2023 11:43 AM CDT Inhaled Oxygen Concentration - - Weight 95.7 kg (211 lb) 06/14/2023 12:56 PM PROJECT ACCOUNT MANAGER Height 177.8 cm (5' 10 ) 06/14/2023 12:56 PM PROJECT ACCOUNT MANAGER Body Mass Index 30.28 06/14/2023 12:56 PM PROJECT ACCOUNT MANAGER Plan of Treatment Not on file Medical Devices Implanted Type Area Glassware Maker Device Identifier Shelf Expiration Date Model / Serial / Lot Med[employer]onic Inc Tyrx Absorbable Antibacterial Envelope-Large 3.3x2.9in [id number] - [id number] Implanted:Qty: 1 on 02/23/2023 by Gustabo Francisco MD at [facility] Collagen Left: Infraclavicular Anterior Chest Wall Medtronic Inc 11/14/2023 [id number] / / [id number] Bi[employer]ron[employer] Defibrillator Cardiac Rivacor Promri Implantable Df4 Is4 Sterile Latex Free 7 Hft Qp [id number] - [id number] - [id number] Implanted:Qty: 1 on 02/23/2023 by Gustabo Francisco MD at [facility] ICD Left: Infraclavicular Anterior Chest Wall [employer] 01/14/2024 [id number] / [id number] / [employer] Lead Drt Df4 S65 Icd Promri Plexa Tachycardia Devices [id number] - [id number] - [id number] Implanted:Qty: 1 on 02/23/2023 by Gustabo Francisco MD at [facility] Lead Right: Ventricle [employer] 09/12/2024 [id number] / [id number] / [employer] Solia S 45cm Bipolar Active Fixation Lead Pacing Steroid Eluting [id number] - [id number] - [id number] Implanted:Qty: 1 on 02/23/2023 by Gustabo Francisco MD at [facility] Lead Right: Atrial Appendage [employer] 01/13/2025 [id number] / [id number] / [employer] Sentus Promri Otw Quadripolar Left Ventricular Lead Icd L-85/49 [id number] - [id number] - [id number] Implanted:Qty: 1 on 02/23/2023 by Gustabo Francisco MD at [facility] Lead N/A: Coronary Sinus [employer] 11/12/2024 [id number] / [id number] / Procedures Procedure Name Priority Date/Time Associated Diagnosis Comments COLONOSCOPY IMAGES 06/12/2015 from Last 3 Months or Most Recently Relevant to Health Maintenance Results * COLONOSCOPY IMAGES (06/12/2015) Anatomical Region Laterality Modality Other Narrative 06/12/2015 Ordered by an unspecified provider. us Historical Provider GI PROCEDURE ORDERABLES F inal Result from Last 3 Months or Most Recently Relevant to Health Maintenance Insurance [facility] Care Teams Window Repairer Relationship Specialty Start Date End Date Naomy Maddox MD [address] [place] [address] PCP - General Internal Medicine 05/06/20
--- OUTSIDE RECORDS SUMMARY | 2024-05-17 12:07 | XMS_ITS | Encounter Summary ---
Author Organization [facility] Healthcare Address [address] [place] [address] Care Team Providers Care Conveyancer Name Role Phone Naomy Maddox MD Primary Care Provider Encounter Details Date Type Department Care Team (Late st Contact Info) Description 05/04/2024 Telephone [place] Hazardous Materials Analyst at [address] [address] Rosa Miranda MA Social History Tobacco Use Types Packs/Day Years Used Date Smoking Tobacco: Never Personal Safety Answer Date Recorded Have you ever been in or are you currently in a harmful physical or emotional relationship or is someone making you feel afraid or unsafe? Yes;Denies 02/23/2023 Sex and Gender Information Value Date Recorded Sex Assigned at Not on file Legal Sex Male 9:23 PM FAMILY MEDICINE RESIDENT Gender Identity Not on file Sexual Orientation Not on file documented as of this encounter Miscellaneous Notes * Telephone Encounter - Rosa Miranda MA - 05/04/2024 4:34 PM CST Sent message via Thanx and sent orders to [facility] and Medication to [facility] LY MEDICINE RESIDENT * Telephone Encounter - Rosa Miranda MA - 05/04/2024 2:26 PM CST Patient called stating that he has fluid in his lungs and he can hear it. He is taking his furosemide 80 mg every three days and wanted to know if there was another medication he could take. He has no SOB or lower extremity swelling. Please advise. LY MEDICINE RESIDENT documented in this encounter Plan of Treatment Not on file documented as of this encounter Visit Diagnoses Not on filedocumented in this encounter Care Teams Conveyancer Relationship Specialty Start Date End Date Naomy Maddox MD [address] [place] [address] PCP - General Internal Medicine 05/06/20 documented as of this encounter
--- OUTSIDE RECORDS SUMMARY | 2024-05-17 12:07 | XMS_ITS | Clinical Summary ---
Author Organization [facility] Medical Office Building A Address [address] [place] [address] Care Team Providers Care Mold Bunch Trimmer Name Role Phone Naomy Maddox MD Primary Care Provider [phone] Allergies No known active allergies Medications PARoxetine [...] mouth daily 30 tablet/capsul e 11 05/04/2024 Active Active Problems Problem Noted Date Diagnosed Date Chest pain 02/23/2023 Non-ischemic cardiomyopathy (CMS/HCC) 02/01/2023 LBBB (left bundle branch block) 01/20/2023 Systolic dysfunction 01/20/2023 Congestive heart failure (CMS/HCC) 01/20/2023 Abnormal stress test 01/25/2022 Overview (01/25/2022): Added automatically from request for surgery [id number] Acute on chronic systolic heart failure 09/05/19 22 Essential hypertension 05/20/2020 Assessment & Plan (05/20/2020 3:31 PM PROJECT PRODUCT MANAGER): Controlled with medication Complicated with CKD Labs on 04/24/20 showing creatinine 1.93 with GFR 45 - patient will be starting with a chaser helper. Bipolar 1 disorder 05/20/2020 Pure hypercholesterolemia 05/20/2020 Stage 3 chronic kidney disease 05/20/2020 Chronic fatigue syndrome 05/20/2020 Assessment & Plan (05/20/2020 3:35 PM PROJECT PRODUCT MANAGER): Patient with chronic depression / bipolar disease Has family history of thyroid disease. Plan: We will screen for Hypothyroidism. Vitamin D deficiency 05/20/2020 Abnormal cortisol level 05/20/2020 Assessment & Plan (05/20/2020 3:34 PM PROJECT PRODUCT MANAGER): Random am serum Cortisol of 4.2 ( 6-19) Done of 04/24/20 to investigate fatigue Labs and notes from PCP reviewed. Normal electrolytes Na 140- K of 4.5 No clinical evidence of low cortisol syndrome Plan: We will re-check Am serum Cortisol with ACTH Follow up and further investigation will be decided after we obtain above test results. Encounters Date Type Department Care Team Description 05/04/2024 Orders Only [place] Septic Tank Cleaner at [address] [place] [address] Zak Anderson MD Congestive heart failure, unspecified HF chronicity, unspecified heart failure type (HCC) (Primary Dx) 05/04/2024 Telephone [place] Septic Tank Cleaner at [address] [place] [address] Rosa Miranda MA from Last 3 Months Surgical History Surgery Date Site/Laterality Comments CARDIAC CATHETERIZATION Medical History Medical History Date Comments Hypertension Hypertension Hyperlipidemia LBBB (left bundle branch block) Systolic dysfunction CHF (congestive heart failure) (CMS/HCC) (HCC) Pneumonia GERD (gastroesophageal reflux disease) Anxiety Family History Medical History Relation Name Comments Hypertension Father Hypertension; Stroke Mother Stroke; Relation Name Status Comments Father Mother Social History Tobacco Use Types Packs/Day [...] file Legal Sex Male 9:23 PM PROJECT PRODUCT MANAGER Gender Identity Not on file Sexual Orientation Not on file Obstetrics History Last Filed Vital Signs Vital Sign Reading Time Taken Comments Blood Pressure 114/78 06/14/2023 12:56 PM PROJECT PRODUCT MANAGER Pulse 96 06/14/2023 12:56 PM PROJECT PRODUCT MANAGER Temperature 36.6 ??C (97.9 ??F) 02/24/2023 11:43 AM C DT Respiratory Rate 18 03/03/2023 1:23 PM CDT Oxygen Saturation 93% 02/24/2023 11:43 AM CDT Inhaled Oxygen Concentration - - Weight 95.7 kg (211 lb) 06/14/2023 12:56 PM PROJECT PRODUCT MANAGER Height 177.8 cm (5' 10 ) 06/14/2023 12:56 PM PROJECT PRODUCT MANAGER Body Mass Index 30.28 06/14/2023 12:56 PM PROJECT PRODUCT MANAGER Plan of Treatment Health Maintenance Due Date Last Done Comments Depression Screening 1965 Hepatitis C Screening 1967 Prostate Cancer Screening-PSA 1967 Pneumococcal vaccine <65 (1 of 2 - PCV) 10/07/1973 Hepatitis B Screening 10/07/1985 Regular Well Visit/Exam 18-64 10/07/1985 Zoster Vaccine (1 of 2) 10/07/2017 Influenza Vaccine (#1) 2024 04/13/2021, 2015 Colon Cancer Screening-Colonoscopy 06/12/20252015, 06/12/2015 DTaP/Tdap/Td Vaccine (2 - Td or Tdap) 08/12/2025 Medical Devices Implanted Type Area Cartridge Feeder Device Identifier Shelf Expiration Date Model / Serial / Lot Medtronic Inc Tyrx Absorbable Antibacterial Envelope-Large 3.3x2.9in [id number] - [id number] Implanted:Qty: 1 on 02/23/2023 by Gustabo Francisco MD at [facility] Collagen Left: Infraclavicular Anterior Chest Wall Medtronic Inc 11/14/2023 [id number] / / [id number] Biotronik Inc Defibrillator Cardiac Rivacor Promri Implantable Df4 Is4 Sterile Latex Free 7 Hft Qp [id number] - [id number] - [id number] Implanted:Qty: 1 on 02/23/2023 by Gustabo Francisco MD at [facility] ICD Left: Infraclavicular Anterior Chest Wall Biotronik Inc 01/14/2024 [id number] / [id number] / Biot[employer]ik Inc Lead Drt Df4 S65 Icd Promri Plexa Tachycardia Devices [id number] - [id number] - [id number] Implanted:Qty: 1 on 02/23/2023 by Gustabo Francisco MD at [facility] Lead Right: Ventricle Biotronik Inc 09/12/2024 [id number] / [id number] / Biot[employer] Inc Solia S 45cm Bipolar Active Fixation Lead Pacing Steroid Eluting [id number] - [id number] - [id number] Implanted:Qty: 1 on 02/23/2023 by Gustabo Francisco MD at [facility] Lead Right: Atrial Appendage [employer] Inc 01/13/2025 [id number] / [id number] / Biotronik Inc Sentus Promri Otw Quadripolar Left Ventricular Lead Icd L-85/49 [id number] - [id number] - [id number] Implanted:Qty: 1 on 02/23/2023 by Gustabo Francisco MD at [facility] Lead N/A: Coronary Sinus [employer] Inc 11/12/2024 [id number] / [id number] / Procedures Procedure Name Priority Date/Time Associated Diagnosis Comments COLONOSCOPY IMAGES 06/12/2015 from Last 3 Months or Most Recently Relevant to Health Maintenance Results * COLONOSCOPY IMAGES (06/12/2015) Anatomical Region Laterality Modality Other Narrative 06/12/2015 Ordered by an unspecified provider. us Historical Provider GI PROCEDURE ORDERABLES F inal Result from Last 3 Months or Most Recently Relevant to Health Maintenance Insurance [facility] [id number] [address] [facility] Care Teams Mold Bunch Trimmer Relationship Specialty Start Date End Date Naomy Maddox MD [address] [place] [address] PCP - General Internal Medicine 05/06/20
--- OUTSIDE RECORDS SUMMARY | 2024-05-17 12:07 | XMS_ITS | Encounter Summary ---
Author Organization [facility] Healthcare Address [address] [place] [address] Care Team Providers Care Electronic Component Processor Name Role Phone Naomy Maddox MD Primary Care Provider [phone] Encounter Details Date Type Department Care Team (Late st Contact Info) Description 11/01/2023 Telephone [place] Usability Engineer at [address] [address] Rosa Miranda MA Social History [...] on file Legal Sex Male 9:23 PM ACCOUNTING PRACTICE MANAGER Gender Identity Not on file Sexual Orientation Not on file documented as of this encounter Miscellaneous Notes * Telephone Encounter - Rosa Miranda MA - 11/02/2023 3:57 PM CDT Patient is coming in on 11/03 at 12:45 * Telephone Encounter - Rosa Miranda MA - 11/01/2023 12:18 PM CDT Patient called stating that he has been weak and tired and occasional SOB. He wanted to know if he needed any increase in his medications. Please advise. documented in this encounter Plan of Treatment Not on file documented as of this encounter Visit Diagnoses Not on filedocumented in this encounter Care Teams Electronic Component Processor Relationship Specialty Start Date End Date Naomy Maddox MD [address] [place] [address] PCP - General Internal Medicine 05/06/20 documented as of this encounter
--- OUTSIDE RECORDS SUMMARY | 2024-05-17 12:08 | XMS_ITS | Encounter Summary ---
Author Organization [facility] Healthcare Address [address] [place] [address] Care Team Providers Care Paint Line Operator Name Role Phone Naomy Maddox MD Primary Care Provider [phone] Reason for Referral * Cardiology (Routine) - Authorized Specialty Diagnoses / Procedures [facility]erred To Contact Diagnoses Non-ischemic cardiomyopathy (CMS/HCC) (HCC) HFrEF (heart failure with reduced ejection fraction) (CMS/HCC) (HCC) LBBB (left bundle branch block) Presence of biventricular automatic cardioverter/defibrillator (AICD) Procedures DEVICE CHECK - REMOTE Zak Anderson MD Phone: tel: fax: [facility] Referral ID Status Reason Start Date Expiration Date V isits Requested Visits Authorized [id number] Authorized 02/24/2023 08/25/2024 1 1 * Cardiology (Routine) - Closed Specialty Diagnoses / Procedures [facility] Referred To Contact Diagnoses Non-ischemic cardiomyopathy (CMS/HCC) (HCC) HFrEF (heart failure with reduced ejection fraction) (CMS/HCC) (HCC) LBBB (left bundle branch block) Presence of biventricular automatic cardioverter/defibrillator (AICD) Procedures DEVICE CHECK - IN OFFICE Zak Anderson MD Phone: tel: fax: Referral ID Status Reason Start Date Expiration Date Visits Re quested Visits Authorized [id number] Closed 02/24/2023 03/25/2024 1 1 Encounter Details Date Type Department Care Team (Late st Contact Info) Description 02/24/2023 Orders Only [place] [facility] [address] [place] [id number] China Lau MA Non-ischemic cardiomyopathy (CMS/HCC) (HCC) (Primary Dx); HFrEF (heart failure with reduced ejection fraction) (CMS/HCC) (HCC); LBBB (left bundle branch block); Presence of biventricular automatic cardioverter/defibrillat or (AICD) Social History Tobacco Use Types Packs/Day Years Used Date Smoking Tobacco: Never Personal Safety Answer Date Recorded Have you ever been in or are you currently in a harmful physical or emotional relationship or is someone making you feel afraid or unsafe? Yes;Denies 02/23/2023 Sex and Gender Information Value Date Recorded Sex Assigned at Not on file Legal Sex Male 9:23 PM STATION ATTENDANT Gender Identity Not on file Sexual Orientation Not on file documented as of this encounter Plan of Treatment Scheduled Orders Name Type Priority Associated Diagnoses Orde r Schedule DEVICE CHECK - IN OFFICE Cardiac Services Routine Non-ischemic cardiomyopathy (CMS/HCC) (HCC) HFrEF (heart failure with reduced ejection fraction) (CMS/HCC) (HCC) LBBB (left bundle branch block) Presence of biventricular automatic cardioverter/defibrillat or (AICD) Expected: 02/25/2024 (Approximate), Expires: 08/25/2024 DEVICE CHECK - REMOTE Cardiac Services Routine Non-ischemic cardiomyopathy (CMS/HCC) (HCC) HFrEF (heart failure with reduced ejection fraction) (CMS/HCC) (HCC) LBBB (left bundle branch block) Presence of biventricular automatic cardioverter/defibrillat or (AICD) Expected: 02/22/2024, Expires: 05/15/2024 documented as of this encounter Visit Diagnoses Diagnosis Non-ischemic cardiomyopathy (CMS/HCC) (HCC)- Primary Other primary cardiomyopathies HFrEF (heart failure with reduced ejection fraction) (CMS/HCC) (HCC) LBBB (left bundle branch block) Other left bundle branch block Presence of biventricular automatic cardioverter/defibrillator (AICD) documented in this encounter Care Teams Paint Line Operator Relationship Specialty Start Date End Date Naomy Maddox MD [address] [place] [address] PCP - General Internal Medicine 05/06/20 documented as of this encounter
--- OUTSIDE RECORDS SUMMARY | 2024-05-17 12:08 | XMS_ITS | Encounter Summary ---
Author Organization [facility] Address [address] [place] [address] Care Team Providers Care Director Of Marketing Name Role Phone Naomy Maddox MD Primary Care Provider [phone] Encounter Details Date Type Department Care Team (Late st Contact Info) Description 02/01/2023 Documentation [place] Medical Record Librarian [address] [facility] [address] [place] [address] Modesto Thakkar NP [address] [place] [address] Social History Tobacco Use Types Packs/Day Years Used Date Smoking Tobacco: Never Sex and Gender Information Value Date Recorded Sex Assigned at Not on file Legal Sex Male 9:23 PM BROTH MIXER Gender Identity Not on file Sexual Orientation Not on file documented as of this encounter Progress Notes * [place] Thakkar NP - 02/01/2023 12:00 PM CDT Patient plan of care was discussed with Dr. rFancisco Known dilated cardiomyopathy with an EF of 15-20%. Patient with high risk for sudden cardiac . LifeVest ordered documented in this encounter Plan of Treatment Not on file documented as of this encounter Visit Diagnoses Not on filedocumented in this encounter Care Teams Director Of Marketing Relationship Specialty Start Date End Date Naomy Maddox MD [address] [place] [address] PCP - General Internal Medicine 05/06/20 documented as of this encounter
--- OUTSIDE RECORDS SUMMARY | 2024-05-17 12:08 | XMS_ITS | Encounter Summary ---
Author Organization [facility] Healthcare Address [address] [place] [address] Care Team Providers Care Art Specialist Name Role Phone Noamy Maddox MD Primary Care Provider [phone] Encounter Details Date Type Department Care Team (Late st Contact Info) Description 02/28/2023 [facility] Post Discharge Follow up phone call [facility] [address] [place] [address] Blanca Abbasi, RN Social History Tobacco Use Types Packs/Day Years Used Date Smoking Tobacco: Never Personal Safety Answer Date Recorded Have you ever been in or are you currently in a harmful physical or emotional relationship or is someone making you feel afraid or unsafe? Yes;Denies 02/23/2023 Sex and Gender Information Value Date Recorded Sex Assigned at Not on file Legal Sex Male 9:23 PM COLLAR FUSER Gender Identity Not on file Sexual Orientation Not on file documented as of this encounter Plan of Treatment Not on file documented as of this encounter Visit Diagnoses Not on filedocumented in this encounter Care Teams Art Specialist Relationship Specialty Start Date End Date Naomy Maddox MD [address] [place] [address] PCP - General Internal Medicine 05/06/20 documented as of this encounter
--- OUTSIDE RECORDS SUMMARY | 2024-05-17 12:08 | XMS_ITS | Encounter Summary ---
Author Organization [facility] Healthcare Address [address] [place] [address] Care Team Providers Care Undraped Artist Model Name Role Phone Naomy Maddox MD Primary Care Provider [phone] Encounter Details Date Type Department Care Team (Late st Contact Info) Description 03/05/2023 Telephone [place] Machine Featheredger And Reducer at [address] [place] [address] Gustabo Francisco MD [address] [place] [address] [address] [place] [address] Social History Tobacco Use Types Packs/Day Years Used Date Smoking Tobacco: Never Personal Safety Answer Date Recorded Have you ever been in or are you currently in a harmful physical or emotional relationship or is someone making you feel afraid or unsafe? Yes;Denies 02/23/2023 Sex and Gender Information Value Date Recorded Sex Assigned at Not on file Legal Sex Male 9:23 PM SHACTOR Gender Identity Not on file Sexual Orientation Not on file documented as of this encounter Miscellaneous Notes * Telephone Encounter - Justine Evans - 03/05/2023 12:56 PM CDT Left message for patient to discuss MyChart messages to office staff. documented in this encounter Plan of Treatment Not on file documented as of this encounter Visit Diagnoses Not on filedocumented in this encounter Care Teams Undraped Artist Model Relationship Specialty Start Date End Date Naomy Maddox MD [address] [place] [id number] PCP - General Internal Medicine 05/06/20 documented as of this encounter
--- OUTSIDE RECORDS SUMMARY | 2024-05-17 12:08 | XMS_ITS | Encounter Summary ---
Author Organization [facility] Healthcare Address [address] [place] [address] Care Team Providers Care Quality Control Expert Name Role Phone Naomy Maddox MD Primary Care Provider [phone] Reason for Visit * Cardiology (Routine) - Closed Specialty Diagnoses / Procedures Referred By Tanesha dennis Referred To Contact Diagnoses Implantable defibrillator reprogramming/check Procedures DEVICE CHECK - IN OFFICE Gustabo Francisco MD Phone: tel: fax: [facility] Referral ID Status Reason Start Date Expiration Date Visits Re quested Visits Authorized [id number] Closed 03/03/2023 04/01/2024 1 1 Encounter Details Date Type Department Care Team (Latest Contact Info) Description 03/03/2023 1:15 PM CDT Ancillary Procedure [place] Procurement Clerk at [address] [address] Non-ischemic cardiomyopathy (CMS/HCC) (HCC) (Primary Dx); Implantable defibrillator reprogramming/check; Congestive heart failure, unspecified HF chronicity, unspecified heart failure type (HCC); LBBB (left bundle branch block) Social History Tobacco Use Types Packs/Day Years Used Date Smoking Tobacco: Never Personal Safety Answer Date Recorded Have you ever been in or are you currently in a harmful physical or emotional relationship or is someone making you feel afraid or unsafe? Yes;Denies 02/23/2023 Sex and Gender Information Value Date Recorded Sex Assigned at Not on file Legal Sex Male 9:23 PM CYBER SYSTEMS ENGINEER Gender Identity Not on file Sexual Orientation Not on file documented as of this encounter Plan of Treatment Not on file documented as of this encounter Procedures Procedure Name Priority Date/Time Associated Diagnosis Comments DEVICE CHECK - IN OFFICE Routine 03/03/2023 3:28 PM CDT Implantable defibrillator reprogramming/check documented in this encounter Results * DEVICE CHECK - IN OFFICE (03/03/2023 3:28 PM CDT) Anatomical Region Laterality Modality Other Gustabo Francisco MD [facility] OCEDURES Final Result documented in this encounter Visit Diagnoses Diagnosis Non-ischemic cardiomyopathy (CMS/HCC) (HCC)- Primary Other primary cardiomyopathies Implantable defibrillator reprogramming/check Fitting and adjustment of automatic implantable cardiac defibrillator Congestive heart failure, unspecified HF chronicity, unspecified heart failure type (HCC) LBBB (left bundle branch block) Other left bundle branch block documented in this encounter Care Teams Quality Control Expert Relationship Specialty Start Date End Date Naomy Maddox MD [address] [place] [address] PCP - General Internal Medicine 05/06/20 documented as of this encounter
--- OUTSIDE RECORDS SUMMARY | 2024-05-17 12:08 | XMS_ITS | Encounter Summary ---
Author Organization [facility] Address [address] [place] [address] Care Team Providers Care Special Loan Officer Name Role Phone Naomy Maddox MD Primary Care Provider [phone] Encounter Details Date Type Department Care Team (Late st Contact Info) Description 01/29/2023 Orders Only [place] Microbiology Instructor at [address] [place] [address] Brissa Whitney NP [address] [place] [address] [address] [place] [address] Social History Tobacco Use Types Packs/Day Years Used Date Smoking Tobacco: Never Sex and Gender Information Value Date Recorded Sex Assigned at Not on file Legal Sex Male 9:23 PM MINERAL WOOL INSULATION SUPERVISOR Gender Identity Not on file Sexual Orientation Not on file documented as of this encounter Plan of Treatment Not on file documented as of this encounter Visit Diagnoses Not on filedocumented in this encounter Care Teams Special Loan Officer Relationship Specialty Start Date End Date Naomy Maddox MD [address] [place] [address] PCP - General Internal Medicine 05/06/20 documented as of this encounter
--- OUTSIDE RECORDS SUMMARY | 2024-05-17 12:08 | XMS_ITS | Encounter Summary ---
Author Organization [facility] Address [address] [place] [address] Care Team Providers Care Phd Intern Name Role Phone Naomy Maddox MD Primary Care Provider [phone] Encounter Details Date Type Department Care Team (Late st Contact Info) Description 01/29/2023 Orders Only [place] Byproduct Engineer at [address] [place] [address] Gustabo Francisco MD [address] [place] [address] [address] [place] [address] Dilated cardiomyopathy (CMS/HCC) (HCC) (Primary Dx) Social History Tobacco Use Types Packs/Day Years Used Date Smoking Tobacco: Never Sex and Gender Information Value Date Recorded Sex Assigned at Not on file Legal Sex Male 9:23 PM MARKETING LIAISON Gender Identity Not on file Sexual Orientation Not on file documented as of this encounter Progress Notes * Brissa Whitney NP - 01/29/2023 9:14 AM CDT Life Vest order documented in this encounter Plan of Treatment Not on file documented as of this encounter Visit Diagnoses Diagnosis Dilated cardiomyopathy (CMS/HCC) (HCC)- Primary Other primary cardiomyopathies documented in this encounter Orders General Supply Count Last Ordered Date First Or dered Date WEARABLE CARDIOVERTER DEFIBRILLATOR 1 01/29 documented in this encounter Care Teams Phd Intern Relationship Specialty Start Date End Date Naomy Maddox MD [address] [place] [id number] PCP - General Internal Medicine 05/06/20 documented as of this encounter
--- OUTSIDE RECORDS SUMMARY | 2024-05-17 12:08 | XMS_ITS | Encounter Summary ---
Author Organization [facility] Healthcare Address [address] [place] [address] Care Team Providers Care Inspector Golf Ball Name Role Phone Naomy Maddox MD Primary Care Provider [phone] Encounter Details Date Type Department Care Team (Late st Contact Info) Description 02/25/2023 [facility] Post Discharge Follow up phone call [facility] [address] [place] [address] Blanca Abbasi, RN Social History Tobacco Use [...] on file Legal Sex Male 9:23 PM MEDICAL SCIENTIFIC LIAISON Gender Identity Not on file Sexual Orientation Not on file documented as of this encounter Plan of Treatment Not on file documented as of this encounter Visit Diagnoses Not on filedocumented in this encounter Care Teams Inspector Golf Ball Relationship Specialty Start Date End Date Naomy Maddox MD [address] [place] [address] PCP - General Internal Medicine 05/06/20 documented as of this encounter
--- OUTSIDE RECORDS SUMMARY | 2024-05-17 12:08 | XMS_ITS | Encounter Summary ---
Author Organization [facility] Healthcare Address [address] [place] [address] Care Team Providers Care Dobby Loom Weaver Name Role Phone Naomy Maddox MD Primary Care Provider [phone] Reason for Referral * Cardiology (Routine) - Closed Specialty Diagnoses / Procedures Referred By Contac t Referred To Contact Diagnoses Non-ischemic cardiomyopathy (CMS/HCC) (HCC) Procedures Transthoracic Echo (TTE) Complete W Doppler/CF Gustabo Francisco MD Phone: tel: fax: [address] [phone] Referral ID Status Reason Start Date Expiration Date Visits Re quested Visits Authorized [id number] Closed 05/10/2023 05/09/2024 1 1 FIELD CASE MANAGER Reason for Visit * Cardiology (Routine) - Closed Specialty Diagnoses / Procedures Referred By Tanesha t Referred To Contact Diagnoses Non-ischemic cardiomyopathy (CMS/HCC) (HCC) Procedures Transthoracic Echo (TTE) Complete W Doppler/CF Gustabo Francisco MD Phone: tel: fax: [address] [phone] Referral ID Status Reason Start Date Expiration Date Visits Re quested Visits Authorized [id number] Closed 05/10/2023 05/09/2024 1 1 Encounter Details Date Type Department Care Team (Latest Contact Info) Description 05/27/2023 7:25 AM COMP FIELD CASE MANAGER - 05/27/2023 11:59 PM COMP FIELD CASE MANAGER Hospital Encounter [facility] Cardiology [address] [place] [id number] Non-ischemic cardiomyopathy (CMS/HCC) (HCC) Discharge Disposition: Discharge to home or self care Social History Tobacco Use Types Packs/Day Years Used Date Smoking Tobacco: Never Personal Safety Answer Date Recorded Have you ever been in or are you currently in a harmful physical or emotional relationship or is someone making you feel afraid or unsafe? Yes;Denies 02/23/2023 Sex and Gender Information Value Date Recorded Sex Assigned at Not on file Legal Sex Male 9:23 PM COMP FIELD CASE MANAGER Gender Identity Not on file Sexual Orientation Not on file documented as of this encounter Medications at Time of Discharge amitriptyline (ELAVIL) 25 mg tablet Take 1 tablet (25 mg total) by mouth nightly 05/19/2020 amLODIPine (NORVASC) 10 mg tablet Take 1 tablet (10 mg total) by mouth daily 10/13/2016 atorvastatin (LIPITOR) 40 mg tablet 05/01/2020 carvediloL (COREG) 25 mg tablet Take 1 tablet (25 mg total) by mouth famotidine (PEPCID) 20 mg tablet Take 1 tablet (20 mg total) by mouth 2 (two) times a day hydrOXYzine (ATARAX) 10 mg tablet 03/22/2020 PARoxetine (PAXIL) 40 mg tablet Take 1 tablet (40 mg total) by mouth daily 10/13/2016 empagliflozin (JARDIANCE) 10 mg tablet Take 1 tablet (10 mg total) by mouth daily 30 tablet 11 11/05/2022 10/27/2023 hydrALAZINE (APRESOLINE) 10 mg tablet Take 1 tablet (10 mg total) by mouth 3 (three) times a day 270 tablet 3 03/17/2023 09/07/2023 isosorbide dinitrate (ISORDIL) 20 mg tablet Take 1 tablet (20 mg total) by mouth 3 (three) times a day 270 tablet 3 12/16/2022 11/16/2023 sacubitriL-valsar lopez (ENTRESTO) 49-51 mg tabletIndications :chronic heart failure Take 1 tablet by mouth 2 (two) times a day 60 tablet 11 11/05/2022 10/27/2023 documented as of this encounter Discharge Disposition Disposition Code Departure Means Destination Discharge to home or self care documented in this encounter Plan of Treatment Not on file documented as of this encounter Procedures Procedure Name Priority Date/Time Associated Diagnosis Comments TRANSTHORACIC ECHO (TTE) COMPLETE W DOPPLER/CF WO CONTRAST Routine 05/27/2023 8:00 AM COMP FIELD CASE MANAGER Non-ischemic cardiomyopathy (CMS/HCC) (HCC) documented in this encounter Results * TRANSTHORACIC ECHO (TTE) COMPLETE W DOPPLER/CF WO CONTRAST (05/27/2023 8:00 AM COMP FIELD CASE MANAGER) Anatomical Region Laterality Modality Ultrasound 05/27/2023 8:27 AM COMP FIELD CASE MANAGER Narrative 05/27/2023 10:08 AM COMP FIELD CASE MANAGER [address] [address] Echocardiogram Report Patient Name: NATAN RIVERA : 1965 Study Date: 05/27/2023 8:27:21 AM Gender: M Tech: HERB Ref Provider: GUSTABO FRANCISCO Height(Cm): 178 BSA: 2.09 Weight(Kg): 88 ?Quality: Adequate Order Provider: GUSTABO FRANCISCO PROCEDURES: Echocardiographic Report: Transthoracic echocardiogram with complete 2D, M-Mode, and color Doppler examination. INDICATIONS: Cardiomyopathy. Measurements: 2D/M Mode ?Doppler Measurement ?Value ?Normal Range ? Measurement ? Value ?Normal Range EF Teich MM ?35.0 ? [ 52.0 - 72.0 ] percent ?JIGAR Vmax ?2.66 ? cm2 LVIDd MM ? 4.80 ? [ 4.20 - 5.80 ] cm ? AV Mean PG ?2 ?mmHg LVIDs MM ? 4.00 ? [ 2.50 - 4.00 ] cm ? AV Peak Grayson ? 0.91 ? [ 1.00 - 1.70 ] m/s LVPWd MM ? 1.20 ? [ 0.60 - 1.00 ] cm ? AV VTI ?14.59 ?cm IVSd MM ?1.10 ? [ 0.60 - 1.00 ] cm ? LVOT Diam ? 2.02 ? cm LA Dimension MM ?3.01 ? [ 3.00 - 4.00 ] cm ? LVOT Peak Grayson ? 0.75 ? [ 0.70 - 1.10 ] m/s AoR Diam MM ?3.19 ? [ 3.10 - 3.70 ] cm ? LVOT VTI ?11.78 ?cm ACS MM ? 1.82 ? [ 1.50 - 2.60 ] cm ? MV E Peak Grayson ? 0.53 ? [ 0.60 - 1.30 ] m/s MV A Peak Grayson ?0.64 ? [ 1.00 - 1.20 ] m/s MV Mean PG ? 1 ?mmHg MV PHT ? 61 ? [ 20 - 100 ] msec MVA ?3.60 MV Decel Time ?212 ?[ 104 - 258 ] msec PV Peak Grayson ?1.21 ? [ 0.40 - 0.80 ] m/s CO Peak Grayson ?1.19 ? m/s TR Peak Grayson ?2.46 ? [ 1.00 - 2.80 ] m/s TR Peak PG ? 24 ? mmHg RVSP ? 32.00 ?[ 10.00 - 36.00 ] mmHg E` ? 0.06 ? m/s E/E` ? 8.92 ? [ <= 10.00 ] PA Pressure ?32.00 ?[ 10.00 - 36.00 ] mmHg Measurement ?Value ?Normal Range ? Measurement ? Value ?Normal Range 2D/M Mode ?Doppler - FINDINGS: Atrial Septum: The atrial septum is not well visualized. Left Ventricle: Normal left ventricular size. Normal left ventricular wall thickness. Moderate global left ventricular systolic dysfunction. Impaired diastolic relaxation Grade I. Ejection fraction is visually estimated at 35 %. Left Atrium: There is mild enlargement of left atrium. Right Ventricle: Moderate enlargement of right ventricle. Moderate right ventricular hypokinesis. Linear artifact in right ventricle suggestive of catheter(s), pacemaker lead(s), or ICD lead(s). Right Atrium: Linear artifact in right atrium suggestive of catheter(s), pacemaker lead(s), or ICD lead(s). Aortic Valve: Normal structure of the aortic valve. Mitral Valve: Normal structure of the mitral valve. Pulmonic Valve: Pulmonic valve not well visualized. Tricuspid Valve: Normal right ventricular systolic pressure. Estimated peak RVSP is 32 mmHg. Mild to moderate tricuspid regurgitation. Pericardium: Normal pericardium with no significant pericardial effusion. Aorta: Normal aortic root. IVC: The IVC is not well visualized. CONCLUSIONS: Moderate global left ventricular systolic dysfunction. Impaired diastolic relaxation Grade I. Ejection fraction is visually estimated at 35 %. Moderate enlargement of right ventricle. Moderate right ventricular hypokinesis. Linear artifact in right ventricle suggestive of catheter(s), pacemaker lead(s), or ICD lead(s). Electronically Signed By: Zak Anderson 2023-05-27 10:07:54 COMP FIELD CASE MANAGER Procedure Note Zak Anderson MD - 05/27/[address] [place] [address] Echocardiogram Report Patient Name: NATAN RIVERA : 1965 Study Date: 05/27/2023 8:27:21 AM Gender: M Tech: HERB Ref Provider: GUSTABO FRANCISCO Height(Cm): 178 BSA: 2.09 Weight(Kg): 88 Quality: Adequate Order Provider: GUSTABO FRANCISCO PROCEDURES: Echocardiographic Report: Transthoracic echocardiogram with complete 2D, M-Mode, and color Dopplerexamination. INDICATIONS: Cardiomyopathy. Measurements: 2D/M ModeDoppler Measurement Value Normal Range MeasurementValue Normal Range EF Teich MM 35.0 [ 52.0 - 72.0 ] percent JIGAR Vmax2.66 cm2 LVIDd MM 4.80 [ 4.20 - 5.80 ] cm AV Mean PG2 mmHg LVIDs MM 4.00 [ 2.50 - 4.00 ] cm AV Peak Vel0.91 [ 1.00 - 1.70 ] m/s LVPWd MM 1.20 [ 0.60 - 1.00 ] cm AV VTI14.59 cm IVSd MM 1.10 [ 0.60 - 1.00 ] cm LVOT Diam2.02 cm LA Dimension MM 3.01 [ 3.00 - 4.00 ] cm LVOT PeakVel 0.75 [ 0.70 - 1.10 ] m/s AoR Diam MM 3.19 [ 3.10 - 3.70 ] cm LVOT VTI11.78 cm ACS MM 1.82 [ 1.50 - 2.60 ] cm MV E PeakVel 0.53 [ 0.60 - 1.30 ] m/s MV A Peak Grayson 0.64 [ 1.00 - 1.20 ] m/s MV Mean PG 1 mmHg MV PHT 61 [ 20 - 100 ] msec MVA 3.60 MV Decel Time 212 [ 104 - 258 ] msec PV Peak Grayson 1.21 [ 0.40 - 0.80 ] m/s CO Peak Grayson 1.19 m/s TR Peak Grayson 2.46 [ 1.00 - 2.80 ] m/s TR Peak PG 24 mmHg RVSP 32.00 [ 10.00 - 36.00 ] mmHg E` 0.06 m/s E/E` 8.92 [ <= 10.00 ] PA Pressure 32.00 [ 10.00 - 36.00 ] mmHg Measurement Value Normal Range MeasurementValue Normal Range 2D/M ModeDoppler - FINDINGS: Atrial Septum: The atrial septum is not well visualized. Left Ventricle: Normal left ventricular size. Normal left ventricular wall thickness.Moderate global left ventricular systolic dysfunction. Impaired diastolic relaxation GradeI. Ejection fraction is visually estimated at 35 %. Left Atrium: There is mild enlargement of left atrium. Right Ventricle: Moderate enlargement of right ventricle. Moderate right ventricularhypokinesis. Linear artifact in right ventricle suggestive of catheter(s), pacemaker lead(s),or ICD lead(s). Right Atrium: Linear artifact in right atrium suggestive of catheter(s), pacemakerlead(s), or ICD lead(s). Aortic Valve: Normal structure of the aortic valve. Mitral Valve: Normal structure of the mitral valve. Pulmonic Valve: Pulmonic valve not well visualized. Tricuspid Valve: Normal right ventricular systolic pressure. Estimated peak RVSP is 32mmHg. Mild to moderate tricuspid regurgitation. Pericardium: Normal pericardium with no significant pericardial effusion. Aorta: Normal aortic root. IVC: The IVC is not well visualized. CONCLUSIONS: Moderate global left ventricular systolic dysfunction. Impaired diastolicrelaxation Grade I. Ejection fraction is visually estimated at 35 %. Moderate enlargement of right ventricle. Moderate right ventricularhypokinesis. Linear artifact in right ventricle suggestive of catheter(s), pacemaker lead(s),or ICD lead(s). Electronically Signed By: Zak Anderson 2023-05-27 10:07:54 COMP FIELD CASE MANAGER us Gustabo Francisco MD CV ECHO PROCEDURES Fin al Result documented in this encounter Visit Diagnoses Diagnosis Non-ischemic cardiomyopathy (CMS/HCC) (HCC) Other primary cardiomyopathies documented in this encounter Care Teams Dobby Loom Weaver Relationship Specialty Start Date End Date Naomy Maddox MD [address] [place] [address] PCP - General Internal Medicine 05/06/20 documented as of this encounter
--- OUTSIDE RECORDS SUMMARY | 2024-05-17 12:08 | XMS_ITS | Encounter Summary ---
Author Organization [facility] Healthcare Address [address] [place] [address] Care Team Providers Care Collator Name Role Phone Naomy Maddox MD Primary Care Provider [phone] Reason for Visit * Auth/Cert (Routine) Specialty Diagnoses / Procedures Referred By Tanesha dennis Referred To Contact Diagnoses LBBB (left bundle branch block) Systolic dysfunction Congestive heart failure, unspecified HF chronicity, unspecified heart failure type (HCC) LBBB (left bundle branch block) [I44.7] Systolic dysfunction [I51.9] Congestive heart failure, unspecified HF chronicity, unspecified heart failure type (HCC) [I50.9] Procedures VA INSJ/RPLCMT PERM DFB W/TRNSVNS LDS 1/DUAL CHMBR VA INSJ ELTRD CAR MARC SYS TM INSJ DFB/PM PLS GEN INSERT/REPLACE IMPLANTABLE CARDIOVERTER-DEFIBRILLATOR (ICD) SINGLE CHAMBER SYSTEM 68509 INSERT LV LEAD W PACEMAKER (PPM) OR IMPLANTABLE CARDIOVERTER-DEFIBRILLATOR (ICD) PLACEMENT (+) [id number] Referral ID Status Reason Start Date Expiration Date Visits Re quested Visits Authorized [id number] 1 1 Encounter Details Date Type Department Care Team (Late st Contact Info) Description 02/23/2023 2:03 PM CDT Anesthesia Event [facility] Electrophysiology Lab [address] [place] [address] Dave Manning MD [address] [id number] Renee Quintana Jr., MD [address] [facility] [address] [facility] [address] [id number] Anesthesia Record Procedure Summary Procedure Name Responsible Anesthesiologist Anesthesia Start Time Anesthesia Stop Time INSERT/REPLACE IMPLANTABLE CARDIOVERTER-DEFIBRIL LATOR (ICD) SINGLE CHAMBER SYSTEM [address]00 Dave Manning MD 02/23/23 1403 02/23/23 1600 Events Date Time Event Comment 02/23/2023 1319 1403 An Start 1403 An Start Data 1408 Start Supplemental O2 1408 An Induction The patient was reevaluated immediately before moderate or deep sedation use and before anesthesia induction. 1414 Anesthesia Ready 1435 Proc Start 1437 Local injected by surgeon 1543 Proc Fin 1549 an stop data 1600 Handoff to RN I completed my handoff to the receiving nurse during which we: 1. Patient identified 2. Responsible provider identified 3. Pertinent medical history reviewed 4. Procedure type and surgical course discussed 5. Intraoperative anesthetic management and any significant issues discussed 6. Expectations and concerns for postop period discussed 7. Questions solicited from receiving nurse 8. Patient disposition at the time of handoff: No value filed. 1600 An Stop Meds Name Total midazolam 2 mg fentaNYL 50 mcg ketamine 30 mg propofol 310.87 mg ceFAZolin 2,000 mg NS 0.9% 300 mL * Agents Name O2 N2O Air * Blood No blood administrations on file. Lines, Drains, and Airways Type Details Placement Removal Peripheral IV Placement Date: 02/23/23; Placement Time: 1130; Catheter Size: 20 G; Orientation: Anterior, Distal, Left, Upper; Location: Arm; Site Prep: Chlorhexidine; Technique: Anatomical landmarks; Inserted by: sakshi kumar; Insertion Attempts: 1; Patient Tolerance: Tolerated well; Removal Date: 02/24/23; Removal Time: 1350; Removal Reason: Discharge 02/23/23 1130 by Sakshi Kumar RN 02/24/23 1350 by Veronica De Los Santos RN RETIRED Surgical Site 02/23/23; 1544; Le ft, Anterior, Upper, Lateral; Clavicle; ICD pocket; 04/17/24 (Retired LDA, Removed/Completed by [employer] with LDA Utility); 1213 (Retired LDA, Removed/Completed by [employer] with LDA Utility) 02/23/23 1544 by Javier Carney RN 04/17/24 1213 by Discharge Provider, Automatic documented in this encounter Social History Tobacco Use Types Packs/Day Years Used Date Smoking Tobacco: Never Personal Safety Answer Date Recorded Have you ever been in or are you currently in a harmful physical or emotional relationship or is someone making you feel afraid or unsafe? Yes;Denies 02/23/2023 Sex and Gender Information Value Date Recorded Sex Assigned at Not on file Legal Sex Male 9:23 PM SOCKET P[employer] Gender Identity Not on file Sexual Orientation Not on file documented as of this encounter OR Notes * Anesthesia Postprocedure Evaluation - Dave Manning MD - 02/23/2023 4:51 PM CDT Patient: Saroj Rivera Procedure Summary Date: 02/23/23 Room / Location: EP LAB 3 / EP LAB Anesthesia Start: 1403 Anesthesia Stop: 1600 Procedures: INSERT/REPLACE IMPLANTABLE CARDIOVERTER-DEFIBRILLATOR (ICD) SINGLE CHAMBER SYSTEM 78828 INSERT LV LEAD W PACEMAKER (PPM) OR IMPLANTABLE CARDIOVERTER-DEFIBRILLATOR (ICD) PLACEMENT (+) [id number] Diagnosis: LBBB (left bundle branch block) Systolic dysfunction Congestive heart failure, unspecified HF chronicity, unspecified heart failure type (HCC) (LBBB (left bundle branch block) [I44.7]) (Systolic dysfunction [I51.9]) (Congestive heart failure, unspecified HF chronicity, unspecified heart failure type (HCC) [I50.9]) Providers: Gustabo Francisco MD Responsible Provider: Dave Manning MD Anesthesia Type: MAC ASA Status: 3 Anesthesia Type: MAC Last vitals BP 103/73 Pulse 53 Temp 36.6 ??C (97.8 ??F) (Temporal) Resp 21 SpO2 95% Anesthesia Post Evaluation Patient location during evaluation: PACU Patient participation: complete - patient participated Level of consciousness: fully awake Pain score: 2 Pain management: adequate Airway patency: patent and adequate Evidence of recall: no Cardiovascular status: acceptable Respiratory status: acceptable and room air Hydration status: acceptable Pt is: normothermic Nausea/Vomiting status: none No notable events documented. * Anesthesia Preprocedure Evaluation - Renee Quintana Jr., MD - 02/23/2023 1:05 PM CDT Images from the original note were not included. Anesthesia Evaluation Saroj Rivera is a 57 y.o. male Procedure(s): INSERT/REPLACE IMPLANTABLE CARDIOVERTER-DEFIBRILLATOR (ICD) SINGLE CHAMBER SYSTEM 40137 INSERT LV LEAD W PACEMAKER (PPM) OR IMPLANTABLE CARDIOVERTER-DEFIBRILLATOR (ICD) PLACEMENT (+) [id number] Pre-Op Diagnosis Codes: * LBBB (left bundle branch block) [I44.7] * Systolic dysfunction [I51.9] * Congestive heart failure, unspecified HF chronicity, unspecified heart failure type (HCC) [I50.9] HISTORY Past Medical History Information obtained from: patient and chart. Neurological + Psychiatric history - anxiety and bipolar Cardiovascular + Hypertension + Hyperlipidemia + CHF + Other arrhythmia - LBBB. Comments: TTE 05/2022 Severe global left ventricular systolic dysfunction. Ejection fraction is visually estimated at 15 to 20 %. These segments of the LV are akinetic anterior segment and septal segment and apical segment. Moderate mitral annular calcification. Moderate mitral valve regurgitation. Normal structure of the aortic valve. Normal structure of the tricuspid valve. Mild pulmonary hypertension based on right ventricular systolic pressure. Estimated peak RVSP is 42 to 46 mmHg. Mild tricuspid regurgitation. Gastrointestinal + GERD Renal / + Renal disease - CKD Patient Active Problem List Diagnosis Date Noted Chest pain 02/23/2023 Non-ischemic cardiomyopathy (CMS/HCC) ([facility]) 02/01/2023 LBBB (left bundle branch block) 01/20/2023 Systolic dysfunction 01/20/2023 Congestive heart failure (CMS/HCC) ([facility]) 01/20/2023 Abnormal stress test 01/25/2022 Acute on chronic systolic heart failure (HCC) 09/04/2021 Essential hypertension 05/20/2020 Bipolar 1 disorder ([facility]) 05/20/2020 Pure hypercholesterolemia 05/20/2020 Stage 3 chronic kidney disease (HCC) 05/20/2020 Chronic fatigue syndrome 05/20/2020 Vitamin D deficiency 05/20/2020 Abnormal cortisol level 05/20/2020 Past Medical History: Diagnosis Date Anxiety CHF (congestive heart failure) ([facility]/HCC) (HCC) GERD (gastroesophageal reflux disease) Hyperlipidemia Hypertension Hypertension LBBB (left bundle branch block) Pneumonia Systolic dysfunction Past Surgical History: Procedure Laterality Date CARDIAC CATHETERIZATION No Known Allergies Med List Status: Nurse Complete Set By: Sakshi Kumar RN at 02/23/2023 11:18 AM Taking? Last Dose Start Date End Date Provider amitriptyline (ELAVIL) 25 mg tablet Past Week 05/19/20 -- Leesa Cardenas MD amLODIPine (NORVASC) 10 mg tablet 02/23/2023 10/13/16 -- Leesa Cardenas MD atorvastatin (LIPITOR) 40 mg tablet 02/23/2023 05/01/20 -- Leesa Cardenas MD carvediloL (COREG) 25 mg tablet 02/23/2023 -- -- Leesa Cardenas MD empagliflozin (JARDIANCE) 10 mg tablet 02/22/2023 11/05/22 -- Zak Anderson MD Take 1 tablet (10 mg total) by mouth daily famotidine (PEPCID) 20 mg tablet 02/23/2023 -- -- Leesa Cardenas MD hydrALAZINE (APRESOLINE) 10 mg tablet 02/22/2023 07/26/22 -- Zak Anderson MD TAKE 2 TABLETS BY MOUTH THREE TIMES DAILY Notes: ZERO refills remain on this prescription. Your patient is requesting advance approval of refills for this medication to PREVENT ANY MISSED DOSES hydrOXYzine (ATARAX) 10 mg tablet 02/23/2023 03/22/20 -- Leesa Cardenas MD isosorbide dinitrate (ISORDIL) 20 mg tablet 02/22/2023 12/16/22 12/16/23 Zak Vidal MD Take 1 tablet (20 mg total) by mouth 3 (three) times a day Notes: ZERO refills remain on this prescription. Your patient is requesting advance approval of refills for this medication to PREVENT ANY MISSED DOSES PARoxetine (PAXIL) 40 mg tablet 02/23/2023 10/13/16 -- Leesa Cardenas MD sacubitriL-valsartan (ENTRESTO) 49-51 mg tablet 02/22/2023 11/05/22 -- Zak Vidal MD Take 1 tablet by mouth 2 (two) times a day Current Facility-Administered Medications: amitriptyline (ELAVIL) tablet 25 mg, 25 mg, oral, Nightly amLODIPine (NORVASC) tablet 10 mg, 10 mg, oral, Daily atorvastatin (LIPITOR) tablet 40 mg, 40 mg, oral, Daily carvediloL (COREG) tablet 25 mg, 25 mg, oral, BID with meals (bkfst, dinner) hydrALAZINE (APRESOLINE) tablet 10 mg, 10 mg, oral, TID isosorbide dinitrate (ISORDIL) tablet 20 mg, 20 mg, oral, TID PARoxetine (PAXIL) tablet 40 mg, 40 mg, oral, Daily sacubitriL-valsartan (ENTRESTO) 49-51 mg tablet 1 tablet, 1 tablet, oral, BID Social History Tobacco Use Smoking Status Never Smokeless Tobacco Not on file Alcohol Use: Not on file Substance and Sexual Activity Drug Use Never Family History Problem Relation Age of Onset Stroke Mother Stroke; Hypertension Father Hypertension; Vitals: 02/23/23 1110 BP: 118/82 Pulse: 79 Resp: 16 Temp: 36.9 ??C (98.4 ??F) SpO2: 98% PT: 02/23/2023: 12.8 sec INR: 02/23/2023: 1.12 APTT: No results found for requested labs within last 30 days. Hgb A1C: No results found for requested labs within last 30 days. CBC RBC: 02/23/2023: 5.52 M/cumm RDW: No results found for requested labs within last 30 days. MCHC: 02/23/2023: 33.1 g/dL MCH: 02/23/2023: 28.8 pg MCV: 02/23/2023: 87.1 fL Hct: 02/23/2023: 48.1 % Hgb: 02/23/2023: 15.9 g/dL WBC: 02/23/2023: 7.1 K/cumm MPV: 02/23/2023: 8.9 fL (L) Platelets: 02/23/2023: 314 K/cumm RDW CV: 02/23/2023: 13.6 % RDW Sd: 02/23/2023: 43.8 fL BMP Glucose: 02/23/2023: 100 mg/dL Calcium: 02/23/2023: 9.9 mg/dL Sodium: 02/23/2023: 143 mmol/L Potassium: 02/23/2023: 5.0 mmol/L (H) CO2: 02/23/2023: 25 mmol/L Chloride: 02/23/2023: 106 mmol/L BUN: 02/23/2023: 12 mg/dL Creatinine: 02/23/2023: 2.12 mg/dL (H) STOP-Bang Total Score: 3 DOS Physical Exam Medical history, medications, and allergies reviewed. Attestation: This PAT evaluation 02/23/2023. Airway Exam: Mallampati: I Cervical ROM: FROM TM distance: normal Cardiovascular Exam: Rate: regular Rhythm: regular Pulmonary Exam: LCTA, bilat EENT Exam: trachea midline Dental Exam: Appears intact Skin Exam: Skin is warm. Capillary refill is < 3 seconds. Turgor is normal. Current state: Patient's current state is cooperative and interactive. Anesthesia Plan ASA 3 Planned anesthesia: MAC Induction: Induction: intravenous. Postoperative Plan: No plan for postoperative opioid use. No postoperative mechanical ventilation intended. Patient's planned disposition post procedure is Floor. Informed Consent: Discussed plan with attending, [employer] and AA. Anesthesia plan and risks discussed with patient. Consent and Attending signature: I and/or my designee have discussed the anesthesia plan, benefits, possible alternatives, parental presence at time of induction (if indicated), and clinically relevant risks that may include dental injury, unintentional awareness, and/or other complications. The patient and/or parent/legal guardian understand, and agree to proceed. All questions answered. documented in this encounter Plan of Treatment Not on file documented as of this encounter Visit Diagnoses Not on filedocumented in this encounter Administered Medications Inactive Administered Medications - up to 3 most recent administrations Medication Order MAR Action Action Date Dose Rate Site ceFAZolin (ANCEF) injection intravenous, Administer over 3 Minutes, As needed, Starting on Tue02/23/23 at 1410, Anesthesia Intra-op Given 02/23/2023 2:10 PM CDT 2,000 mg fentaNYL (SUBLIMAZE) preservative free injection intravenous, As needed, Starting on Tue02/23/23 at 1423, Anesthesia Intra-op Given 02/23/2023 2:36 PM CDT 25 mcg Given 02/23/2023 2:23 PM CDT 25 mcg ketamine (KETALAR) injection intravenous, Administer over 2 Minutes, As needed, Starting on Tue02/23/23 at 1408, Anesthesia Intra-op Given 02/23/2023 2:39 PM CDT 10 mg Given 02/23/2023 2:12 PM CDT 10 mg Given 02/23/2023 2:08 PM CDT 10 mg midazolam (VERSED) 1 mg/mL preservative free injection intravenous, Administer over 2 Minutes, As needed, Starting on Tue02/23/23 at 1408, Anesthesia Intra-op Given 02/23/2023 2:08 PM CDT 2 mg propofoL (DIPRIVAN) 10 mg/mL IV intravenous, Continuous PRN, Starting on Tue02/23/23 at 1408, Anesthesia Intra-op Rate/Dose Change 02/23/2023 3:30 PM CDT 25 mcg/kg/min 13.575 mL/hr Rate/Dose Change 02/23/2023 2:47 PM CDT 30 mcg/kg/min 16.2 9 mL/hr Rate/Dose Change 02/23/2023 2:34 PM CDT 40 mcg/kg/min 21.7 2 mL/hr sodium chloride 0.9% infusion intravenous, Continuous PRN, Starting on Tue02/23/23 at 1358, Anesthesia Intra-op New Bag 02/23/2023 1:58 PM CDT documented in this encounter Care Teams Collator Relationship Specialty Start Date End Date Naomy Maddox MD [address]UN[address] [place] [id number] PCP - General Internal Medicine 05/06/20 documented as of this encounter
--- OUTSIDE RECORDS SUMMARY | 2024-05-17 12:08 | XMS_ITS | Encounter Summary ---
Author Organization [facility] Healthcare Address [address] [place] [address] Care Team Providers Care Program Facilitator Name Role Phone Naomy Maddox MD Primary Care Provider [phone] Reason for Visit * Auth/Cert (Routine) Specialty Diagnoses / Procedures Referred By Tanesha dennis Referred To Contact Diagnoses LBBB (left bundle branch block) Systolic dysfunction Congestive heart failure, unspecified HF chronicity, unspecified heart failure type (HCC) LBBB (left bundle branch block) [I44.7] Systolic dysfunction [I51.9] Congestive heart failure, unspecified HF chronicity, unspecified heart failure type (HCC) [I50.9] Procedures IN INSJ/RPLCMT PERM DFB W/TRNSVNS LDS 1/DUAL CHMBR IN INSJ ELTRD CAR MARC SYS TM INSJ DFB/PM PLS GEN INSERT/REPLACE IMPLANTABLE CARDIOVERTER-DEFIBRILLATOR (ICD) SINGLE CHAMBER SYSTEM 08735 INSERT LV LEAD W PACEMAKER (PPM) OR IMPLANTABLE CARDIOVERTER-DEFIBRILLATOR (ICD) PLACEMENT (+) 21513 Referral ID Status Reason Start Date Expiration Date Visits Re quested Visits Authorized [id number] 1 1 Encounter Details Date Type Department Care Team (Late Contact Info) Description 02/23/2023 1:00 PM CDT - 02/23/2023 5:05 PM CDT Surgery [facility] Electrophysiology Lab [address] [place] [address] Gustabo Francisco MD [address] [place] [address] DR [address] [place] [id number] INSERT/REPLACE IMPLANTABLE CARDIOVERTER-DEFIBR ILLATOR (ICD) SINGLE CHAMBER SYSTEM 14662 [61960 (CPT??)] Surgery Details Date/Time Status Location OR Service Patient Class Case Class Case Type Trauma Case? 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 Gender Identity Not on file Sexual Orientation Not on file documented as of this encounter Last Filed Vital Signs Vital Sign Reading Time Taken Comments Blood Pressure 110/74 02/23/2023 4:55 PM CDT Pulse 85 02/23/2023 5:05 PM CDT Temperature 36.6 ??C (97.8 ??F) 02/23/2023 4:00 PM CD T Respiratory Rate 18 02/23/2023 5:05 PM CDT Oxygen Saturation 96% 02/23/2023 5:05 PM CDT Inhaled Oxygen Concentration - - Weight 90.5 kg (199 lb 8 oz) 02/23/2023 11:10 AM CDT Height 177.8 cm (5' 10 ) 02/23/2023 11:10 AM CDT Body Mass Index 28.63 02/23/2023 11:10 AM CDT documented in this encounter Discharge Summaries * Brissa Whitney NP - 02/24/2023 12:07 PM CDT Images from the original note were not included. Inpatient Discharge Summary BRIEF OVERVIEW Admitting Provider: Gustabo Francisco MD Discharge Provider: Gustabo Francisco MD Primary Care Physician at Discharge: Naomy Maddox MD [phone] Admission Date: 02/23/2023 Discharge Date: 02/24/2023 Admission Location: [facility] [place] Problems/Diagnoses: Principal Problem: Chest pain Active Problems: LBBB (left bundle branch block) Systolic dysfunction Congestive heart failure (CMS/HCC) (HCC) Resolved Problems: No resolved hospital problems. DETAILS OF HOSPITAL STAY Presenting Problem/History of Present Illness: Saroj Laguna is a pleasant 57 y.o. male with nonischemic cardiomyopathy left bundle-branch block here for a biventricular ICD Hospital Course: Biventricular ICD Biotronik Venogram Tyrex pouch #[id number] Active Issues Requiring Follow-up: Severe nonischemic cardiomyopathy Left bundle-branch block Persistent severe systolic dysfunction Chronic systolic congestive heart failure Operative Procedures Performed: Procedure(s): INSERT/REPLACE IMPLANTABLE CARDIOVERTER-DEFIBRILLATOR (ICD) SINGLE CHAMBER SYSTEM 70363 INSERT LV LEAD W PACEMAKER (PPM) OR IMPLANTABLE CARDIOVERTER-DEFIBRILLATOR (ICD) PLACEMENT (+) 80642 Discharge Details Physical Exam at Discharge: Discharge Condition: stable Pulse: 83 Resp: 18 BP: 95/71 Temp: 36.6 ??C (97.9 ??F) Weight: 90.5 kg (199 lb 8 oz) Pertinent Exam Findings at Discharge: Normal s1, s2, v paced on tele Lungs clear Left upper chest incision clean/dry/intact Abd soft Pedal pulses palpable Discharge Disposition: Code Status at Discharge: full code Discharge Instructions: Post Pacemaker/ICD activity orders -No lifting of the affected arm above the shoulder for 4 weeks. -Wear your sling for 2 days (48 hours) post implant. After the first week, normal arm movement is allowed. However, keep your elbow below the level of your heart for the first month. This allows the lead wires to heal in the proper position. -No lifting above 10 pounds with the affected arm for 4 weeks. -No strenuous activities; this includes walking on a treadmill, golf, tennis, or aerobics for at least 4 weeks and until approved by your physician. -Avoid any sports and/or activities which may cause injury to your surgical site for a month. -Avoid isometric activities such as mowing grass, sweeping/scrubbing floor for 4 weeks. -Do NOT drive until after your wound check appointment and approved by the implanting Physician. -Do resume your regular activities as much as possible. Walking is a great and safe exercise. It helps you to regain your strenght after surgery. It is good for your heart health and it is also a great way to get out of the house. -It is safe to resume sexual activity as soon as you feel you are able and as long as there is no strain placed on the surgical site and/or affected arm for the first month. Post Pacemaker Incision Care Orders -Keep your incision dry for the first 5-7 days, even while bathing. NO showers until after your wound check appointment in one week. -After 5 days, clean your incision site daily with mild soap and water. Gently pat the area dry, and avoid vigorous scrubbing directly on or near your incision. Then cover the incision with a dry dressing daily (either a gauze and tape or an extra large band-aid work well). -Inspect your incision/device site daily. Notify the office immediately of any bleeding, increased bruising, redness, warmth, increased swelling, excessive pain, drainage, or a fever (more than 100.5). -There are no stitches in your incision (only on the inside, and these dissolve). -Dermabond (surgical skin glue) will gradually dissolve, but it must be kept dry for 5-7 days. Allow Dermabond to come off on its own, Do NOT pull it off. -Keep your incision covered (other than to clean and inspect the site) until you are seen in the office. Pacemaker Safety Orders 1. You will receive a temporary ID card at the hospital when you are discharged, a permanent card from the shipsmith will arrive in about 4-6 weeks. This ID card contains important information about your device. Carry your ID card with you at all times. We recommend purchasing a Medic Alert bracelet or necklace also. 2. Most common household items are safe to use when you have a pacemaker (these include hair dryers, electric isma/toothbrushes, toasters, curling irons, ovens, stoves/ranges, remote controls, handheld power tools, ect.). These items should be kept at least 6 inches away from your device while in operation. 3. Cellular phones are safe (use phones on opposite side of your device, and do not store phone in shirt pocket). 4. Microwave ovens and inductions ranges (ceramic/smooth top) are safe (keep the pacemaker at least 2 feet away while these appliances are in operation). 5. Avoid strong magnetic kunz, and flying whitehead. (Examples: high security systems, large power transformers, ARC welders). 6. NO MRI SCANS (unless you have been told your device is MRI safe). 7. Notify all physicians that you have a pacemaker (including dentist, surgeons, eye-patient care manager, and emergency personnel). 8. Call the office as soon as you are scheduled for any procedure/surgery. Encourage family members to become CPR certified, and keep emergency numbers posted close to an easily accessible telephone. Discharge Medications: Current Medications TAKE these medications amitriptyline 25 mg tablet Take 1 tablet (25 mg total) by mouth nightly Commonly known as: ELAVIL amLODIPine 10 mg tablet Take 1 tablet (10 mg total) by mouth daily Commonly known as: NORVASC atorvastatin 40 mg tablet Commonly known as: LIPITOR carvediloL 25 mg tablet Take 1 tablet (25 mg total) by mouth Commonly known as: COREG empagliflozin 10 mg tablet Take 1 tablet (10 mg total) by mouth daily Commonly known as: JARDIANCE famotidine 20 mg tablet Take 1 tablet (20 mg total) by mouth 2 (two) times a day Commonly known as: PEPCID hydrALAZINE 10 mg tablet TAKE 2 TABLETS BY MOUTH THREE TIMES DAILY Commonly known as: APRESOLINE hydrOXYzine 10 mg tablet Commonly known as: ATARAX isosorbide dinitrate 20 mg tablet Take 1 tablet (20 mg total) by mouth 3 (three) times a day Commonly known as: ISORDIL PARoxetine 40 mg tablet Take 1 tablet (40 mg total) by mouth daily Commonly known as: PAXIL sacubitriL-valsartan 49-51 mg tablet Take 1 tablet by mouth 2 (two) times a day For: chronic heart failure Commonly known as: ENTRESTO Outpatient Follow-Up: Future Appointments Date Time Provider Department Center 03/10/2023 1:30 PM Gustabo Francisco MD [facility] Specialty Cosigned by Dalton Valerio MD at 02/24/2023 3:20 PM CDT Associated attestation - Dalton Valerio MD - 02/24/2023 3:20 PM CDT I personally performed a substantive portion of this patient encounter in conjunction with Brissa Whitney. The patient presents for elective BiV-ICD implantation. On physical examination, I personallyfound Lungs Clear, Cor RRR, Pacer site OK . My impression/plan is 1. Cardiomyopathy with LBBB 2. S/P Implantations of BiV-ICD OK for discharge. . documented in this encounter Discharge Instructions * Discharge Instructions* Brissa Whitney NP - 02/24/2023 12:22 PM CDT Post Pacemaker/ICD activity orders -No lifting of the affected arm above the shoulder for 4 weeks. -Wear your sling for 2 days (48 hours) post implant. After the first week, normal arm movement is allowed. However, keep your elbow below the level of your heart for the first month. This allows the lead wires to heal in the proper position. -No lifting above 10 pounds with the affected arm for 4 weeks. -No strenuous activities; this includes walking on a treadmill, golf, tennis, or aerobics for at least 4 weeks and until approved by your physician. -Avoid any sports and/or activities which may cause injury to your surgical site for a month. -Avoid isometric activities such as mowing grass, sweeping/scrubbing floor for 4 weeks. -Do NOT drive until after your wound check appointment and approved by the implanting Physician. -Do resume your regular activities as much as possible. Walking is a great and safe exercise. It helps you to regain your strenght after surgery. It is good for your heart health and it is also a great way to get out of the house. -It is safe to resume sexual activity as soon as you feel you are able and as long as there is no strain placed on the surgical site and/or affected arm for the first month. Post Pacemaker Incision Care Orders -Keep your incision dry for the first 5-7 days, even while bathing. NO showers until after your wound check appointment in one week. -After 5 days, clean your incision site daily with mild soap and water. Gently pat the area dry, and avoid vigorous scrubbing directly on or near your incision. Then cover the incision with a dry dressing daily (either a gauze and tape or an extra large band-aid work well). -Inspect your incision/device site daily. Notify the office immediately of any bleeding, increased bruising, redness, warmth, increased swelling, excessive pain, drainage, or a fever (more than 100.5). -There are no stitches in your incision (only on the inside, and these dissolve). -Dermabond (surgical skin glue) will gradually dissolve, but it must be kept dry for 5-7 days. Allow Dermabond to come off on its own, Do NOT pull it off. -Keep your incision covered (other than to clean and inspect the site) until you are seen in the office. Pacemaker Safety Orders 1. You will receive a temporary ID card at the hospital when you are discharged, a permanent card from the shipsmith will arrive in about 4-6 weeks. This ID card contains important information about your device. Carry your ID card with you at all times. We recommend purchasing a Medic Alert bracelet or necklace also. 2. Most common household items are safe to use when you have a pacemaker (these include hair dryers, electric isma/toothbrushes, toasters, curling irons, ovens, stoves/ranges, remote controls, handheld power tools, ect.). These items should be kept at least 6 inches away from your device while in operation. 3. Cellular phones are safe (use phones on opposite side of your device, and do not store phone in shirt pocket). 4. Microwave ovens and inductions ranges (ceramic/smooth top) are safe (keep the pacemaker at least 2 feet away while these appliances are in operation). 5. Avoid strong magnetic kunz, and flying whitehead. (Examples: high security systems, large power transformers, ARC welders). 6. NO MRI SCANS (unless you have been told your device is MRI safe). 7. Notify all physicians that you have a pacemaker (including dentist, surgeons, eye-patient care manager, and emergency personnel). 8. Call the office as soon as you are scheduled for any procedure/surgery. Encourage family members to become CPR certified, and keep emergency numbers posted close to an easily accessible telephone. documented in this encounter Medications at Time [...] 11/05/2022 10/27/2023 hydrALAZINE (APRESOLINE) 10 mg tablet TAKE 2 TABLETS BY MOUTH THREE TIMES DAILY 270 tablet 3 07/26/2022 03/17/2023 isosorbide dinitrate (ISORDIL) 20 mg tablet Take 1 tablet (20 mg total) by mouth 3 (three) times a day 270 tablet 3 12/16/2022 11/16/2023 sacubitriL-valsar lopez (ENTRESTO) 49-51 mg tabletIndications :chronic heart failure Take 1 tablet by mouth 2 (two) times a day 60 tablet 11 11/05/2022 10/27/2023 documented as of this encounter Discharge Disposition Disposition Code Departure Means Destination Comment s Discharge to home or self care Car documented in this encounter Progress Notes * Gustabo Francisco MD - 02/23/2023 3:44 PM CDT Biventricular ICD Biotronik Venogram Tyrex pouch #[id number] documented in this encounter H&P Notes * Gustabo Francisco MD - 02/23/2023 10:58 AM CDT Admit date: 02/23/2023 History of Present Illness: Saroj Laguna is a pleasant 57 y.o. male with nonischemic cardiomyopathy left bundle-branch block here for a biventricular ICD Past Medical History: Diagnosis Date CHF (congestive heart failure) (CMS/HCC) (HCC) Hyperlipidemia Hypertension Hypertension LBBB (left bundle branch block) Systolic dysfunction No past surgical history on file. Allergies Allergen Reactions Percy Anaphylaxis Penicillins Other (See comments) No data found. No intake or output data in the 24 hours ending 02/23/23 1058 Wt Readings from Last 3 Encounters: 01/13/23 92.5 kg (204 lb) 11/05/22 91.6 kg (202 lb) 10/26/22 88.5 kg (195 lb) EKG: Physical Exam: General: Well developed, well nourished, in no acute distress, oriented to person, place, and time. Skin: Warm and dry Head: Normocephalic, oral mucosa and conjunctivae normal Neck: No thyromegaly or bruits. Carotid pulses 2+ Lungs: Clear to auscultation and percussion. Respirations unlabored Cardiac: PMI and JVP normal, S1 and S2 normal, no murmur, no gallop or rub Abd: Soft, nontender, BS active, no hepatosplenomegaly or masses, no abdominal bruit or enlarged aortic pulsation Extremities: No clubbing, cyanosis. No edema. Femoral pulses 2+. Pedal pulses 2+ Musculoskeletal: Muscle strength normal. No scoliosis. Neurologic: Oriented to person, place, and time. Mood not depressed. Review of systems: Constitutional: Negative for fever, chills, malaise/fatigue, and diaphoresis. Psychiatric: Negative for depression and anxiety. Skin: Negative for rash and itching. HENT: Negative for headaches, lightheadedness, and congestion. Negative for vertigo. Eyes: Negative for blurred vision and itching. Cardiovascular: Negative for chest pain, Negative for palpitations and syncope. Respiratory: Negative for cough and sputum production. Negative for shortness of breath. Gastrointestinal: Negative for nausea, vomiting, abdominal pain and diarrhea. Musculoskeletal: Negative for muscle weakness, extremity redness or swelling. Neurological: Negative for dizziness, focal weakness, tremors, and loss of consciousness. Family History Problem Relation Age of Onset Stroke Mother Stroke; Hypertension Father Hypertension; Social History Tobacco Use Smoking status: Never Smokeless tobacco: Not on file Substance and Sexual Activity Drug use: Never Sexual activity: Defer Alcohol Use: Not on file Prior to Admission medications Medication Sig Start Date End Date Taking? Authorizing Provider amitriptyline (ELAVIL) 25 mg tablet 05/19/20 Leesa Cardenas MD amLODIPine (NORVASC) 10 mg tablet Take 1 tablet (10 mg total) by mouth daily 10/13/16 Leesa Cardenas MD ARIPiprazole (ABILIFY) 10 mg tablet 05/19/20 Leesa Cardenas MD atorvastatin (LIPITOR) 40 mg tablet 05/01/20 Leesa Cardenas MD carvediloL (COREG) 25 mg tablet Take 1 tablet (25 mg total) by mouth Leesa Cardenas MD empagliflozin (JARDIANCE) 10 mg tablet Take 1 tablet (10 mg total) by mouth daily 11/05/22 Zak Anderson MD escitalopram (LEXAPRO) 10 mg tablet take 1 tablet by oral route every day 05/21/15 Rajat Calles MD famotidine (PEPCID) 20 mg tablet Take 1 tablet (20 mg total) by mouth 2 (two) times a day ProviderLeesa MD furosemide (LASIX) 40 mg tablet Take 1 tablet (40 mg total) by mouth 2 (two) times a day 08/17/21 01/13/23 Joe Roche MD gabapentin (NEURONTIN) 100 mg capsule take 3 capsule by oral route 3 times every day 05/21/15 Rajat Calles MD hydrALAZINE (APRESOLINE) 10 mg tablet TAKE 2 TABLETS BY MOUTH THREE TIMES DAILY 07/26/22 Zak Anderson MD hydrOXYzine (ATARAX) 10 mg tablet 03/22/20 ProviderLeesa MD isosorbide dinitrate (ISORDIL) 20 mg tablet Take 1 tablet (20 mg total) by mouth 3 (three) times a day 12/16/22 12/16/23 Zak Anderson MD omeprazole (PriLOSEC) 20 mg capsule take 1 capsule by oral route every day 30 minutes to 1 hour before a meal 05/13/16 Rajat Calles MD PARoxetine (PAXIL) 40 mg tablet Take 1 tablet (40 mg total) by mouth daily 10/13/16 ProviderLeesa MD sacubitriL-valsartan (ENTRESTO) 49-51 mg tablet Take 1 tablet by mouth 2 (two) times a day 11/05/22 Zak Anderson MD spironolactone (ALDACTONE) 25 mg tablet Take 1 tablet (25 mg total) by mouth daily 05/21/22 05/21/23 Zak Anderson MD triamterene-hydroCHLOROthiazide (MAXZIDE,DYAZIDE) 37.5-25 mg per tablet/capsule ProviderLeesa MD No results found for: TROPONINT No lab exists for component: KPLASMA No lab exists for component: LABALBU Tests: Impression/Plan: Severe nonischemic cardiomyopathy Left bundle-branch block Persistent severe systolic dysfunction Chronic systolic congestive heart failure Patient would qualify for a biventricular ICD I have discussed in depth the risks, benefits, and alternatives to proceeding with pacemaker implantation with Saroj Laguna in detail using a shared decision making process. Risks include, but are not limited to, , heart attack, stroke, cardiac surgery, permanent disability, infection, renal failure, cardiac perforation, tamponade requiring pericardiocentesis, pericardial effusion, pneumothorax, hemorrhage requiring blood transfusion, respiratory failure, renal failure, damage to the heart, lungs, and blood vessels (possibly requiring emergency surgery, blood transfusion, or other procedures), arrhythmias, blood clots, device malfunction and the need for lifelong follow-up and additional procedures in the future. Informed consent obtained. CC: documented in this encounter Miscellaneous Notes * Plan of Care - Veronica De Los Santos RN - 02/24/2023 1:57 PM CDT Problem: Health Behavior: Goal: Understanding of discharge needs will improve Outcome: Adequate for Discharge Problem: Lack of Knowledge: Goal: Ability to develop a pain control plan will improve Outcome: Adequate for Discharge Goal: Ability to identify pain intensity on a pain scale and rate it consistently will improve Outcome: Adequate for Discharge Goal: Ability to notify healthcare provider of pain before it becomes unmanageable or unbearable will improve Outcome: Adequate for Discharge Problem: Medication: Goal: Satisfaction with pain management regimen will improve Outcome: Adequate for Discharge Problem: Sensory: Goal: Ability to identify factors that increase the pain will improve Outcome: Adequate for Discharge Goal: Pain level will decrease Outcome: Adequate for Discharge Problem: Activity: Goal: Ability to return to normal activity level will improve Outcome: Adequate for Discharge Problem: Lack of Knowledge: Goal: Knowledge of the prescribed therapeutic regimen will improve Outcome: Adequate for Discharge Problem: Coping: Goal: Ability to cope will improve Outcome: Adequate for Discharge Problem: Health Behavior: Goal: Identification of resources available to assist in meeting health care needs will improve Outcome: Adequate for Discharge Problem: Sensory: Goal: Pain level will decrease Outcome: Adequate for Discharge Goals: Clinical Goals for the Shift: Comfort, saftey, VSS Summary: pt remained stable for this shift, VSS, medications administered per orders, pt tolerated well, c/o pain addressed with PRN medications per orders, IV removed, patient taken down to meet ride via wheelchair, no complications, no s/s of distress noted, * Plan of Care - Oral Cortez RN - 02/24/2023 2:23 AM CDT Problem: Health Behavior: Goal: Understanding of discharge needs will improve Outcome: Progressing Problem: Lack of Knowledge: Goal: Ability to develop a pain control plan will improve Outcome: Progressing Goal: Ability to identify pain intensity on a pain scale and rate it consistently will improve Outcome: Progressing Goal: Ability to notify healthcare provider of pain before it becomes unmanageable or unbearable will improve Outcome: Progressing Problem: Medication: Goal: Satisfaction with pain management regimen will improve Outcome: Progressing Problem: Sensory: Goal: Ability to identify factors that increase the pain will improve Outcome: Progressing Goal: Pain level will decrease Outcome: Progressing Problem: Activity: Goal: Ability to return to normal activity level will improve Outcome: Progressing Problem: Lack of Knowledge: Goal: Knowledge of the prescribed therapeutic regimen will improve Outcome: Progressing Problem: Coping: Goal: Ability to cope will improve Outcome: Progressing Problem: Health Behavior: Goal: Identification of resources available to assist in meeting health care needs will improve Outcome: Progressing Problem: Sensory: Goal: Pain level will decrease Outcome: Progressing Goals: Clinical Goals for the Shift: Comfort, saftey, VSS Summary: Pt has been vitally stable and had surgical pain that has been successfully managed with the [place] 5 / 325. Pt states understanding of why he cannot move his L arm and has worn his arm sling. Pt should be good to discharge later today. * Plan of Care - Amelie Garcia RN - 02/23/2023 6:12 PM CDT Clinical Goals for the Shift: Monitor labs and VS, recover from surgery Summary: Pt admitted post pacer placement. Pt complaining of occasional pain at the surgical site. Given norco. VS WNL. Pt eating well and hopes to go home tomorrow. Problem: Health Behavior: Goal: Understanding of discharge needs will improve Outcome: Progressing Problem: Lack of Knowledge: Goal: Ability to develop a pain control plan will improve Outcome: Progressing Goal: Ability to identify pain intensity on a pain scale and rate it consistently will improve Outcome: Progressing Goal: Ability to notify healthcare provider of pain before it becomes unmanageable or unbearable will improve Outcome: Progressing Problem: Medication: Goal: Satisfaction with pain management regimen will improve Outcome: Progressing Problem: Sensory: Goal: Ability to identify factors that increase the pain will improve Outcome: Progressing Goal: Pain level will decrease Outcome: Progressing Problem: Activity: Goal: Ability to return to normal activity level will improve Outcome: Progressing Problem: Lack of Knowledge: Goal: Knowledge of the prescribed therapeutic regimen will improve Outcome: Progressing Problem: Coping: Goal: Ability to cope will improve Outcome: Progressing Problem: Health Behavior: Goal: Identification of resources available to assist in meeting health care needs will improve Outcome: Progressing Problem: Sensory: Goal: Pain level will decrease Outcome: Progressing * Perioperative Nursing Note - Ele Lr RN - 02/23/2023 1:30 PM CDT Patient and family updated. documented in this encounter Plan of Treatment Not on file documented as of this encounter Procedures Procedure Name Priority Date/Time Associated Diagnosis Comments ECG 12-LEAD Routine 02/24/2023 7:33 AM CDT XR CHEST 1 VIEW IP Routine 02/23/2023 4:42 PM CDT INSERTION OF BIV ELECTRODE Routine 02/23/2023 3:43 PM CDT LBBB (left bundle branch block) Systolic dysfunction Congestive heart failure, unspecified HF chronicity, unspecified heart failure type (HCC) INS/CHNG VR/VVI ICD SYS 52004 Routine 02/23/2023 3:43 PM CDT LBBB (left bundle branch block) Systolic dysfunction Congestive heart failure, unspecified HF chronicity, unspecified heart failure type (HCC) EGFR Routine 02/23/2023 11:30 AM CDT DIFFERENTIAL AUTO Routine 02/23/2023 11: 30 AM CDT CBC WITH AUTO DIFFERENTIAL Routine 02/23/2023 11:30 AM CDT PROTIME-INR Routine 02/23/2023 11:30 AM CDT BASIC METABOLIC PANEL Routine 02/23/2023 11:30 AM CDT documented in this encounter Results * ECG 12 lead (02/24/2023 7:33 AM CDT) 02/24/2023 7:33 AM CDT Narrative [facility] - 02/24/2023 7:51 AM CDT Vent Rate: 78 bpm RR Interval: 763 msec IN Interval: 177 msec QRS Duration: 155 msec QT Interval: 436 msec QTC Interval: 469 msec P-R-T [place]: 47 - 140 - -18 degrees IMPRESSION: ELECTRONIC VENTRICULAR PACEMAKER Electronically Signed By: Kolton Andrew MD, [facility] Gustabo Francisco MD ECG ORDERABLES Final Result [facility] * XR Chest 1 Vw Portable (02/23/2023 4:42 PM CDT) Anatomical Region Laterality Modality Body, Chest N/A Computed Radiogr aphy 02/23/2023 4:47 PM CDT Impressions 02/23/2023 4:47 PM CDT Interval left AICD in place. No pneumothorax nor acute pulmonary disease. Electronically signed by: Ceci Musa M.D. Narrative 02/23/2023 4:47 PM CDT Examination: XR CHEST 1 VIEW Date: 02/23/2023 4:20 PM History: post BIV ICD Comparison: 08/17/2021. Findings: Suboptimal inflation and normal heart stenosis is noted. Left AICD with right atrial, ventricular and coronary sinus leads is now present. ??There is no pneumothorax. No acute infiltrate or effusion is seen. Mild extra scoliosis is noted. Procedure Note Ceci Musa MD - 02/23/2023 Examination: XR CHEST 1 VIEW Date: 02/23/2023 4:20 PM History: post BIV ICD Comparison: 08/17/2021. Findings: Suboptimal inflation and normal heart stenosis is noted. Left AICD with right atrial, ventricular and coronary sinus leads is now present. There is no pneumothorax. No acute infiltrate or effusion is seen. Mild extra scoliosis is noted. IMPRESSION: Interval left AICD in place. No pneumothorax nor acute pulmonary disease. Electronically signed by: Ceci Musa M.D. Gustabo Francisco MD IMG XR PROCEDURES Claire l Result * INS/CHNG VR/VVI ICD SYS 47813, INSERTION OF BIV ELECTRODE (02/23/2023 3:43 PM CDT) Anatomical Region Laterality Modality X-Ray Angiograph y 02/23/2023 Narrative 03/02/2023 11:17 AM CDT [employer] Job ID: [id number] [employer] Document ID: [id number] Dictated date/time: [id number] BIVENTRICULAR ICD IMPLANTATION REPORT A 57-year-old patient with chronic systolic congestive heart failure, nonischemic cardiomyopathy, left bundle branch block with persistent severe LV dysfunction on medical management, was referred for a biventricular ICD implantation. PREPROCEDURE DIAGNOSIS Chronic systolic congestive heart failure. Nonischemic cardiomyopathy. Left bundle branch block. Persistent severe LV dysfunction on medical therapy. PROCEDURE Implantation of a biventricular ICD system from [employer]. Venogram. Insertion of TYRX pouch. PROCEDURE He was brought to the boot and shoe laborer. ??Left neck subclavicular area was prepped in the usual sterile fashion and 1% xylocaine with epi was used. ??Venogram obtained. ??Pacemaker pocket was created. ??Access was obtained to the axillary subclavian vein. ??Two J wires and a Glidewire were advanced. ?? Over the 1st J-wire, an 8 SafeSheath was advanced, over the 2nd J-wire, a 6 SafeSheath was advanced, over the Glidewire, a 9-Greek standard [place] coronary sheath was advanced. ??All the sheaths were flushed confirming venous return. Through the 8 sheath [employer] RV ICD lead [id number] was advanced to the right atrium and screwed into the low mid ventricular septum. Through the 6 sheath a [employer] atrial pacing lead [id number] was advanced to the atrial appendage and screwed in place. ??The coronary sinus was entered with the help of a [place] sheath and a Glidewire, and anterolateral branch was selected that was cannulated with a whisper EDS wire over which a [employer] coronary sinus lead [id number] was advanced to the distal part of the vein. ??After adequate thresholds were confirmed, the [place] sheath was carefully split. ??All leads were secured to subcutaneous tissue using a 0 silk connected to a [employer] biventricular ICD generator [id number], noted to be pacing and sensing appropriately. ??The pocket was irrigated with antibiotic solution. ??The generator was placed into the pocket with 0 silk header stitch and a TYRX pouch, deep tissues closed using a 2-0 Monocryl, superficial 4-0 Monocryl and topical Dermabond was applied. ??Chest x-ray, ECG will be obtained. ?? Antibiotic and pain medications were ordered. THRESHOLDS Right atrium 2.4 mV, 0.7 V, 0.4 milliseconds, 540 ohms, RV 16.8 mV, 0.5 V, 0.4 millisecond, 794 ohms. ??Coronary sinus 10.2 mV, 1.4 V, 0.4 milliseconds, 462 ohms. ??No extracardiac stimulation with 10 V cardiac pacing stimulus. IMPRESSION Successful implantation of a biventricular ICD system from [employer]. Insertion of TYRX pouch. Venogram. Job ID/Internal Job ID: ??[id number] us Gustabo Francisco MD CV ELECTROPHYSIOLOGY P ROCS Final Result * eGFR (02/23/2023 11:30 AM CDT) eGFR 36 mL/min/1. 73 m2 Comment: Interpretive Data Reference Interval Normal ?>/= 90 mL/min/1.73m2 Mildly decreased* ? 60 - 89 mL/min/1.73m2 Mildly to moderately decreased ?45 - 59 mL/min/1.73m2 Moderately to severely decreased ??30 - 44 mL/min/1.73m2 Severely decreased ?15 - 29 mL/min/1.73m2 Kidney Failure ?< 15 ??mL/min/1.73m2 *Relative to young adult level Estimated glomerular filtration rate is determined by the 2020 CKD-EPI equation recommended by the National Kidney Foundation (A Unifying Approach to GFR Estimation: Recommendations of the NKF-ASK Task Force on Reassessing the Inclusion of Race in Diagnosing Kidney Disease, JASN 202). The CKD-EPI equation should not be used for patients with unstable renal function and has not been validated in children and those over 70. Current interpretive data was last reviewed 2021. Blood 02/23/2023 11:3 0 AM CDT 02/23/2023 11:32 AM CDT Gustabo Francisco MD LAB BLOOD ORDERABLES F inal Result YV[facility] [id number] Department [place] [address] * Differential, auto (02/23/2023 11:30 AM CDT) Neutrophil abs 4.4 1.7 - 6.5 K/cumm Imm gran abs 0.0 0.0 - 0.1 K/cumm [facility] Lymphocyte abs 1.6 0.8 - 3.3 K/cumm [facility] Monocyte abs 0.6 0.2 - 0.8 K/cumm [facility] Eosinophil abs 0.5 0.0 - 0.5 K[facility]umm [facility] Basophil abs 0.0 0.0 - 0.1 K/cumm [facility] Neutrophil pct 61.8 % [facility] Comment: Interpretive Data Percent cell count reference ranges are not reported, since discordance with absolute values may lead to misinterpretation of CBC data. Current Interpretive Data was last revised on 2017. Imm gran pct 0.4 % [facility] Comment: Interpretive Data Percent cell count reference ranges are not reported, since discordance with absolute values may lead to misinterpretation of CBC data. Current Interpretive Data was last revised on 2017. Lymphocyte pct 22.3 % [facility] Comment: Interpretive Data Percent cell count reference ranges are not reported, since discordance with absolute values may lead to misinterpretation of CBC data. Current Interpretive Data was last revised on 2017. Monocyte pct 8.3 % [facility] Comment: Interpretive Data Percent cell count reference ranges are not reported, since discordance with absolute values may lead to misinterpretation of CBC data. Current Interpretive Data was last revised on 2017. Eosinophil pct 6.6 % [facility] Comment: Interpretive Data Percent cell count reference ranges are not reported, since discordance with absolute values may lead to misinterpretation of CBC data. Current Interpretive Data was last revised on 2017. Basophil pct 0.6 % [facility] Comment: Interpretive Data Percent cell count reference ranges are not reported, since discordance with absolute values may lead to misinterpretation of CBC data. Current Interpretive Data was last revised on 2017. Blood 02/23/2023 11:3 0 AM CDT 02/23/2023 11:32 AM CDT Gustabo Francisco MD LAB BLOOD ORDERABLES F inal Result Performing Organization Address [facility] de Phone Number JAYMECARY [id number] [place] [address] * Protime-INR (02/23/2023 11:30 AM CDT) PT 12.8 10.3 - 13.7 sec INR 1.12 0.90 - 1.20 [facility] Comment: Interpretive data Oral anticoagulant therapeutic ranges: Venous thromboembolism prophylaxis or treatment: 2.0-3.0 CARDIOLOGY Standard range: 2.0-3.0 High-intensity range: 2.5-3.5 Refer to indication-specific guidelines for appropriate target ranges for prosthetic heart valve replacement. Current interpretive data was last revised on 2019. Blood 02/23/2023 11:3 0 AM CDT 02/23/2023 11:32 AM CDT Gustabo Francisco MD LAB BLOOD ORDERABLES F inal Result Performing Organization Address [facility] Co de Phone Number YVAN [id number] [address] [facility] [place] [address] * (ABNORMAL) CBC with auto differential (02/23/2023 11:30 AM CDT) Pathologist [facility] WBC 7.1 3.8 - 9.9 K/cumm Hgb 15.9 13.0 - 17.5 g/dL [facility] Hct 48.1 38.9 - 50.3 % [facility] Plt 314 150 - 400 K/cumm [facility] MPV 8.9(L) 9.1 - 12.3 fL [facility] RBC 5.52 4.30 - 5.80 M/cumm [facility] Comment: Interpretive Data A reference range for this assay has not been established for patients with an unknown legal sex. Please refer to the laboratory test catalog for established sex-specific reference intervals. Current interpretive data was last revised on 2023. MCV 87.1 81.3 - 96.4 fL [facility] MCH 28.8 27.1 - 33.3 pg [facility] MCHC 33.1 32.3 - 35.7 g/dL [facility] RDW CV 13.6 11.1 - 14.9 % [facility] RDW SD 43.8 35.7 - 48.1 fL [facility] NRBC abs 0.00 0.00 - 0.01 K/cumm [facility] Blood 02/23/2023 11:3 0 AM CDT 02/23/2023 11:32 AM CDT Narrative [facility] - 02/23/2023 11:38 AM CDT If most recent labs were drawn prior to 4 AM, draw only prior to initiating procedure. us Gustabo Francisco MD LAB BLOOD ORDERABLES F inal Result [facility] [id number] Department [place] [address] * (ABNORMAL) Basic metabolic panel (02/23/2023 11:30 AM CDT) Pathologist [facility] Sodium 143 135 - 145 mmol/L Potassium, pl 5.0(H) 3.3 - 4.9 mmol/L [facility] Chloride 106 97 - 110 mmol/L [facility] CO2 25 22 - 32 mmol/L [facility] Anion gap 12 2 - 15 mmol/L [facility] BUN 12 6 - 25 mg/dL [facility] Creatinine 2.12(H) 0.80 - 1.30 mg/dL [facility] Glucose 100 70 - 199 mg/dL [facility] Comment: Interpretive Data Fasting glucose >/= 126 mg/dl is diagnostic for diabetes. ?? Fasting is defined as no caloric intake for at least 8 hours. Fasting glucose between 100 mg/dl to 125 mg/dl is diagnostic of prediabetes. In a patient with classic symptoms of hyperglycemia or hyperglycemic crisis, a random glucose >/= 200 mg/dl is diagnostic for diabetes. In the absence of unequivocal hyperglycemia, results should be confirmed by repeat testing. The classification and Diagnosis of Diabetes Diabetes Care 2021; 46: S19-S40. Current interpretive data was last revised 2022. Calcium 9.9 8.5 - 10.3 mg/dL [facility] Blood 02/23/2023 11:3 0 AM CDT 02/23/2023 11:32 AM CDT Gustabo Francisco MD LAB BLOOD ORDERABLES F inal Result YV[facility] [address] [address] Department [place] [address] documented in this encounter Visit Diagnoses Diagnosis Chest pain- Primary Unspecified chest pain LBBB (left bundle branch block) Other left bundle branch block Systolic dysfunction Unspecified heart disease Congestive heart failure, unspecified HF chronicity, unspecified heart failure type (HCC) LBBB (left bundle branch block) Other left bundle branch block Systolic dysfunction Unspecified heart disease Congestive heart failure, unspecified HF chronicity, unspecified heart failure type (HCC) documented in this encounter Admitting Diagnoses Diagnosis LBBB (left bundle branch block) Other left bundle branch block Systolic dysfunction Unspecified heart disease Congestive heart failure (CMS/HCC) (HCC) Congestive heart failure, unspecified Chest pain Unspecified chest pain documented in this encounter Administered Medications Inactive Administered Medications - up to 3 most recent administrations Medication Order MAR Action Action Date Dose Rate Site amitriptyline (ELAVIL) tablet 25 mg 25 mg, oral, Nightly, First dose on Tue02/23/23 at 2100 Given 02/23/2023 9:10 PM CDT 25 mg amLODIPine (NORVASC) tablet 10 mg 10 mg, oral, Daily, First dose on Tue02/23/23 at 1345 Given 02/24/2023 8:09 AM CDT 10 mg atorvastatin (LIPITOR) tablet 40 mg 40 mg, oral, Daily, First dose on Tue02/23/23 at 1800 Given 02/24/2023 8:09 AM CDT 40 mg Carrier Fluids for Secondary Infusion - 0.9% Sodium Chloride 30 mL, intravenous, As needed, For priming tubing and/or flushing, Starting on Tue02/23/23 at 1733, Recovery (CV), 0-250 ml/hr to flush line after IV infusions when no maintenance IV ordered. Infuse 30mL at the same rate as the secondary infusion. Run as primary IV, not intended for KVO. carvediloL (COREG) tablet 25 mg 25 mg, oral, 2 times daily with meals (bkfst, dinner), First dose on Tue02/23/23 at 1800 Given 02/24/2023 8:09 AM CDT 25 mg hydrALAZINE (APRESOLINE) tablet 10 mg 10 mg, oral, 3 times daily, First dose on Tue02/23/23 at 1600 Given 02/24/2023 8:09 AM CDT 10 mg HYDROcodone-acetaminophen (NORCO) 5-325 mg per tablet 1 tablet 1 tablet, oral, Every 4 hours PRN, 1st line for pain, 2nd line for pain, Starting on Tue02/23/23 at 1733, Recovery (CV), Indications: PainIndications:Pain Given 02/24/2023 12:47 PM CDT 1 tablet Given 02/24/2023 8:09 AM CDT 1 tablet Given 02/23/2023 11:54 PM CDT 1 tablet isosorbide dinitrate (ISORDIL) tablet 20 mg 20 mg, oral, 3 times daily, First dose on Tue02/23/23 at 1600 Given 02/24/2023 8:09 AM CDT 20 mg lidocaine-EPINEPHrine (XYLOCAINE with EPI) 2 %-1:100,000 injection Code/trauma/sedation medication, Starting on Tue02/23/23 at 1436, Intra-Procedure (CV), Indications: Administration of Local AnesthesiaIndications:Administrati on of Local Anesthesia Given 02/23/2023 2:36 PM CDT 20 mL Left Chest PARoxetine (PAXIL) tablet 40 mg 40 mg, oral, Daily, First dose on Tue02/23/23 at 1800 Given 02/24/2023 8:09 AM CDT 40 mg sacubitriL-valsartan (ENTRESTO) 49-51 mg tablet 1 tablet 1 tablet, oral, 2 times daily, First dose on Tue02/23/23 at 1345, Indications: chronic heart failureIndications:chronic heart failure Given 02/24/2023 8:09 AM CDT 1 tablet Given 02/23/2023 9:11 PM CDT 1 tablet sodium chloride 0.9% flush 0.5-20 mL 0.5-20 mL, intra-catheter, Every 8 hours scheduled, First dose on Tue02/23/23 at 2200, Recovery (CV), Flush volume based on line type and size. , Indications: FlushingIndications:Flushing Given 02/24/2023 6:43 AM CDT 10 mL Given 02/23/2023 9:30 PM CDT 10 mL sodium chloride 0.9% flush 0.5-20 mL 0.5-20 mL, intra-catheter, As needed, line care, Starting on Tue02/23/23 at 1733, Recovery (CV), Flush volume based on line type and size. Flush before and after each use. , Indications: FlushingIndications:Flushing sodium chloride 0.9% solution Code/trauma/sedation medication, Starting on Tue02/23/23 at 1417, Intra-Procedure (CV) Given 02/23/2023 2:17 PM CDT 1,000 mL vancomycin (VANCOCIN) 1,000 mg in sodium chloride 0.9% 500 mL solution Code/trauma/sedation medication, Starting on Tue02/23/23 at 1525, Intra-Procedure (CV) Given 02/23/2023 3:25 PM CDT 300 mL Surgical Site documented in this encounter Discontinued Medications Medication Sig Discontinue Reason Start Date End Da te triamterene-hydroCHLOROt hiazide (MAXZIDE,DYAZIDE) 37.5-25 mg per tablet/capsule Therapy completed 02/23/2023 spironolactone (ALDACTONE) 25 mg tablet Take 1 tablet (25 mg total) by mouth daily Therapy completed 05/21/2022 02/23/2023 omeprazole (PriLOSEC) 20 mg capsule take 1 capsule by oral route every day 30 minutes to 1 hour before a meal Therapy completed 05/13/2016 02/23/2023 gabapentin (NEURONTIN) 100 mg capsule take 3 capsule by oral route 3 times every day Therapy completed 05/21/2015 02/23/2023 furosemide (LASIX) 40 mg tablet Take 1 tablet (40 mg total) by mouth 2 (two) times a day Therapy completed 08/17/2021 02/23/2023 escitalopram (LEXAPRO) 10 mg tablet take 1 tablet by oral route every day Therapy completed 05/21/2015 02/23/2023 ARIPiprazole (ABILIFY) 10 mg tablet Therapy completed 05/19/2020 02/23/2023 documented as of this encounter Active and Recently Administered Medications Times are shown in CDT. Scheduled Medication Order 02/22/2023 02/23/2023 02/24/2023 amitriptyline (ELAVIL) tablet 25 mg 25 mg, oral, Nightly, First dose on Tue02/23/23 at 2100 1551 (JUL Hold - Provider: Automatic Transfer Provider - Reason: Patient not available)1725 (MAR Unhold - Provider: Automatic Transfer Provider)2110 (Given - Provider: Oral Cortez RN) amLODIPine (NORVASC) tablet 10 mg 10 mg, oral, Daily, First dose on Tue02/23/23 at 1345 1551 (MAR Hold - Provider: Automatic Transfer Provider - Reason: Patient not available)1725 (MAR Unhold - Provider: Automatic Transfer Provider)1743 (Not Given - Provider: Amelie Garcia RN - Reason: Order parameters not met - Comment: hypotensive) 0809 (Given - Provider: Veronica De Los Santos RN) atorvastatin (LIPITOR) tablet 40 mg 40 mg, oral, Daily, First dose on Tue02/23/23 at 1800 0900 (Not Given - Provider: Amelie Garcia RN - Reason: Patient not available)1551 (MAR Hold - Provider: Automatic Transfer Provider - Reason: Patient not available)1725 (MAR Unhold - Provider: Automatic Transfer Provider) 0809 (Given - Provider: Veronica De Los Santos RN) carvediloL (COREG) tablet 25 mg 25 mg, oral, 2 times daily with meals (bkfst, dinner), First dose on Tue02/23/23 at 1800 1551 ([facility] Hold - Provider: Automatic Transfer Provider - Reason: Patient not available)1725 ([facility] Unhold - Provider: Automatic Transfer Provider)1744 (Not Given - Provider: Amelie Garcia RN - Reason: Order parameters not met - Comment: hypotensive) 0809 (Given - Provider: Veronica De Los Santos RN) hydrALAZINE (APRESOLINE) tablet 10 mg 10 mg, oral, 3 times daily, First dose on Tue02/23/23 at 1600 1551 ([facility] Hold - Provider: Automatic Transfer Provider - Reason: Patient not available)1600 (Not Given - Provider: Amelie Garcia RN - Reason: Patient not available)1725 ([facility] Unhold - Provider: Automatic Transfer Provider)211 (Hold - Provider: Oral Cortez RN - Reason: Contraindicated - Comment: BP soft, notified MD of holding the medications) 0809 (Given - Provider: Veronica De Los Santos RN) isosorbide dinitrate (ISORDIL) tablet 20 mg 20 mg, oral, 3 times daily, First dose on Tue02/23/23 at 1600 1551 ([facility] Hold - Provider: Automatic Transfer Provider - Reason: Patient not available)1600 (Not Given - Provider: Amelie Garcia RN - Reason: Patient not available)1725 ([facility] Unhold - Provider: Automatic Transfer Provider)212 (Hold - Provider: Oral Cortez RN - Reason: Contraindicated - Comment: BP soft , notified MD of meds held) 0809 (Given - Provider: Veronica De Los Santos RN) PARoxetine (PAXIL) tablet 40 mg 40 mg, oral, Daily, First dose on Tue02/23/23 at 1800 0900 (Not Given - Provider: Amelie Garcia RN - Reason: Patient not available)1551 ([facility] Hold - Provider: Automatic Transfer Provider - Reason: Patient not available)1725 ([facility] Unhold - Provider: Automatic Transfer Provider) 0809 (Given - Provider: Veronica De Los Santos RN) sacubitriL-valsartan (ENTRESTO) 49-51 mg tablet 1 tablet 1 tablet, oral, 2 times daily, First dose on Tue02/23/23 at 1345, Indications: chronic heart failure 1551 (JUL Hold - Provider: Automatic Transfer Provider - Reason: Patient not available)1725 (JUL Unhold - Provider: Automatic Transfer Provider)1745 (Not Given - Provider: Amelie Garcia RN - Reason: Order parameters not met - Comment: hypotensive)2111 (Given - Provider: Oral Cortez RN) 0809 (Given - Provider: Veronica De Los Santos RN) sodium chloride 0.9% flush 0.5-20 mL 0.5-20 mL, intra-catheter, Every 8 hours scheduled, First dose on Tue02/23/23 at 2200, Recovery (CV), Flush volume based on line type and size. , Indications: Flushing 0 (Given - Provider: Oral Cortez RN) 0643 (Given - Provider: Oral Cortez RN) PRN Medication Order 02/22/2023 02/23/2023 02/24/2023 Carrier Fluids for Secondary Infusion - 0.9% Sodium Chloride 30 mL, intravenous, As needed, For priming tubing and/or flushing, Starting on Tue02/23/23 at 1733, Recovery (CV), 0-250 ml/hr to flush line after IV infusions when no maintenance IV ordered. Infuse 30mL at the same rate as the secondary infusion. Run as primary IV, not intended for KVO. HYDROcodone-acetaminophen (NORCO) 5-325 mg per tablet 1 tablet 1 tablet, oral, Every 4 hours PRN, 1st line for pain, 2nd line for pain, Starting on Tue02/23/23 at 1733, Recovery (CV), Indications: Pain 1755 (Given - Provider: Amelie Garcia RN)2354 (Given - Provider: Oral Cortez RN) 0809 (Given - Provider: Veronica De Los Santos, RN)1247 (Given - Provider: Veronica De Los Santos, RN) lidocaine-EPINEPHrine (XYLOCAINE with EPI) 2 %-1:100,000 injection (CANCELED) Code/trauma/sedation medication, Starting on Tue02/23/23 at 1436, Intra-Procedure (CV), Indications: Administration of Local Anesthesia 1436 (Given - Provider: Gustabo Francisco MD) sodium chloride 0.9% flush 0.5-20 mL 0.5-20 mL, intra-catheter, As needed, line care, Starting on Tue02/23/23 at 1733, Recovery (CV), Flush volume based on line type and size. Flush before and after each use. , Indications: Flushing sodium chloride 0.9% solution (CANCELED) Code/trauma/sedation medication, Starting on Tue02/23/23 at 1417, Intra-Procedure (CV) 1417 (Given - Provider: Gustabo Francisco MD) vancomycin (VANCOCIN) 1,000 mg in sodium chloride 0.9% 500 mL solution (CANCELED) Code/trauma/sedation medication, Starting on Tue02/23/23 at 1525, Intra-Procedure (CV) 1525 (Given - Provider: Gustabo Francisco MD) documented in this encounter Orders Medications Ordered That José ht Not Have Been Administered Count Last Ordered Date First Ordered Date Carrier Fluids for Secondary Infusion - 0.9% Sodium Chloride 1 02/23/2023 diphenhydrAMINE (BENADRYL) 5 0 mg/mL injection 12.5 mg 1 02/23/2023 fentaNYL (SUBLIMAZE) preserv ative free injection 50 mcg 1 02/23/2023 ioversoL (OPTIRAY 320) injection 10 mL 1 naloxone (NARCAN) 0.4 mg/mL injection 0.04-0.4 mg 1 02/23/2023 ondansetron (ZOFRAN) injection 4 mg 1 02/23 sodium chloride 0.9% flush 0.5-20 mL 1 02/13 sodium chloride 0.9% infusion 1 02/23/2023 Nursing Count Last Ordered Date First Orde red Date TELEMETRY MONITORING 4 02/23/2023 Admission Count Last Ordered Date First Orde red Date INITIATE OBSERVATION SERVICES 1 02/23/2023 Discharge Count Last Ordered Date First Orde red Date DISCHARGE PATIENT 1 02/24/2023 CORE MEASURES Count Last Ordered Date First Ord ered Date REASON FOR NO VTE PROPHYLAXI S - HOSPITAL ADMISSION - MEDICATIONS 1 02/23/2023 documented in this encounter Care Teams Program Facilitator Relationship Specialty Start Date End Date Naomy Maddox MD [address] [place] [address] PCP - General Internal Medicine 05/06/20 documented as of this encounter
--- OUTSIDE RECORDS SUMMARY | 2024-05-17 12:08 | XMS_ITS | Encounter Summary ---
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 Patient informed and verbalized understanding and medication sent to pharmacy * Telephone Encounter - Rosa Miranda MA - 09/09/2023 8:03 AM CDT Patient called stating that he has fluid in his lungs and wondered if he could be prescribed hydrochlorothiazide because the lasix isn't working. Please advise documented in this encounter Plan of Treatment Not on file documented as of this encounter Visit Diagnoses Not on filedocumented in this encounter Care Teams Computer Game Designer Relationship Specialty Start Date End Date Naomy Maddox MD [address] [place] [id number] PCP - General Internal Medicine 05/06/20 documented as of this encounter
--- OUTSIDE RECORDS SUMMARY | 2024-05-17 12:08 | XMS_ITS | Encounter Summary ---
Author Organization [facility] Healthcare Address [address] [place] [address] Care Team Providers Care Installation Technician Name Role Phone Naomy Maddox MD Primary Care Provider [phone] Reason for Referral * Cardiology (Routine) - Closed Specialty Diagnoses / Procedures Referred By Contac t Referred To Contact Diagnoses Implantable defibrillator reprogramming/check Procedures DEVICE CHECK - IN OFFICE Gustabo Francisco MD Phone: tel: fax: [facility] Medical Group Referral ID Status Reason Start Date Expiration Date Visits Re quested Visits Authorized [id number] Closed 03/03/2023 04/01/2024 1 1 * Cardiology (Routine) - Closed Specialty Diagnoses / Procedures Referred By Contac t Referred To Contact Diagnoses Non-ischemic cardiomyopathy (CMS/HCC) (HCC) Procedures Transthoracic Echo (TTE) Complete W Doppler/CF Gustabo Francisco MD Phone: tel: fax: [address] [address] Referral ID Status Reason Start Date Expiration Date Visits Re quested Visits Authorized [id number] Closed 05/10/2023 05/09/2024 1 1 Reason for Visit * Reason Comments Device Check Wound Check Encounter Details Date Type Department Care Team (Late st Contact Info) Description 03/03/2023 1:15 PM CDT Office Visit [employer] Marker at [address] [place] [address] Gustabo Francisco MD [address] [place] [address] [address] [place] [address] Non-ischemic cardiomyopathy (CMS/HCC) (HCC) (Primary Dx); Implantable defibrillator reprogramming/check Social History Tobacco Use Types Packs/Day Years Used Date Smoking Tobacco: Never Personal Safety Answer Date Recorded Have you ever been in or are you currently in a harmful physical or emotional relationship or is someone making you feel afraid or unsafe? Yes;Denies 02/23/2023 Sex and Gender Information Value Date Recorded Sex Assigned at Not on file Legal Sex Male 9:23 PM KARDEX CLERK Gender Identity Not on file Sexual Orientation Not on file documented as of this encounter Last Filed Vital Signs Vital Sign Reading Time Taken Comments Blood Pressure 126/89 03/03/2023 1:23 PM CDT Pulse 68 03/03/2023 1:23 PM CDT Temperature - - Respiratory Rate 18 03/03/2023 1:23 PM CDT Oxygen Saturation - - Inhaled Oxygen Concentration - - Weight 92.1 kg (203 lb) 03/03/2023 1:23 PM CDT Height 177.8 cm (5' 10 ) 03/03/2023 1:23 PM CDT Body Mass Index 29.13 03/03/2023 1:23 PM CDT documented in this encounter Progress Notes * Gustabo Francisco MD - 03/03/2023 1:15 PM CDT Recent Bi V ICD implant Site looks good Device check appropriate function good Bi V pacing good numbers Follow-up with 3 months with an echo Doppler documented in this encounter Miscellaneous Notes * Addendum Note - Raudel, Lisa R. - 03/03/2023 1:15 PM CDTAddended by: LIAS LIU on: 03/03/2023 03:27 PM Modules accepted: Orders documented in this encounter Plan of Treatment Not on file documented as of this encounter Results * TRANSTHORACIC ECHO (TTE) COMPLETE W DOPPLER/CF WO CONTRAST (05/27/2023 8:00 AM KARDEX CLERK) Anatomical Region Laterality Modality Ultrasound 05/27/2023 8:27 AM KARDEX CLERK Narrative 05/27/2023 10:08 AM KARDEX CLERK [address] [place] [address] Echocardiogram Report Patient Name: NATAN RIVERA : [...] ? [ 0.40 - 0.80 ] m/s DC Peak Grayson ?1.19 ? m/s TR Peak [...] Electronically Signed By: Zak Anderson 2023-05-27 10:07:54 KARDEX CLERK Procedure Note Zak Anderson MD - 05/27/[address] [address] Echocardiogram Report Patient Name: NATAN RIVERA : [...] 1.21 [ 0.40 - 0.80 ] m/s DC Peak Grayson 1.19 m/s TR Peak Grayson [...] Electronically Signed By: Zak Anderson 2023-05-27 10:07:54 KARDEX CLERK us Gustabo Francisco MD CV ECHO PROCEDURES Fin al Result * DEVICE CHECK - IN OFFICE (03/03/2023 3:28 PM CDT) Anatomical Region Laterality Modality Other Gustabo Francisco MD CV CARDIAC SERVICES DC OCEDURES Final Result documented in this encounter Visit Diagnoses Diagnosis Non-ischemic cardiomyopathy (CMS/HCC) (HCC)- Primary Other primary cardiomyopathies Implantable defibrillator reprogramming/check Fitting and adjustment of automatic implantable cardiac defibrillator Non-ischemic cardiomyopathy (CMS/HCC) (HCC) Other primary cardiomyopathies documented in this encounter Care Teams Installation Technician Relationship Specialty Start Date End Date Naomy Maddox MD [address] [place], [place] [id number] PCP - General Internal Medicine 05/06/20 documented as of this encounter
--- OUTSIDE RECORDS SUMMARY | 2024-05-17 12:08 | XMS_ITS | Encounter Summary ---
Author Organization [facility] Address [address] [place] [address] Care Team Providers Care Care Administrative Tech Name Role Phone Naomy Maddox MD Primary Care Provider [phone] Reason for Visit * Reason Onset Date Comments Procedure Scheduling 01/20/2023 Encounter Details Date Type Department Care Team (Late st Contact Info) Description 01/20/2023 Telephone [place] [employer] [id number] [address] Olamide Fuller MA Procedure Scheduling Social History Tobacco Use Types Packs/Day Years Used Date Smoking Tobacco: Never Sex and Gender Information Value Date Recorded Sex Assigned at Not on file Legal Sex Male 9:23 PM RHIT Gender Identity Not on file Sexual Orientation Not on file documented as of this encounter Miscellaneous Notes * Telephone Encounter - Olamide Vargas MA - 01/20/2023 2:38 PM CDT Patient notified if date and time of procedure. Requested [employer] message be sent with all information. documented in this encounter Plan of Treatment Not on file documented as of this encounter Visit Diagnoses Not on filedocumented in this encounter Care Teams Care Administrative Tech Relationship Specialty Start Date End Date Naomy Maddox MD [address] [place] [address] PCP - General Internal Medicine 05/06/20 documented as of this encounter
--- OUTSIDE RECORDS SUMMARY | 2024-05-17 12:08 | XMS_ITS | Encounter Summary ---
Author Organization [facility] Address [address] [place] [address] Care Team Providers Care Brush Maker Machine Name Role Phone Naomy Maddox MD Primary Care Provider [phone] Encounter Details Date Type Department Care Team (Late st Contact Info) Description 02/01/2023 Orders Only [place] [facility] [place] [address] [facility] [address] [place] [address] Modesto Thakkar NP [address] [place] [address] LBBB (left bundle branch block) (Primary Dx); Non-ischemic cardiomyopathy (CMS/HCC) (HCC) Social History Tobacco Use Types Packs/Day Years Used Date Smoking Tobacco: Never Sex and Gender Information Value Date Recorded Sex Assigned at Not on file 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 Gender Identity Not on file Sexual Orientation Not on file documented as of this encounter Progress Notes * [place] Thakkar NP - 02/01/2023 6:27 PM CDT Life vest ordered documented in this encounter Plan of Treatment Not on file documented as of this encounter Visit Diagnoses Diagnosis LBBB (left bundle branch block)- Primary Other left bundle branch block Non-ischemic cardiomyopathy (CMS/HCC) (HCC) Other primary cardiomyopathies documented in this encounter Orders General Supply Count Last Ordered Date First Or dered Date WEARABLE CARDIOVERTER DEFIBRILLATOR 1 02/01 documented in this encounter Care Teams Brush Maker Machine Relationship Specialty Start Date End Date Naomy Maddox MD [address] [place] [address] PCP - General Internal Medicine 05/06/20 documented as of this encounter
--- OUTSIDE RECORDS SUMMARY | 2024-05-17 12:08 | XMS_ITS | Encounter Summary ---
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
--- OUTSIDE RECORDS SUMMARY | 2024-05-17 12:08 | XMS_ITS | Encounter Summary ---
Author Organization [facility] Healthcare Address [address] [place] [address] Care Team Providers Care Alining Inspector Name Role Phone Naomy Maddox MD Primary Care Provider Reason for Visit * Reason Comments Follow-up 3 mo f/u Cardiomyopathy Encounter Details Date Type Department Care Team (Late st Contact Info) Description 06/14/2023 12:45 PM PLEATER Office Visit [place] Infrastructure Engineer at [address] [address] Zak Anderson MD [address] [place] [address] [address] [place] [address] Non-ischemic cardiomyopathy (CMS/HCC) (HCC) (Primary Dx) Social History [...] on file Legal Sex Male 9:23 PM PLEATER Gender Identity Not on file Sexual Orientation Not on file documented as of this encounter Last Filed Vital Signs Vital Sign Reading Time Taken Comments Blood Pressure 114/78 06/14/2023 12:56 PM PLEATER Pulse 96 06/14/2023 12:56 PM PLEATER Temperature - - Respiratory Rate - - Oxygen Saturation - - Inhaled Oxygen Concentration - - Weight 95.7 kg (211 lb) 06/14/2023 12:56 PM PLEATER Height 177.8 cm (5' 10 ) 06/14/2023 12:56 PM PLEATER Body Mass Index 30.28 06/14/2023 12:56 PM PLEATER documented in this encounter Progress Notes * Zak Anderson MD - 06/14/2023 12:45 PM CST 06/14/2023 CHIEF COMPLAINT Chief Complaint Patient presents with Follow-up 3 mo f/u Cardiomyopathy Routine clinic f/u visit INTERVAL HISTORY Active complaints: more energy Hospitalization or ER visits none Physical activity normal Compliance with medication Yes REVIEW OF SYSTEMS General: No bleeding, chills or fevers Cardiac:No chest pain or palpitations Chest: No SOB or cough Neuro: no focal weakness or dizziness PHYSICAL EXAM Vitals BP 114/78 (BP Location: Right arm, Patient Position: Sitting) Pulse 96 Ht 177.8 cm (5' 10 ) Wt 95.7 kg (211 lb) BMI 30.28 kg/m?? General: able to lie flat and no acute distress Cardiac: S1 S2 no murmur, no JVD Chest: CTAB normal effort and equal chest expansion LE: warm, no edema, intact peripheral pulses LABS Lab Results Component Value Date WBC 7.1 02/23/2023 HGB 15.9 02/23/2023 HCT 48.1 02/23/2023 MCV 87.1 02/23/2023 LABPLAT 314 02/23/2023 Lab Results Component Value Date GLUCOSE 100 02/23/2023 CALCIUM 9.9 02/23/2023 SODIUM 143 02/23/2023 POTASSIUM 5.0 (H) 02/23/2023 CO2 25 02/23/2023 CHLORIDE 106 02/23/2023 BUNSER 12 02/23/2023 CREATININE 2.12 (H) 02/23/2023 No results found for: CHOL , POCCHOL No results found for: HDL , POCHDL No results found for: LDLCALC , CLDL , HIRISKLDL , LDL , LDLC , LDLDIRECT , LDLMED , LDLP , POCLDL , SCRLDL , SMALLLDLP , TOTLDLC No results found for: TRIG , POCTRIG ER/hospital visits 02/24/23 BiV ICD 01/08/2022: Easy fatigue and SOB referred for [facility] 05/21/2022 added aldactone and repeated TTE and Ef is still < 35% Prior clinic visits 11/05/22 CHF Ef 20%, started entresto referred for BiV ICD done feb 2023 01/08/2022: Easy fatigue and SOB referred for [facility] 05/21/2022 added aldactone and repeated TTE and Ef is still < 35% DIAGNOSTIC TESTS 06/08/23 Moderate global left ventricular systolic dysfunction. Impaired diastolic relaxation Grade I. Ejection fraction is visually estimated at 35 %. Moderate enlargement of right ventricle. Moderate right ventricular hypokinesis. Linear artifact in right ventricle suggestive of catheter(s), pacemaker lead(s), or ICD lead(s). TTE: 10/26/2022 Severe global left ventricular systolic dysfunction. Ejection [...] 42 to 46 mmHg. Mild tricuspid regurgitation. Nuclear stress test November 2021 1. Myocardial Perfusion: Abnormal:. 2. 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 3. Left ventricle: Enlargement with mildly depressed systolic function (EF 40-50%). TTE: August 2021 Mild concentric left ventricular hypertrophy. Moderate enlargement of left ventricle cavity. Severe global left ventricular systolic dysfunction. No left ventricular thrombus visualized. Normal left ventricular diastolic function. Ejection fraction is measured at 26 %. There is global hypokinesis involving all segments of the LV. Normal right ventricular systolic function. Mild enlargement of right ventricle. Abnormal (paradoxical) septal motion consistent with RV volume overload and/or elevated RV end-diastolic pressure. TTE October 2021 Left ventricle is mildly dilated. Dyskinetic septum and anterior wall. Ejection fraction is reduced and is estimated at 30%. CATH 04/12/2022 Normal DATA INTEGRITY SPECIALIST and low filling pressures CAD with OM 80% Stenosis that cant explain his cardiomyopathy CURRENT MEDICATIONS Current Outpatient Medications Medication Sig Dispense Refill amitriptyline (ELAVIL) 25 mg tablet Take 1 tablet (25 mg total) by mouth nightly amLODIPine (NORVASC) 10 mg tablet Take 1 tablet (10 mg total) by mouth daily atorvastatin (LIPITOR) 40 mg tablet carvediloL (COREG) 25 mg tablet Take 1 tablet (25 mg total) by mouth empagliflozin (JARDIANCE) 10 mg tablet Take 1 tablet (10 mg total) by mouth daily 30 tablet 11 famotidine (PEPCID) 20 mg tablet Take 1 tablet (20 mg total) by mouth 2 (two) times a day hydrALAZINE (APRESOLINE) 10 mg tablet Take 1 tablet (10 mg total) by mouth 3 (three) times a day 270 tablet 3 hydrOXYzine (ATARAX) 10 mg tablet isosorbide dinitrate (ISORDIL) 20 mg tablet Take 1 tablet (20 mg total) by mouth 3 (three) times a day 270 tablet 3 PARoxetine (PAXIL) 40 mg tablet Take 1 tablet (40 mg total) by mouth daily sacubitriL-valsartan (ENTRESTO) 49-51 mg tablet Take 1 tablet by mouth 2 (two) times a day 60 tablet 11 No current facility-administered medications for this visit. ASSESSMENT/PLAN Non ischemic dilated cardiomyopathy, plan cont entresto 49/51, jardiance, Lasix 40 mg po BID, coreg HTN controlled, cont Hydralazine, Amlodipine, Coreg and entresto CKD stage III LBBB and s/p BiV ICD device interrogation is normal Recommended changes in medical therapy none Recommended investigation none Recommended F/U in 12 months Counseled about importance of compliance with medical therapy, healthy diet, exercise and healthy life style. Zak Anderson MD 06/14/23 TER documented in this encounter Plan of Treatment Not on file documented as of this encounter Visit Diagnoses Diagnosis Non-ischemic cardiomyopathy (CMS/HCC) (HCC)- Primary Other primary cardiomyopathies documented in this encounter Care Teams Alining Inspector Relationship Specialty Start Date End Date Naomy Maddox MD [address] [place] [id number] PCP - General Internal Medicine 05/06/20 documented as of this encounter
--- OUTSIDE RECORDS SUMMARY | 2024-05-17 12:08 | XMS_ITS | Encounter Summary ---
Author Organization [facility] Healthcare Address [address] [place] [address] Care Team Providers Care Multiple Spindle Router Operator Name Role Phone Naomy Maddox MD Primary Care Provider [phone] Encounter Details Date Type Department Care Team (Late st Contact Info) Description 05/26/2023 Orders Only [facility] Cardiology [address] [place] [address] Ele Roa Social History Tobacco Use Types Packs/Day Years Used Date Smoking Tobacco: Never Personal Safety Answer Date Recorded Have you ever been in or are you currently in a harmful physical or emotional relationship or is someone making you feel afraid or unsafe? Yes;Denies 02/23/2023 Sex and Gender Information Value Date Recorded Sex Assigned at Not on file Legal Sex Male 9:23 PM DESIGN TECH Gender Identity Not on file Sexual Orientation Not on file documented as of this encounter Plan of Treatment Not on file documented as of this encounter Visit Diagnoses Not on filedocumented in this encounter Care Teams Multiple Spindle Router Operator Relationship Specialty Start Date End Date Naomy Maddox MD [address] [place] [address] PCP - General Internal Medicine 05/06/20 documented as of this encounter
--- OUTSIDE RECORDS SUMMARY | 2024-05-17 12:08 | XMS_ITS | Encounter Summary ---
Author Organization [facility] Healthcare Address [address] [place] [address] Care Team Providers Care Stove Fitter Name Role Phone Naomy Maddox MD Primary Care Provider [phone] Reason for Visit * Auth/Cert (Routine) Specialty Diagnoses / Procedures Referred By Tanesha dennis Referred To Contact Diagnoses LBBB (left bundle branch block) Systolic dysfunction Congestive heart failure, unspecified HF chronicity, unspecified heart failure type (HCC) LBBB (left bundle branch block) [I44.7] Systolic dysfunction [I51.9] Congestive heart failure, unspecified HF chronicity, unspecified heart failure type (HCC) [I50.9] Procedures AL INSJ/RPLCMT PERM DFB W/TRNSVNS LDS 1/DUAL CHMBR AL INSJ ELTRD CAR MARC SYS TM INSJ DFB/PM PLS GEN INSERT/REPLACE IMPLANTABLE CARDIOVERTER-DEFIBRILLATOR (ICD) SINGLE CHAMBER SYSTEM 38516 INSERT LV LEAD W PACEMAKER (PPM) OR IMPLANTABLE CARDIOVERTER-DEFIBRILLATOR (ICD) PLACEMENT (+) [id number] Referral ID Status Reason Start Date Expiration Date Visits Re quested Visits Authorized [id number] 1 1 Encounter Details Date Type Department Care Team (Late Contact Info) Description 02/23/2023 10:47 AM CDT - 02/24/2023 1:57 PM CDT Hospital Encounter [facility] [address] [place] [address] Gustabo Francisco MD 2 [facility] [address] [address] LBBB (left bundle branch block); Systolic dysfunction; Congestive heart failure, unspecified HF chronicity, unspecified heart failure type (HCC) Discharge Disposition: Discharge to home or [...] on file 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 Gender Identity Not on file Sexual Orientation Not on file documented as of this encounter Last Filed Vital Signs Vital Sign Reading Time Taken Comments Blood Pressure 95/71 02/24/2023 11:43 AM CDT Pulse 83 02/24/2023 11:43 AM CDT Temperature 36.6 ??C (97.9 ??F) 02/24/2023 11:43 AM C DT Respiratory Rate 18 02/24/2023 11:43 AM CDT Oxygen Saturation 93% 02/24/2023 11:43 AM [...] Care Physician at Discharge: Naomy Maddox MD [phone] Admission Date: 02/23/2023 Discharge Date: 02/24/2023 Admission Location: [facility] Problems/Diagnoses: Principal Problem: Chest pain Active Problems: LBBB (left bundle branch block) Systolic dysfunction Congestive heart failure (CMS/HCC) (HCC) Resolved Problems: No resolved hospital problems. DETAILS OF HOSPITAL STAY Presenting Problem/History of Present Illness: Saroj Laguna is a pleasant 57 y.o. male with nonischemic cardiomyopathy left bundle-branch block here for a biventricular ICD Hospital Course: Biventricular ICD [employer] Venogram Tyrex pouch #[id number] Active Issues Requiring Follow-up: Severe nonischemic cardiomyopathy Left bundle-branch block Persistent severe systolic dysfunction Chronic systolic congestive heart failure Operative Procedures Performed: Procedure(s): INSERT/REPLACE IMPLANTABLE CARDIOVERTER-DEFIBRILLATOR (ICD) SINGLE CHAMBER SYSTEM 79131 INSERT LV LEAD W PACEMAKER (PPM) OR IMPLANTABLE CARDIOVERTER-DEFIBRILLATOR (ICD) PLACEMENT (+) [id number] Discharge Details Physical Exam at Discharge: Discharge [...] are discharged, a permanent card from the assistant track and field coach will arrive in about 4-6 weeks. This [...] you have a pacemaker (including dentist, surgeons, eye-urgent care physician, and emergency personnel). 8. Call the office [...] Center 03/10/2023 1:30 PM Gustabo Francisco MD [facility] Specialty Cosigned by Dalton Valerio [...] are discharged, a permanent card from the assistant track and field coach will arrive in about 4-6 weeks. This [...] you have a pacemaker (including dentist, surgeons, eye-urgent care physician, and emergency personnel). 8. Call the office [...] CDT Biventricular ICD Bi[employer]ronik Venogram Tyrex pouch #[id number] documented in this encounter H&P Notes * [...] surgical history on file. Allergies Allergen Reactions [place] Anaphylaxis Penicillins Other (See comments) No data [...] by mouth 2 (two) times a day Leesa Cardenas MD furosemide (LASIX) 40 mg tablet Take [...] MD hydrOXYzine (ATARAX) 10 mg tablet 03/22/20 Leesa Cardenas MD isosorbide dinitrate (ISORDIL) 20 [...] MD triamterene-hydroCHLOROthiazide (MAXZIDE,DYAZIDE) 37.5-25 mg per tablet/capsule Provider, MD Leesa No results found for: TROPONINT No lab [...] that has been successfully managed with the [place] 5 / 325. Pt states understanding of [...] failure type (HCC) INS/CHNG VR/VVI ICD SYS 48803 Routine 02/23/2023 3:43 PM CDT LBBB (left [...] AM CDT) 02/24/2023 7:33 AM CDT Narrative [facility] - 02/24/2023 7:51 AM CDT Vent Rate: 78 bpm RR Interval: 763 msec AL Interval: 177 msec QRS Duration: 155 msec QT Interval: 436 msec QTC Interval: 469 msec P-R-T [place]: 47 - 140 - -18 degrees IMPRESSION: ELECTRONIC VENTRICULAR PACEMAKER Electronically Signed By: Kolton Andrew MD, FACC Gustabo Francisco MD ECG ORDERABLES Final Result [facility] * XR Chest 1 Vw Portable (02/23/2023 [...] l Result * INS/CHNG VR/VVI ICD SYS 70200, INSERTION OF BIV ELECTRODE (02/23/2023 3:43 PM CDT) Anatomical Region Laterality Modality X-Ray Angiograph y 02/23/2023 Narrative 03/02/2023 11:17 AM CDT [employer] Job ID: [id number] [employer] Document ID: [id number] Dictated date/time: [id number] BIVENTRICULAR ICD IMPLANTATION REPORT A 57-year-old patient with chronic systolic congestive heart failure, nonischemic cardiomyopathy, left bundle branch block with persistent severe LV dysfunction on medical management, was referred for a biventricular ICD implantation. PREPROCEDURE DIAGNOSIS Chronic systolic congestive heart failure. Nonischemic cardiomyopathy. Left bundle branch block. Persistent severe LV dysfunction on medical therapy. PROCEDURE Implantation of a biventricular ICD system from [employer]. Venogram. Insertion of TYRX pouch. PROCEDURE He was brought to the quality assurance lab technician. ??Left neck subclavicular area was prepped in the usual sterile fashion and 1% xylocaine with epi was used. ??Venogram obtained. ??Pacemaker pocket was created. ??Access was obtained to the axillary subclavian vein. ??Two J wires and a Glidewire were advanced. ?? Over the 1st J-wire, an 8 SafeSheath was advanced, over the 2nd J-wire, a 6 SafeSheath was advanced, over the Glidewire, a 9-Turkmen standard [place] coronary sheath was advanced. ??All the sheaths were flushed confirming venous return. Through the 8 sheath Biotronik RV ICD lead [id number] was advanced to the right atrium and screwed into the low mid ventricular septum. Through the 6 sheath a Bi[employer]ik atrial pacing lead [id number] was advanced to the atrial appendage and screwed in place. ??The coronary sinus was entered with the help of a Fawn sheath and a Glidewire, and anterolateral branch was selected that was cannulated with a whisper EDS wire over which a Biotronik coronary sinus lead [id number] was advanced to the distal part of the vein. ??After adequate thresholds were confirmed, the Fawn sheath was carefully split. ??All leads were secured to subcutaneous tissue using a 0 silk connected to a Bi[employer]ik biventricular ICD generator [id number], noted to be pacing and sensing appropriately. [...] TYRX pouch. Venogram. Job ID/Internal Job ID: ??[id number] Gustabo Francisco MD CV ELECTROPHYSIOLOGY P [...] LAB BLOOD ORDERABLES F inal Result [facility] [address] [place] [address] * Differential, auto (02/23/2023 11:30 AM CDT) Neutrophil abs 4.4 1.7 - 6.5 K/cumm Imm gran abs 0.0 0.0 - 0.1 K/cumm [facility] Lymphocyte abs 1.6 0.8 - 3.3 K/cumm [facility] Monocyte abs 0.6 0.2 - 0.8 K/cumm [facility] Eosinophil abs 0.5 0.0 - 0.5 K/cumm [facility] Basophil abs 0.0 0.0 - 0.1 K/cumm [facility] Neutrophil pct 61.8 % [facility] Comment: Interpretive Data Percent cell count reference ranges are not reported, since discordance with absolute values may lead to misinterpretation of CBC data. Current Interpretive Data was last revised on 2017. Imm gran pct 0.4 % [facility] Comment: Interpretive Data Percent cell count reference ranges are not reported, since discordance with absolute values may lead to misinterpretation of CBC data. Current Interpretive Data was last revised on 2017. Lymphocyte pct 22.3 % [facility] Comment: Interpretive Data Percent cell count reference ranges are not reported, since discordance with absolute values may lead to misinterpretation of CBC data. Current Interpretive Data was last revised on 2017. Monocyte pct 8.3 % [facility] Comment: Interpretive Data Percent cell count reference ranges are not reported, since discordance with absolute values may lead to misinterpretation of CBC data. Current Interpretive Data was last revised on 2017. Eosinophil pct 6.6 % [facility] Comment: Interpretive Data Percent cell count reference ranges are not reported, since discordance with absolute values may lead to misinterpretation of CBC data. Current Interpretive Data was last revised on 2017. Basophil pct 0.6 % [facility] Comment: Interpretive Data Percent cell count reference ranges are not reported, since discordance with absolute values may lead to misinterpretation of CBC data. Current Interpretive Data was last revised on 2017. Blood 02/23/2023 11:3 0 AM CDT 02/23/2023 11:32 AM CDT Gustabo Francisco MD LAB BLOOD ORDERABLES F inal Result Performing Organization Address [facility] de Phone Number [facility] [address] [facility] [place] [address] * Protime-INR (02/23/2023 11:30 AM CDT) PT 12.8 10.3 - 13.7 sec INR 1.12 0.90 - 1.20 [facility] Comment: Interpretive data Oral anticoagulant therapeutic ranges: Venous thromboembolism prophylaxis or treatment: 2.0-3.0 CARDIOLOGY Standard range: 2.0-3.0 High-intensity range: 2.5-3.5 Refer to indication-specific guidelines for appropriate target ranges for prosthetic heart valve replacement. Current interpretive data was last revised on 2019. Blood 02/23/2023 11:3 0 AM CDT 02/23/2023 11:32 AM CDT Gustabo Francisco MD LAB BLOOD ORDERABLES F inal Result Performing Organization Address [facility] de Phone Number [facility] [address] [facility] [place] [address] * (ABNORMAL) CBC with auto differential (02/23/2023 11:30 AM CDT) WBC 7.1 3.8 - 9.9 K/cumm Hgb 15.9 13.0 - 17.5 g/dL [facility] Hct 48.1 38.9 - 50.3 % [facility] Plt 314 150 - 400 K/cumm [facility] MPV 8.9(L) 9.1 - 12.3 fL [facility] RBC 5.52 4.30 - 5.80 M/cumm [facility] Comment: Interpretive Data A reference range for this assay has not been established for patients with an unknown legal sex. Please refer to the laboratory test catalog for established sex-specific reference intervals. Current interpretive data was last revised on 2023. MCV 87.1 81.3 - 96.4 fL [facility] MCH 28.8 27.1 - 33.3 pg [facility] MCHC 33.1 32.3 - 35.7 g/dL [facility] RDW CV 13.6 11.1 - 14.9 % [facility] CH RDW SD 43.8 35.7 - 48.1 fL [facility] NRBC abs 0.00 0.00 - 0.01 K/cumm [facility] Blood 02/23/2023 11:3 0 AM CDT 02/23/2023 11:32 AM CDT Narrative [facility] - 02/23/2023 11:38 AM CDT If most recent labs were drawn prior to 4 AM, draw only prior to initiating procedure. Gustabo Francisco MD LAB BLOOD ORDERABLES F inal Result [facility] [address] [facility] [place] [address] * (ABNORMAL) Basic metabolic panel (02/23/2023 11:30 AM CDT) Sodium 143 135 - 145 mmol/L Potassium, pl 5.0(H) 3.3 - 4.9 mmol/L [facility] Chloride 106 97 - 110 mmol/L [facility] CO2 25 22 - 32 mmol/L [facility] Anion gap 12 2 - 15 mmol/L [facility] BUN 12 6 - 25 mg/dL [facility] Creatinine 2.12(H) 0.80 - 1.30 mg/dL [facility] Glucose 100 70 - 199 mg/dL [facility] Comment: Interpretive Data Fasting glucose >/= 126 [...] 2022. Calcium 9.9 8.5 - 10.3 mg/dL [facility] Blood 02/23/2023 11:3 0 AM CDT 02/23/2023 11:32 AM CDT Gustabo Francisco MD LAB BLOOD ORDERABLES F inal Result [facility] [address] [facility] [place] [address] documented in this encounter Visit Diagnoses Diagnosis [...] Given 02/24/2023 8:09 AM CDT 20 mg PARoxetine (PAXIL) tablet 40 mg 40 mg, [...] and after each use. , Indications: FlushingIndications:Flushing documented in this encounter Discontinued Medications Medication [...] First dose on Tue02/23/23 at 2100 1551 (MAR Hold - Provider: Automatic Transfer Provider - Reason: Patient not available)1725 (MAR Unhold - Provider: Automatic Transfer Provider)2110 (Given - Provider: Oral Cortez, MURPHY) amLODIPine (NORVASC) tablet 10 mg 10 mg, oral, Daily, First dose on Tue02/23/23 at 1345 1551 ([facility] Hold - Provider: Automatic Transfer Provider - Reason: Patient not available)1725 ([facility] Unhold - Provider: Automatic Transfer Provider)1743 (Not Given - Provider: Amelie Garcia RN - Reason: Order parameters not met - Comment: hypotensive) 0809 (Given - Provider: Veronica De Los Santos, MURPHY) atorvastatin (LIPITOR) tablet 40 mg 40 mg, oral, Daily, First dose on Tue02/23/23 at 1800 0900 (Not Given - Provider: Amelie Garcia RN - Reason: Patient not available)1551 ([facility] Hold - Provider: Automatic Transfer Provider - Reason: Patient not available)1725 ([facility] Unhold - Provider: Automatic Transfer Provider) 0809 (Given - Provider: Veronica De Los Santos, MURPHY) carvediloL (COREG) tablet 25 mg 25 mg, oral, 2 times daily with meals (bkfst, dinner), First dose on Tue02/23/23 at 1800 1551 ([facility] Hold - Provider: Automatic Transfer Provider - Reason: Patient not available)1725 ([facility] Unhold - Provider: Automatic Transfer Provider)1744 (Not Given - Provider: Amelie Garcia RN - Reason: Order parameters not met - Comment: hypotensive) 0809 (Given - Provider: Veronica De Los Santos RN) hydrALAZINE (APRESOLINE) tablet 10 mg 10 mg, oral, 3 times daily, First dose on Tue02/23/23 at 1600 1551 ([facility] Hold - Provider: Automatic Transfer Provider - Reason: Patient not available)1600 (Not Given - Provider: Amelie Garcia RN - Reason: Patient not available)1725 ([facility] Unhold - Provider: Automatic Transfer Provider)211 (Hold - Provider: Oral Cortez RN - Reason: Contraindicated - Comment: BP soft, notified MD of holding the medications) 0809 (Given - Provider: Veronica De Los Santos RN) isosorbide dinitrate (ISORDIL) tablet 20 mg 20 mg, oral, 3 times daily, First dose on Tue02/23/23 at 1600 1551 ([facility] Hold - Provider: Automatic Transfer Provider - Reason: Patient not available)1600 (Not Given - Provider: Amelie Garcia RN - Reason: Patient not available)1725 ([facility] Unhold - Provider: Automatic Transfer Provider)212 (Hold - Provider: Oral Cortez RN - Reason: Contraindicated - Comment: BP soft , notified MD of meds held) 0809 (Given - Provider: Veronica De Los Santos, RN) PARoxetine (PAXIL) tablet 40 mg 40 mg, oral, Daily, First dose on Tue02/23/23 at 1800 0900 (Not Given - Provider: Amelie Garcia RN - Reason: Patient not available)1551 ([facility] Hold - Provider: Automatic Transfer Provider - Reason: Patient not available)1725 ([facility] Unhold - Provider: Automatic Transfer Provider) 0809 (Given - Provider: Veronica De Los Santos, RN) sacubitriL-valsartan (ENTRESTO) 49-51 mg tablet 1 tablet 1 tablet, oral, 2 times daily, First dose on Tue02/23/23 at 1345, Indications: chronic heart failure 1551 ([facility] Hold - Provider: Automatic Transfer Provider - Reason: Patient not available)1725 ([facility] Unhold - Provider: Automatic Transfer Provider)1745 (Not Given - Provider: Amelie Garcia RN - Reason: Order parameters not met - Comment: hypotensive)2110 (Given - Provider: Oral Cortez RN) 0809 (Given - Provider: Veronica De Los Santos RN) sodium chloride 0.9% flush 0.5-20 mL 0.5-20 mL, intra-catheter, Every 8 hours scheduled, First dose on Tue02/23/23 at 2200, Recovery (CV), Flush volume based on line type and size. , Indications: Flushing 2129 (Given - Provider: Oral Cortez, RN) 0643 (Given - Provider: Oral Cortez [...] Indications: Pain 1755 (Given - Provider: Amelie Garcia, RN)2354 (Given - Provider: Oral Cortez, RN) 0809 (Given - Provider: Veronica De Los Santos, RN)1247 (Given - Provider: Veronica De Los Santos RN) lidocaine-EPINEPHrine (XYLOCAINE with EPI) 2 %-1:100,000 [...] ioversoL (OPTIRAY 320) injection 10 mL 1 lidocaine-EPINEPHrine (XYLOC SHARI with EPI) 2 %-1:100,000 injection 1 02/23/2023 naloxone (NARCAN) 0.4 mg/mL injection 0.04-0.4 mg 1 02/23/2023 ondansetron (ZOFRAN) injection 4 mg 1 02/23 sodium chloride 0.9% flush 0.5-20 mL 1 02/13 sodium chloride 0.9% infusion 1 02/23/2023 sodium chloride 0.9% solution 1 02/23/2023 vancomycin (VANCOCIN) 1,000 mg in sodium chloride 0.9% 500 mL solution 1 02/23/2023 Nursing Count Last Ordered Date [...] 02/23/2023 documented in this encounter Care Teams Stove Fitter Relationship Specialty Start Date End Date Naomy Maddox MD [address] [place], [place] [id number] PCP - General Internal Medicine 05/06/20 documented as of this encounter
--- OUTSIDE RECORDS SUMMARY | 2024-05-17 12:08 | XMS_ITS | Encounter Summary ---
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 Please advise RING PADS SUPERVISOR documented in this encounter Plan of Treatment Not on file documented as of this encounter Visit Diagnoses Not on filedocumented in this encounter Care Teams Material Handling Technician Relationship Specialty Start Date End Date aNomy Maddox MD [address] [place] [address] PCP - General Internal Medicine 05/06/20 documented as of this encounter
--- OUTSIDE RECORDS SUMMARY | 2024-05-17 12:09 | XMS_ITS | Encounter Summary ---
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
--- OUTSIDE RECORDS SUMMARY | 2024-05-17 12:09 | XMS_ITS | Encounter Summary ---
Author Organization 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 Please advise. documented in this encounter Plan of Treatment Not on file documented as of this encounter Visit Diagnoses Not on filedocumented in this encounter Care Teams Hot Kettle Tender Relationship Specialty Start Date End Date Naomy Maddox MD [address] [place] [address] PCP - General Internal Medicine 05/06/20 documented as of this encounter
--- OUTSIDE RECORDS SUMMARY | 2024-05-17 12:09 | XMS_ITS | Encounter Summary ---
Author Organization [facility] Address [address] [place] [address] Care Team Providers Care Senior Compliance Officer Name Role Phone Naomy Maddox MD Primary Care Provider [phone] Reason for Visit * Reason Comments Follow-up Discuss BI V ICD Encounter Details Date Type Department Care Team (Late st Contact Info) Description 01/13/2023 1:15 PM CDT Office Visit [place] Tie Inspector at [address] [place] [address] Gustabo Francisco MD [address] [place] [address] [address] [place] [address] Non-ischemic cardiomyopathy (CMS/HCC) (HCC) (Primary Dx) Social History Tobacco Use Types Packs/Day Years Used Date Smoking Tobacco: Never Tobacco Cessation:Counseling Given: Not Answered Sex and Gender Information Value Date Recorded Sex Assigned at Not on file 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 Gender Identity Not on file Sexual Orientation Not on file documented as of this encounter Last Filed Vital Signs Vital Sign Reading Time Taken Comments Blood Pressure 96/68 01/13/2023 1:13 PM CDT Pulse 90 01/13/2023 1:13 PM CDT Temperature - - Respiratory Rate 18 01/13/2023 1:13 PM CDT Oxygen Saturation - - Inhaled Oxygen Concentration - - Weight 92.5 kg (204 lb) 01/13/2023 1:13 PM CDT Height 177.8 cm (5' 10 ) 01/13/2023 1:13 PM CDT Body Mass Index 29.27 01/13/2023 1:13 PM CDT documented in this encounter Progress Notes * Gustabo Francisco MD - 01/13/2023 1:15 PM CDT 01/13/2023 CHIEF COMPLAINT Chief Complaint Patient presents with Follow-up Discuss BI V ICD Routine clinic f/u visit INTERVAL HISTORY Active complaints: none Hospitalization or ER visits none Physical activity normal Compliance with medication Yes REVIEW OF SYSTEMS General: No bleeding, chills or fevers Cardiac:No chest pain or palpitations Chest: No SOB or cough Neuro: no focal weakness or dizziness PHYSICAL EXAM Vitals BP 96/68 (BP Location: Right arm, Patient Position: Sitting) Pulse 90 Resp 18 Ht 177.8 cm (5' 10 ) Wt 92.5 kg (204 lb) BMI 29.27 kg/m?? General: able to lie flat and no acute distress Cardiac: S1 S2 no murmur, no JVD Chest: CTAB normal effort and equal chest expansion LE: warm, no edema, intact peripheral pulses LABS Lab Results Component Value Date WBC 7.8 04/12/2022 HGB 14.7 04/12/2022 HCT 42.2 04/12/2022 MCV 84.1 04/12/2022 LABPLAT 266 04/12/2022 Lab Results Component Value Date GLUCOSE 99 04/12/2022 CALCIUM 9.3 04/12/2022 SODIUM 138 04/12/2022 POTASSIUM 3.8 04/12/2022 CO2 25 04/12/2022 CHLORIDE 102 04/12/2022 BUNSER 16 04/12/2022 CREATININE 2.19 (H) 04/12/2022 No results found for: CHOL , POCCHOL No results found for: HDL , POCHDL No results found for: LDLCALC , CLDL , HIRISKLDL , LDL , LDLC , LDLDIRECT , LDLMED , LDLP , POCLDL , SCRLDL , SMALLLDLP , TOTLDLC No results found for: TRIG , POCTRIG ER/hospital visits None recently Prior clinic visits 01/08/2022: Easy fatigue and SOB referred for C 05/21/2022 added aldactone and repeated TTE and Ef is still < 35% DIAGNOSTIC TESTS TTE: 10/26/2022 Severe global left ventricular systolic [...] is estimated at 30%. 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 and low filling pressures CAD with OM 80% Stenosis that cant explain his cardiomyopathy CURRENT MEDICATIONS Current Outpatient Medications Medication Sig Dispense Refill amitriptyline (ELAVIL) 25 mg tablet amLODIPine (NORVASC) 10 mg tablet Take 1 tablet (10 mg total) by mouth daily atorvastatin (LIPITOR) 40 mg tablet carvediloL (COREG) 25 mg tablet Take 1 tablet (25 mg total) by mouth escitalopram (LEXAPRO) 10 mg tablet take 1 tablet by oral route every day 0 0 famotidine (PEPCID) 20 mg tablet Take 1 tablet (20 mg total) by mouth 2 (two) times a day gabapentin (NEURONTIN) 100 mg capsule take 3 capsule by oral route 3 times every day 0 0 hydrALAZINE (APRESOLINE) 10 mg tablet TAKE 2 TABLETS BY MOUTH THREE TIMES DAILY 270 tablet 3 hydrOXYzine (ATARAX) 10 mg tablet isosorbide dinitrate (ISORDIL) 20 mg tablet TAKE 1 TABLET(20 MG) BY MOUTH THREE TIMES DAILY 90 tablet 3 losartan (COZAAR) 100 mg tablet omeprazole (PriLOSEC) 20 mg capsule take 1 capsule by oral route every day 30 minutes to 1 hour before a meal 30 3 PARoxetine (PAXIL) 40 mg tablet Take 1 tablet (40 mg total) by mouth daily spironolactone (ALDACTONE) 25 mg tablet Take 1 tablet (25 mg total) by mouth daily 90 tablet 3 triamterene-hydroCHLOROthiazide (MAXZIDE,DYAZIDE) 37.5-25 mg per tablet/capsule ARIPiprazole (ABILIFY) 10 mg tablet (Patient not taking: Reported on 11/05/2022) furosemide (LASIX) 40 mg tablet Take 1 tablet (40 mg total) by mouth 2 (two) times a day 20 tablet 0 No current facility-administered medications for this visit. 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 OM is diseased but explain cardiomyopathy, compensated, plan coreg, and spironolactone. D/C losartan and replace with entresto 49-51 po BID, add jardiance 10 mg daily, cont lasix 40 mg BID, refer to BiV ICD HTN controlled cont amlodpine, ARB, B-polo and hydralazine CKD stage 3 LBBB Recommended changes in medical therapy none Recommended investigation none Recommended F/U in 6 months Counseled about importance of compliance with medical therapy, healthy diet, exercise and healthy life style. Chart reviewed cardiac workup reviewed Severe nonischemic cardiomyopathy Left bundle-branch block Persistent severe systolic dysfunction Chronic systolic congestive heart failure Patient would qualify for a biventricular ICD Explained the procedure and its complications and willing to schedule it Gustabo Francisco MD 01/13/23 documented in this encounter Plan of Treatment Not on file documented as of this encounter Visit Diagnoses Diagnosis Non-ischemic cardiomyopathy (CMS/HCC) (HCC)- Primary Other primary cardiomyopathies documented in this encounter Care Teams Senior Compliance Officer Relationship Specialty Start Date End Date Naomy Maddox MD [address] [place] [address] PCP - General Internal Medicine 05/06/20 documented as of this encounter
--- OUTSIDE RECORDS SUMMARY | 2024-05-17 12:09 | XMS_ITS | Encounter Summary ---
Author Organization [facility] Healthcare Address [address] [place] [address] Care Team Providers Care Play Writer Name Role Phone Naomy Maddox MD Primary Care Provider [phone] Reason for Referral * Cardiology (Routine) - Closed Specialty Diagnoses / Procedures Referred By Tanesha dennis Referred To Contact Diagnoses Cardiomyopathy, idiopathic (HCC) Procedures Transthoracic Echo (TTE) Complete W Doppler/CF Zak Mcgee MD Phone: tel: fax: [address] [address] Referral ID Status Reason Start Date Expiration Date Visits Re quested Visits Authorized [id number] Closed 05/25/2022 05/25/2023 1 1 Reason for Visit * Cardiology (Routine) - Closed Specialty Diagnoses / Procedures Referred By Tanesha dennis Referred To Contact Diagnoses Cardiomyopathy, idiopathic (HCC) Procedures Transthoracic Echo (TTE) Complete W Doppler/CF Zak Mcgee MD Phone: tel: fax: [address] [address] Referral ID Status Reason Start Date Expiration Date Visits Re quested Visits Authorized [id number] Closed 05/25/2022 05/25/2023 1 1 Encounter Details Date Type Department Care Team (Latest Contact Info) Description 10/26/2022 9:32 AM CDT - 10/26/2022 11:59 PM CDT Hospital Encounter [facility] Cardiology [address] [place] [address] Cardiomyopathy, idiopathic (HCC) Discharge Disposition: Discharge to home or self care Social History Tobacco Use Types Packs/Day Years Used Date Smoking Tobacco: Never Tobacco Cessation:Counseling Given: Not Answered Sex and Gender Information Value Date Recorded Sex Assigned at Not on file 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 Gender Identity Not on file Sexual Orientation Not on file documented as of this encounter Last Filed Vital Signs Vital Sign Reading Time Taken Comments Blood Pressure - - Pulse - - Temperature - - Respiratory Rate - - Oxygen Saturation - - Inhaled Oxygen Concentration - - Weight 88.5 kg (195 lb) 10/26/2022 9:50 AM CDT Height 177.8 cm (5' 10 ) 10/26/2022 9:50 AM CDT Body Mass Index 27.98 10/26/2022 9:50 AM CDT documented in this encounter Medications at Time [...] (40 mg total) by mouth daily 10/13/2016 ARIPiprazole (ABILIFY) 10 mg tablet 05/19/2020 02/23/2023 escitalopram (LEXAPRO) 10 mg tablet take 1 tablet by oral route every day 0 0 05/21/2015 02/23/2023 furosemide (LASIX) 40 mg tablet Take 1 tablet (40 mg total) by mouth 2 (two) times a day 20 tablet 08/17/2021 02/23/2023 gabapentin (NEURONTIN) 100 mg capsule take 3 capsule by oral route 3 times every day 0 0 05/21/2015 02/23/2023 hydrALAZINE (APRESOLINE) 10 mg tablet TAKE 2 TABLETS BY MOUTH THREE TIMES DAILY 270 tablet 3 07/26/2022 03/17/2023 isosorbide dinitrate (ISORDIL) 20 mg tablet TAKE 1 TABLET(20 MG) BY MOUTH THREE TIMES DAILY 90 tablet 3 07/06/2022 12/16/2022 losartan (COZAAR) 100 mg tablet 05/19/2020 11/05/2022 omeprazole (PriLOSEC) 20 mg capsule take 1 capsule by oral route every day 30 minutes to 1 hour before a meal 30 3 05/13/2016 02/23/2023 spironolactone (ALDACTONE) 25 mg tablet Take 1 tablet (25 mg total) by mouth daily 90 tablet 3 05/21/2022 02/23/2023 triamterene-hydro CHLOROthiazide (MAXZIDE,DYAZIDE) 37.5-25 mg per tablet/capsule 02/23/2023 documented as of this encounter Discharge Disposition Disposition Code Departure Means Destination Discharge to home or self care documented in this encounter Plan of Treatment Not on file documented as of this encounter Procedures Procedure Name Priority Date/Time Associated Diagnosis Comments TRANSTHORACIC ECHO (TTE) COMPLETE W DOPPLER/CF WO CONTRAST Routine 10/26/2022 10:17 AM CDT Cardiomyopathy, idiopathic (HCC) documented in this encounter Results * TRANSTHORACIC ECHO (TTE) COMPLETE W DOPPLER/CF WO CONTRAST (10/26/2022 10:17 AM CDT) Anatomical Region Laterality Modality Ultrasound 10/26/2022 9:45 AM CDT Narrative 10/26/2022 4:00 PM CDT [address] [place] [address] Echocardiogram Report Patient Name: NATAN RIVERA : 7 Study Date: 10/26/2022 9:45:01 AM Gender: M Tech: SERVICE 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 Indications: Cardiomyopathy. Measurements: 2D/M Mode ?Doppler ? Measurement ?Value ?Normal Range ? Measurement ?Value ?Normal Range ? EF Teich MM ?21.9 ? [ 55.0 - 70.0 ] percent ?JIGAR Vmax ? 2.13 ? [ 2.00 - 4.00 ] cm2 ? LVIDd MM ? 5.17 ? [ 4.20 - 5.90 ] cm ? AV Mean PG ? 3 ?[ 2 - 4 ] mmHg ? LVIDs MM ? 4.65 ? [ 2.30 - 3.90 ] cm ? AV Peak Grayson ?1.25 ? [ 1.00 - 1.70 ] m/s ? LVPWd MM ? 0.52 ? [ 0.60 - 1.00 ] cm ? AV VTI ? 19.12 ?cm ? IVSd MM ?0.73 ? [ 0.60 - 0.90 ] cm ? LVOT Diam ?2.26 ? [ 1.70 - 2.10 ] cm ? LA Dimension MM ?4.27 ? [ 3.00 - 4.00 ] cm ? LVOT Peak Grayson ?0.66 ? [ 0.70 - 1.10 ] m/s ? AoR Diam MM ?2.78 ? [ 2.60 - 3.70 ] cm ? LVOT VTI ? 9.50 ? [ 20.00 - 30.00 ] cm ? ACS MM ? 1.60 ? [ 1.50 - 2.60 ] cm ? MV E Peak Grayson ?1.18 ? [ 0.60 - 1.30 ] m/s ? MV A Peak Grayson ?0.37 ? [ 1.00 - 1.20 ] m/s ? MV Mean PG ? 3 ?[ <= 5 ] mmHg ? MV PHT ? 34 ? [ 20 - 100 ] msec ? MVA ?6.50 ? MV Decel Time ?116 ?[ 104 - 258 ] msec ? PV Peak Grayson ?1.32 ? [ 0.40 - 0.80 ] m/s ? TR Peak Grayson ?2.84 ? [ 1.00 - 2.80 ] m/s ? TR Peak PG ? 32 ? mmHg ? RVSP ? 37.00 ?[ 10.00 - 36.00 ] mmHg ? E` ? 0.04 ? cm/sec ? E/E` ? 26.51 ?[ <= 10.00 ] ? PA Pressure ?5.00 ? [ 10.00 - 36.00 ] mmHg ? - Findings: Atrial Septum: Normal atrial septum. Left Ventricle: Severe global left ventricular systolic dysfunction. Ejection fraction is visually estimated at 15 to 20 %. These segments of the LV are akinetic anterior segment and septal segment and apical segment. Left Atrium: The left atrium is normal in size. Right Ventricle: Normal right ventricular size. Right Atrium: The right atrium is normal in size. Aortic Valve: Normal structure of the aortic valve. Mitral Valve: Moderate mitral annular calcification. Moderate mitral valve regurgitation. Pulmonic Valve: Normal structure of the pulmonic valve. Tricuspid Valve: Normal structure of the tricuspid valve. Mild pulmonary hypertension based on right ventricular systolic pressure. Estimated peak RVSP is 42 to 46 mmHg. Mild tricuspid regurgitation. Pericardium: Normal pericardium with no significant pericardial effusion. Aorta: Normal aortic root. IVC: The IVC is not well visualized. Conclusions: Severe global left ventricular systolic dysfunction. Ejection [...] 42 to 46 mmHg. Mild tricuspid regurgitation. Electronically Signed By: Dr Benson Anderson 2022-10-26 16:00:46 CDT CC: CC: Procedure Note Benson Anderson MD - 10/26/[address] [place] [address] Echocardiogram Report Patient Name: NATAN RIVERAPatient ID: [id number] : [id number] Date: 10/26/2022 9:45:01 AM Gender: MAccession #: [id number] Tech: NPLocation: Echo Lab 1 Ref.Provider: ZAK MCGEEHeight(Cm): 178 BSA: 2.09Weight(Kg): 88.5 Quality: AdequateOrder Provider: ZAK MCGEE Procedures: Echocardiographic Report: Transthoracic echocardiogram with complete 2D, M-Mode, and color Dopplerexamination. Indications: Cardiomyopathy. Measurements: 2D/M Mode Doppler Measurement Value Normal Range MeasurementValue Normal Range EF Teich MM 21.9 [ 55.0 - 70.0 ] percent JIGAR Vmax2.13 [ 2.00 - 4.00 ] cm2 LVIDd MM 5.17 [ 4.20 - 5.90 ] cm AV Mean PG 3[ 2 - 4 ] mmHg LVIDs MM 4.65 [ 2.30 - 3.90 ] cm AV Peak Vel1.25 [ 1.00 - 1.70 ] m/s LVPWd MM 0.52 [ 0.60 - 1.00 ] cm AV VTI19.12 cm IVSd MM 0.73 [ 0.60 - 0.90 ] cm LVOT Diam2.26 [ 1.70 - 2.10 ] cm LA Dimension MM 4.27 [ 3.00 - 4.00 ] cm LVOT Peak Vel0.66 [ 0.70 - 1.10 ] m/s AoR Diam MM 2.78 [ 2.60 - 3.70 ] cm LVOT VTI9.50 [ 20.00 - 30.00 ] cm ACS MM 1.60 [ 1.50 - 2.60 ] cm MV E Peak Vel1.18 [ 0.60 - 1.30 ] m/s MV A Peak Vel0.37 [ 1.00 - 1.20 ] m/s MV Mean PG 3[ <= 5 ] mmHg MV PHT 34[ 20 - 100 ] msec MVA6.50 MV Decel Gmdt386 [ 104 - 258 ] msec PV Peak Vel1.32 [ 0.40 - 0.80 ] m/s TR Peak Vel2.84 [ 1.00 - 2.80 ] m/s TR Peak PG 32mmHg RVSP37.00 [ 10.00 - 36.00 ] mmHg E`0.04 cm/sec E/E`26.51 [ <= 10.00 ] PA Pressure5.00 [ 10.00 - 36.00 ] mmHg - Findings: Atrial Septum: Normal atrial septum. Left Ventricle: Severe global left ventricular systolic dysfunction. Ejection fraction isvisually estimated at 15 to 20 %. These segments of the LV are akinetic anteriorsegment and septal segment and apical segment. Left Atrium: The left atrium is normal in size. Right Ventricle: Normal right ventricular size. Right Atrium: The right atrium is normal in size. Aortic Valve: Normal structure of the aortic valve. Mitral Valve: Moderate mitral annular calcification. Moderate mitral valveregurgitation. Pulmonic Valve: Normal structure of the pulmonic valve. Tricuspid Valve: Normal structure of the tricuspid valve. Mild pulmonary hypertension basedon right ventricular systolic pressure. Estimated peak RVSP is 42 to 46 mmHg. Mildtricuspid regurgitation. Pericardium: Normal pericardium with no significant pericardial effusion. Aorta: Normal aortic root. IVC: The IVC is not well visualized. Conclusions: Severe global left ventricular systolic dysfunction. Ejection fraction isvisually estimated at 15 to 20 %. These segments of the LV are akinetic anteriorsegment and septal segment and apical segment. Moderate mitral annular calcification. Moderate mitral valveregurgitation. Normal structure of the aortic valve. Normal structure of the tricuspid valve. Mild pulmonary hypertension basedon right ventricular systolic pressure. Estimated peak RVSP is 42 to 46 mmHg. Mildtricuspid regurgitation. Electronically Signed By: Dr Benson Anderson 2022-10-26 16:00:46 CDT CC: CC: Zak Mcgee MD CV ECHO PROCEDURES Final Re sult documented in this encounter Visit Diagnoses Diagnosis Cardiomyopathy, idiopathic (HCC) Other primary cardiomyopathies documented in this encounter Care Teams Play Writer Relationship Specialty Start Date End Date Naomy Maddox MD [address] [place] [address] PCP - General Internal Medicine 05/06/20 documented as of this encounter
--- OUTSIDE RECORDS SUMMARY | 2024-05-17 12:09 | XMS_ITS | Encounter Summary ---
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 * Telephone Encounter - Rosa Miranda MA - 11/10/2022 9:47 AM CDT This is an [facility] patient who was seen last Tuesday. He is wanting to know if the Covid vaccine/boosters could have caused the issues with his heart? Please advise. documented in this encounter Plan of Treatment Not on file documented as of this encounter Visit Diagnoses Not on filedocumented in this encounter Care Teams Claim Representative Relationship Specialty Start Date End Date Naomy Maddox MD [address] [place] [id number] PCP - General Internal Medicine 05/06/20 documented as of this encounter
--- OUTSIDE RECORDS SUMMARY | 2024-05-17 12:09 | XMS_ITS | Encounter Summary ---
Author Organization [facility] Medical Group Address [address] [place] [address] Care Team Providers Care Pre Fabricator Name Role Phone Naomy Maddox MD Primary Care Provider [phone] Encounter Details Date Type Department Care Team (Late st Contact Info) Description 11/05/2022 8:30 AM CDT Office Visit [place] Facility Administrator at [address] [place] [address] Zak Anderson MD [address] [place] [address] [address] [place] [address] Non-ischemic cardiomyopathy (CMS/HCC) (HCC) (Primary Dx) Social History Tobacco Use Types Packs/Day Years Used Date Smoking Tobacco: Never Sex and Gender Information Value Date Recorded Sex Assigned at Not on file 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 Gender Identity Not on file Sexual Orientation Not on file documented as of this encounter Last Filed Vital Signs Vital Sign Reading Time Taken Comments Blood Pressure 109/74 11/05/2022 8:17 AM CDT Pulse 93 11/05/2022 8:17 AM CDT Temperature - - Respiratory Rate 18 11/05/2022 8:17 AM CDT Oxygen Saturation - - Inhaled Oxygen Concentration - - Weight 91.6 kg (202 lb) 11/05/2022 8:17 AM CDT Height 177.8 cm (5' 10 ) 11/05/2022 8:17 AM CDT Body Mass Index 28.98 11/05/2022 8:17 AM CDT documented in this encounter Ordered Prescriptions Prescription Sig Dispense Quantity Refills Last Filled Start Date End Date empagliflozin (JARDIANCE) 10 mg tablet Take 1 tablet (10 mg total) by mouth daily 30 tablet 11 11/05/2022 10/27/2023 sacubitriL-valsart an (ENTRESTO) 49-51 mg tabletIndications: chronic heart failure Take 1 tablet by mouth 2 (two) times a day 60 tablet 11 11/05/2022 10/27/2023 documented in this encounter Progress Notes * Zak Anderson MD - 11/05/2022 8:30 AM CDT 11/05/2022 CHIEF COMPLAINT No chief complaint on file. Routine clinic f/u visit INTERVAL HISTORY Active complaints: none Hospitalization or ER visits none Physical activity normal Compliance with medication Yes REVIEW OF SYSTEMS General: No bleeding, chills or fevers Cardiac:No chest pain or palpitations Chest: No SOB or cough Neuro: no focal weakness or dizziness PHYSICAL EXAM Vitals BP 109/74 (BP Location: Left arm, Patient Position: Sitting) Pulse 93 Resp 18 Ht 177.8 cm (5' 10 ) Wt 91.6 kg (202 lb) BMI 28.98 kg/m?? General: able to lie flat and [...] 2.19 (H) 04/12/2022 No results found for: CHOL, POCCHOL No results found for: HDL, POCHDL No results found for: LDLCALC, CLDL, HIRISKLDL, LDL, LDLC, LDLDIRECT, LDLMED, LDLP, POCLDL, SCRLDL,SMALLLDLP, TOTLDLC No results found for: TRIG, POCTRIG ER/hospital visits None recently Prior clinic visits 01/08/2022: Easy fatigue and SOB referred for [facility] 05/21/2022 added aldactone and repeated TTE [...] is estimated at 30%. CATH 04/12/2022 Normal [facility] and low filling pressures CAD with OM [...] and healthy life style. Zak Anderson MD 11/05/22 documented in this encounter Miscellaneous Notes * Addendum Note - Teo Wen MA - 11/05/2022 8:30 AM CDTAddended by: TEO WEN on: 11/05/2022 08:54 AM Modules accepted: Orders documented in this encounter Plan of Treatment Not on file documented as of this encounter Visit Diagnoses Diagnosis Non-ischemic cardiomyopathy (CMS/HCC) (HCC)- Primary Other primary cardiomyopathies documented in this encounter Discontinued Medications Medication Sig Discontinue Reason Start Date End Da te losartan (COZAAR) 100 mg tablet Alternate therapy 05/19/2020 11/05/2022 documented as of this encounter Care Teams Pre Fabricator Relationship Specialty Start Date End Date Naomy Maddox MD [address] [place] [address] PCP - General Internal Medicine 05/06/20 documented as of this encounter
--- OUTSIDE RECORDS SUMMARY | 2024-05-17 12:09 | XMS_ITS | Encounter Summary ---
Author Organization [facility] Medical Group Address [address] [place] [address] Care Team Providers Care Labor Utilization Superintendent Name Role Phone Naomy Maddox MD Primary Care Provider [phone] Encounter Details Date Type Department Care Team (Late st Contact Info) Description 01/18/2023 Telephone [place] Mechanical Maintenance at [address] [address] Buffy Ennis MA Social History Tobacco Use Types Packs/Day Years Used Date Smoking Tobacco: Never Sex and Gender Information Value Date Recorded Sex Assigned at Not on file 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 documented in this encounter Plan of Treatment Not on file documented as of this encounter Visit Diagnoses Not on filedocumented in this encounter Care Teams Labor Utilization Superintendent Relationship Specialty Start Date End Date Naomy Maddox MD [address] [place] [address] PCP - General Internal Medicine 05/06/20 documented as of this encounter
--- OUTSIDE RECORDS SUMMARY | 2024-05-17 12:09 | XMS_ITS | Encounter Summary ---
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
--- OUTSIDE RECORDS SUMMARY | 2024-05-17 12:09 | XMS_ITS | Encounter Summary ---
Author Organization [facility] Address [address] [place] [address] Care Team Providers Care Supervisor Electron Tube Processing Name Role Phone Naomy Maddox MD Primary Care Provider [phone] Encounter Details Date Type Department Care Team (Late st Contact Info) Description 11/22/2022 Telephone [place] Electrification Adviser at [address] [place] [address] Rosa Miranda MA Social History Tobacco Use Types Packs/Day Years Used Date Smoking Tobacco: Never Sex and Gender Information Value Date Recorded Sex Assigned at Not on file Legal Sex Male 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 Anderson saw this patient in clinic on 11/05 and has recommended a BiV ICD and he advised the patient that Dr. Anderson would call him to speak to him about the procedure as patient has hesitation. I sent message to Dr. Anderson and he advised he no longer does the BiV ICD's and refer to you. Patientis calling again today as he has not heard anything back. documented in this encounter Plan of Treatment Not on file documented as of this encounter Visit Diagnoses Not on filedocumented in this encounter Care Teams Supervisor Electron Tube Processing Relationship Specialty Start Date End Date Naomy Maddox MD [address] [place] [address] PCP - General Internal Medicine 05/06/20 documented as of this encounter
--- OUTSIDE RECORDS SUMMARY | 2024-05-17 12:09 | XMS_ITS | Encounter Summary ---
Author Organization [facility] Address [address] [place] [address] Care Team Providers Care Italian Teacher Name Role Phone Naomy Maddox MD Primary Care Provider [phone] Encounter Details Date Type Department Care Team (Late st Contact Info) Description 11/12/2022 Telephone [place] Route Deliverer at [address] [place] [address] Rosa Miranda MA Social History Tobacco Use Types Packs/Day Years Used Date Smoking Tobacco: Never Sex and Gender Information Value Date Recorded Sex Assigned at Not on file Legal Sex Male 9:23 PM WRONG ADDRESS CLERK Gender Identity Not on file Sexual Orientation Not on file documented as of this encounter Miscellaneous Notes * Telephone Encounter - Rsoa Miranda MA - 11/25/2022 10:21 AM CDT Patient scheduled for Dec 16 at 10 a * Telephone Encounter - Rosa Miranda MA - 11/12/2022 11:[address] Anderson saw this patient in clinic on 11/05 and has recommended an ICD and he advised patient that you would be able to call him and speak to him about the procedure as patient has hesitation. Thanks. documented in this encounter Plan of Treatment Not on file documented as of this encounter Visit Diagnoses Not on filedocumented in this encounter Care Teams Italian Teacher Relationship Specialty Start Date End Date Naomy Maddox MD [address] [place] [id number] PCP - General Internal Medicine 05/06/20 documented as of this encounter
--- OUTSIDE RECORDS SUMMARY | 2024-05-17 12:10 | XMS_ITS | Encounter Summary ---
Author Organization [facility] Address [address] [place] [address] Care Team Providers Care Predatory Game Hunter Name Role Phone Naomy Maddox MD Primary Care Provider [phone] Reason for Visit * Diagnostic Imaging (Routine) - Closed Specialty Diagnoses / Procedures Referred By Tanesha dennis Referred To Contact Diagnoses Acute on chronic systolic heart failure (HCC) Procedures NM MPI SPECT (Rest and/or Stress) Multiple Studies Zak Mcgee MD Phone: tel: fax: [address] [address] Referral ID Status Reason Start Date Expiration Date Visits Re quested Visits Authorized [id number] Closed 11/23/2021 11/23/2022 1 1 Encounter Details Date Type Department Care Team (Latest Contact Info) Description 12/10/2021 7:29 AM CDT - 12/10/2021 8:33 AM CDT Hospital Encounter [facility] [address] [place] [id number] Zak Mcgee MD [address] [place] [id number] Discharge Disposition: Discharge to home or self care Social History Tobacco Use Types Packs/Day Years Used Date Smoking Tobacco: Never Sex and Gender Information Value Date Recorded Sex Assigned at Not on file 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 Gender Identity Not on file Sexual [...] 0 05/21/2015 02/23/2023 hydrALAZINE (APRESOLINE) 10 mg tabletIndications :hypertension Take 1 tablet (10 mg total) by mouth 3 (three) times a day 90 tablet 11 10/09/2021 02/17/2022 isosorbide dinitrate (ISORDIL) 10 mg tablet Take 1 tablet (10 mg total) by mouth 3 (three) times a day 90 tablet 10/09/2021 02/17/2022 losartan (COZAAR) 100 mg tablet 05/19/2020 11/05/2022 omeprazole (PriLOSEC) 20 mg capsule take 1 capsule by oral route every day 30 minutes to 1 hour before a meal 30 3 05/13/2016 02/23/2023 pravastatin (PRAVACHOL) 40 mg tablet Take 40 mg by mouth daily 04/12/2022 ranitidine (ZANTAC) 150 mg capsule take 1 capsule by oral route 2 times every day 0 0 05/21/2015 04/12/2022 TiZANidine (ZANAFLEX) 4 mg capsule Take 4 mg by mouth 2 (two) times a day as needed 04/12/2022 triamterene-hydro CHLOROthiazide (MAXZIDE,DYAZIDE) 37.5-25 mg per tablet/capsule 02/23/2023 documented as of this encounter Discharge Disposition Disposition Code Departure Means Destination Discharge to home or self care documented in this encounter Plan of Treatment Not on file documented as of this encounter Procedures Procedure Name Priority Date/Time Associated Diagnosis Comments STRESS TEST FOR DUAL READ Schedule JACINTA, Read Routine (Patient lives out of area) 12/10/2021 8:34 AM CDT Acute on chronic systolic heart failure (HCC) NM MPI SPECT (REST AND/OR STRESS) MULTIPLE STUDIES Schedule JACINTA, Read Routine (Patient lives out of area) 12/10/2021 8:34 AM CDT Acute on chronic systolic heart failure (HCC) documented in this encounter Results * Stress Test for Myocardial Perfusion (12/10/2021 8:34 AM CDT) Anatomical Region Laterality Modality Nuclear Medicine 12/10/2021 7:00 AM CDT Narrative 12/10/2021 10:59 AM CDT [place] [id number] tagWALLET Report Patient Name: NATAN RIVERA T : 1965 Study Date: 12/10/2021 7:00:00 AM Gender: M Tech: [place] Ref.Provider: ZAK MCGEE Height(Cm): 178 BSA: Weight(Kg): 190Heart Rate: 141 Order Provider: ZAK MCGEE Procedures: Pharmacologic SPECT Report.: Myocardial perfusion imaging with Sestamibi SPECT at rest and post regadenoson (Lexiscan) infusion. Indications: Chest Pain, and acute heart failure, chest pain. Findings: Procedure Data: Resting HR 79 bpm. Peak HR: 94 bpm. Predicted Maximal HR 166 bpm. Target HR: 141 bpm. Percent Max Predicted HR Achieved: 56.63 %. Baseline BP: 114/83 mmHg. Peak BP: 113/72 mmHg. Exercise Time: 00:12. Performed By: Anamaria Girard RN. Reason for Termination: Lexiscan protocol complete. Resting ECG: Normal sinus rhythm. Nonspecific ST-T abnormality. Post Pharm ECG: No diagnostic ST changes. Arrhythmia: No arrhythmias seen. Conclusions: 1. Negative Lexiscan pharmacologic stress test for chest pain or EKG changes. 2. Nuclear images are pending and they will be reported separately. Electronically Signed By: Renetta Decker MD 2021-12-10 10:59:52 CDT CC: CC: Procedure Note Renetta Decker MD - 12/10/[address] [address] Lexiscan Report Patient Name: NATAN RIVERA TPatient ID: [id number] : [id number] Date: 12/10/2021 7:00:00 AM Gender: MAccession #: [id number] Tech: JAZRef.Provider: ZAK MCGEE Height(Cm): 178BSA: Weight(Kg): 190Heart Rate: 141 Order Provider: ZAK MCGEE Procedures: Pharmacologic SPECT Report.: Myocardial perfusion imaging with Sestamibi SPECT at rest and postregadenoson (Lexiscan) infusion. Indications: Chest Pain, and acute heart failure, chest pain. Findings: Procedure Data: Resting HR 79 bpm. Peak HR: 94 bpm. Predicted Maximal HR 166 bpm. TargetHR: 141 bpm. Percent Max Predicted HR Achieved: 56.63 %. Baseline BP: 114/83 mmHg. PeakBP: 113/72 mmHg. Exercise Time: 00:12. Performed By: Anamaria Girard RN. Reason for Termination: Lexiscan protocol complete. Resting ECG: Normal sinus rhythm. Nonspecific ST-T abnormality. Post Pharm ECG: No diagnostic ST changes. Arrhythmia: No arrhythmias seen. Conclusions: 1. Negative Lexiscan pharmacologic stress test for chest pain or EKGchanges. 2. Nuclear images are pending and they will be reported separately. Electronically Signed By: Renetta Decker MD 2021-12-10 10:59:52 CDT CC: CC: Zak Mcgee MD CV STRESS PROCEDURES Final Result * NM MPI SPECT (Rest and/or Stress) Multiple Studies (12/10/2021 8:34 AM CDT) Anatomical Region Laterality Modality Body N/A Nuclear Medicine 12/10/2021 6:24 AM CDT Narrative 12/10/2021 11:03 AM CDT [address] [place] [address] tagWALLET Report Patient Name: NATAN RIVERA T : 1965 Study Date: 12/10/2021 6:24:42 AM Gender: M Tech: Ref.Provider: ZAK MCGEE Height(Cm): BSA: Weight(Kg): Order Provider: ZAK MCGEE - Procedures: Pharmacologic SPECT Report.: Myocardial perfusion imaging with Sestamibi SPECT at rest and post regadenoson (Lexiscan) infusion. Indications: Chest Pain. Findings: Procedure Data: Sestamibi injected at rest was 10.7 millicuries. Sestamibi injected at peak exercise was 30.7 millicuries. Predicted Maximal HR 166 bpm. defect 1: Location of defect is in the apical anterior segment. Size is small. Severity is mild. Reversibility is not present, defect is fixed. Type of defect is infarction. LV Function: Left ventricular ejection fraction is 48 %. Conclusions: 1. Myocardial Perfusion: Abnormal:. 2. 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 3. Left ventricle: Enlargement with mildly depressed systolic function (EF 40- 50%). Electronically Signed By: Renetta Decker MD 2021-12-10 11:03:07 CDT CC: CC: Procedure Note Renetta Decker MD - 12/10/[address] [place] [address] Lexiscan Report Patient Name: NATAN RIVERA TPatient ID: [id number] : [id number] Date: 12/10/2021 6:24:42 AM Gender: Elodiacession #: [id number] Tech: Ref.Provider: ZAK MCGEE Height(Cm): BSA: Weight(Kg): Order Provider: ZAK MCGEE - Procedures: Pharmacologic SPECT Report.: Myocardial perfusion imaging with Sestamibi SPECT at rest and postregadenoson (Lexiscan) infusion. Indications: Chest Pain. Findings: Procedure Data: Sestamibi injected at rest was 10.7 millicuries. Sestamibi injected atpeak exercise was 30.7 millicuries. Predicted Maximal HR 166 bpm. defect 1: Location of defect is in the apical anterior segment. Size is small.Severity is mild. Reversibility is not present, defect is fixed. Type of defect isinfarction. LV Function: Left ventricular ejection fraction is 48 %. Conclusions: 1. Myocardial Perfusion: Abnormal:. 2. 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 3. Left ventricle: Enlargement with mildly depressed systolic function (EF40- 50%). Electronically Signed By: Renetta Decker MD 2021-12-10 11:03:07 CDT CC: CC: Zak Mcgee MD IMG NM PROCEDURES Final Res ult documented in this encounter Visit Diagnoses Not on filedocumented in this encounter Care Teams Predatory Game Hunter Relationship Specialty Start Date End Date Naomy Maddox MD [address] [place] [address] PCP - General Internal Medicine 05/06/20 documented as of this encounter
--- OUTSIDE RECORDS SUMMARY | 2024-05-17 12:10 | XMS_ITS | Encounter Summary ---
Author Organization [facility] Address [address] [place] [address] Care Team Providers Care Company Marker Name Role Phone Naomy Maddox MD Primary Care Provider [phone] Reason for Referral * Cardiology (Routine) - Closed Specialty Diagnoses / Procedures Referred By Tanesha dennis Referred To Contact Diagnoses Cardiomyopathy, idiopathic (HCC) Procedures Transthoracic Echo (TTE) Complete W Doppler/CF Zak Mcgee MD Phone: tel: fax: [address] [address] Referral ID Status Reason Start Date Expiration Date Visits Re quested Visits Authorized [id number] Closed 05/25/2022 05/25/2023 1 1 DER HARDBOARD Reason for Visit * Reason Comments Follow-up Congestive Heart Failure Encounter Details Date Type Department Care Team (Late st Contact Info) Description 05/21/2022 2:45 PM GRINDER HARDBOARD Office Visit [place] Certified Nursing Assistant Instructor at [address] [address] Zak Mcgee MD [address] [place] [address] [address] [place] [address] Cardiomyopathy, idiopathic (HCC) (Primary Dx) Social History Tobacco Use Types Packs/Day Years Used Date Smoking Tobacco: Never Tobacco Cessation:Counseling Given: Not Answered Sex and Gender Information Value Date Recorded Sex Assigned at Not on file Legal Sex Male 9:23 PM GRINDER HARDBOARD Gender Identity Not on file Sexual Orientation Not on file documented as of this encounter Last Filed Vital Signs Vital Sign Reading Time Taken Comments Blood Pressure 132/88 05/21/2022 2:40 PM GRINDER HARDBOARD Pulse 100 05/21/2022 2:40 PM GRINDER HARDBOARD Temperature - - Respiratory Rate 18 05/21/2022 2:40 PM GRINDER HARDBOARD Oxygen Saturation - - Inhaled Oxygen Concentration - - Weight 95.3 kg (210 lb) 05/21/2022 2:40 PM GRINDER HARDBOARD Height 177.8 cm (5' 10 ) 05/21/2022 2:40 PM GRINDER HARDBOARD Body Mass Index 30.13 05/21/2022 2:40 PM GRINDER HARDBOARD documented in this encounter Ordered Prescriptions Prescription Sig Dispense Quantity Refills Last Filled Start Date End Date spironolactone (ALDACTONE) 25 mg tablet Take 1 tablet (25 mg total) by mouth daily 90 tablet 3 05/21/2022 02/23/2023 documented in this encounter Progress Notes * Zak Mcgee MD - 05/21/2022 2:00 PM CST 05/21/2022 CHIEF COMPLAINT Chief Complaint Patient presents with Follow-up Congestive Heart Failure Routine clinic f/u visit INTERVAL HISTORY Active complaints: occasional episode of SOB Hospitalization or ER visits none Physical activity normal Compliance with medication Yes REVIEW OF SYSTEMS General: No bleeding, chills or fevers Cardiac:No chest pain or palpitations Chest: No SOB or cough Neuro: no focal weakness or dizziness PHYSICAL EXAM Vitals BP 132/88 (BP Location: Right arm, Patient Position: Sitting) Pulse 100 Resp 18 Ht 177.8 cm (5' 10 ) Wt 95.3 kg (210 lb) BMI 30.13 kg/m?? General: able to lie flat and [...] ER/hospital visits None recently Prior clinic visits Last clinic visit was 01/08/2022 Easy fatigue and SOB referred for [facility] Nuclear stress test November 2021 1. Myocardial [...] is estimated at 30%. CATH 04/12/2022 Normal QUALITY ASSURANCE CLERK and low filling pressures CAD with OM 80% Stenosis that cant explain his cardiomyopathy CURRENT MEDICATIONS Current Outpatient Medications Medication Sig Dispense Refill amitriptyline (ELAVIL) 25 mg tablet amLODIPine (NORVASC) 10 mg tablet Take 1 tablet by mouth daily ARIPiprazole (ABILIFY) 10 mg tablet (Patient not taking: Reported on 01/08/2022) atorvastatin (LIPITOR) 40 mg tablet carvediloL (COREG) 25 mg tablet Take 25 mg by mouth escitalopram (LEXAPRO) 10 mg tablet take 1 tablet by oral route every day (Patient not taking: Reported on 01/08/2022) 0 0 famotidine (PEPCID) 20 mg tablet Take 20 mg by mouth 2 (two) times a day furosemide (LASIX) 40 mg tablet Take 1 tablet (40 mg total) by mouth 2 (two) times a day 20 tablet 0 gabapentin (NEURONTIN) 100 mg capsule take 3 capsule by oral route 3 times every day (Patient not taking: Reported on 01/08/2022) 0 0 hydrALAZINE (APRESOLINE) 10 mg tablet Take 1 tablet (10 mg total) by mouth 3 (three) times a day Take 2 tablets (20 mg total) by mouth 3 (three) times a day 270 tablet 3 hydrOXYzine (ATARAX) 10 mg tablet TK 1 T PO QD PRN (Patient not taking: Reported on 01/08/2022) isosorbide dinitrate (ISORDIL) 20 mg tablet Take 1 tablet (20 mg total) by mouth 3 (three) times a day 90 tablet 3 losartan (COZAAR) 100 mg tablet omeprazole (PriLOSEC) 20 mg capsule take 1 capsule by oral route every day 30 minutes to 1 hour before a meal 30 3 PARoxetine (PAXIL) 40 mg tablet Take 1 tablet by mouth daily No current facility-administered medications for this visit. ASSESSMENT Congestive heart failure, dilated cardiomyopathy ejection fraction 26%. Global hypokinesia with apical dyskinesia. 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 LHC showed OM disease that cant explain reduced EF. Hypertension controlled on 4 antihypertensive medications CKD stage 3 Left bundle branch block PLAN/RECOMMENDATIONS Cont current regimen of medical therapy Recommended changes in medical therapy add aldactone 25 mg daily Recommended investigation TTE and if EF < 35 refer for JOCKEY VALET-D Recommended F/U in 3 months Counseled about importance of compliance with medical therapy, healthy diet, exercise and healthy life style. Zak Mcgee MD 05/21/22 DER HARDBOARD documented in this encounter Plan of Treatment Scheduled Orders Name Type Priority Associated Diagnoses Orde r Schedule Basic metabolic panel Lab Routine Cardiomyopathy, idiopathic (HCC) Expected: 05/21/2022, Expires: 05/21/2023 documented as of this encounter Results * TRANSTHORACIC ECHO (TTE) COMPLETE W DOPPLER/CF WO CONTRAST (10/26/2022 10:17 AM CDT) Anatomical Region Laterality Modality Ultrasound 10/26/2022 9:45 AM CDT Narrative 10/26/2022 4:[address] PM [address]T [address] [place] [address] Echocardiogram Report Patient Name: NATAN RIVERA : [birth year] Study Date: 10/26/2022 9:45:01 AM Gender: M Tech: FISH GRADER Location: Echo Lab 1 Ref.Provider: ZAK MCGEE [...] Procedure Note Benson Anderson MD - 10/26/[address] [place] [address] Echocardiogram Report Patient Name: NATAN RIVERAPatient ID: [id number] : [id number] Date: 10/26/2022 9:45:01 AM Gender: MAccession #: [id number] Tech: NPLocation: Echo Lab 1 Ref.Provider: ZAK [...] - 100 ] msec MVA6.50 MV Decel [id number] [ 104 - 258 ] msec PV [...] this encounter Visit Diagnoses Diagnosis Cardiomyopathy, idiopathic (HCC)- Primary Other primary cardiomyopathies Cardiomyopathy, idiopathic (HCC) Other primary cardiomyopathies documented in this encounter Care Teams Company Marker Relationship Specialty Start Date End Date Naomy Maddox MD [address] [place] [address] PCP - General Internal Medicine 05/06/20 documented as of this encounter
--- OUTSIDE RECORDS SUMMARY | 2024-05-17 12:10 | XMS_ITS | Encounter Summary ---
Author Organization [facility] Address [address] [place] [address] Care Team Providers Care Web Press Roll Tender Name Role Phone Naomy Maddox MD Primary Care Provider [phone] Encounter Details Date Type Department Care Team (Late st Contact Info) Description 02/16/2022 Telephone [place] Injection Molding Machine Operator at [address] [address] Rosa Miranda MA Social History Tobacco Use Types Packs/Day Years Used Date Smoking Tobacco: Never Sex and Gender Information Value Date Recorded Sex Assigned at Not on file Legal Sex Male 9:23 PM VICE PRESIDENT UNDERWRITING Gender Identity Not on file Sexual Orientation Not on file documented as of this encounter Miscellaneous Notes * Telephone Encounter - Rosa Miranda MA - 02/16/2022 3:19 PM CDT Patient saw a commercial for Entresto and wanted to know if that would be a medication that would be good for him. Please advise. documented in this encounter Plan of Treatment Not on file documented as of this encounter Visit Diagnoses Not on filedocumented in this encounter Care Teams Web Press Roll Tender Relationship Specialty Start Date End Date Naomy Maddox MD [address] [place] [address] PCP - General Internal Medicine 05/06/20 documented as of this encounter
--- OUTSIDE RECORDS SUMMARY | 2024-05-17 12:10 | XMS_ITS | Encounter Summary ---
Author Organization [facility] Healthcare Address [address] [place] [address] Care Team Providers Care Integration Architect Name Role Phone Naomy Maddox MD Primary Care Provider [phone] Reason for Visit * Auth/Cert Specialty Diagnoses / Procedures Referred By Tanesha dennis Referred To Contact Diagnoses Abnormal stress test Abnormal stress test [R94.39] Procedures [place] R & L HRT CATH WINJX HRT ART& L VENTR IMG Right Left Heart Catheterization with Coronary Angiography with or without Left Ventriculography [id number] Referral ID Status Reason Start Date Expiration Date Visits Re quested Visits Authorized [id number] 1 1 Encounter Details Date Type Department Care Team (Late Contact Info) Description 04/12/2022 10:00 AM APARTMENT LOCATOR - 04/12/2022 11:00 AM APARTMENT LOCATOR Surgery [facility] Cardiac Catheterization [address] [place] [address] Zak Hung MD [address] [address] Right Left Heart Catheterization with Coronary Angiography with or without Left Ventriculography [id number] Surgery Details Date/Time Status Location OR Service Patient Class Case Class Case Type Trauma Case? 04/12/2022 10:00 AM Posted [facility] CARDIAC PULLER OVER CCL 01 Cardiovascular Outpatient Elective Panel 1 Procedure LRB Anes Op Region Wound Class Comments Right Left Heart Catheterization with Coronary Angiography with or without Left Ventriculography 61271 N/A Conscious Sedation Surgeon Surgeon Role Service Panel Zak Hung MD Primary Cardiovascular 1 documented in this encounter Social History Tobacco Use Types Packs/Day Years Used Date Smoking Tobacco: Never Tobacco Cessation:Counseling Given: Not Answered Sex and Gender Information Value Date Recorded Sex Assigned at Not on file Legal Sex Male 9:23 PM APARTMENT LOCATOR Gender Identity Not on file Sexual Orientation Not on file documented as of this encounter Last Filed Vital Signs Vital Sign Reading Time Taken Comments Blood Pressure 144/93 04/12/2022 9:00 AM APARTMENT LOCATOR Pulse 93 04/12/2022 9:00 AM APARTMENT LOCATOR Temperature 36.5 ??C (97.7 ??F) 04/12/2022 9:00 AM CS T Respiratory Rate 17 04/12/2022 9:00 AM APARTMENT LOCATOR Oxygen Saturation 100% 04/12/2022 9:00 AM APARTMENT LOCATOR Inhaled Oxygen Concentration - - Weight 88.5 kg (195 lb) 04/12/2022 9:00 AM APARTMENT LOCATOR Height 177.8 cm (5' 10 ) 04/12/2022 9:00 AM APARTMENT LOCATOR Body Mass Index 27.98 04/12/2022 9:00 AM APARTMENT LOCATOR documented in this encounter Discharge Instructions * Discharge Instructions* Brissa Whitney NP - 04/12/2022 12:19 PM APARTMENT LOCATOR Post Cardiac Cath Puncture site orders ~The morning after your procedure, you may take the dressing off. The easiest way to do this is when you are showering. Get the tape and dressing wet and remove it. ~After the bandage is removed, cover the area with a small adhesive bandage. It is normal for the catheter insertion site to be black and blue for a couple of days. There may also be a small lump (about the size of a pea) at the site. ~Wash the catheter insertion site at least once daily with soap and water. Place soapy water on your hand or washcloth and gently wash the insertion site; do not rub. Keep the area clean and dry whenyou are not showering. ~Do not use creams, lotions, or ointment on the insertion site. Wear loose clothes and loose Underwear. ~ Do not take a bath, tub soak, go in a Jacuzzi, or swim in a pool or pinto for one week after the procedure. Post Femoral Cath Activity orders ~Do not strain during bowel movements for the first 3 to 4 days after the procedure to prevent bleeding form the catheter insertion site. ~Avoid heavy lifting (more than 10 pounds) and pushing or pulling heavy objects for the first 5 to 7 days after the procedure ~Do not participate in strenuous activities for 5 days after the procedure. This includes most sports (ie:jogging, golfing, playing tennis, and bowling). ~You may climb stairs if needed, but walk up and down the stairs more slowly than usual. ~Gradually increase your activities until you reach your normal activity level within one week after the procedure. Post Cath Notify physician ~Notifiy you physician if you experience numbness in your arm or leg, severe chills or a fever of 100.5 degrees F, redness, swelling, draining or a foul odor from the procedure or IV site, pain that will not go away. TMENT LOCATOR documented in this encounter Medications at Time [...] (three) times a day 270 tablet 3 02/17/2022 07/26/2022 isosorbide dinitrate (ISORDIL) 20 mg tablet Take 1 tablet (20 mg total) by mouth 3 (three) times a day 90 tablet 3 02/17/2022 07/06/2022 losartan (COZAAR) 100 mg tablet 05/19/2020 11/05/2022 omeprazole (PriLOSEC) 20 mg capsule take 1 capsule by oral route every day 30 minutes to 1 hour before a meal 30 3 05/13/2016 02/23/2023 triamterene-hydro CHLOROthiazide (MAXZIDE,DYAZIDE) 37.5-25 mg per tablet/capsule 02/23/2023 documented as of this encounter Discharge Disposition Disposition Code Departure Means Destination Discharge to home or self care documented in this encounter H&P Notes * Zak Hung MD - 04/12/2022 10:02 AM CST H&P Note Patient Name: Saroj Rivera Date of : 1965 Primary Physician: Naomy Maddox MD Admission Date: 04/12/2022 Length of Stay: 0 Reason for consult Abnormal stress test Chief Complaint No chief complaint on file. HPI Saroj Rivera is a 56 y.o. male presents for evaluation for abnormal stress test that was done in the setting of reduced ejection fraction. 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 Patient continued to have symptoms of shortness of breath with mild activity. Past Medical History Past Medical History: Diagnosis Date Hyperlipidemia Hypertension Hypertension Past Surgical History History reviewed. No pertinent surgical history. Medications Medications Prior to Admission Medication Sig Dispense Refill Last Dose amitriptyline (ELAVIL) 25 mg tablet Past Week amLODIPine (NORVASC) 10 mg tablet Take 1 tablet by mouth daily 04/11/2022 atorvastatin (LIPITOR) 40 mg tablet 04/11/2022 carvediloL (COREG) 25 mg tablet Take 25 mg by mouth 04/11/2022 famotidine (PEPCID) 20 mg tablet Take 20 mg by mouth 2 (two) times a day 04/11/2022 furosemide (LASIX) 40 mg tablet Take 1 tablet (40 mg total) by mouth 2 (two) times a day 20 tablet 0 Past Week hydrALAZINE (APRESOLINE) 10 mg tablet Take 1 tablet (10 mg total) by mouth 3 (three) times a day Take 2 tablets (20 mg total) by mouth 3 (three) times a day 270 tablet 3 04/11/2022 isosorbide dinitrate (ISORDIL) 20 mg tablet Take 1 tablet (20 mg total) by mouth 3 (three) times a day 90 tablet 3 04/11/2022 losartan (COZAAR) 100 mg tablet 04/11/2022 omeprazole (PriLOSEC) 20 mg capsule take 1 capsule by oral route every day 30 minutes to 1 hour before a meal 30 3 04/11/2022 PARoxetine (PAXIL) 40 mg tablet Take 1 tablet by mouth daily 04/11/2022 pravastatin (PRAVACHOL) 40 mg tablet Take 40 mg by mouth daily 04/11/2022 ARIPiprazole (ABILIFY) 10 mg tablet (Patient not taking: Reported on 01/08/2022) escitalopram (LEXAPRO) 10 mg tablet take 1 tablet by oral route every day (Patient not taking: Reported on 01/08/2022) 0 0 gabapentin (NEURONTIN) 100 mg capsule take 3 capsule by oral route 3 times every day (Patient not taking: Reported on 01/08/2022) 0 0 hydrOXYzine (ATARAX) 10 mg tablet TK 1 T PO QD PRN (Patient not taking: Reported on 01/08/2022) ranitidine (ZANTAC) 150 mg capsule take 1 capsule by oral route 2 times every day (Patient not taking: Reported on 01/08/2022) 0 0 TiZANidine (ZANAFLEX) 4 mg capsule Take 4 mg by mouth 2 (two) times a day as needed (Patient not taking: Reported on 01/08/2022) triamterene-hydroCHLOROthiazide (MAXZIDE,DYAZIDE) 37.5-25 mg per tablet/capsule TAKE 1 TABLET BY MOUTH DAILY (Patient not taking: Reported on 01/08/2022) Allergies Allergies Allergen Reactions Penicillins Other (See comments) Family History Family History Problem Relation Age of Onset Stroke Mother Stroke; Hypertension Father Hypertension; Social History Social History Tobacco Use Smoking status: Never Smokeless tobacco: None Substance and Sexual Activity Drug use: Never Sexual activity: Defer Alcohol Use: Not on file Review of Systems Systems review are negative except as noted above Objective BP 144/93 Pulse 93 Temp 36.5 ??C (97.7 ??F) (Temporal) Resp 17 Ht 177.8 cm (5' 10 ) Wt 88.5 kg (195 lb) SpO2 100% BMI 27.98 kg/m?? General appearance: no distress, no cyanosis, able to lie flat Eyes: anicteric sclera, no conjunctival hemorrhage; PERRLA HENT: Atraumatic; oropharynx clear with moist mucous membranes and no mucosal ulcerations Neck: Trachea midline; supple, no thyromegaly or lymphadenopathy, no JVD, no carotid bruit Lungs: CTA, with normal respiratory effort and no intercostal retractions CV: RRR, apical impulse is barely palpable or normal, no thrill, no MRG, Abdomen: Soft, non-tender; no masses or HSM Extremities: No peripheral edema, intact pulses, no clubbing Skin: Normal temperature, turgor and texture; no rash, patachaie or ulcers or Sc nodules Psych: Appropriate affect, alert and oriented to person, place and time Neuro: no focal weakness and grossly intact cranial nerve Diagnostics Recent Results (from the past 24 hour(s)) CBC with auto differential Collection Time: 04/12/22 9:13 AM Result Value Ref Range WBC 7.8 3.8 - 9.9 K/cumm Hgb 14.7 13.0 - 17.5 g/dL Hct 42.2 38.9 - 50.3 % Plt 266 150 - 400 K/cumm MPV 8.3 (L) 9.1 - 12.3 fL RBC 5.02 4.30 - 5.80 M/cumm MCV 84.1 81.3 - 96.4 fL MCH 29.3 27.1 - 33.3 pg MCHC 34.8 32.3 - 35.7 g/dL RDW CV 12.9 11.1 - 14.9 % RDW SD 39.4 35.7 - 48.1 fL NRBC abs 0.00 0.00 - 0.01 K/cumm Basic metabolic panel Collection Time: 04/12/22 9:13 AM Result Value Ref Range Sodium 138 135 - 145 mmol/L Potassium, pl 3.8 3.3 - 4.9 mmol/L Chloride 102 97 - 110 mmol/L CO2 25 22 - 32 mmol/L Anion gap 11 2 - 15 mmol/L BUN 16 8 - 25 mg/dL Creatinine 2.19 (H) 0.80 - 1.30 mg/dL Glucose 99 70 - 199 mg/dL Calcium 9.3 8.5 - 10.3 mg/dL Protime-INR Collection Time: 04/12/22 9:13 AM Result Value Ref Range PT 12.2 9.2 - 13.5 sec INR 1.1 0.9 - 1.2 Differential, auto Collection Time: 04/12/22 9:13 AM Result Value Ref Range Neutrophil abs 5.6 1.7 - 6.5 K/cumm Imm gran abs 0.0 0.0 - 0.1 K/cumm Lymphocyte abs 1.1 0.8 - 3.3 K/cumm Monocyte abs 0.6 0.2 - 0.8 K/cumm Eosinophil abs 0.4 0.0 - 0.5 K/cumm Basophil abs 0.0 0.0 - 0.1 K/cumm Neutrophil pct 72.8 % Imm gran pct 0.3 % Lymphocyte pct 13.5 % Monocyte pct 7.9 % Eosinophil pct 5.0 % Basophil pct 0.5 % eGFR Collection Time: 04/12/22 9:13 AM Result Value Ref Range eGFR 35 mL/min/1.73 m2 No results found. No results found for this or any previous visit. Results for orders placed during the hospital encounter of 10/01/21 Transthoracic Echo Complete W Doppler/CF Mild concentric left ventricular hypertrophy. Moderate enlargement [...] volume overload and/or elevated RV end-diastolic pressure. Mitral valve leaflets appear mildly thickened. Mild mitral valve regurgitation. Aortic cusps appear mildly sclerotic. Trileaflet aortic valve. Normal structure of the tricuspid valve. Mild pulmonary hypertension based on right ventricular systolic pressure. Estimated peak RVSP is 37 mmHg. Mild tricuspid regurgitation. Normal pericardium with no significant pericardial effusion. Normal size and normal respiratory collapse consistent with normal right atrial pressure (<5 mmHg). Assessment/Plan 56 y.o. male seen for Abnormal stress test and possible ischemic cardiomyopathy PLAN: Left heart catheterization Care plan discussed with the patient. Zak Hung MD 04/12/2022 10:02 AM TMENT LOCATOR documented in this encounter Nursing Notes * Rox Garcia RN - 04/12/2022 3:04 PM CST Patient and brother given d/c instructions, verbalized understanding. VSS. Patient taken out with brother and personal belongings. TMENT LOCATOR documented in this encounter Miscellaneous Notes * Pre-Sedation Documentation - Zak Hung MD - 04/12/2022 10:07 AM APARTMENT LOCATOR Procedure: Cardiac catheterization Sedation plan: moderate sedation ASA: 3 sever systemic disease Mallampati class: III. Sedation plan and risks discussed with case TMENT LOCATOR documented in this encounter Plan of Treatment Not on file documented as of this encounter Procedures Procedure Name Priority Date/Time Associated Diagnosis Comments RIGHT AND LEFT HEART CATHETERIZATION Routine 04/12/2022 11:20 AM APARTMENT LOCATOR Abnormal stress test OXYHEMOGLOBIN, ARTERIAL Routine 04/12/20 11:04 AM APARTMENT LOCATOR OXYHEMOGLOBIN, PULMONARY ARTERY Routine 04/12/2022 11:03 AM APARTMENT LOCATOR OXYHEMOGLOBIN, CENTRAL VENOUS Routine 04/12/2022 11:02 AM APARTMENT LOCATOR EGFR Routine 04/12/2022 9:13 AM APARTMENT LOCATOR DIFFERENTIAL AUTO Routine 04/12/2022 9:1 3 AM APARTMENT LOCATOR CBC WITH AUTO DIFFERENTIAL Routine 04/12/2022 9:13 AM APARTMENT LOCATOR PROTIME-INR Routine 04/12/2022 9:13 AM APARTMENT LOCATOR BASIC METABOLIC PANEL Routine 04/12/2022 9:13 AM APARTMENT LOCATOR documented in this encounter Results * RIGHT AND LEFT HEART CATHETERIZATION (04/12/2022 11:20 AM APARTMENT LOCATOR) Anatomical Region Laterality Modality X-Ray Angiograph y Narrative 04/12/2022 12:03 PM APARTMENT LOCATOR Attending: Zak Hung MD Indication: SOB and abnormal stress test ?? Procedure(s): 1. Left heart catheterization 2. Coronary angiography 3. Right heart catheterization Consent obtained: YES Timeout: done; correct procedure, patient and site of access. Drug allergies noted. Sedation Moderate sedation was done using 2 mg versed and 50 mcg fentanyl. Sedation start time 13:58 and sedation end time 15:00. Sedation was administered under my supervision and RN in the room with continuous monitoring of patient's vital signs, airway and hemodynamic. Sedation was tolerated very well by the patient and at the end of the procedure patient was conscious. Access: Site: Rt radial artery and rt antcubital vein ?? Technique: Modified Sildenger technique with fluoroscopy and US guidance Sheath size: 6 F Coronary angiography: Catheters were advanced over wire under fluoroscopy for selective coronary angiography. Wire was removed and catheter was flushed with saline. Coronary angiogram was recorded in different projections. Catheters removed and sheath flushed. Following catheter used for coronary angiograms: 1. Left coronary artery: JL4 2. Right coronary artery: JR4 Right heart catheterization was done through rt CFV 7 F sheath with Huntington Leila catheter with recording of Sats and pressures. Hemodynamic findings: Arterial pressure: 130/80 mmHg and Sat 99% LVEDP: 2 mmHg No gradient across AV RA: ??3 mmHg and Sat 85% RV: ??25/4 mmHg PA: ?? 25/10/15 ??mmHg and sat 85% PCWP: 5 mmHg [place] MARKETING COMMUNICATIONS COORDINATOR 4.6 [place] CI 9.3 TD MARKETING COMMUNICATIONS COORDINATOR 5.2 TD CI 2.5 TP gradient 10 mmHg PVR: 1 ([place]) and 2 (TD) arias unit Angiographic findings: 1. Left main: LAD and LCX with separate ostium 2. LAD: Normal anatomic course, gives to diagonal branches. Mid diffuse disease 40% stenosis in mid segment. 3. LCX: Normal anatomic course, gives to OM branches. OM has proximal 80% stenosis 4. RCA: Normal anatomic course, gives to PDA and PLV branches. There was no angiographic significant disease. Dominance: Right Closure: artery closure with angioseal and vein closure with manual pressure Immediate post procedure access site: no hematoma, and distal pulse is unchanged Complications: None Estimated blood loss: minimal Conclusion: Normal MARKETING COMMUNICATIONS COORDINATOR and low filling pressures CAD with OM 80% Stenosis that cant explain his cardiomyopathy Recommendation Medical management of CAD and cardiomyopathy Zak Hung MD CV CARDIAC CATH PROCEDURES Final Result * Oxyhemoglobin, art (04/12/2022 11:04 AM APARTMENT LOCATOR) Oxyhb, art 92.0 90.0 - 95.0 % [facility] ([place]) Blood 04/12/2022 11:0 4 AM APARTMENT LOCATOR 04/12/2022 11:11 AM APARTMENT LOCATOR Narrative [facility]) - 04/12/2022 11:18 AM APARTMENT LOCATOR RA Zak Hung MD LAB BLOOD ORDERABLES Final Result [facility] ([place]) 1 [facility] Department [place] [address] * Oxyhemoglobin, pulmonary artery (04/12/2022 11:03 AM APARTMENT LOCATOR) Oxyhemoglobin, PA 85.9 % ROXANN MART[facility] ([place]) Comment: Interpretive Data No reference range established. Current interpretive data was last revised 2019. Blood 04/12/2022 11:0 3 AM APARTMENT LOCATOR 04/12/2022 11:11 AM APARTMENT LOCATOR Narrative [facility] ([place]) - 04/12/2022 11:14 AM APARTMENT LOCATOR PA Zak Hung MD LAB BLOOD ORDERABLES Final Result Performing Organization Address [facility] de Phone Number [facility] MARTINS ([place]) 1 [facility] [place] [address] * Oxyhemoglobin, central venous (04/12/2022 11:02 AM APARTMENT LOCATOR) Oxyhemoglobin, CV 96.7 % CE [facility]STINA [facility]SHMI ([place]) Comment: Interpretive Data No reference range established. Current interpretive data was last revised 2019. Blood 04/12/2022 11:0 2 AM APARTMENT LOCATOR 04/12/2022 11:10 AM APARTMENT LOCATOR Narrative [facility] ([place]) - 04/12/2022 11:14 AM APARTMENT LOCATOR AO Zak Hung MD LAB BLOOD ORDERABLES Final Result Performing Organization Address [facility] de Phone Number [facility]ART[facility] ([place]) 1 [facility] [place] [place] [address] * eGFR (04/12/2022 9:13 AM APARTMENT LOCATOR) eGFR 35 mL/min/1. 73 m2 [facility] ([place]) Comment: Interpretive Data Reference Interval Normal ?>/= [...] of Race in Diagnosing Kidney Disease, JASN 2020). The CKD-EPI equation should not be used for patients with unstable renal function and has not been validated in children and those over 70. Current interpretive data was last reviewed 2021. Blood 04/12/2022 9:13 AM APARTMENT LOCATOR 04/12/2022 9:15 AM APARTMENT LOCATOR us Zak Hung MD LAB BLOOD ORDERABLES Final Result [facility] ([place]) 1 [facility] [place] [address] * Differential, auto (04/12/2022 9:13 AM APARTMENT LOCATOR) Neutrophil abs 5.6 1.7 - 6.5 K/cumm [facility] ([place]) Imm gran abs 0.0 0.0 - 0.1 K/cumm [facility] ([place]) Lymphocyte abs 1.1 0.8 - 3.3 K/cumm [facility] ([place]) Monocyte abs 0.6 0.2 - 0.8 K/cumm [facility] ([place]) Eosinophil abs 0.4 0.0 - 0.5 K/cumm [facility] ([place]) Basophil abs 0.0 0.0 - 0.1 K/cumm [facility] ([place]) Neutrophil pct 72.8 % [facility] ([place]) Comment: Interpretive Data Percent cell count reference ranges are not reported, since discordance with absolute values may lead to misinterpretation of CBC data. Current Interpretive Data was last revised on 2017. Imm gran pct 0.3 % [facility] ([place]) Comment: Interpretive Data Percent cell count reference ranges are not reported, since discordance with absolute values may lead to misinterpretation of CBC data. Current Interpretive Data was last revised on 2017. Lymphocyte pct 13.5 % [facility] ([place]) Comment: Interpretive Data Percent cell count reference ranges are not reported, since discordance with absolute values may lead to misinterpretation of CBC data. Current Interpretive Data was last revised on 2017. Monocyte pct 7.9 % [facility] ([place]) Comment: Interpretive Data Percent cell count reference ranges are not reported, since discordance with absolute values may lead to misinterpretation of CBC data. Current Interpretive Data was last revised on 2017. Eosinophil pct 5.0 % [facility] ([place]) Comment: Interpretive Data Percent cell count reference ranges are not reported, since discordance with absolute values may lead to misinterpretation of CBC data. Current Interpretive Data was last revised on 2017. Basophil pct 0.5 % [facility] ([place]) Comment: Interpretive Data Percent cell count reference ranges are not reported, since discordance with absolute values may lead to misinterpretation of CBC data. Current Interpretive Data was last revised on 2017. Blood 04/12/2022 9:13 AM APARTMENT LOCATOR 04/12/2022 9:15 AM APARTMENT LOCATOR us Zak Hung MD LAB BLOOD ORDERABLES Final Result YVAN MARTINS ([place]) 1 [facility] Department [place] [address] * Protime-INR (04/12/2022 9:13 AM APARTMENT LOCATOR) PT 12.2 9.2 - 13.5 sec [facility] ([place]) INR 1.1 0.9 - 1.2 [facility] ([place]) Comment: Interpretive data Oral anticoagulant therapeutic ranges: Venous thromboembolism prophylaxis or treatment: 2.0-3.0 CARDIOLOGY Standard range: 2.0-3.0 High-intensity range: 2.5-3.5 Refer to indication-specific guidelines for appropriate target ranges for prosthetic heart valve replacement. Current interpretive data was last revised on 2019. Blood 04/12/2022 9:13 AM APARTMENT LOCATOR 04/12/2022 9:15 AM APARTMENT LOCATOR Zak Hung MD LAB BLOOD ORDERABLES Final Result [facility]ART[facility] ([place]) 1 [facility] [employer] [place] [address] * (ABNORMAL) Basic metabolic panel (04/12/2022 9:13 AM APARTMENT LOCATOR) Sodium 138 135 - 145 mmol/L [facility] ([place]) Potassium, pl 3.8 3.3 - 4.9 mmol/L [facility] ([place]) Chloride 102 97 - 110 mmol/L [facility] ([place]) CO2 25 22 - 32 mmol/L [facility] ([place]) Anion gap 11 2 - 15 mmol/L [facility] ([place]) BUN 16 8 - 25 mg/dL [facility] ([place]) Creatinine 2.19(H) 0.80 - 1.30 mg/dL [facility] ([place]) Glucose 99 70 - 199 mg/dL [facility] ([place]) Comment: Interpretive Data Fasting glucose >/= 126 [...] classification and Diagnosis of Diabetes Diabetes Care 2017;40 (Suppl. 1):S11. Current interpretive data was last revised 2017. Calcium 9.3 8.5 - 10.3 mg/dL [facility] ([place]) Blood 04/12/2022 9:13 AM APARTMENT LOCATOR 04/12/2022 9:15 AM APARTMENT LOCATOR Zak Hung MD LAB BLOOD ORDERABLES Final Result [facility] ([place]) 1 [facility] [place] [address] * (ABNORMAL) CBC with auto differential (04/12/2022 9:13 AM APARTMENT LOCATOR) WBC 7.8 3.8 - 9.9 K/cumm [facility] ([place]) Hgb 14.7 13.0 - 17.5 g/dL [facility] ([place]) Hct 42.2 38.9 - 50.3 % [facility] ([place]) Plt 266 150 - 400 K/cumm [facility] ([place]) MPV 8.3(L) 9.1 - 12.3 fL [facility] ([place]) RBC 5.02 4.30 - 5.80 M/cumm [facility] ([place]) MCV 84.1 81.3 - 96.4 fL [facility] ([place]) MCH 29.3 27.1 - 33.3 pg [facility] ([place]) MCHC 34.8 32.3 - 35.7 g/dL [facility] ([place]) RDW CV 12.9 11.1 - 14.9 % [facility] ([place]) RDW SD 39.4 35.7 - 48.1 fL [facility] ([place]) NRBC abs 0.00 0.00 - 0.01 K/cumm [facility] ([place]) Blood 04/12/2022 9:13 AM APARTMENT LOCATOR 04/12/2022 9:15 AM APARTMENT LOCATOR us Zak Hung MD LAB BLOOD ORDERABLES Final Result [facility] ([place]) 1 [facility] Department [place] [address] documented in this encounter Visit Diagnoses Diagnosis Abnormal stress test- Primary Other nonspecific abnormal cardiovascular system function study Abnormal stress test Other nonspecific abnormal cardiovascular system function study Abnormal stress test Other nonspecific abnormal cardiovascular system function study documented in this encounter Admitting Diagnoses Diagnosis Abnormal stress test Other nonspecific abnormal cardiovascular system function study documented in this encounter Administered Medications Inactive Administered Medications - up to 3 most recent administrations Medication Order MAR Action Action Date Dose Rate Site bivalirudin (ANGIOMAX) bolus from bag Code/trauma/sedation medication, Starting on Tue04/12/22 at 1059, Intra-Procedure (CV) Given 04/12/2022 10:59 AM APARTMENT LOCATOR 66.375 mg Carrier Fluids for Secondary Infusion - 0.9% Sodium Chloride 30 mL, intravenous, As needed, For priming tubing and/or flushing, Starting on Tue04/12/22 at 0845, Pre-Procedure (CV), 0-250 ml/hr to flush line after IV infusions when no maintenance IV ordered. Infuse 30mL at the same rate as the secondary infusion. Run as primary IV, not intended for KVO.Indications:Abnormal stress test dextrose 5% 1,000 mL with potassium chloride 20 mEq, sodium bicarbonate 150 mEq infusion 150 mL/hr, intravenous, Continuous, Starting on Tue04/12/22 at 0930, Pre-Procedure (CV) New Bag 04/12/2022 9:40 AM APARTMENT LOCATOR 150 mL/hr 150 mL/hr fentaNYL (SUBLIMAZE) preservative free injection Code/trauma/sedation medication, Starting on Tue04/12/22 at 1034, Intra-Procedure (CV) Given 04/12/2022 10:46 AM APARTMENT LOCATOR 50 mcg Given 04/12/2022 10:34 AM APARTMENT LOCATOR 50 mcg lidocaine PF (XYLOCAINE) 10 mg/mL (1 %) preservative free injection Code/trauma/sedation medication, Starting on Tue04/12/22 at 1054, Intra-Procedure (CV) Given 04/12/2022 10:54 AM APARTMENT LOCATOR 10 mL Right Wrist midazolam (VERSED) 1 mg/mL preservative free injection Administer over 2 Minutes, Code/trauma/sedation medication, Starting on Tue04/12/22 at 1034, Intra-Procedure (CV) Given 04/12/2022 10:34 AM APARTMENT LOCATOR 2 mg nitroglycerin solution 100 mcg/mL Code/trauma/sedation medication, Starting on Tue04/12/22 at 1059, Intra-Procedure (CV) Given 04/12/2022 10:59 AM APARTMENT LOCATOR 1 mL sodium chloride 0.9% flush 0.5-20 mL 0.5-20 mL, intra-catheter, Every 8 hours scheduled, First dose on Tue04/12/22 at 0930, Pre-Procedure (CV), Flush volume based on line type and size.Indications:Abnormal stress test sodium chloride 0.9% flush 0.5-20 mL 0.5-20 mL, intra-catheter, As needed, line care, Starting on Tue04/12/22 at 0845, Pre-Procedure (CV), Flush volume based on line type and size. Flush before and after each use.Indications:Abnormal stress test documented in this encounter Discontinued Medications Medication Sig Discontinue Reason Start Date End Da te ranitidine (ZANTAC) 150 mg capsule take 1 capsule by oral route 2 times every day Stop Taking at Discharge 05/21/2015 04/12/2022 pravastatin (PRAVACHOL) 40 mg tablet Take 40 mg by mouth daily Stop Taking at Discharge 04/12/2022 TiZANidine (ZANAFLEX) 4 mg capsule Take 4 mg by mouth 2 (two) times a day as needed Stop Taking at Discharge 04/12/2022 documented as of this encounter Active and Recently Administered Medications Times are shown in APARTMENT LOCATOR. Scheduled Medication Order 04/10/2022 04/11/2022 04/12/2022 sodium chloride 0.9% flush 0.5-20 mL 0.5-20 mL, intra-catheter, Every 8 hours scheduled, First dose on Tue04/12/22 at 0930, Pre-Procedure (CV), Flush volume based on line type and size. 0930 (Due)1400 (Due) Continuous Medication Order 04/10/2022 04/11/2022 04/12/2022 dextrose 5% 1,000 mL with potassium chloride 20 mEq, sodium bicarbonate 150 mEq infusion 150 mL/hr, intravenous, Continuous, Starting on Tue04/12/22 at 0930, Pre-Procedure (CV) 0940 (New Bag - Prov ider: Florencia Knowles RN)1446 (Stopped - Provider: Rox Garcia RN) PRN Medication Order 04/10/2022 04/11/2022 04/12/2022 bivalirudin (ANGIOMAX) bolus from bag (CANCELED) Code/trauma/sedation medication, Starting on Tue04/12/22 at 1059, Intra-Procedure (CV) 1059 (Given - Provid er: Nkechi Huynh RN) Carrier Fluids for Secondary Infusion - 0.9% Sodium Chloride 30 mL, intravenous, As needed, For priming tubing and/or flushing, Starting on Tue04/12/22 at 0845, Pre-Procedure (CV), 0-250 ml/hr to flush line after IV infusions when no maintenance IV ordered. Infuse 30mL at the same rate as the secondary infusion. Run as primary IV, not intended for KVO. fentaNYL (SUBLIMAZE) preservative free injection (CANCELED) Code/trauma/sedation medication, Starting on Tue04/12/22 at 1034, Intra-Procedure (CV) 1034 (Given - Provid er: Nkechi Huynh RN)1046 (Given - Provider: Nkechi Huynh RN) lidocaine PF (XYLOCAINE) 10 mg/mL (1 %) preservative free injection (CANCELED) Code/trauma/sedation medication, Starting on Tue04/12/22 at 1054, Intra-Procedure (CV) 1054 (Given - Provid er: Zak Hung MD) midazolam (VERSED) 1 mg/mL preservative free injection (CANCELED) Administer over 2 Minutes, Code/trauma/sedation medication, Starting on Tue04/12/22 at 1034, Intra-Procedure (CV) 1034 (Given - Provid er: Nkechi Huynh RN) nitroglycerin solution 100 mcg/mL (CANCELED) Code/trauma/sedation medication, Starting on Tue04/12/22 at 1059, Intra-Procedure (CV) 1059 (Given - Provid er: Zak Hung MD - Comment: 200 mcg given IA) sodium chloride 0.9% flush 0.5-20 mL 0.5-20 mL, intra-catheter, As needed, line care, Starting on Tue04/12/22 at 0845, Pre-Procedure (CV), Flush volume based on line type and size. Flush before and after each use. documented in this encounter Orders Medications Ordered That José ht Not Have Been Administered Count Last Ordered Date First Ordered Date Carrier Fluids for Secondary Infusion - 0.9% Sodium Chloride 1 04/12/2022 sodium chloride 0.9% flush 0.5-20 mL 2 03/17 Nursing Count Last Ordered Date First Orde red Date TELEMETRY MONITORING 1 04/12/2022 Discharge Count Last Ordered Date First Orde red Date DISCHARGE PATIENT 1 04/12/2022 documented in this encounter Care Teams Integration Architect Relationship Specialty Start Date End Date Naomy Maddox MD [address] [place] [address] PCP - General Internal Medicine 05/06/20 documented as of this encounter
--- OUTSIDE RECORDS SUMMARY | 2024-05-17 12:10 | XMS_ITS | Encounter Summary ---
Author Organization [facility] Medical Group Address [address] [facility] [address] [place] [address] Care Team Providers Care Senior Accountant Name Role Phone Naomy Maddox MD Primary Care Provider [phone] Reason for Referral * Diagnostic Imaging (Routine) - Closed Specialty Diagnoses / Procedures Referred By Tanesha dennis Referred To Contact Diagnoses Acute on chronic systolic heart failure (HCC) Procedures NM MPI SPECT (Rest and/or Stress) Multiple Studies Zak Mcgee MD Phone: tel: fax: [address] [phone] Referral ID Status Reason Start Date Expiration Date Visits Re quested Visits Authorized [id number] Closed 11/23/2021 11/23/2022 1 1 Encounter Details Date Type Department Care Team (Late st Contact Info) Description 11/20/2021 Orders Only [place] Interior Plant Caretaker at [facility] [address] [phone] Zak Mcgee MD [address] [place] [address] [address] [place] [address] Acute on chronic systolic heart failure (HCC) (Primary Dx) Social History Tobacco Use Types Packs/Day Years Used Date Smoking Tobacco: Never Sex and Gender Information Value Date Recorded Sex Assigned at Not on file 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 Gender Identity Not on file Sexual Orientation Not on file documented as of this encounter Plan of Treatment Not on file documented as of this encounter Results * NM MPI SPECT (Rest and/or Stress) Multiple Studies (12/10/2021 8:34 AM CDT) Anatomical Region Laterality Modality Body N/A Nuclear Medicine 12/10/2021 6:24 AM CDT Narrative 12/10/2021 11:03 AM CDT [address] [place] [address] [employer] Report Patient Name: NATAN RIVERA T : [...] Procedure Note Renetta Decker MD - 12/10/[address] [place] [address] [employer] Report Patient Name: NATAN RIVERA TPatient ID: [id number] : [id number] Date: 12/10/2021 6:24:42 AM Gender: Elodiacession #: [id number] Tech: Ref.Provider: ZAK MCGEE Height(Cm): BSA: Weight(Kg): [...] ult documented in this encounter Visit Diagnoses Diagnosis Acute on chronic systolic heart failure (HCC)- Primary Acute on chronic systolic heart failure Acute on chronic systolic heart failure (HCC) Acute on chronic systolic heart failure documented in this encounter Care Teams Senior Accountant Relationship Specialty Start Date End Date Naomy Maddox MD [address] [place] [address] PCP - General Internal Medicine 05/06/20 documented as of this encounter
--- OUTSIDE RECORDS SUMMARY | 2024-05-17 12:10 | XMS_ITS | Encounter Summary ---
Author Organization [facility] Medical Group Address [address] [facility] [address] [place] [address] Care Team Providers Care Credit Specialist Name Role Phone Naomy Maddox MD Primary Care Provider [phone] Encounter Details Date Type Department Care Team (Late st Contact Info) Description 02/19/2022 Orders Only [place] Collector at [address] [phone] Zak Anderson MD [address] [place] [address] [address] [place] [address] Acute on chronic systolic heart failure (HCC) (Primary Dx); Abnormal stress test; Essential hypertension Social History Tobacco Use Types Packs/Day Years Used Date Smoking Tobacco: Never Sex and Gender Information Value Date Recorded Sex Assigned at Not on file 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 Gender Identity Not on file Sexual Orientation Not on file documented as of this encounter Plan of Treatment Scheduled Orders Name Type Priority Associated Diagnoses Orde r Schedule Basic metabolic panel Lab Routine Acute on chronic systolic heart failure (HCC) Abnormal stress test Essential hypertension Expected: 02/19/2022, Expires: 02/19/2023 CBC with auto differential Lab Routine Acute on chronic systolic heart failure (HCC) Abnormal stress test Essential hypertension Expected: 02/19/2022, Expires: 02/19/2023 Protime-INR Lab Routine Acute on chronic systolic heart failure (HCC) Abnormal stress test Essential hypertension Expected: 02/19/2022, Expires: 02/19/2023 documented as of this encounter Visit Diagnoses Diagnosis Acute on chronic systolic heart failure (HCC)- Primary Acute on chronic systolic heart failure Abnormal stress test Other nonspecific abnormal cardiovascular system function study Essential hypertension Unspecified essential hypertension documented in this encounter Care Teams Credit Specialist Relationship Specialty Start Date End Date Naomy Maddox MD [address] [place] [address] PCP - General Internal Medicine 05/06/20 documented as of this encounter
--- OUTSIDE RECORDS SUMMARY | 2024-05-17 12:10 | XMS_ITS | Encounter Summary ---
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 Called patient back today and left message to call back to schedule cardiac cath per Dr. Stephanie Paul. documented in this encounter Plan of Treatment Not on file documented as of this encounter Visit Diagnoses Not on filedocumented in this encounter Care Teams Boat Camp Operator Relationship Specialty Start Date End Date Naomy Maddox MD [address] [place] [address] PCP - General Internal Medicine 05/06/20 documented as of this encounter
--- OUTSIDE RECORDS SUMMARY | 2024-05-17 12:10 | XMS_ITS | Encounter Summary ---
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
--- OUTSIDE RECORDS SUMMARY | 2024-05-17 12:10 | XMS_ITS | Encounter Summary ---
Author Organization [facility] Medical [facility] Address [address] [facility] [address] [place] [address] Care Team Providers Care Ring Cutter Lathe Operator Name Role Phone Naomy Maddox MD Primary Care Provider [phone] Reason for Visit * Reason Comments Hypertension Encounter Details Date Type Department Care Team (Late st Contact Info) Description 01/08/2022 12:30 PM CDT Office Visit [place] Operator at [address] [phone] Zak Anderson MD [address] [place] [address] [address] [place] [address] Essential hypertension (Primary Dx) Social History Tobacco Use Types Packs/Day Years Used Date Smoking Tobacco: Never Sex and Gender Information Value Date Recorded Sex Assigned at Not on file 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 Gender Identity Not on file Sexual Orientation Not on file documented as of this encounter Last Filed Vital Signs Vital Sign Reading Time Taken Comments Blood Pressure 123/83 01/08/2022 12:21 PM CDT Pulse 106 01/08/2022 12:21 PM CDT Temperature - - Respiratory Rate 16 01/08/2022 12:21 PM CDT Oxygen Saturation - - Inhaled Oxygen Concentration - - Weight 88.5 kg (195 lb) 01/08/2022 12:21 PM CDT Height 177.8 cm (5' 10 ) 01/08/2022 12:21 PM CDT Body Mass Index 27.98 01/08/2022 12:21 PM CDT documented in this encounter Progress Notes * Zak Anderson MD - 01/08/2022 12:30 PM CDT 01/08/2022 CHIEF COMPLAINT Chief Complaint Patient presents with ??? Hypertension Routine clinic f/u visit INTERVAL HISTORY Active complaints: easy fatigue and SOB with mild activity, chronic problem, not worse or better recently Hospitalization or ER visits none Physical activity normal Compliance with medication Yes REVIEW OF SYSTEMS General: No bleeding, chills or fevers Cardiac:No chest pain or palpitations Chest: No SOB or cough Neuro: no focal weakness or dizziness PHYSICAL EXAM Vitals BP 123/83 (BP Location: Right arm, Patient Position: Sitting) Pulse 106 Resp 16 Ht 177.8 cm (5' 10 ) Wt 88.5 kg (195 lb) BMI 27.98 kg/m?? General: able to lie flat and no acute distress Cardiac: S1 S2 no murmur, no JVD Chest: CTAB normal effort and equal chest expansion LE: warm, no edema, intact peripheral pulses LABS Lab Results Component Value Date WBC 7.2 08/17/2021 HGB 13.6 08/17/2021 HCT 40.8 08/17/2021 MCV 84.8 08/17/2021 LABPLAT 308 08/17/2021 Lab Results Component Value Date GLUCOSE 91 08/17/2021 CALCIUM 8.9 08/17/2021 SODIUM 139 08/17/2021 POTASSIUM 4.3 08/17/2021 CO2 22 08/17/2021 CHLORIDE 104 08/17/2021 BUNSER 21 08/17/2021 CREATININE 2.13 (H) 08/17/2021 No results found for: CHOL, POCCHOL No results found for: HDL, POCHDL No results found for: LDLCALC, CLDL, HIRISKLDL, LDL, LDLC, LDLDIRECT, LDLMED, LDLP, POCLDL, SCRLDL,SMALLLDLP, TOTLDLC No results found for: TRIG, POCTRIG ER/hospital visits None recently Prior clinic visits Last clinic visit was November 2021 DIAGNOSTIC TESTS Nuclear stress test November 2021 [...] is mildly dilated. Dyskinetic septum and anterior ??wall. Ejection fraction is reduced and is estimated at 30%. CURRENT MEDICATIONS Current Outpatient Medications Medication Sig Dispense Refill ??? amitriptyline (ELAVIL) 25 mg tablet ??? amLODIPine (NORVASC) 10 mg tablet Take 1 tablet by mouth daily ??? ARIPiprazole (ABILIFY) 10 mg tablet ??? atorvastatin (LIPITOR) 40 mg tablet ??? carvediloL (COREG) 25 mg tablet Take 25 mg by mouth ??? escitalopram (LEXAPRO) 10 mg tablet take 1 tablet by oral route every day 0 0 ??? famotidine (PEPCID) 20 mg tablet Take 20 mg by mouth 2 (two) times a day ??? furosemide (LASIX) 40 mg tablet Take 1 tablet (40 mg total) by mouth 2 (two) times a day 20 tablet 0 ??? gabapentin (NEURONTIN) 100 mg capsule take 3 capsule by oral route 3 times every day 0 0 ??? hydrALAZINE (APRESOLINE) 10 mg tablet Take 1 tablet (10 mg total) by mouth 3 (three) times a day 90 tablet 11 ??? hydrOXYzine (ATARAX) 10 mg tablet TK 1 T PO QD PRN ??? isosorbide dinitrate (ISORDIL) 10 mg tablet Take 1 tablet (10 mg total) by mouth 3 (three) times a day 90 tablet 11 ??? losartan (COZAAR) 100 mg tablet ??? omeprazole (PriLOSEC) 20 mg capsule take 1 capsule by oral route every day 30 minutes to 1 hourbefore a meal 30 3 ??? PARoxetine (PAXIL) 40 mg tablet Take 1 tablet by mouth daily ??? pravastatin (PRAVACHOL) 40 mg tablet Take 40 mg by mouth daily ??? ranitidine (ZANTAC) 150 mg capsule take 1 capsule by oral route 2 times every day 0 0 ??? TiZANidine (ZANAFLEX) 4 mg capsule Take 4 mg by mouth 2 (two) times a day as needed ??? triamterene-hydroCHLOROthiazide (MAXZIDE,DYAZIDE) 37.5-25 mg per tablet/capsule TAKE 1 TABLET BY MOUTH DAILY No current facility-administered medications for this visit. ASSESSMENT Congestive heart failure, dilated cardiomyopathy ejection fraction 26%. Global hypokinesia with apical dyskinesia. 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 These findings suggest ischemic cardiomyopathy with prior old under recognized [facility]. Hypertension controlled on 4 antihypertensive medications CKD stage 3 Left bundle branch block PLAN/RECOMMENDATIONS R & LHC and if negative refer to animal care giver-D Cot current regimen of medical therapy Recommended changes in medical therapy none Recommended investigation LHC Recommended F/U in 6 months Counseled about importance of compliance with medical therapy, healthy diet, exercise and healthy life style. Zak Anderson MD 01/08/22 documented in this encounter Plan of Treatment Not on file documented as of this encounter Procedures Procedure Name Priority Date/Time Associated Diagnosis Comments ECG 12-LEAD Routine 01/08/2022 Essential hypertension documented in this encounter Results * ECG 12 lead (01/08/2022) Zak Anderson MD ECG ORDERABLES Final Resul t documented in this encounter Visit Diagnoses Diagnosis Essential hypertension- Primary Unspecified essential hypertension documented in this encounter Care Teams Ring Cutter Lathe Operator Relationship Specialty Start Date End Date Naomy Maddox MD [address] [place] [address] PCP - General Internal Medicine 05/06/20 documented as of this encounter
--- OUTSIDE RECORDS SUMMARY | 2024-05-17 12:10 | XMS_ITS | Encounter Summary ---
Author Organization [facility] Healthcare Address [address] [place] [address] Care Team Providers Care Toll Patrolman Name Role Phone Naomy Maddox MD Primary Care Provider [phone] Reason for Visit * Diagnostic Imaging (Routine) - Closed Specialty Diagnoses / Procedures Referred By Tanesha dennis Referred To Contact Diagnoses Acute on chronic systolic heart failure (HCC) Procedures NM MPI SPECT (Rest and/or Stress) Multiple Studies Zak Anderson MD Phone: tel: fax: [address] [address] Referral ID Status Reason Start Date Expiration Date Visits Re quested Visits Authorized [id number] Closed 11/23/2021 11/23/2022 1 1 Encounter Details Date Type Department Care Team (Latest Contact Info) Description 12/10/2021 7:23 AM CDT - 12/10/2021 7:28 AM CDT Hospital Encounter [facility] Cardiology [address] [place] [id number] Zak Anderson MD [address] [place] [id number] Discharge Disposition: Discharge to home or self care Social History Tobacco Use Types Packs/Day Years Used Date Smoking Tobacco: Never Sex and Gender Information Value Date Recorded Sex Assigned at Not on file 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 Gender Identity Not on file Sexual [...] a day 90 tablet 11 10/09/2021 02/17/2022 losartan (COZAAR) 100 mg tablet [...] heart failure (HCC) documented in this encounter Visit Diagnoses Not on filedocumented in this encounter Administered Medications Inactive Administered Medications - up to 3 most recent administrations Medication Order MAR Action Action Date Dose Rate Site regadenoson (LEXISCAN) 0.4 mg/5 mL injection 0.4 mg 0.4 mg, intravenous, Once, On [place] 12/10/21 at 0830, For 1 dose, Intra-Procedure (CV), Administer IV push over 10 seconds., Indications: Myocardial Perfusion Imaging AdjunctIndications:Myocardial Perfusion Imaging Adjunct Given 12/10/2021 7:52 AM CDT 0.4 mg documented in this encounter Orders Medications Ordered That José ht Not Have Been Administered Count Last Ordered Date First Ordered Date regadenoson (LEXISCAN) 0.4 m g/5 mL injection 0.4 mg 1 12/10/2021 documented in this encounter Care Teams Toll Patrolman Relationship Specialty Start Date End Date Naomy Maddox MD [address] [place] [address] PCP - General Internal Medicine 05/06/20 documented as of this encounter
--- OUTSIDE RECORDS SUMMARY | 2024-05-17 12:10 | XMS_ITS | Encounter Summary ---
Author Organization [facility] Medical Group Address [address] [facility] [address] [place] [address] Care Team Providers Care Supervisor Residential Name Role Phone Naomy Maddox MD Primary Care Provider [phone] Encounter Details Date Type Department Care Team (Late st Contact Info) Description 02/02/2022 Telephone [place] Supervisor at [address] [place] [address] Rosa Miranda MA Social History Tobacco Use Types Packs/Day Years Used Date Smoking Tobacco: Never Sex and Gender Information Value Date Recorded Sex Assigned at Not on file 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 * Telephone Encounter - Rosa Miranda MA - 02/02/2022 10:23 AM CDT Patient called and wanted to know why he needed to have the heart cath on 02/08. Please advise. documented in this encounter Plan of Treatment Not on file documented as of this encounter Visit Diagnoses Not on filedocumented in this encounter Care Teams Supervisor Residential Relationship Specialty Start Date End Date Naomy Maddox MD [address] [place] [address] PCP - General Internal Medicine 05/06/20 documented as of this encounter
--- OUTSIDE RECORDS SUMMARY | 2024-05-17 12:10 | XMS_ITS | Encounter Summary ---
Author Organization [facility] Address [address] [place] [address] Care Team Providers Care Music Specialist Name Role Phone Naomy Maddox MD Primary Care Provider [phone] Reason for Visit * Reason Comments Follow-up Congestive Heart Failure Hyperlipidemia Encounter Details Date Type Department Care Team (Late st Contact Info) Description 11/20/2021 12:00 PM CDT Office Visit [employer] Desktop Manager at [address] [id number] Zak Anderson MD [address] [place] [address] [address] [place] [address] Acute on chronic systolic heart failure (HCC) (Primary Dx) Social History Tobacco Use Types Packs/Day Years Used Date Smoking Tobacco: Never Sex and Gender Information Value Date Recorded Sex Assigned at Not on file 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 Gender Identity Not on file Sexual Orientation Not on file documented as of this encounter Last Filed Vital Signs Vital Sign Reading Time Taken Comments Blood Pressure 126/84 11/20/2021 11:54 AM CDT Pulse 98 11/20/2021 11:54 AM CDT Temperature - - Respiratory Rate 16 11/20/2021 11:54 AM CDT Oxygen Saturation - - Inhaled Oxygen Concentration - - Weight 87.1 kg (192 lb) 11/20/2021 11:54 AM CDT Height 177.8 cm (5' 10 ) 11/20/2021 11:54 AM CDT Body Mass Index 27.55 11/20/2021 11:54 AM CDT documented in this encounter Progress Notes * Zak Anderson MD - 11/20/2021 12:00 PM CDT Images from the original note were not included. 11/20/2021 CHIEF COMPLAINT Chief Complaint Patient presents with ??? Follow-up ??? Congestive Heart Failure ??? Hyperlipidemia Routine clinic f/u visit Last clinic visit: 3 weeks ago INTERVAL HISTORY No complaints Hospitalization or ER visits none Physical activity normal Complaint with medications REVIEW OF SYSTEMS General: No bleeding, chills or fevers Cardiac:No chest pain or palpitations Chest: No SOB or cough Neuro: no focal weakness or dizziness PHYSICAL EXAM Vitals BP 126/84 (BP Location: Right arm, Patient Position: Sitting) Pulse 98 Resp 16 Ht 177.8 cm (5' 10 ) Wt 87.1 kg (192 lb) BMI 27.55 kg/m?? General: able to lie flat and [...] TOTLDLC No results found for: TRIG, POCTRIG Hospital/ER visits HE presented to the emergency room in August 2021 with progressive shortness of breath. He was seen in the clinic later in August for congestive heart failure. Clinic visits Clinic 10/09/2021 Discussed the findings in echocardiogram and new diagnosis of heart failure including importance ofcompliance with medication and overall prognosis, Cont Lasix 40 mg daily, Cont Losartan 100 mg daily, Cont Coreg 25 mg daily, Add Hydralazine 10 mg TID and Isordil 10 mg TID, F/U in 4 weeks with BMP with repeat limited TTE and consideration for further escalation of therapy. Will consider doing nuclear stress test next visit if ejection fraction is not improving with medical therapy He may also benefit from Bi V ICD if his ejection fraction is not improving on optimal medical therapy DIAGNOSTIC TESTS EK08/17/2021 ?? Chest X-Ray: 08/17/2021 IMPRESSION: 1. ?Suspected mild pulmonary vascular congestion, though atypical infectious/inflammatory infiltrate is not excluded. 2. ?Mild cardiomegaly. 3. ?Nonspecific left retrocardiac opacity. ??Continued imaging follow-up to resolution recommended.? Pro-BNP: 08/17/2021 ?? Troponin 2 HR: 08/17/2021 ?? TTE: 10/01/2021 Mild concentric left ventricular hypertrophy. Moderate enlargement of left ventricle cavity. Severeglobal left ventricular systolic dysfunction. No left ventricular [...] with normal right atrial pressure (<5 mmHg). TTE October 2021 Left ventricle is mildly dilated. Dyskinetic septum and anterior ??wall. Ejection fraction is reduced and is estimated at 30%. CURRENT MEDICATIONS HOME MEDICATIONS : amitriptyline (ELAVIL) 25 mg tablet amLODIPine (NORVASC) 10 mg tablet ARIPiprazole (ABILIFY) 10 mg tablet atorvastatin (LIPITOR) 40 mg tablet carvediloL (COREG) 25 mg tablet escitalopram (LEXAPRO) 10 mg tablet famotidine (PEPCID) 20 mg tablet furosemide (LASIX) 40 mg tablet gabapentin (NEURONTIN) 100 mg capsule hydrALAZINE (APRESOLINE) 10 mg tablet hydrOXYzine (ATARAX) 10 mg tablet isosorbide dinitrate (ISORDIL) 10 mg tablet losartan (COZAAR) 100 mg tablet omeprazole (PriLOSEC) 20 mg capsule PARoxetine (PAXIL) 40 mg tablet pravastatin (PRAVACHOL) 40 mg tablet ranitidine (ZANTAC) 150 mg capsule TiZANidine (ZANAFLEX) 4 mg capsule triamterene-hydroCHLOROthiazide (MAXZIDE,DYAZIDE) 37.5-25 mg per tablet/capsule ASSESSMENT Congestive heart failure with reduced ejection fraction, EF is 26%. Global hypokinesia. Likely related to long history of uncontrolled hypertension. However Persistent with dyskinesia in apex Mild pulmonary hypertension Hypertension controlled on 4 antihypertensive medications Chronic kidney disease stage 3 Left bundle branch block PLAN/RECOMMENDATIONS Continue amlodipine 10 mg daily Continue Coreg 25 mg b.i.d. Continue Lasix 40 mg daily Continue Isordil 10 mg t.i.d. Continue losartan 100 mg daily Continue pravastatin 40 mg daily Based on these new ECHo findings will refer for LHC Refused LHC and will order nuclear study Zak Anderson MD 11/20/21 documented in this encounter Plan of Treatment Not on file documented as of this encounter Visit Diagnoses Diagnosis Acute on chronic systolic heart failure (HCC)- Primary Acute on chronic systolic heart failure documented in this encounter Care Teams Music Specialist Relationship Specialty Start Date End Date Naomy Maddox MD [address] [place] [address] PCP - General Internal Medicine 05/06/20 documented as of this encounter
--- OUTSIDE RECORDS SUMMARY | 2024-05-17 12:10 | XMS_ITS | Encounter Summary ---
Author Organization [facility] Healthcare Address [address] [place] [address] Care Team Providers Care Atm Servicer Name Role Phone Naomy Maddox MD Primary Care Provider [phone] Reason for Visit * Diagnostic Imaging (Routine) - Closed Specialty Diagnoses / Procedures Referred By Tanesha dennis Referred To Contact Diagnoses Acute on chronic systolic heart failure (HCC) Procedures NM MPI SPECT (Rest and/or Stress) Multiple Studies Zak Anderson MD Phone: tel: fax: [address] [phone] Referral ID Status Reason Start Date Expiration Date Visits Re quested Visits Authorized [id number] Closed 11/23/2021 11/23/2022 1 1 Encounter Details Date Type Department Care Team (Latest Contact Info) Description 12/10/2021 8:34 AM CDT - 12/10/2021 11:59 PM CDT Hospital Encounter [facility] [address] [place] [id number] Zak Anderson MD [address] [place] [id number] Discharge Disposition: Discharge to home or self care Social History Tobacco Use Types Packs/Day Years Used Date Smoking Tobacco: Never Sex and Gender Information Value Date Recorded Sex Assigned at Not on file 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 Gender Identity Not on file Sexual Orientation [...] MAR Action Action Date Dose Rate Site tc-99m tetrofosmin (MYOVIEW) injection 30.7 millicurie 30.7 millicurie, intravenous, Once in imaging, radiopharmaceutical, Starting on Malu 12/10/21 at 0834, For 1 dose, Indications: Diagnostic RadiographyIndications:Ruth gnostic Radiography Given 12/10/2021 7:50 AM CDT 30.7 millicuries documented in this encounter Orders Medications Ordered That José ht Not Have Been Administered Count Last Ordered Date First Ordered Date tc-99m tetrofosmin (MYOVIEW) injection 30.7 millicurie 1 12/10/2021 documented in this encounter Care Teams Atm Servicer Relationship Specialty Start Date End Date Naomy Maddox MD [address] [place] [address] PCP - General Internal Medicine 05/06/20 documented as of this encounter
--- OUTSIDE RECORDS SUMMARY | 2024-05-17 12:10 | XMS_ITS | Encounter Summary ---
Author Organization [facility] Healthcare Address [address] [place] [address] Care Team Providers Care Bread Molder Name Role Phone Naomy Maddox MD Primary Care Provider [phone] Reason for Visit * Auth/Cert Specialty Diagnoses / Procedures Referred By Tanesha dennis Referred To Contact Diagnoses Abnormal stress test Abnormal stress test [R94.39] Procedures VT R & L HRT CATH WINJX HRT ART& L VENTR IMG Right Left Heart Catheterization with Coronary Angiography with or without Left Ventriculography [id number] Referral ID Status Reason Start Date Expiration Date Visits Re quested Visits Authorized [id number] 1 1 Encounter Details Date Type Department Care Team (Latest Contact Info) Description 04/12/2022 8:43 AM RECORDS CLERK - 04/12/2022 3:05 PM RECORDS CLERK Hospital Encounter [facility] Cardiac Catheterization [address] [place] [address] Zak Hung MD [address] [address] Abnormal stress test Discharge Disposition: Discharge to home or self care Social History Tobacco Use Types Packs/Day Years Used Date Smoking Tobacco: Never Tobacco Cessation:Counseling Given: Not Answered Sex and Gender Information Value Date Recorded Sex Assigned at Not on file Legal Sex Male 9:23 PM RECORDS CLERK Gender Identity Not on file Sexual Orientation Not on file documented as of this encounter Last Filed Vital Signs Vital Sign Reading Time Taken Comments Blood Pressure 148/80 04/12/2022 2:45 PM RECORDS CLERK Pulse 88 04/12/2022 2:45 PM RECORDS CLERK Temperature 36.5 ??C (97.7 ??F) 04/12/2022 9:00 AM CS T Respiratory Rate 18 04/12/2022 2:45 PM RECORDS CLERK Oxygen Saturation 98% 04/12/2022 2:45 PM RECORDS CLERK Inhaled Oxygen Concentration - - Weight 88.5 kg (195 lb) 04/12/2022 9:00 AM RECORDS CLERK Height 177.8 cm (5' 10 ) 04/12/2022 9:00 AM RECORDS CLERK Body Mass Index 27.98 04/12/2022 9:00 AM RECORDS CLERK documented in this encounter Discharge Instructions * Discharge Instructions* Brissa Whitney, NGOC - 04/12/2022 12:19 PM RECORDS CLERK Post Cardiac Cath Puncture site orders ~The [...] site, pain that will not go away. RDS CLERK documented in this encounter Medications at Time [...] patient. Zak Hung MD 04/12/2022 10:02 AM RDS CLERK documented in this encounter Nursing Notes * Rox Garcia RN - 04/12/2022 3:04 PM CST Patient and brother given d/c instructions, verbalized understanding. VSS. Patient taken out with brother and personal belongings. RDS CLERK documented in this encounter Miscellaneous Notes * Pre-Sedation Documentation - Zak Hung MD - 04/12/2022 10:07 AM RECORDS CLERK Procedure: Cardiac catheterization Sedation plan: moderate sedation ASA: 3 sever systemic disease Mallampati class: III. Sedation plan and risks discussed with case RDS CLERK documented in this encounter Plan of Treatment Not on file documented as of this encounter Procedures Procedure Name Priority Date/Time Associated Diagnosis Comments RIGHT AND LEFT HEART CATHETERIZATION Routine 04/12/2022 11:20 AM RECORDS CLERK Abnormal stress test OXYHEMOGLOBIN, ARTERIAL Routine 04/12/20 11:04 AM RECORDS CLERK OXYHEMOGLOBIN, PULMONARY ARTERY Routine 04/12/2022 11:03 AM RECORDS CLERK OXYHEMOGLOBIN, CENTRAL VENOUS Routine 04/12/2022 11:02 AM RECORDS CLERK EGFR Routine 04/12/2022 9:13 AM RECORDS CLERK DIFFERENTIAL AUTO Routine 04/12/2022 9:1 3 AM RECORDS CLERK CBC WITH AUTO DIFFERENTIAL Routine 04/12/2022 9:13 AM RECORDS CLERK PROTIME-INR Routine 04/12/2022 9:13 AM RECORDS CLERK BASIC METABOLIC PANEL Routine 04/12/2022 9:13 AM RECORDS CLERK documented in this encounter Results * RIGHT AND LEFT HEART CATHETERIZATION (04/12/2022 11:20 AM RECORDS CLERK) Anatomical Region Laterality Modality X-Ray Angiograph y Narrative 04/12/2022 12:03 PM RECORDS CLERK Attending: Zak Hung MD Indication: SOB and [...] through rt CFV 7 F sheath with [place] Leila catheter with recording of Sats and pressures. Hemodynamic findings: Arterial pressure: 130/80 mmHg and Sat 99% LVEDP: 2 mmHg No gradient across AV RA: ??3 mmHg and Sat 85% RV: ??25/4 mmHg PA: ?? 25/10/15 ??mmHg and sat 85% PCWP: 5 mmHg [place] MANAGER BRIDGE 4.6 [place] CI 9.3 TD MANAGER BRIDGE 5.2 TD CI 2.5 TP gradient 10 [...] None Estimated blood loss: minimal Conclusion: Normal MANAGER BRIDGE and low filling pressures CAD with OM 80% Stenosis that cant explain his cardiomyopathy Recommendation Medical management of CAD and cardiomyopathy Zak Hung MD CV CARDIAC CATH PROCEDURES Final Result * Oxyhemoglobin, art (04/12/2022 11:04 AM RECORDS CLERK) Oxyhb, art 92.0 90.0 - 95.0 % [facility] [place]) Blood 04/12/2022 11:0 4 AM RECORDS CLERK 04/12/2022 11:11 AM RECORDS CLERK Narrative [facility] [place]) - 04/12/2022 11:18 AM RECORDS CLERK RA Zak Hung MD LAB BLOOD ORDERABLES Final Result Performing Organization Address City/[facility]/ZIP Co de Phone Number [facility] ([place]) [address] [facility] [place] [address] * Oxyhemoglobin, pulmonary artery (04/12/2022 11:03 AM RECORDS CLERK) Oxyhemoglobin, PA 85.9 % [facility] ([place]) Comment: Interpretive Data No reference range established. Current interpretive data was last revised 2019. Blood 04/12/2022 11:0 3 AM RECORDS CLERK 04/12/2022 11:11 AM RECORDS CLERK Narrative Y[facility] LEE) - 04/12/2022 11:14 AM RECORDS CLERK PA Zak Hung MD LAB BLOOD ORDERABLES Final Result Performing Organization Address City/[facility]/ZIP Co de Phone Number [facility] ([place]) 1 [facility] [employer] [place] [address] * Oxyhemoglobin, central venous (04/12/2022 11:02 AM RECORDS CLERK) Oxyhemoglobin, CV 96.7 % [facility] ([place]) Comment: Interpretive Data No reference range established. Current interpretive data was last revised 2019. Blood 04/12/2022 11:0 2 AM RECORDS CLERK 04/12/2022 11:10 AM RECORDS CLERK Narrative [facility] LEE) - 04/12/2022 11:14 AM RECORDS CLERK AO us Zak Hung MD LAB BLOOD ORDERABLES Final Result [facility] LEE) 1 [facility] [place] [address] * eGFR (04/12/2022 9:13 AM RECORDS CLERK) eGFR 35 mL/min/1. 73 m2 [facility]ARTINS [...] last reviewed 2021. Blood 04/12/2022 9:13 AM RECORDS CLERK 04/12/2022 9:15 AM RECORDS CLERK us Zak Hung MD LAB BLOOD ORDERABLES Final Result [facility]) 1 [facility] [place] [address] * Differential, auto (04/12/2022 9:13 AM RECORDS CLERK) Neutrophil abs 5.6 1.7 - 6.5 K/cumm [...] revised on 2017. Lymphocyte pct 13.5 % [facility] ([place]) Comment: Interpretive Data Percent cell count reference ranges are not reported, since discordance with absolute values may lead to misinterpretation of CBC data. Current Interpretive Data was last revised on 2017. Monocyte pct 7.9 % [facility] ([place]) Comment: Interpretive Data [...] revised on 2017. Basophil pct 0.5 % [facility] ([place]) Comment: Interpretive Data Percent cell count reference ranges are not reported, since discordance with absolute values may lead to misinterpretation of CBC data. Current Interpretive Data was last revised on 2017. Blood 04/12/2022 9:13 AM RECORDS CLERK 04/12/2022 9:15 AM RECORDS CLERK Zak Hung MD LAB BLOOD ORDERABLES Final Result Performing Organization Address [facility] de Phone Number [facility] 1 [facility] [place] [address] * Protime-INR (04/12/2022 9:13 AM RECORDS CLERK) PT 12.2 9.2 - 13.5 sec [facility] ([place]) INR 1.1 0.9 - 1.2 [facility] ([place]) Comment: Interpretive data Oral anticoagulant therapeutic ranges: Venous thromboembolism prophylaxis or treatment: 2.0-3.0 CARDIOLOGY Standard range: 2.0-3.0 High-intensity range: 2.5-3.5 Refer to indication-specific guidelines for appropriate target ranges for prosthetic heart valve replacement. Current interpretive data was last revised on 2019. Blood 04/12/2022 9:13 AM RECORDS CLERK 04/12/2022 9:15 AM RECORDS CLERK Zak Hung MD LAB BLOOD ORDERABLES Final Result Performing Organization Address [facility] Co de Phone Number [facility] 1 [facility] [place] [address] * (ABNORMAL) Basic metabolic panel (04/12/2022 9:13 AM RECORDS CLERK) Sodium 138 135 - 145 mmol/L [facility] ([place]) Potassium, pl 3.8 3.3 - 4.9 mmol/L [facility] ([place]) Chloride 102 97 - 110 mmol/L [facility] ([place]) CO2 25 22 - 32 mmol/L [facility]) Anion gap 11 2 - 15 mmol/L [facility] ([place]) BUN 16 8 - 25 mg/dL [facility] ([place]) Creatinine 2.19(H) 0.80 - 1.30 mg/dL [facility] ([place]) Glucose 99 70 - 199 mg/dL [facility] ([place]) Comment: Interpretive Data Fasting glucose >/= [...] 2017. Calcium 9.3 8.5 - 10.3 mg/dL [facility] ([place]) Blood 04/12/2022 9:13 AM RECORDS CLERK 04/12/2022 9:15 AM RECORDS CLERK us Zak Hung MD LAB BLOOD ORDERABLES Final Result [facility] ([place]) 1 [facility] Department [place] [address] * (ABNORMAL) CBC with auto differential (04/12/2022 9:13 AM RECORDS CLERK) Pathologist [facility] WBC 7.8 3.8 - 9.9 K/cumm [facility] ([place]) Hgb 14.7 13.0 - 17.5 g/dL [facility] ([place]) Hct 42.2 38.9 - 50.3 % [facility] ([place]) Plt 266 150 - 400 K/cumm [facility] ([place]) MPV 8.3(L) 9.1 - 12.3 fL [facility] ([place]) RBC 5.02 4.30 - 5.80 M/cumm [facility] [place]) MCV 84.1 81.3 - 96.4 fL [facility] [place]) MCH 29.3 27.1 - 33.3 pg [facility] ([place]) MCHC 34.8 32.3 - 35.7 g/dL [facility] ([place]) RDW CV 12.9 11.1 - 14.9 % [facility] ([place]) RDW SD 39.4 35.7 - 48.1 fL [facility] ([place]) NRBC abs 0.00 0.00 - 0.01 K/cumm [facility] ([place]) Blood 04/12/2022 9:13 AM RECORDS CLERK 04/12/2022 9:15 AM RECORDS CLERK Zak Hung MD LAB BLOOD ORDERABLES Final Result Performing Organization Address City/State/[facility] Co de Phone Number [facility] ([place]) 1 [facility] [place] [address] documented in this encounter Visit Diagnoses Diagnosis [...] MAR Action Action Date Dose Rate Site Carrier Fluids for Secondary Infusion - 0.9% [...] Pre-Procedure (CV) New Bag 04/12/2022 9:40 AM RECORDS CLERK 150 mL/hr 150 mL/hr sodium chloride 0.9% flush 0.5-20 mL 0.5-20 [...] Recently Administered Medications Times are shown in RECORDS CLERK. Scheduled Medication Order 04/10/2022 04/11/2022 04/12/2022 sodium [...] ider: Florencia Knowles RN)[id number] (Stopped - Provider: oRx Garcia RN) PRN Medication Order 04/10/2022 04/11/2022 [...] in this encounter Orders Medications Ordered That [facility] ht Not Have Been Administered Count Last Ordered Date First Ordered Date bivalirudin (ANGIOMAX) bolus from bag 1 Carrier Fluids for Secondary Infusion - 0.9% Sodium Chloride 1 04/12/2022 fentaNYL (SUBLIMAZE) preserv ative free injection 1 04/12/2022 lidocaine PF (XYLOCAINE) 10 mg/mL (1 %) preservative free injection 1 04/12/2022 midazolam (VERSED) 1 mg/mL p reservative free injection 1 04/12/2022 nitroglycerin solution 100 mcg/mL 1 022 sodium chloride 0.9% flush 0.5-20 mL 2 03/17 Nursing Count Last Ordered Date First Orde red Date TELEMETRY MONITORING 1 04/12/2022 Discharge Count Last Ordered Date First Orde red Date DISCHARGE PATIENT 1 04/12/2022 documented in this encounter Care Teams Bread Molder Relationship Specialty Start Date End Date Naomy Maddox MD [address] [place] [address] PCP - General Internal Medicine 05/06/20 documented as of this encounter
--- OUTSIDE RECORDS SUMMARY | 2024-05-17 12:10 | XMS_ITS | Encounter Summary ---
Author Organization [facility] Healthcare Address [address] [place] [address] Care Team Providers Care Energy Economist Name Role Phone Naomy Maddox MD Primary Care Provider [phone] Reason for Referral * Diagnostic Imaging (Routine) - Closed Specialty Diagnoses / Procedures Referred By Tanesha dennis Referred To Contact Diagnoses Acute on chronic systolic heart failure (HCC) Procedures NM MPI SPECT (Rest and/or Stress) Multiple Studies Zak Mcgee MD Phone: tel: fax: [address] [phone] Referral ID Status Reason Start Date Expiration Date Visits Re quested Visits Authorized [id number] Closed 11/23/2021 11/23/2022 1 1 Reason for Visit * Diagnostic Imaging (Routine) - Closed Specialty Diagnoses / Procedures Referred By Tanesha dennis Referred To Contact Diagnoses Acute on chronic systolic heart failure (HCC) Procedures NM MPI SPECT (Rest and/or Stress) Multiple Studies Zak Mcgee MD Phone: tel: fax: [address] [phone] Referral ID Status Reason Start Date Expiration Date Visits Re quested Visits Authorized [id number] Closed 11/23/2021 11/23/2022 1 1 Encounter Details Date Type Department Care Team (Latest Contact Info) Description 12/10/2021 6:36 AM CDT - 12/10/2021 7:22 AM CDT Hospital Encounter [facility] [address] [place] [address] Zak Mcgee MD [address] [place] [id number] Acute on chronic systolic heart failure (HCC) Discharge Disposition: Discharge to home or self care Social History Tobacco Use Types Packs/Day Years Used Date Smoking Tobacco: Never Sex and Gender Information Value Date Recorded Sex Assigned at Not on file 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 Gender Identity Not on file Sexual Orientation [...] Procedure Name Priority Date/Time Associated Diagnosis Comments NM MPI SPECT (REST AND/OR STRESS) MULTIPLE STUDIES Schedule JACINTA, Read Routine (Patient lives out of area) 12/10/2021 8:34 AM CDT Acute on chronic systolic heart failure (HCC) STRESS TEST FOR DUAL READ Schedule JACINTA, Read Routine (Patient lives out of area) 12/10/2021 8:34 AM CDT Acute on chronic systolic heart failure (HCC) documented in this encounter Results * Stress Test for Myocardial Perfusion (12/10/2021 8:34 AM CDT) Anatomical Region Laterality Modality Nuclear Medicine 12/10/2021 7:00 AM CDT Narrative 12/10/2021 10:59 AM CDT [address] [place] [address] [employer] Report Patient Name: NATAN RIVERA T : [...] Procedure Note Renetta Decker MD - 12/10/[address] [place] [address] [employer] Report Patient Name: NATAN RIVERA TPatient ID: [id number] : [id number] Date: 12/10/2021 7:00:00 AM Gender: MAccession #: [id number] Tech: ORLANDORef.Provider: ZAK MCGEE Height(Cm): 178BSA: Weight(Kg): 190Heart Rate: [...] AM CDT Narrative 12/10/2021 11:03 AM CDT [address] [address] [employer] Report Patient Name: NATAN RIVERA T : [...] Procedure Note Renetta Decker MD - 12/10/[address] [address] [employer] Report Patient Name: NATAN RIVERA TPatient ID: [id number] : [id number] Date: 12/10/2021 6:24:42 AM Gender: MAccession #: [id number] Tech: Ref.Provider: ZAK MCGEE Height(Cm): BSA: Weight(Kg): [...] Diagnosis Acute on chronic systolic heart failure (HCC) Acute on chronic systolic heart failure documented in this encounter Administered Medications Inactive Administered Medications - up to 3 most recent administrations Medication Order MAR Action Action Date Dose Rate Site tc-99m tetrofosmin (MYOVIEW) injection 10.7 millicurie 10.7 millicurie, intravenous, Once in imaging, radiopharmaceutical, Starting on Malu 12/10/21 at 0727, For 1 dose, Indications: Diagnostic RadiographyIndications:Ruth gnostic Radiography Given 12/10/2021 6:57 AM CDT 10.7 millicuries documented in this encounter Orders Medications Ordered That José ht Not Have Been Administered Count Last Ordered Date First Ordered Date tc-99m tetrofosmin (MYOVIEW) injection 10.7 millicurie 1 12/10/2021 documented in this encounter Care Teams Energy Economist Relationship Specialty Start Date End Date Naomy Maddox MD [address] [place] [address] PCP - General Internal Medicine 05/06/20 documented as of this encounter
--- OUTSIDE RECORDS SUMMARY | 2024-05-17 12:10 | XMS_ITS | Encounter Summary ---
Author Organization [facility] Medical Group Address [address] [place] [address] Care Team Providers Care Ecommerce Marketing Specialist Name Role Phone Naomy Maddox MD Primary Care Provider [phone] Encounter Details Date Type Department Care Team (Late st Contact Info) Description 02/09/2022 Telephone [place] [employer] Qa Lab Analyst at [address] [place] [address] Rosa Miranda MA Social History Tobacco Use Types Packs/Day Years Used Date Smoking Tobacco: Never Sex and Gender Information Value Date Recorded Sex Assigned at Not on file 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 Zak Anderson MD Reed, Kelli, MA Caller: Unspecified (2 days ago, 1:16 PM) No; cardiac mri not replacing cath Can be done through wrist in most cases depending on size of his artery in wrist Patient informed. * Telephone Encounter - Rosa Miranda MA - 02/09/2022 1:16 PM CDT Pt would like to see if he could have an MRI instead of a heart cath? If a heart cath is necessary he wanted to know if it could be done through the wrist instead of thegroin. Please advise. documented in this encounter Plan of Treatment Not on file documented as of this encounter Visit Diagnoses Not on filedocumented in this encounter Care Teams Ecommerce Marketing Specialist Relationship Specialty Start Date End Date Naomy Maddox MD [address] [place] [address] PCP - General Internal Medicine 05/06/20 documented as of this encounter
--- OUTSIDE RECORDS SUMMARY | 2024-05-17 12:10 | XMS_ITS | Encounter Summary ---
Author Organization [facility] Medical Group Address [address] [place] [address] Care Team Providers Care Desktop Publishing Specialist Name Role Phone Naomy Maddox MD Primary Care Provider [phone] Encounter Details Date Type Department Care Team (Late st Contact Info) Description 02/15/2022 Telephone [place] [employer] Supervisor at [address] [place] [address] Rosa Miranda MA Social History Tobacco Use Types Packs/Day Years Used Date Smoking Tobacco: Never Sex and Gender Information Value Date Recorded Sex Assigned at Not on file 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 * Telephone Encounter - Rosa Miranda MA - 02/15/2022 2:46 PM CDT Patient called and said that he has been having chest pain and started taking double of these medications: hydralazine 10 mg TID and isosorbide dinitrate 10 mg TID and it has been helping with the chest pain. He wanted to know if he could continue doing this? Please advise. documented in this encounter Plan of Treatment Not on file documented as of this encounter Visit Diagnoses Not on filedocumented in this encounter Care Teams Desktop Publishing Specialist Relationship Specialty Start Date End Date Naomy Maddox MD [address] [place] [address] PCP - General Internal Medicine 05/06/20 documented as of this encounter
--- OUTSIDE RECORDS SUMMARY | 2024-05-17 12:11 | XMS_ITS | Encounter Summary ---
Author Organization [facility] Medical Group Address [address] [place] [address] Care Team Providers Care Large Sheetfed Press Operator Name Role Phone Naomy Maddox MD Primary Care Provider [phone] Reason for Visit * Reason Onset Date Comments Echo Results 10/06/2021 Encounter Details Date Type Department Care Team (Late st Contact Info) Description 10/06/2021 Telephone [place] [employer] System Operator [id number] [address] Olamide Fuller MA Echo Results Social History Tobacco Use Types Packs/Day Years Used Date Smoking Tobacco: Never Sex and Gender Information Value Date Recorded Sex Assigned at Not on file 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 Paul for review. * Telephone Encounter - Olamied Vargas MA - 10/06/2021 3:28 PM CDT Patient sister called in wondering why patient has not received echo results. I did explain of the move but if someone could address and please call patient. documented in this encounter Plan of Treatment Not on file documented as of this encounter Visit Diagnoses Not on filedocumented in this encounter Care Teams Large Sheetfed Press Operator Relationship Specialty Start Date End Date Naomy Maddox MD [address] [place] [address] PCP - General Internal Medicine 05/06/20 documented as of this encounter
--- OUTSIDE RECORDS SUMMARY | 2024-05-17 12:11 | XMS_ITS | Encounter Summary ---
Author Organization [facility] Medical Group Address [address] [place] [address] Care Team Providers Care Sprinkler Inspector Name Role Phone Naomy Maddox MD Primary Care Provider [phone] Encounter Details Date Type Department Care Team (Late st Contact Info) Description 11/04/2021 Telephone [employer] Teacher at [address] [place] [address] Domenica Woo Social History Tobacco Use Types Packs/Day Years Used Date Smoking Tobacco: Never Sex and Gender Information Value Date Recorded Sex Assigned at Not on file 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 * Telephone Encounter - Domenica Woo MA - 11/04/2021 2:05 PM CDT Pt called stating he thinks his meds should be increased. Pt states he is having slight chest pain. Please advise documented in this encounter Plan of Treatment Not on file documented as of this encounter Visit Diagnoses Not on filedocumented in this encounter Care Teams Sprinkler Inspector Relationship Specialty Start Date End Date Naomy Maddox MD [address] [place] [address] PCP - General Internal Medicine 05/06/20 documented as of this encounter
--- OUTSIDE RECORDS SUMMARY | 2024-05-17 12:11 | XMS_ITS | Encounter Summary ---
Author Organization [facility] Medical Group Address [address] [place] [address] Care Team Providers Care Helper Animal Laboratory Name Role Phone Naomy Maddox MD Primary Care Provider [phone] Reason for Referral * Cardiology (Routine) - Closed Specialty Diagnoses / Procedures Referred By Tanesha dennis Referred To Contact Diagnoses Essential hypertension Procedures Transthoracic Echo Complete W Doppler/CF Zak Mcgee MD Phone: tel: fax: [facility] [address] [place] [address] Referral ID Status Reason Start Date Expiration Date Visits Re quested Visits Authorized [id number] Closed 09/07/2021 09/07/2022 1 1 Reason for Visit * Reason Comments New Patient Hyperlipidemia Encounter Details Date Type Department Care Team (Late st Contact Info) Description 09/04/2021 2:30 PM CDT Office Visit [facility] Claims Processor [address] [facility] [address] [place] [address] Zak Mcgee MD [address] [place] [address] [address] [place], [place] [id number] LVF (left ventricular failure) (CMS/HCC) (HCC) (Primary Dx); Essential hypertension; Stage 3b chronic kidney disease (HCC) Social History Tobacco Use Types Packs/Day Years Used Date Smoking Tobacco: Never Sex and Gender Information Value Date Recorded Sex Assigned at Not on file 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 Gender Identity Not on file Sexual Orientation Not on file documented as of this encounter Last Filed Vital Signs Vital Sign Reading Time Taken Comments Blood Pressure 116/78 09/04/2021 1:49 PM CDT Pulse 80 09/04/2021 1:49 PM CDT Temperature 36.4 ??C (97.6 ??F) 09/04/2021 1:49 PM CD T Respiratory Rate 16 09/04/2021 1:49 PM CDT Oxygen Saturation - - Inhaled Oxygen Concentration - - Weight 86.2 kg (190 lb) 09/04/2021 1:49 PM CDT Height 177.8 cm (5' 10 ) 09/04/2021 1:49 PM CDT Body Mass Index 27.26 09/04/2021 1:49 PM CDT documented in this encounter Progress Notes * Darline Bae MA - 09/04/2021 2:30 PM CDT Images from the original note were not included. Cardiology note Reason for Office Visit: ER discharge f/u History of Present Illness: Natan Rivera is a 55 y.o. male follow-up after discharge from the ER. Patient presented to the ER on August 17 with progressive shortness of breath for to have weeks. Shortness of breath was severe with present at rest and increases with mild activity. Patient was having difficulty sleeping with orthopnea. The patient was diagnosed with heart failure in the ER and started on Lasix with significant improvement in symptoms since then. Patient currently does have shortness of breath and no lower extremity swelling and he is able to lie flat. Patient denies any chest pain palpitations dizziness. Review of Systems: 10 points review of system is negative except for stated above Histories: Past Medical History: Diagnosis Date ??? Hypertension Hypertension History reviewed. No pertinent surgical history. Family History Problem Relation Age of Onset ??? Stroke Mother Stroke; ??? Hypertension Father Hypertension; Social History Tobacco Use ??? Smoking status: Never Smoker Allergies: Allergies Allergen Reactions ??? Penicillins Other (See comments) Medications: Current Outpatient Medications Medication Sig Dispense Refill [...] 3 times every day 0 0 ??? hydrOXYzine (ATARAX) 10 mg tablet TK 1 T PO QD PRN ??? losartan (COZAAR) 100 mg tablet ??? [...] No current facility-administered medications for this visit. Vital Signs: Vitals BP 116/78 (BP Location: Right arm, Patient Position: Sitting) Pulse 80 Temp 36.4 ??C (97.6 ??F) Resp 16 Ht 177.8 cm (5' 10 ) Wt 86.2 kg (190 lb) BMI 27.26 kg/m?? Wt Readings from Last 3 Encounters: 09/04/21 86.2 kg (190 lb) 08/17/21 88 kg (194 lb) 05/20/20 92.1 kg (203 lb) Body mass index is 27.26 kg/m??. Physical Exam: General appearance: no distress, no cyanosis, able [...] focal weakness and grossly intact cranial nerve Labs: Lab Results Component Value Date TSH 1.60 06/25/2020 FREET4 0.98 06/25/2020 Lab Results Component Value Date AST 54 (H) 08/17/2021 ALT 70 (H) 08/17/2021 ALKPHOS 195 (H) 08/17/2021 ALBUMIN 3.8 08/17/2021 Lab Results Component Value Date SODIUM 139 08/17/2021 POTASSIUM 4.3 08/17/2021 CHLORIDE 104 08/17/2021 CO2 22 08/17/2021 ANIONGAP 13 08/17/2021 GLUCOSEUR Negative 06/25/2020 No results found for: BNP Lab Results Component Value Date SODIUM 139 08/17/2021 SODIUM 137 06/25/2020 POTASSIUM 4.3 08/17/2021 POTASSIUM 3.9 06/25/2020 CHLORIDE 104 08/17/2021 CHLORIDE 103 06/25/2020 CO2 22 08/17/2021 CO2 24 06/25/2020 BUNSER 21 08/17/2021 BUNSER 13 06/25/2020 CREATININE 2.13 (H) 08/17/2021 CREATININE 1.57 (H) 06/25/2020 CREATININE 1.57 (H) 06/25/2020 GFRNAA 36 08/17/2021 GFRNAA 50 06/25/2020 GFRNAA 50 06/25/2020 GLUCOSE 91 08/17/2021 CALCIUM 8.9 08/17/2021 CALCIUM 9.1 06/25/2020 ALBUMIN 3.8 08/17/2021 ALBUMIN 4.2 06/25/2020 PHOS 2.3 06/25/2020 Lab Results Component Value Date SODIUM 139 08/17/2021 POTASSIUM 4.3 08/17/2021 CHLORIDE 104 08/17/2021 CO2 22 08/17/2021 ANIONGAP 13 08/17/2021 BUNSER 21 08/17/2021 CREATININE 2.13 (H) 08/17/2021 GLUCOSE 91 08/17/2021 CALCIUM 8.9 08/17/2021 BILITOT 0.5 08/17/2021 PROT 6.7 08/17/2021 ALBUMIN 3.8 08/17/2021 ALKPHOS 195 (H) 08/17/2021 ALT 70 (H) 08/17/2021 AST 54 (H) 08/17/2021 Lab Results Component Value Date WBC 7.2 08/17/2021 HGB 13.6 08/17/2021 HCT 40.8 08/17/2021 LABPLAT 308 08/17/2021 MPV 8.4 (L) 08/17/2021 RBC 4.81 08/17/2021 MCV 84.8 08/17/2021 MCH 28.3 08/17/2021 MCHC 33.3 08/17/2021 RDWCV 14.6 08/17/2021 RDWSD 45.1 08/17/2021 NRBCABS 0.00 08/17/2021 No results found for: CHOL, TRIG, HDL, LDLCALC, NONHDLCHOL, CHOLHDL Testing: EK08/17/2021 Chest X-Ray: 08/17/2021 IMPRESSION: 1. Suspected mild pulmonary vascular congestion, though atypical infectious/inflammatory infiltrate is not excluded. 2. Mild cardiomegaly. 3. Nonspecific left retrocardiac opacity. Continued imaging follow-up to resolution recommended. Pro-BNP: 08/17/2021 Troponin 2 HR: 08/17/2021 Diagnoses Congestive heart failure likely diastolic heart failure Hypertension controlled on 4 antihypertensive medications Chronic kidney disease stage 3 Plan Echocardiogram NT-ProBNP BMP before next visit Follow-up after echocardiogram 2:08 PM Zak Mcgee MD Cc:Naomy Maddox MD documented in this encounter Miscellaneous Notes * Addendum Note - Lisa Liu - 09/04/2021 2:30 PM CDTAddended by: LISA LIU on: 10/29/2021 08:25 AM Modules accepted: Orders documented in this encounter Plan of Treatment Not on file documented as of this encounter Results * TRANSTHORACIC ECHO (TTE) COMPLETE W DOPPLER/CF WO CONTRAST (10/01/2021 8:03 AM CDT) Anatomical Region Laterality Modality Ultrasound 10/01/2021 7:22 AM CDT Narrative 10/01/2021 10:10 AM CDT [address] [address] Echocardiogram Report Patient Name: NATAN RIVERA : 1965 Study Date: 10/01/2021 07:22:24 Gender: M Tech: Location: Echo Lab 2 Ref.Provider: ZAK MCGEE Height(Cm): 178 BSA: 2.05 Weight(Kg): 85.3 Quality: Adequate Order Provider: ZAK MCGEE Procedures: Echocardiographic Report: Transthoracic echocardiogram with complete 2D, M-Mode, and color Doppler examination. Indications: Essential Hypertension. Measurements: 2D/M Mode ?Doppler ? Measurement ?Value ?Normal Range ? Measurement ?Value ?Normal Range ? EF Teich MM ?26.0 ? [ 55.0 - 70.0 ] percent ?JIGAR Vmax ? 2.20 ? [ 2.00 - 4.00 ] cm2 ? LVIDd MM ? 6.40 ? [ 4.20 - 5.90 ] cm ? AV Mean PG ? 2 ?[ 2 - 4 ] mmHg ? LVIDs MM ? 5.60 ? [ 2.30 - 3.90 ] cm ? AV Peak Grayson ?0.92 ? [ 1.00 - 1.70 ] m/s ? LVPWd MM ? 1.20 ? [ 0.60 - 1.00 ] cm ? AV VTI ? 14.15 ?cm ? IVSd MM ?1.00 ? [ 0.60 - 0.90 ] cm ? LVOT Diam ?1.93 ? [ 1.70 - 2.10 ] cm ? LA Dimension MM ?3.68 ? [ 3.00 - 4.00 ] cm ? LVOT Peak Grayson ?0.70 ? [ 0.70 - 1.10 ] m/s ? AoR Diam MM ?3.40 ? [ 2.60 - 3.70 ] cm ? LVOT VTI ? 10.94 ?[ 20.00 - 30.00 ] cm ? ACS MM ? 1.98 ? [ 1.50 - 2.60 ] cm ? MV E Peak Grayson ?1.32 ? [ 0.60 - 1.30 ] m/s ? MV A Peak Grayson ?0.01 ? [ 1.00 - 1.20 ] m/s ? MV Mean PG ? 2 ?[ <= 5 ] mmHg ? MV PHT ? 25 ? [ 20 - 100 ] msec ? MVA ?8.90 ? MV Decel Time ?85 ? [ 104 - 258 ] msec ? PV Peak Grayson ?1.13 ? [ 0.40 - 0.80 ] m/s ? WI Peak Grayson ?0.73 ? m/s ? TR Peak Grayson ?2.61 ? [ 1.00 - 2.80 ] m/s ? TR Peak PG ? 27 ? mmHg ? RVSP ? 37.00 ?[ 10.00 - 36.00 ] mmHg ? E' ? 0.04 ? E/E' ? 34.67 ? PA Pressure ?27.00 ?[ 10.00 - 36.00 ] mmHg ? - Findings: Atrial Septum: Normal atrial septum. Left Ventricle: Mild concentric left ventricular hypertrophy. Moderate enlargement of left ventricle cavity. Severe global left ventricular systolic dysfunction. No left ventricular thrombus visualized. Normal left ventricular diastolic function. Ejection fraction is measured at 26 %. There is global hypokinesis involving all segments of the LV. Left Atrium: The left atrium is normal in size. Right Ventricle: Normal right ventricular systolic function. Mild enlargement of right ventricle. Abnormal (paradoxical) septal motion consistent with RV volume overload and/or elevated RV end-diastolic pressure. Right Atrium: There is mild enlargement of right atrium. Aortic Valve: Aortic cusps appear mildly sclerotic. Trileaflet aortic valve. Mitral Valve: Mitral valve leaflets appear mildly thickened. Mild mitral valve regurgitation. Pulmonic Valve: Normal structure of the pulmonic valve. Trivial regurgitation in the pulmonic valve. Tricuspid Valve: Normal structure of the tricuspid valve. Mild pulmonary hypertension based on right ventricular systolic pressure. Estimated peak RVSP is 37 mmHg. Mild tricuspid regurgitation. Pericardium: Normal pericardium with no significant pericardial effusion. Aorta: Normal aortic root. Sinus of Valsalva is normal. Descending aorta is normal. IVC: Normal size and normal respiratory collapse consistent with normal right atrial pressure (<5 mmHg). Pulmonary Artery: Normal pulmonary artery size. Conclusions: Mild concentric left ventricular hypertrophy. Moderate enlargement [...] with normal right atrial pressure (<5 mmHg). Electronically Signed By: Renetta Decker MD 2021-10-01 10:10:00 CDT CC: CC: Procedure Note Renetta Decker MD - 10/01/[address] [address] Echocardiogram Report Patient Name: NATAN RIVERAPatient ID: [id number] : [id number] Date: 10/01/2021 07:22:24 Gender: MAccession #: [id number] Tech: JCLocation: Echo Lab 2 Ref.Provider: ZAK MCGEEHeight(Cm): 178 BSA: 2.05Weight(Kg): 85.3 Quality: AdequateOrder Provider: ZAK MCGEE Procedures: Echocardiographic Report: Transthoracic echocardiogram with complete 2D, M-Mode, and color Dopplerexamination. Indications: Essential Hypertension. Measurements: 2D/M Mode Doppler Measurement Value Normal Range MeasurementValue Normal Range EF Teich MM 26.0 [ 55.0 - 70.0 ] percent JIGAR Vmax2.20 [ 2.00 - 4.00 ] cm2 LVIDd MM 6.40 [ 4.20 - 5.90 ] cm AV Mean PG 2[ 2 - 4 ] mmHg LVIDs MM 5.60 [ 2.30 - 3.90 ] cm AV Peak Vel0.92 [ 1.00 - 1.70 ] m/s LVPWd MM 1.20 [ 0.60 - 1.00 ] cm AV VTI14.15 cm IVSd MM 1.00 [ 0.60 - 0.90 ] cm LVOT Diam1.93 [ 1.70 - 2.10 ] cm LA Dimension MM 3.68 [ 3.00 - 4.00 ] cm LVOT Peak Vel0.70 [ 0.70 - 1.10 ] m/s AoR Diam MM 3.40 [ 2.60 - 3.70 ] cm LVOT VTI10.94 [ 20.00 - 30.00 ] cm ACS MM 1.98 [ 1.50 - 2.60 ] cm MV E Peak Vel1.32 [ 0.60 - 1.30 ] m/s MV A Peak Vel0.01 [ 1.00 - 1.20 ] m/s MV Mean PG 2[ <= 5 ] mmHg MV PHT 25[ 20 - 100 ] msec MVA8.90 MV Decel Time 85[ 104 - 258 ] msec PV Peak Vel1.13 [ 0.40 - 0.80 ] m/s WI Peak Vel0.73 m/s TR Peak Vel2.61 [ 1.00 - 2.80 ] m/s TR Peak PG 27mmHg RVSP37.00 [ 10.00 - 36.00 ] mmHg E'0.04 E/E'34.67 PA Mcealwec40.00 [ 10.00 - 36.00 ] mmHg - Findings: Atrial Septum: Normal atrial septum. Left Ventricle: Mild concentric left ventricular hypertrophy. Moderate enlargement of leftventricle cavity. Severe global left ventricular systolic dysfunction. No leftventricular thrombus visualized. Normal left ventricular diastolic function. Ejection fractionis measured at 26 %. There is global hypokinesis involving all segments of the LV. Left Atrium: The left atrium is normal in size. Right Ventricle: Normal right ventricular systolic function. Mild enlargement of rightventricle. Abnormal (paradoxical) septal motion consistent with RV volume overload and/orelevated RV end-diastolic pressure. Right Atrium: There is mild enlargement of right atrium. Aortic Valve: Aortic cusps appear mildly sclerotic. Trileaflet aortic valve. Mitral Valve: Mitral valve leaflets appear mildly thickened. Mild mitral valveregurgitation. Pulmonic Valve: Normal structure of the pulmonic valve. Trivial regurgitation in thepulmonic valve. Tricuspid Valve: Normal structure of the tricuspid valve. Mild pulmonary hypertension basedon right ventricular systolic pressure. Estimated peak RVSP is 37 mmHg. Mildtricuspid regurgitation. Pericardium: Normal pericardium with no significant pericardial effusion. Aorta: Normal aortic root. Sinus of Valsalva is normal. Descending aorta isnormal. IVC: Normal size and normal respiratory collapse consistent with normal rightatrial pressure (<5 mmHg). Pulmonary Artery: Normal pulmonary artery size. Conclusions: Mild concentric left ventricular hypertrophy. Moderate enlargement of leftventricle cavity. Severe global left ventricular systolic dysfunction. No leftventricular thrombus visualized. Normal left ventricular diastolic function. Ejection fractionis measured at 26 %. There is global hypokinesis involving all segments of the LV. Normal right ventricular systolic function. Mild enlargement of rightventricle. Abnormal (paradoxical) septal motion consistent with RV volume overload and/orelevated RV end-diastolic pressure. Mitral valve leaflets appear mildly thickened. Mild mitral valveregurgitation. Aortic cusps appear mildly sclerotic. Trileaflet aortic valve. Normal structure of the tricuspid valve. Mild pulmonary hypertension basedon right ventricular systolic pressure. Estimated peak RVSP is 37 mmHg. Mildtricuspid regurgitation. Normal pericardium with no significant pericardial effusion. Normal size and normal respiratory collapse consistent with normal rightatrial pressure (<5 mmHg). Electronically Signed By: Renetta Decker MD 2021-10-01 10:10:00 CDT CC: CC: Zak Mcgee MD CV ECHO PROCEDURES Final Re sult documented in this encounter Visit Diagnoses Diagnosis LVF (left ventricular failure) (CMS/HCC) (HCC)- Primary Left heart failure Essential hypertension Unspecified essential hypertension Stage 3b chronic kidney disease (HCC) Essential hypertension Unspecified essential hypertension documented in this encounter Care Teams Helper Animal Laboratory Relationship Specialty Start Date End Date Naomy Maddox MD [address] [place] [address] PCP - General Internal Medicine 05/06/20 documented as of this encounter
--- OUTSIDE RECORDS SUMMARY | 2024-05-17 12:11 | XMS_ITS | Encounter Summary ---
Author Organization [facility] Healthcare Address [address] [place] [address] Care Team Providers Care Computer Help Desk Specialist Name Role Phone Naomy Maddox MD Primary Care Provider [phone] Reason for Referral * Cardiology (Routine) - Closed Specialty Diagnoses / Procedures Referred By Tanesha dennis Referred To Contact Diagnoses Essential hypertension Procedures Transthoracic Echo Complete W Doppler/CF Zak Mcgee MD Phone: tel: fax: [address] [address] Referral ID Status Reason Start Date Expiration Date Visits Re quested Visits Authorized [id number] Closed 09/07/2021 09/07/2022 1 1 Reason for Visit * Cardiology (Routine) - Closed Specialty Diagnoses / Procedures Referred By Tanesha dennis Referred To Contact Diagnoses Essential hypertension Procedures Transthoracic Echo Complete W Doppler/CF Zak Mcgee MD Phone: tel: fax: [address] [address] Referral ID Status Reason Start Date Expiration Date Visits Re quested Visits Authorized [id number] Closed 09/07/2021 09/07/2022 1 1 Encounter Details Date Type Department Care Team (Latest Contact Info) Description 10/01/2021 7:19 AM CDT - 10/01/2021 11:59 PM CDT Hospital Encounter [facility] Cardiology [address] [facility] [place] [address] Zak Mcgee MD [address] 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 Gender Identity Not on file Sexual [...] times every day 0 0 05/21/2015 02/23/2023 losartan (COZAAR) 100 mg tablet 05/19/2020 11/05/2022 [...] (TTE) COMPLETE W DOPPLER/CF WO CONTRAST Routine 10/01/2021 8:03 AM CDT Essential hypertension documented in this encounter Results * TRANSTHORACIC ECHO (TTE) COMPLETE W DOPPLER/CF WO CONTRAST (10/01/2021 8:03 AM CDT) Anatomical Region Laterality Modality Ultrasound 10/01/2021 7:22 AM CDT Narrative 10/01/2021 10:10 AM CDT [address] [address] Echocardiogram Report Patient Name: NATAN RIVERA : 1965 Study Date: 10/01/2021 07:22:24 Gender: M Tech: HERB Location: Echo Lab 2 Ref.Provider: ZAK MCGEE [...] [ 0.40 - 0.80 ] m/s ? [place] Peak Grayson ?0.73 ? m/s ? TR [...] Procedure Note Renetta Decker MD - 10/01/[address] [address] Echocardiogram Report Patient Name: NATAN RIVERAPatient ID: [id number] : [id number] Date: 10/01/2021 07:22:24 Gender: MAccession #: [id number] Tech: JCLocation: Echo Lab 2 Ref.Provider: Pat MCGEEight(Cm): 178 BSA: 2.05Weight(Kg): 85.3 Quality: AdequateOrder Provider: [...] Vel1.13 [ 0.40 - 0.80 ] m/s [place] Peak Vel0.73 m/s TR Peak Vel2.61 [ 1.00 - 2.80 ] m/s TR Peak PG 27mmHg RVSP37.00 [ 10.00 - 36.00 ] mmHg E'0.04 E/E'34.67 PA Zmpetmzr80.00 [ 10.00 - 36.00 ] mmHg - [...] in this encounter Visit Diagnoses Diagnosis Essential hypertension Unspecified essential hypertension documented in this encounter Care Teams Computer Help Desk Specialist Relationship Specialty Start Date End Date Naomy Maddox MD [address] [place] [address] PCP - General Internal Medicine 05/06/20 documented as of this encounter
--- OUTSIDE RECORDS SUMMARY | 2024-05-17 12:11 | XMS_ITS | Encounter Summary ---
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 at [address] [place] [address] Azael Oseguera MD [address] [place] [address] [address] [place] [address] Social History Tobacco Use Types Packs/Day Years Used Date Smoking Tobacco: Never Sex and Gender Information Value Date Recorded Sex Assigned at Not on file Legal 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 Gender Identity Not on file Sexual Orientation Not on file documented as of this encounter Miscellaneous Notes * Telephone Encounter - Azael Oseguera MD - 2021 9:02 AM CDT You saw him in the office on September 04 * Telephone Encounter - Zak Anderson MD - 10/07/2021 5:13 PM CDT Thank you will see him in clinic ECHO was ordered by ER and don't think we have seen him before neither in hospital or clinic * Telephone Encounter - Darline Bae MA - 10/07/2021 3:33 PM CDT Scheduled pt appt Tuesday with [facility] to review echo * Telephone Encounter - Azael Oseguera MD - 10/07/2021 1:59 PM CDT I did not see this patient previously Looks like he was seen in the hospital with [facility]. Schedule follow-up with him soon to discuss results * Telephone Encounter - Darline Bae MA - 10/07/2021 12:51 PM CDT Pt is very upset, he has not received any echo results. He has saw them on mychart and aware they are abnormal. He has called 3 times for results. A message has been sent to [place] also. Echo was donea week ago. Please advise. Conclusions: Mild concentric left ventricular hypertrophy. Moderate [...] with normal right atrial pressure (<5 mmHg). documented in this encounter Plan of Treatment Not on file documented as of this encounter Visit Diagnoses Not on filedocumented in this encounter Care Teams Eyeglass Lens Cutter Relationship Specialty Start Date End Date Naomy Maddox MD [address] [place] [id number] PCP - General Internal Medicine 05/06/20 documented as of this encounter
--- OUTSIDE RECORDS SUMMARY | 2024-05-17 12:11 | XMS_ITS | Encounter Summary ---
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 [address] [place] [address] Zak Anderson MD [address] [place] [address] [address] [place] [address] SOB (shortness of breath) (Primary Dx) Social History Tobacco Use Types Packs/Day Years Used Date Smoking Tobacco: Never Sex and Gender Information Value Date Recorded Sex Assigned at Not on file 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
--- OUTSIDE RECORDS SUMMARY | 2024-05-17 12:11 | XMS_ITS | Encounter Summary ---
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 Mining Operator Name Role Phone Naomy Madodx MD Primary Care Provider [phone] Reason for Visit * Reason Comments Shortness of Breath Encounter Details Date Type Department Care Team ([facility] st Contact Info) Description 08/17/2021 12:50 AM CDT - 08/17/2021 5:30 AM CDT Emergency [facility] Emergency Department [address] [place] [address] Joe Roche MD [address] [place] [id number] Congestive heart failure, unspecified HF chronicity, unspecified heart failure type (HCC) (Primary Dx); Uncontrolled hypertension; Chronic kidney disease, unspecified CKD stage; Non compliance w medication regimen Discharge Disposition: Discharge to home or self care Social History Tobacco Use Types Packs/Day Years Used Date Smoking Tobacco: Never Sex and Gender Information Value Date Recorded Sex Assigned at Not on file 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 Gender Identity Not on file Sexual Orientation Not on file documented as of this encounter Last Filed Vital Signs Vital Sign Reading Time Taken Comments Blood Pressure 161/93 08/17/2021 4:30 AM CDT Pulse 112 08/17/2021 4:30 AM CDT Temperature 36.8 ??C (98.3 ??F) 08/17/2021 12:47 AM C DT Respiratory Rate 27 08/17/2021 4:30 AM CDT Oxygen Saturation 99% 08/17/2021 4:30 AM CDT Inhaled Oxygen Concentration - - Weight 88 kg (194 lb) 08/17/2021 12:48 AM CDT Height 177.8 cm (5' 10 ) 08/17/2021 12:48 AM CDT Body Mass Index 27.84 08/17/2021 12:48 AM CDT documented in this encounter Discharge Diagnoses Diagnosis Hypertensive heart and chronic kidney disease with heart failure and stage 1 through stage 4 chronic kidney disease, or unspecified chronic kidney disease (HCC) - HYPERTENSIVE HEART AND CHRONIC KIDNEY DISEASE WITH HEART FAILURE AND STAGE 1 THROUGH STAGE 4 CHRONIC Chronic kidney disease, unspecified - CHRONIC KIDNEY DISEASE, UNSPECIFIED Heart failure, unspecified (CMS/HCC) (HCC) - HEART FAILURE, UNSPECIFIED Heart failure, unspecified Patient's other noncompliance with medication regimen - PATIENT'S OTHER NONCOMPLIANCE WITH MEDICATION REGIMEN Family history of ischemic heart disease and other diseases of the circulatory system - FAMILY HISTORY OF ISCHEMIC HEART DISEASE AND OTHER DISEASES OF THE CIRCULATORY SYSTEM documented in this encounter Discharge Instructions * Discharge Instructions* Joe Roche MD - 08/17/2021 5:08 AM CDT Take medications as prescribed , follow with Dr. Meeks as scheduled. * Attachments The following attachments cannot be sent through Care Everywhere. * Chronic Kidney Disease (AfterCare(R) Instructions(ER/ED)) (Surinamese) documented in this encounter Medications at Time [...] tablet/capsule 02/23/2023 documented as of this encounter Ordered Prescriptions Prescription Sig Dispense Quantity Refills Last Filled Start Date End Date furosemide (LASIX) 40 mg tablet Take 1 tablet (40 mg total) by mouth 2 (two) times a day 20 tablet 08/17/2021 02/23/2023 documented in this encounter Discharge Disposition Disposition Code Departure Means Destination Discharge to home or self care documented in this encounter ED Notes * Joe Roche MD - 08/17/2021 5:17 AM CDT HPI Chief Complaint Patient presents with ??? Shortness of Breath 55-year-old with a history of CKD, hypertension, bipolar disorder here with the complaints of shortness of breath for past 1 week. Patient states that whenever he lays down he gets short of breath. He denies any chest pain. No history of fever or chills. Patient states that he has not been taking his medications as prescribed. Patient History: Patient Active Problem List Diagnosis Date Noted ??? Essential hypertension 05/20/2020 ??? Bipolar 1 disorder (HCC) 05/20/2020 ??? Pure hypercholesterolemia 05/20/2020 ??? Stage 3 chronic kidney disease (HCC) 05/20/2020 ??? Chronic fatigue syndrome 05/20/2020 ??? Vitamin D deficiency 05/20/2020 ??? Abnormal cortisol level 05/20/2020 Past Medical History: Diagnosis Date ??? Hypertension Hypertension History reviewed. No pertinent surgical history. Family History Problem Relation Age of Onset ??? Stroke Mother Stroke; ??? Hypertension Father Hypertension; Social History Tobacco Use ??? Smoking status: Never Smoker Social History Social History Narrative ??? Not on file Review of Systems Review of Systems Constitutional: Negative. HENT: Negative. Respiratory: Positive for shortness of breath. Cardiovascular: Negative. Gastrointestinal: Negative. Genitourinary: Negative. Musculoskeletal: Negative. Neurological: Negative. Hematological: Negative. Psychiatric/Behavioral: Negative. Physical Exam ED Triage Vitals Temp Pulse Resp BP SpO2 08/17/214608/17/21 0048 08/17/218 08/17/21 0048 08/17/21 0048 36.8 ??C (98.3 ??F) 116 19 (!) 157/102 98 % Temp src Heart Rate Source Patient Position BP Location FiO2 (%) 08/17/2146 -- -- -- -- Temporal Physical Exam Vitals and nursing note reviewed. Constitutional: Appearance: He is well-developed. HENT: Head: Normocephalic and atraumatic. Eyes: Extraocular Movements: Extraocular movements intact. Pupils: Pupils are equal, round, and reactive to light. Cardiovascular: Rate and Rhythm: Tachycardia present. Pulmonary: Effort: Pulmonary effort is normal. Breath sounds: Rales present. Abdominal: Palpations: Abdomen is soft. Musculoskeletal: General: Normal range of motion. Cervical back: Normal range of motion. Neurological: General: No focal deficit present. Mental Status: He is alert. Results for orders placed or performed during the hospital encounter of 08/17/21 Pro B-type natriuretic peptide Result Value Ref Range NT-proBNP 6,881 (H) <=300 pg/mL CBC with auto differential Result Value Ref Range WBC 7.2 3.8 - 9.9 K/cumm Hgb 13.6 13.0 - 17.5 g/dL Hct 40.8 38.9 - 50.3 % Plt 308 150 - 400 K/cumm MPV 8.4 (L) 9.1 - 12.3 fL RBC 4.81 4.30 - 5.80 M/cumm MCV 84.8 81.3 - 96.4 fL MCH 28.3 27.1 - 33.3 pg MCHC 33.3 32.3 - 35.7 g/dL RDW CV 14.6 11.1 - 14.9 % RDW SD 45.1 35.7 - 48.1 fL NRBC abs 0.00 0.00 - 0.01 K/cumm Comprehensive metabolic panel Result Value Ref Range Sodium 139 135 - 145 mmol/L Potassium, pl 4.3 3.3 - 4.9 mmol/L Chloride 104 97 - 110 mmol/L CO2 22 22 - 32 mmol/L Anion gap 13 2 - 15 mmol/L BUN 21 8 - 25 mg/dL Creatinine 2.13 (H) 0.80 - 1.30 mg/dL Glucose 91 70 - 199 mg/dL Calcium 8.9 8.5 - 10.3 mg/dL Bilirubin, total 0.5 0.1 - 1.2 mg/dL Protein, pl 6.7 6.5 - 8.5 g/dL Albumin 3.8 3.5 - 5.0 g/dL Alk phos 195 (H) 40 - 130 Units/L ALT 70 (H) 7 - 55 Units/L AST 54 (H) 10 - 50 Units/L Troponin T high-sensitivity series (baseline, 2hr, 4hr, 6hr) Result Value Ref Range Trop T hs 18 <=22 ng/L Differential, auto Result Value Ref Range Neutrophil abs 5.0 1.7 - 6.5 K/cumm Imm gran abs 0.0 0.0 - 0.1 K/cumm Lymphocyte abs 1.0 0.8 - 3.3 K/cumm Monocyte abs 0.8 0.2 - 0.8 K/cumm Eosinophil abs 0.3 0.0 - 0.5 K/cumm Basophil abs 0.0 0.0 - 0.1 K/cumm Neutrophil pct 69.8 % Imm gran pct 0.4 % Lymphocyte pct 14.2 % Monocyte pct 11.0 % Eosinophil pct 4.0 % Basophil pct 0.6 % Troponin T high-sensitivity 2-hour Result Value Ref Range Trop T hs 19 <=22 ng/L Trop T hs delta 1 ng/L Trop T hs interp Insignificant eGFR Result Value Ref Range eGFR 36 mL/min/1.73 m2 XR Chest 1 Vw Portable Final Result MDM MDM 55-year-old with a history of CKD, hypertension noncompliant here with the complaints of shortness of will do cardiac workup and chest x-ray. His blood pressure is been poorly controlled secondary tohis noncompliance I will give him hydralazine and his home medication. ED Course as of 08/17/21522 Time: 08/17 312 Comment: Discussed with Dr. Meeks recommended to start lasix 40 mg bid , will follow up in the office. By: Joe Roche MD Final diagnoses: Congestive heart failure, unspecified HF chronicity, unspecified heart failure type (HCC) Uncontrolled hypertension Chronic kidney disease, unspecified CKD stage Non compliance w medication regimen Joe Roche MD 08/17/21522 * Lida Maria RN - 08/17/2021 12:46 AM CDT Pt complains of shortness of breath for a few weeks. Pt states it is worse when lying down. Pt states it may be related to his acid reflux. Pt complains of stomach pain. documented in this encounter Miscellaneous Notes * ED Procedure Note - Joe Roche MD - 08/17/2021 5:30 AM CDTAssociated Order(s): Critical Care Procedure Critical Care Performed by: Joe Roche MD Authorized by: Joe Roche MD Critical care provider statement: As reflected in the history, physical exam, orders, notes, and/or MDM, I was personally present while the patient was critically ill and provided critical care services for approximately 45 minutes, excluding time involved in separately billable procedures. Critical care was necessary to treat or prevent imminent or life-threatening deterioration of the following condition(s): hypertensive crisis Critical care was time spent by me providing the following: continuous telemetry and continuous pulse oximetry acute diuresis I provided emergent necessary critical care medicine services to this patient. I ordered and reviewed test results and/or imaging studies. Joe Roche MD 08/17/21 0537 * ED Procedure Note - Joe Roche MD - 08/17/2021 2:31 AM CDTAssociated Order(s): ECG 12 lead Procedure ECG 12 lead Date/Time: 08/17/2021 2:31 AM Performed by: Joe Roche MD Authorized by: Joe Roche MD Rate: ECG rate: 112 ECG rate assessment: tachycardic Ectopy: Ectopy: none QRS: QRS axis: Normal Conduction: Conduction: abnormal Abnormal conduction: complete LBBB T waves: T waves: non-specific Interpretation: Interpretation: abnormal Joe Roche MD 08/17/21 0231 documented in this encounter Plan of Treatment Not on file documented as of this encounter Procedures Procedure Name Priority Date/Time Associated Diagnosis Comments [place] CRITICAL CARE ILL/INJURED PATIENT INIT 30-74 MIN Routine 08/17/2021 5:30 AM CDT TROPONIN T HIGH-SENSITIVITY 2-HOUR Timed 08/17/2021 4:14 AM CDT TROPONIN T HIGH-SENSITIVITY SERIES (BASELINE, 2HR, 4HR, 6HR) STAT 08/17/2021 1:45 AM CDT EGFR STAT 08/17/2021 1:45 AM CDT DIFFERENTIAL AUTO STAT 08/17/2021 1:4 5 AM CDT PRO B-TYPE NATRIURETIC PEPTIDE STAT 08/17/2021 1:45 AM CDT CBC WITH AUTO DIFFERENTIAL STAT 08/17/2021 1:45 AM CDT COMPREHENSIVE METABOLIC PANEL STAT 08/17/2021 1:45 AM CDT ECG 12-LEAD STAT 08/17/2021 1:33 AM CDT XR CHEST 1 VIEW ED 08/17/2021 1:24 AM CDT documented in this encounter Results * [place] CRITICAL CARE ILL/INJURED PATIENT INIT 30-74 MIN (08/17/2021 5:30 AM CDT) Narrative Joe Roche MD - 08/17/2021 5:30 AM CDT Joe Roche MD ? 08/17/2021 ??5:37 AM Critical Care Performed by: Joe Roche MD Authorized by: Joe Roche MD Critical care provider statement: As reflected in the history, physical exam, orders, notes, and/or MDM, I was personally present while the patient was critically ill and provided critical care services for approximately 45 minutes, excluding time involved in separately billable procedures. ??Critical care was necessary to treat or prevent imminent or life-threatening deterioration of the following condition(s): ?? hypertensive crisis ??Critical care was time spent by me providing the following: ? continuous telemetry and continuous pulse oximetry ?? acute diuresis ?? I provided emergent necessary critical care medicine services to this patient. I ordered and reviewed test results and/or imaging studies. us Joe Roche MD IN CLINIC/BEDSIDE ORDERABLES F inal Result * Troponin T high-sensitivity 2-hour (08/17/2021 4:14 AM CDT) Trop T hs 19 <=22 ng/L [facility] ([place]) Comment: Interpretive Data For further hscTnT resources including the diagnostic algorithm and an aid in interpretation, copy and paste this link: https://nrl.testcatalog.org/show/hsTrop Current Interpretive Data last revised 2020. Trop T hs delta 1 ng/L [facility] ([place]) Trop T hs interp Insignificant [facility] ([place]) Blood 08/17/2021 4:14 AM CDT 08/17/2021 4:17 AM CDT us Joe Roche MD LAB BLOOD ORDERABLES Final Res ult [facility] ([place]) 1 [facility] Department [place] [address] * eGFR (08/17/2021 1:45 AM CDT) eGFR 36 mL/min/1. 73 m2 [facility] ([place]) Comment: Interpretive Data Reference Interval Normal [...] interpretive data was last reviewed 2021. Blood 08/17/2021 1:45 AM CDT 08/17/2021 1:48 AM CDT us Joe Roche MD LAB BLOOD ORDERABLES Final Res ult [facility] ([place]) 1 [facility] Department [place] [address] * Differential, auto (08/17/2021 1:45 AM CDT) Neutrophil abs 5.0 1.7 - 6.5 K/cumm [facility] ([place]) Imm gran abs 0.0 0.0 - 0.1 K/cumm [facility] ([place]) Lymphocyte abs 1.0 0.8 - 3.3 K/cumm [facility] ([place]) Monocyte abs 0.8 0.2 - 0.8 K/cumm [facility] ([place]) Eosinophil abs 0.3 0.0 - 0.5 K/cumm [facility] ([place]) Basophil abs 0.0 0.0 - 0.1 K/cumm [facility] ([place]) Neutrophil pct 69.8 % [facility] ([place]) Comment: Interpretive Data Percent cell count reference ranges are not reported, since discordance with absolute values may lead to misinterpretation of CBC data. Current Interpretive Data was last revised on 2017. Imm gran pct 0.4 % [facility] ([place]) Comment: Interpretive Data Percent cell count reference ranges are not reported, since discordance with absolute values may lead to misinterpretation of CBC data. Current Interpretive Data was last revised on 2017. Lymphocyte pct 14.2 % [facility] ([place]) Comment: Interpretive Data Percent cell count reference ranges are not reported, since discordance with absolute values may lead to misinterpretation of CBC data. Current Interpretive Data was last revised on 2017. Monocyte pct 11.0 % [facility] ([place]) Comment: Interpretive Data Percent cell count reference ranges are not reported, since discordance with absolute values may lead to misinterpretation of CBC data. Current Interpretive Data was last revised on 2017. Eosinophil pct 4.0 % [facility] ([place]) Comment: Interpretive Data Percent cell count reference ranges are not reported, since discordance with absolute values may lead to misinterpretation of CBC data. Current Interpretive Data was last revised on 2017. Basophil pct 0.6 % [facility] ([place]) Comment: Interpretive Data Percent cell count reference ranges are not reported, since discordance with absolute values may lead to misinterpretation of CBC data. Current Interpretive Data was last revised on 2017. Blood 08/17/2021 1:45 AM CDT 08/17/2021 1:48 AM CDT Joe Roche MD LAB BLOOD ORDERABLES Final Res ult [facility] ([place] 1 [facility] Department [place] [address] * Troponin T high-sensitivity series (baseline, 2hr, 4hr, 6hr) (08/17/2021 1:45 AM CDT) Trop T hs 18 <=22 ng/L [facility] ([place]) Comment: Interpretive Data For further hscTnT resources including the diagnostic algorithm and an aid in interpretation, copy and paste this link: https://nrl.testcatalog.org/show/hsTrop Current Interpretive Data last revised 2020. Blood 08/17/2021 1:45 AM CDT 08/17/2021 1:48 AM CDT Joe Roche MD LAB BLOOD ORDERABLES Final Res ult [facility] ([place]) [address] Department [place] [address] * (ABNORMAL) Comprehensive metabolic panel (08/17/2021 1:45 AM CDT) Sodium 139 135 - 145 mmol/L [facility] ([place]) Potassium, pl 4.3 3.3 - 4.9 mmol/L [facility] ([place]) Chloride 104 97 - 110 mmol/L [facility]) CO2 22 22 - 32 mmol/L [facility]) Anion gap 13 2 - 15 mmol/L [facility] ([place]) BUN 21 8 - 25 mg/dL [facility] ([place]) Creatinine 2.13(H) 0.80 - 1.30 mg/dL [facility] ([place]) Glucose 91 70 - 199 mg/dL [facility] ([place]) [...] interpretive data was last revised 2017. Calcium 8.9 8.5 - 10.3 mg/dL [facility]) Bilirubin, total 0.5 0.1 - 1.2 mg/dL [facility] ([place]) Protein, pl 6.7 6.5 - 8.5 g/dL [facility]) Albumin 3.8 3.5 - 5.0 g/dL [facility] ([place]) Alk phos 195(H) 40 - 130 Units/L [facility]) ALT 70(H) 7 - 55 Units/L [facility]) AST 54(H) 10 - 50 Units/L [facility]) Blood 08/17/2021 1:45 AM CDT 08/17/2021 1:48 AM CDT us Joe Roche MD LAB BLOOD ORDERABLES Final Res ult [facility] ([place]) 1 [facility] [employer] [facility] [place] [address] * (ABNORMAL) CBC with auto differential (08/17/2021 1:45 AM CDT) Pathologist [facility] WBC 7.2 3.8 - 9.9 K/cumm [facility] ([place]) Hgb 13.6 13.0 - 17.5 g/dL [facility] ([place]) Hct 40.8 38.9 - 50.3 % [facility] ([place]) Plt 308 150 - 400 K/cumm [facility] ([place]) MPV 8.4(L) 9.1 - 12.3 fL [facility] ([place]) RBC 4.81 4.30 - 5.80 M/cumm [facility] ([place]) MCV 84.8 81.3 - 96.4 fL [facility] ([place]) MCH 28.3 27.1 - 33.3 pg [facility]) MCHC 33.3 32.3 - 35.7 g/dL [facility] ([place]) RDW CV 14.6 11.1 - 14.9 % [facility]) RDW SD 45.1 35.7 - 48.1 fL [facility] ([place]) NRBC abs 0.00 0.00 - 0.01 K/cumm [facility] ([place]) Blood 08/17/2021 1:45 AM CDT 08/17/2021 1:48 AM CDT us Joe Roche MD LAB BLOOD ORDERABLES Final Res ult [facility] ([place]) [facility] [employer] [facility] [place] [address] * (ABNORMAL) Pro B-type natriuretic peptide (08/17/2021 1:45 AM CDT) NT-proBNP 6,881(H) <=300 pg/mL [facility] ([place]) Comment: Interpretive Comments: A. Dyspnea in Acute Care Setting All Ages: ?< 300 pg/ml, acute heart failure unlikely. < 50 yrs: ?300 - 450 pg/ml, further investigation warranted. ? > 450 pg/ml, acute heart failure likely. 50 - 74 yrs: ? 300 - 900 pg/ml, further investigation warranted. ? > 900 pg/ml, acute heart failure likely . > or = 75 yrs: ? 450 - 1800 pg/ml, further investigation warranted. ? > 1800 pg/ml, acute heart failure likely. B. Non-acute Setting < 75 yrs ? < 125 pg/ml, rules out heart failure. ? > or = 125 pg/ml, further investigation warranted. > or = 75 yrs ?< 450 pg/ml, rules out heart failure. ? > or = 450 pg/ml, further investigation warranted. - Knowledge of each individual patient's NT-proBNP range may be more useful than using similar cut-points for every patient. Please note that marked elevations in NT-proBNP levels may be observed in state other than Left Ventricular Congestive Failure, including: acute coronary syndromes, right heart strain/failure (including pulmonary embolism and cor pulmonale), critical illness, renal failure, as well as advanced age. - References: 1. Tamika ROMERO et.al. Eur Heart J. 2006:27:330-337. 2. Johnathan HAILE, Stacey HERBERT. J. AM Yonatan Cardiol: Cardiovasc Imag. 2009;2: 216- 225. Interpretive Data Last Revised Date: 2018. Blood 08/17/2021 1:45 AM CDT 08/17/2021 1:48 AM CDT Joe Roche MD LAB BLOOD ORDERABLES Final Res ult Performing Organization Address City/[facility] Co de Phone Number [facility] ([place]) [facility] Department [place] [address] * ECG 12 lead (08/17/2021 1:33 AM CDT) 08/17/2021 1:33 AM CDT Narrative [facility] - 08/17/2021 12:51 PM CDT Vent Rate: 112 bpm RR Interval: 532 msec [place] Interval: 172 msec QRS Duration: 168 msec QT Interval: 368 msec QTC Interval: 434 msec P-R-T [place]: 58 - 99 - -18 degrees SINUS TACHYCARDIA LEFT ATRIAL ENLARGEMENT ??[-0.15mV P WAVE IN V1/V2] BORDERLINE RIGHT AXIS DEVIATION ??[QRS AXIS > 90] INTRAVENTRICULAR CONDUCTION DELAY ??[130+ ms QRS DURATION] ABNORMAL ECG Electronically Signed By: Azael Oseguera MD Joe Roche MD ECG ORDERABLES Final Result Performing Organization Address [facility] de Phone Number [employer] [facility] * XR Chest 1 Vw Portable (08/17/2021 1:24 AM CDT) Anatomical Region Laterality Modality Body, Chest N/A Computed Radiogr aphy 08/17/2021 1:38 AM CDT Narrative 08/17/2021 1:39 AM CDT EXAM DESCRIPTION: ?? XR CHEST 1 VIEW REASON FOR STUDY: ?? Pt complains of shortness of breath for a few weeks. ??Pt states it is worse when lying down. ??Pt states it may be related to his acid reflux. ??Pt complains of stomach pain. ??HTN ?? Non smoker ? TECHNIQUE: ??Portable upright AP view of the chest is performed. COMPARISON: ??None available. FINDINGS: Mild diffuse interstitial prominence, which may reflect a mild pulmonary vascular congestion pattern, though atypical infectious/inflammatory infiltrate is not excluded. ??There is nonspecific left retrocardiac opacity. ?? No definitive pleural effusion. Heart size appears mildly enlarged. IMPRESSION: 1. ?? Suspected mild pulmonary vascular congestion, though atypical infectious/inflammatory infiltrate is not excluded. 2. ?? Mild cardiomegaly. 3. ?? Nonspecific left retrocardiac opacity. ??Continued imaging follow-up to resolution recommended. THIS IS AN ELECTRONICALLY VERIFIED FINAL REPORT 08/17/2021 1:39 AM - Electronically signed by ??Benson Wiggins M.D. RT: RT D: ??08/17/2021 1:39 AM T: ??08/17/2021 1:39 AM Report ID: [id number] Reading Location: ??[id number] Procedure Note Benson Wiggins MD - 08/17/2021 EXAM DESCRIPTION: XR CHEST 1 VIEW REASON FOR STUDY: Pt complains of shortness of breath for a few weeks.Pt states it is worse when lying down. Pt states it may be related to hisacid reflux. Pt complains of stomach pain. HTN Non smoker TECHNIQUE: Portable upright AP view of the chest is performed. COMPARISON: None available. FINDINGS: Mild diffuse interstitial prominence, which may reflect a mild pulmonary vascular congestion pattern, though atypical infectious/inflammatory infiltrate is not excluded. There is nonspecific left retrocardiacopacity. No definitive pleural effusion. Heart size appears mildly enlarged. IMPRESSION: 1. Suspected mild pulmonary vascular congestion, though atypical infectious/inflammatory infiltrate is not excluded. 2. Mild cardiomegaly. 3. Nonspecific left retrocardiac opacity. Continued imaging follow-upto resolution recommended. THIS IS AN ELECTRONICALLY VERIFIED FINAL REPORT 08/17/2021 1:39 AM - Electronically signed by Benson Wiggins M.D. RT: RT Report ID: [id number] Reading Location: [id number] Joe Roche MD IMG XR PROCEDURES Final Result documented in this encounter Visit Diagnoses Diagnosis Congestive heart failure, unspecified HF chronicity, unspecified heart failure type (HCC)- Primary Uncontrolled hypertension Chronic kidney disease, unspecified CKD stage Non compliance w medication regimen documented in this encounter Administered Medications Inactive Administered Medications - up to 3 most recent administrations Medication Order MAR Action Action Date Dose Rate Site amLODIPine (NORVASC) tablet 10 mg 10 mg, oral, Once, On Tue08/17/21 at 0248, For 1 dose Given 08/17/2021 2:50 AM CDT 10 mg furosemide (LASIX) 10 mg/mL injection 40 mg 40 mg, intravenous, Once, On Tue08/17/21 at 0316, For 1 dose, Room temperature only Given 08/17/2021 3:27 AM CDT 40 mg hydrALAZINE (APRESOLINE) injection 10 mg 10 mg, intravenous, Administer over 2 Minutes, Once, On Tue08/17/21 at 0332, For 1 dose, Indications: hypertensionIndications:hypertensio n Given 08/17/2021 3:53 AM CDT 10 mg documented in this encounter Active and Recently Administered Medications Times are shown in CDT. Scheduled Medication Order 08/15/2021 08/16/2021 08/17/2021 amLODIPine (NORVASC) tablet 10 mg (COMPLETED) 10 mg, oral, Once, On Tue08/17/21 at 0248, For 1 dose 0250 (Given - Provid er: Ele Hutton RN) furosemide (LASIX) 10 mg/mL injection 40 mg (COMPLETED) 40 mg, intravenous, Once, On Tue08/17/21 at 0316, For 1 dose, Room temperature only 0327 (Given - Provid er: Joel Westfall RN) hydrALAZINE (APRESOLINE) injection 10 mg (COMPLETED) 10 mg, intravenous, Administer over 2 Minutes, Once, On Tue08/17/21 at 0332, For 1 dose, Indications: hypertension 0353 (Given - Provid er: Radha Schumacher, MURPHY) documented in this encounter Care Teams Continuous Mining Operator Relationship Specialty Start Date End Date Naomy Maddox MD [address] [place]UNOZ [address] [place] [address] PCP - General Internal Medicine 05/06/20 documented as of this encounter
--- OUTSIDE RECORDS SUMMARY | 2024-05-17 12:11 | XMS_ITS | Encounter Summary ---
Author Organization [facility] Medical Group Address [address] [place] [address] Care Team Providers Care Nut Sheller Machine Operator Name Role Phone Naomy Maddox MD Primary Care Provider [phone] Encounter Details Date Type Department Care Team (Late st Contact Info) Description 10/07/2021 Telephone [place] Mri Assistant at [address] [address] Renetta Decker MD [address] [place] [address] [address] [place] [address] Social History Tobacco Use Types Packs/Day Years Used Date Smoking Tobacco: Never Sex and Gender Information Value Date Recorded Sex Assigned at Not on file Legal Sex Male 9:23 PM RISK MANAGEMENT [employer] Gender Identity Not on file Sexual Orientation Not on file documented as of this encounter Miscellaneous Notes * Telephone Encounter - Darline Bae MA - 10/07/2021 11:52 AM CDT Pt calling about Echo results that were done on 10/01. Results in Epic please review. documented in this encounter Plan of Treatment Not on file documented as of this encounter Visit Diagnoses Not on filedocumented in this encounter Care Teams Nut Sheller Machine Operator Relationship Specialty Start Date End Date Naomy Maddox MD [address] [place] [address] PCP - General Internal Medicine 05/06/20 documented as of this encounter
--- OUTSIDE RECORDS SUMMARY | 2024-05-17 12:11 | XMS_ITS | Encounter Summary ---
Author Organization [facility] Medical Group Address [address] [place] [address] Care Team Providers Care Substation Electrician Name Role Phone Naomy Maddox MD Primary Care Provider [phone] Reason for Visit * Reason Comments Follow-up Wants to discuss ech o results Encounter Details Date Type Department Care Team (Late st Contact Info) Description 10/09/2021 12:30 PM CDT Office Visit [place] [facility] Veterinary Technician at [address] [address] Zak Anderson MD [address] [place] [address] [address] [place] [address] Essential hypertension (Primary Dx); Cardiomyopathy, unspecified type (HCC); HFrEF (heart failure with reduced ejection fraction) (CMS/HCC) (HCC) Social History Tobacco Use Types Packs/Day Years Used Date Smoking Tobacco: Never Sex and Gender Information Value Date Recorded Sex Assigned at Not on file Legal Sex Male 9:23 PM EMAIL DEVELOPER Gender Identity Not on file Sexual Orientation Not on file documented as of this encounter Last Filed Vital Signs Vital Sign Reading Time Taken Comments Blood Pressure 137/92 10/09/2021 12:07 PM CDT Pulse 88 10/09/2021 12:07 PM CDT Temperature - - Respiratory Rate 16 10/09/2021 12:07 PM CDT Oxygen Saturation - - Inhaled Oxygen Concentration - - Weight 87.5 kg (193 lb) 10/09/2021 12:07 PM CDT Height 177.8 cm (5' 10 ) 10/09/2021 12:07 PM CDT Body Mass Index 27.69 10/09/2021 12:07 PM CDT documented in this encounter Ordered Prescriptions Prescription Sig Dispense Quantity Refills Last Filled Start Date End Date isosorbide dinitrate (ISORDIL) 10 mg tablet Take 1 tablet (10 mg total) by mouth 3 (three) times a day 90 tablet 11 10/09/2021 02/17/2022 hydrALAZINE (APRESOLINE) 10 mg tabletIndications: hypertension Take 1 tablet (10 mg total) by mouth 3 (three) times a day 90 tablet 11 10/09/2021 02/17/2022 documented in this encounter Progress Notes * Zak Anderson MD - 10/09/2021 12:30 PM CDT Images from the original note were not included. 10/09/2021 CHIEF COMPLAINT Chief Complaint Patient presents with ??? Follow-up Wants to discuss echo results Discuss abnormal echocardiogram CARDIAC HISTORY 55-year-old male patient who presented to the emergency room in August 2021 with progressive shortness of breath. He was seen in the clinic later in August for congestive heart failure. In the last clinic visit the patient symptom was improving and his lower extremity edema was resolved. He had history of hypertension on 4 antihypertensive medication and chronic kidney disease stage 3. Echocardiogram and NT proBNP with BMP was ordered on last clinic visit. PROBLEM LIST Medical Conditions Diagnosis ??? Essential hypertension ??? Bipolar 1 disorder (HCC) ??? Pure hypercholesterolemia ??? Stage 3 chronic kidney disease (HCC) ??? Chronic fatigue syndrome ??? Vitamin D deficiency ??? Abnormal cortisol level ??? Acute on chronic systolic heart failure (HCC) INTERVAL HISTORY Patient has been doing well since last visit with no problem shortness of breath. He occasionally have episodes of dizziness when he is standing. But no falls or syncope. Hospitalization or ER visits none since last Physical activity able to for moderate physical activity without symptoms REVIEW OF SYSTEMS General: No bleeding, chills or fevers Cardiac:No chest pain or palpitations Chest: No SOB or cough Neuro: no focal weakness or dizziness CURRENT MEDICATIONS HOME MEDICATIONS : amitriptyline (ELAVIL) 25 mg tablet amLODIPine (NORVASC) 10 mg tablet ARIPiprazole (ABILIFY) 10 mg tablet atorvastatin (LIPITOR) 40 mg tablet carvediloL (COREG) 25 mg tablet escitalopram (LEXAPRO) 10 mg tablet famotidine (PEPCID) 20 mg tablet furosemide (LASIX) 40 mg tablet gabapentin (NEURONTIN) 100 mg capsule hydrOXYzine (ATARAX) 10 mg tablet losartan (COZAAR) 100 mg tablet omeprazole (PriLOSEC) 20 mg capsule PARoxetine (PAXIL) 40 mg tablet pravastatin (PRAVACHOL) 40 mg tablet ranitidine (ZANTAC) 150 mg capsule TiZANidine (ZANAFLEX) 4 mg capsule PHYSICAL EXAM Vitals BP 137/92 (BP Location: Right arm, Patient Position: Sitting) Pulse 88 Resp 16 Ht 177.8 cm (5' 10 ) Wt 87.5 kg (193 lb) BMI 27.69 kg/m?? General: able to lie flat and no acute distress Cardiac: S1 S2 no murmur, no JVD Chest: CTAB normal effort and equal chest expansion LE: warm, no edema, intact peripheral pulses LABS AND OTHER DIAGNOSTIC TESTS EK08/17/2021 ?? Chest X-Ray: 08/17/2021 IMPRESSION: 1. ?Suspected mild pulmonary vascular congestion, though atypical infectious/inflammatory infiltrate is not excluded. 2. ?Mild cardiomegaly. 3. ?Nonspecific left retrocardiac opacity. ??Continued imaging follow-up to resolution recommended. ?? Pro-BNP: 08/17/2021 ?? Troponin 2 HR: 08/17/2021 [...] with normal right atrial pressure (<5 mmHg). ASSESSMENT Congestive heart failure with reduced ejection fraction, EF is 26%. Global hypokinesia. Likely related to long history of uncontrolled hypertension Mild pulmonary hypertension Hypertension controlled on 4 antihypertensive medications Chronic kidney disease stage 3 Left bundle branch block PLAN/RECOMMENDATIONS Discussed the findings in echocardiogram and new diagnosis of heart failure including importance ofcompliance with medication and overall prognosis Cont Lasix 40 mg daily Cont Losartan 100 mg daily Cont Coreg 25 mg daily Add Hydralazine 10 mg TID and Isordil 10 mg TID F/U in 4 weeks with BMP with repeat limited TTE and consideration for further escalation of therapy Will consider doing nuclear stress test next visit if ejection fraction is not improving with medical therapy He may also benefit from Bi V ICD if his ejection fraction is not improving on optimal medical therapy Zak Anderson MD 10/09/21 documented in this encounter Miscellaneous Notes * Addendum Note - Lisa Liu - 10/09/2021 12:30 PM CDTAddended by: LISA LIU on: 10/14/2021 11:05 AM Modules accepted: Orders documented in this encounter Plan of Treatment Not on file documented as of this encounter Visit Diagnoses Diagnosis Essential hypertension- Primary Unspecified essential hypertension Cardiomyopathy, unspecified type (HCC) HFrEF (heart failure with reduced ejection fraction) (CMS/HCC) (HCC) documented in this encounter Care Teams Substation Electrician Relationship Specialty Start Date End Date Naomy Maddox MD [address] [place] [address] PCP - General Internal Medicine 05/06/20 documented as of this encounter
--- OUTSIDE RECORDS SUMMARY | 2024-05-17 12:11 | XMS_ITS | Encounter Summary ---
Author Organization [facility] Medical Group Address [address] [place] [address] Care Team Providers Care Grinder Chipper Name Role Phone Naomy Maddox MD Primary Care Provider [phone] Encounter Details Date Type Department Care Team (Late st Contact Info) Description 08/19/2021 Telephone [place] [facility] Driver [address] [facility] [address] [place] [address] Zak Anderson MD [address] [facility] [address] [place] [address] Social History Tobacco Use Types Packs/Day Years Used Date Smoking Tobacco: Never Sex and Gender Information Value Date Recorded Sex Assigned at Not on file Legal Sex Male 9:23 PM BISCUIT MAKER Gender Identity Not on file Sexual Orientation Not on file documented as of this encounter Miscellaneous Notes * Telephone Encounter - Dai Newell - 08/19/2021 8:50 AM CDT Patient called and left a message that he was seen in [facility] ER and needs to set up an appointment. Patient was seen in the ER for CHF. I called the patient and left a message to call our office to schedule an appointment.Patient has [employer] insurance. documented in this encounter Plan of Treatment Not on file documented as of this encounter Visit Diagnoses Not on filedocumented in this encounter Care Teams Grinder Chipper Relationship Specialty Start Date End Date Naomy Maddox MD [address] [place] [address] PCP - General Internal Medicine 05/06/20 documented as of this encounter
--- OUTSIDE RECORDS SUMMARY | 2024-05-17 12:11 | XMS_ITS | Encounter Summary ---
Author Organization [facility] Healthcare Address [address] [place] [address] Care Team Providers Care Paper Tube Grader Name Role Phone Naomy Maddox MD Primary Care Provider [phone] Encounter Details Date Type Department Care Team (Late st Contact Info) Description 06/27/2020 1:20 PM BRANCH OPERATIONS MANAGER Lab [address] [address] Bryon Meeks MD [address] [place] [address] Discharge Disposition: Discharge to home or self care Social History Tobacco Use Types Packs/Day Years Used Date Smoking Tobacco: Never Sex and Gender Information Value Date Recorded Sex Assigned at Not on file Legal Sex Male 9:23 PM BRANCH OPERATIONS MANAGER Gender Identity Not on file Sexual Orientation Not on file documented as of this encounter Discharge Disposition Disposition Code Departure Means Destination Discharge to home or self care documented in this encounter Plan of Treatment Not on file documented as of this encounter Procedures Procedure Name Priority Date/Time Associated Diagnosis Comments VOLUME AND PERIOD, URINE, 24 HOUR Routine 06/27/2020 6:00 AM BRANCH OPERATIONS MANAGER CREATININE CLEARANCE, URINE, 24 HOUR RESULT Routine 06/27/2020 6:00 AM BRANCH OPERATIONS MANAGER EGFR Routine 06/25/2020 10:10 AM BRANCH OPERATIONS MANAGER CREATININE Routine 06/25/2020 10:10 AM BRANCH OPERATIONS MANAGER documented in this encounter Results * Volume and period, urine, 24 hour (06/27/2020 6:00 AM BRANCH OPERATIONS MANAGER) Volume, ur 1,225 mL [facility] ([place]) Period, Urine Collection 1,440 min [facility] ([place]) Urine/Blood 06/27/2020 6:00 AM BRANCH OPERATIONS MANAGER 06/27/2020 1:17 PM BRANCH OPERATIONS MANAGER Bryon Meeks MD LAB URINE ORDERABLES Final Re sult Performing Organization Address [facility] Co de Phone Number [facility] ([place]) [address] [place] [address] [place] [address] * Creatinine clearance, urine, 24 hour (06/27/2020 6:00 AM BRANCH OPERATIONS MANAGER) Creatinine Clearance 80 60 - 130 mL/min [facility] ([place]) Creatinine, 24 hr, ur 1.8 0.8 - 2.2 g/24H [facility] ([place]) Urine/Blood 06/27/2020 6:00 AM BRANCH OPERATIONS MANAGER 06/27/2020 1:17 PM BRANCH OPERATIONS MANAGER Bryon Meeks MD LAB URINE ORDERABLES Final Re sult Performing Organization Address City/[facility] Co de Phone Number [facility] ([place]) [address] [place] [address] [place] [address] * eGFR (06/25/2020 10:10 AM BRANCH OPERATIONS MANAGER) eGFR 50 mL/min/1.7 3 m2 [facility] ([place]) Comment: Interpretive Data Reference Interval Normal ?>/= 90 mL/min/1.73m2 Mildly decreased* ? 60 - 89 mL/min/1.73m2 Mildly to moderately decreased ?45 - 59 mL/min/1.73m2 Moderately to severely decreased ??30 - 44 mL/min/1.73m2 Severely decreased ?15 - 29 mL/min/1.73m2 Kidney Failure ?< 15 ??mL/min/1.73m2 *Relative to young adult level Estimated glomerular filtration rate is determined by the CKD-EPI equation recommended by the National Kidney Foundation (KDIGO 2012 Clinical Practice Guideline for the Evaluation and Management of Chronic Kidney Disease. Kidney Intnl Suppl May 2012;3:1). The CKD-EPI equation should not be used for patients with unstable renal function and has not been validated in children and those over 70. Current interpretive data was last reviewed 2020 Urine/Blood 06/25/2020 10:1 0 AM BRANCH OPERATIONS MANAGER 06/27/2020 1:17 PM BRANCH OPERATIONS MANAGER Bryon Meeks MD LAB BLOOD ORDERABLES Final Re sult Performing Organization Address City/[facility]/ZIP Co de Phone Number [facility] ([place]) [address] [facility] [place] [address] * (ABNORMAL) Creatinine (06/25/2020 10:10 AM BRANCH OPERATIONS MANAGER) Creatinine 1.57(H) 0.80 - 1.30 mg/dL [facility] ([place]) Urine/Blood 06/25/2020 10:1 0 AM BRANCH OPERATIONS MANAGER 06/27/2020 1:17 PM BRANCH OPERATIONS MANAGER Bryon Meeks MD LAB BLOOD ORDERABLES Final Re sult Performing Organization Address City/[facility]/ZIP Co de Phone Number [facility] ([place]) [address] [facility] [place] [address] documented in this encounter Visit Diagnoses Not on filedocumented in this encounter Care Teams Paper Tube Grader Relationship Specialty Start Date End Date Naomy Maddox MD [address] [place] [address] PCP - General Internal Medicine 05/06/20 documented as of this encounter
--- OUTSIDE RECORDS SUMMARY | 2024-05-17 12:12 | XMS_ITS | Encounter Summary ---
Author Organization [facility] Medical Group Address [address] [place] [address] Care Team Providers Care Steam Shovel Engineer Name Role Phone Naomy Maddox MD Primary Care Provider [phone] Encounter Details Date Type Department Care Team (Late st Contact Info) Description 05/23/2020 Telephone [facility] [address] [place] [address] Scot Solis MD [address] [place] [address] [address] [place] [address] Social History Tobacco Use Types Packs/Day Years Used Date Smoking Tobacco: Never Sex and Gender Information Value Date Recorded Sex Assigned at Not on file Legal Sex Male 9:23 PM CORE FINISHER Gender Identity Not on file Sexual Orientation Not on file documented as of this encounter Miscellaneous Notes * Telephone Encounter - Gisela Jones MA - 05/23/2020 9:01 AM CST Please see message from patient using my chart. Please advise FINISHER * Telephone Encounter - Gisela Jones MA - 05/23/2020 9:01 AM CST ----- Message from Saroj Rivera sent at 05/22/2020 6:05 PM CORE FINISHER ----- Regarding: Non-Urgent Medical Question Contact: yes howcanmy cortisol test one place be a 4.2 which is low and then ur place be a 12.6 ,yet i took both tests the same time in morning. FINISHER documented in this encounter Plan of Treatment Not on file documented as of this encounter Visit Diagnoses Not on filedocumented in this encounter Care Teams Steam Shovel Engineer Relationship Specialty Start Date End Date Naomy Maddox MD [address] [place] [address] PCP - General Internal Medicine 05/06/20 documented as of this encounter
--- OUTSIDE RECORDS SUMMARY | 2024-05-17 12:12 | XMS_ITS | Encounter Summary ---
Author Organization [facility] Healthcare Address [address] [place] [address] Care Team Providers Care Aquatic Ecologist Name Role Phone Naomy Maddox MD Primary Care Provider [phone] Encounter Details Date Type Department Care Team (Late st Contact Info) Description 05/22/2020 8:30 AM BIAS BINDING FOLDER Lab [address] [address] Scot Solis MD [address] [place] [address] Abnormal cortisol level; Chronic fatigue syndrome Discharge Disposition: Discharge to home or self care Social History Tobacco Use Types Packs/Day Years Used Date Smoking Tobacco: Never Sex and Gender Information Value Date Recorded Sex Assigned at Not on file Legal Sex Male 9:23 PM BIAS BINDING FOLDER Gender Identity Not on file Sexual Orientation Not on file documented as of this encounter Discharge Disposition Disposition Code Departure Means Destination Discharge to home or self care documented in this encounter Plan of Treatment Not on file documented as of this encounter Procedures Procedure Name Priority Date/Time Associated Diagnosis Comments ACTH Routine 05/22/2020 8:32 AM BIAS BINDING FOLDER Abnormal cortisol level TSH Routine 05/22/2020 8:32 AM BIAS BINDING FOLDER Abnormal cortisol level Chronic fatigue syndrome T4, FREE Routine 05/22/2020 8:32 AM BIAS BINDING FOLDER Abnormal cortisol level Chronic fatigue syndrome CORTISOL Routine 05/22/2020 8:32 AM BIAS BINDING FOLDER Abnormal cortisol level documented in this encounter Results * ACTH (05/22/2020 8:32 AM BIAS BINDING FOLDER) Pathologist [facility] ACTH 17 pg/mL [facility] ([place]) Comment: REFERENCE VALUE [id number] (a.m. collection) Test Performed by: [facility] [address] [place] [address] Regional Director Of Finance: Yoshi Brown M.D. Ph.D.; [facility]# [id number] Blood specimen (specimen) 05/22/2020 8:32 AM BIAS BINDING FOLDER 05/22/2020 8:36 AM BIAS BINDING FOLDER Scot Solis MD LAB BLOOD ORDERABLES Final Res ult Performing Organization Address [facility] Co de Phone Number [facility] ([place]) [address] [facility] [place] [address] * Cortisol (05/22/2020 8:32 AM BIAS BINDING FOLDER) [facility] Cortisol 12.0 4.8 - 19.5 mcg/dl [facility] ([place]) Comment: Interpretive Data Normal Range: ??4.8 - 19.5 mcg/dL; ??Evening: ??Half of morning value. ?? This analyte undergoes marked diurnal variation. ??Ranges indicated apply to morning specimens. ?? Current interpretive data was last revised 2018. Testing performed by: [facility], [address] [place] [address], [place]., [address] Blood specimen (specimen) 05/22/2020 8:32 AM BIAS BINDING FOLDER 05/22/2020 1:10 PM BIAS BINDING FOLDER Scot Solis MD LAB BLOOD ORDERABLES Final Res ult Performing Organization Address [facility]/ZIP Co de Phone Number [facility] ([place]) [address] [place] [address] * T4, free (05/22/2020 8:32 AM BIAS BINDING FOLDER) Free T4 1.13 0.90 - 1.70 ng/dL [facility] ([place]) Blood specimen (specimen) 05/22/2020 8:32 AM BIAS BINDING FOLDER 05/22/2020 8:36 AM BIAS BINDING FOLDER Scot Solis MD LAB BLOOD ORDERABLES Final Res ult [facility] ([place]) [address] [place] [address] * TSH (05/22/2020 8:32 AM BIAS BINDING FOLDER) Thyroid Stimulating Hormone 2.80 0.30 - 4.20 mcIUnit/mL [facility] ([place]) Blood specimen (specimen) 05/22/2020 8:32 AM BIAS BINDING FOLDER 05/22/2020 8:36 AM BIAS BINDING FOLDER Scot Solis MD LAB BLOOD ORDERABLES Final Res ult [facility] ([place]) [address] [place] [address] documented in this encounter Visit Diagnoses Diagnosis Abnormal cortisol level Chronic fatigue syndrome documented in this encounter Care Teams Aquatic Ecologist Relationship Specialty Start Date End Date Naomy Maddox MD [address] [place] [address] PCP - General Internal Medicine 05/06/20 documented as of this encounter
--- OUTSIDE RECORDS SUMMARY | 2024-05-17 12:12 | XMS_ITS | Encounter Summary ---
Author Organization [facility] Healthcare Address [address] [place] [address] Care Team Providers Care Hydrogeology Professor Name Role Phone Unavailable Primary Care Provider Unavailabl e Encounter Details Date Type Department Care Team (Late st Contact Info) Description 06/12/2015 9:33 AM PENSION ADVISER - 06/12/2015 12:30 PM PENSION ADVISER Hospital Encounter [facility] Rajat Bhagat MD [address] [place] [address] Gastro-esophageal reflux disease without esophagitis; Duodenitis without bleeding; Gastritis without bleeding; Family history of other specified conditions Social History Tobacco Use Types Packs/Day Years Used Date Smoking Tobacco: Never Assessed Sex and Gender Information Value Date Recorded Sex Assigned at Not on file Legal Sex Male 9:23 PM PENSION ADVISER Gender Identity Not on file Sexual Orientation Not on file documented as of this encounter Medications at Time of Discharge escitalopram (LEXAPRO) 10 mg tablet take 1 tablet by oral route every day 0 0 05/21/2015 02/23/2023 gabapentin (NEURONTIN) 100 mg capsule take 3 capsule by oral route 3 times every day 0 0 05/21/2015 02/23/2023 ranitidine (ZANTAC) 150 mg capsule take 1 capsule by oral route 2 times every day 0 0 05/21/2015 04/12/2022 documented as of this encounter Procedure Notes * ProviderLeesa MD - 06/12/2015 12:00 AM CSTAssociated Order(s): COLONOSCOPY PROCEDURE REPORT Patient: NATAN RIVERA Account: [id number] Room No: : 1965 Patient Type: SDS Attend.: Rajat Green M.D. Admit Date: 06/12/2015 Dict.: Rajat Green M.D. Disch. Date: 06/12/2015 DATE OF PROCEDURE: 06/12/2015 PROCEDURE: EGD and a colonoscopy. INDICATION FOR EGD: History of gastroesophageal reflux disease and nausea with abdominal pain and also a remote episode of melena. INDICATION FOR COLONOSCOPY: Abdominal pain and also family history of Crohn's. FINDINGS: 1. Mild duodenitis. 2. Mild gastritis status post biopsies of the stomach. 3. Colonoscopy was unremarkable otherwise. DESCRIPTION OF PROCEDURE: The patient signed for consent. The risks and benefits of procedure were explained to the patient in great detail including but not limited to bleeding, perforation, reaction to medications, cardiorespiratory failure, aspiration. Patient was agreeable to proceed. The patient brought to the endoscopy suite and we did a time-out. The patient's blood pressure even before starting the procedure was running high with a systolic in the 180s. However, he was very anxious. The patient mentioned that he did not want to receive deep sedation. He wanted to be for the most part awake and he would be okay just to go with a conscious sedation. Therefore, I proceeded to give a total of 50 mg of IV Benadryl with a total of 4 mg of IV Versed and 100 micrograms of IV fentanyl, and this obviously was done while we were monitoring his vital signs, his respiratory status and also every 2 or 3 minutes with a total amount as above. Also before starting the EGD we used Hurricane spray with lidocaine in the oropharynx. Then we put a bite block in his mouth and when he was a little more comfortable, we finally introduced Olympus upper endoscope through his mouth. It was advanced through the oropharynx, esophagus, stomach and finally to the third portion of the duodenum. In the duodenal bulb there was mild erythema and this consistent with duodenitis. Then I pulled back the scope to the level of the stomach where I found scattered erythema and mostly because of the findings of the duodenum, I decided to obtain biopsies to assess for Helicobacter pylori in the stomach. Careful evaluation in the remainder of the stomach including the proximal body, the angularis, the cardia and the fundus on retroflex view was unremarkable otherwise. Then the GE junction and esophageal mucosa was remarkable, there was no hiatal hernia. The endoscopewas withdrawn. Then I turned the patient and I performed a rectal exam that was normal. I entered the colonoscope through the anus. It was advanced under direct visualization to the cecum. I identified the appendiceal orifice and ileocecal valve. The terminal ileum was intubated and was normal. The quality of the prep was very good. Then I started withdrawing the scope very slowly for which I took more than 6 minutes of careful evaluation. The colon mucosa along with the vascular pattern was completely normal. There were not any pathological findings, there was no diverticulosis, there was no colitis, no erosions, no polyps. Retroflex view in the rectum was unremarkable as well. Then the scope was withdrawn. PLAN: 1. The patient is going to the recovery area and after waking up he can go home. 2. Followup on the pathology report of the stomach and if it is positive for Helicobacter pylorus, this will need to be treated. 3. Continue with a PPI every day that was already prescribed in the office. 4. The patient can come and see me in a few more months as needed. 5. He will need to have a followup with primary care physician because his blood pressure has been running high and I personally told him about it. Thank you very much for allowing us to participate in the care of your patient. Electronically Authenticated and Edited by: Rajat Carr MD On 06/18/2015 08:17 AM PENSION ADVISER Matthew Reyes/julius TD: 06/13/2015 08:34 documented in this encounter Plan of Treatment Not on file documented as of this encounter Procedures Procedure Name Priority Date/Time Associated Diagnosis Comments COLONOSCOPY IMAGES 06/12/2015 COLONOSCOPY 06/12/2015 12:00 AM PENSION ADVISER SURGICAL PATHOLOGY 06/12/2015 documented in this encounter Results * Surgical pathology (06/12/2015) Narrative 06/12/2015 Ordered by an unspecified provider. us Historical Provider LAB PATHOLOGY ORDERABLES Final Result * COLONOSCOPY (06/12/2015 12:00 AM PENSION ADVISER) Anatomical Region Laterality Modality Other Narrative 06/12/2015 12:00 AM PENSION ADVISER Ordered by an unspecified provider. Procedure Note Provider, MD Leesa - 06/12/2015 12:00 AM CST PROCEDURE REPORT Patient: NATAN RIVERA Account: [id number] Room No: : 1965 Patient Type: [facility] Attend.: Rajat Green M.D. Admit Date: 06/12/2015 Dict.: Rajat Green M.D. Disch. Date: 06/12/2015 DATE OF PROCEDURE: 06/12/2015 PROCEDURE: EGD and a colonoscopy. INDICATION FOR EGD: History of gastroesophageal reflux disease and nauseawith abdominal pain and also a remote episode of melena. INDICATION FOR COLONOSCOPY: Abdominal pain and also family history ofCrohn's. FINDINGS: 1. Mild duodenitis. 2. Mild gastritis status post biopsies of the stomach. 3. Colonoscopy was unremarkable otherwise. DESCRIPTION OF PROCEDURE: The patient signed for consent. The risksand benefits of procedure were explained to the patient in great detailincluding but not limited to bleeding, perforation, reaction to medications, cardiorespiratory failure, aspiration. Patient was agreeable to proceed.The patient brought to the endoscopy suite and we did a time-out. The patient's blood pressure even before starting the procedure wasrunning high with a systolic in the 180s. However, he was very anxious. Thepatient mentioned that he did not want to receive deep sedation. He wanted to befor the most part awake and he would be okay just to go with a conscioussedation. Therefore, I proceeded to give a total of 50 mg of IV Benadryl with atotal of 4 mg of IV Versed and 100 micrograms of IV fentanyl, and this obviously wasdone while we were monitoring his vital signs, his respiratory status and alsoevery 2 or 3 minutes with a total amount as above. Also before starting the EGDwe used Hurricane spray with lidocaine in the oropharynx. Then we put a biteblock in his mouth and when he was a little more comfortable, we finallyintroduced Olympus upper endoscope through his mouth. It was advanced through the oropharynx, esophagus, stomach and finally to the third portion of theduodenum. In the duodenal bulb there was mild erythema and this consistent with duodenitis. Then I pulled back the scope to the level of the stomachwhere I found scattered erythema and mostly because of the findings of theduodenum, I decided to obtain biopsies to assess for Helicobacter pylori in thestomach. Careful evaluation in the remainder of the stomach including the proximalbody, the angularis, the cardia and the fundus on retroflex view wasunremarkable otherwise. Then the GE junction and esophageal mucosa was remarkable,there was no hiatal hernia. The endoscopewas withdrawn. Then I turned the patient and I performed a rectal exam that was normal.I entered the colonoscope through the anus. It was advanced under direct visualization to the cecum. I identified the appendiceal orifice andileocecal valve. The terminal ileum was intubated and was normal. The quality ofthe prep was very good. Then I started withdrawing the scope very slowly forwhich I took more than 6 minutes of careful evaluation. The colon mucosa alongwith the vascular pattern was completely normal. There were not anypathological findings, there was no diverticulosis, there was no colitis, no erosions,no polyps. Retroflex view in the rectum was unremarkable as well. Then thescope was withdrawn. PLAN: 1. The patient is going to the recovery area and after waking up he cango home. 2. Followup on the pathology report of the stomach and if it is positivefor Helicobacter pylorus, this will need to be treated. 3. Continue with a PPI every day that was already prescribed in theoffice. 4. The patient can come and see me in a few more months as needed. 5. He will need to have a followup with primary care physician becausehis blood pressure has been running high and I personally told him aboutit. Thank you very much for allowing us to participate in the care of yourpatient. Electronically Authenticated and Edited by: Rajat Carr MD On 06/18/2015 08:17 AM PENSION ADVISER Rajat Green M.D. MICHAEL/ja TD: 06/13/2015 08:34 us Historical Provider ENDOSCOPY PROCEDURES Claire l Result * COLONOSCOPY IMAGES (06/12/2015) Anatomical Region Laterality Modality Other Narrative 06/12/2015 Ordered by an unspecified provider. us Historical Provider GI PROCEDURE ORDERABLES F inal Result documented in this encounter Visit Diagnoses Diagnosis Gastro-esophageal reflux disease without esophagitis Duodenitis without bleeding Gastritis without bleeding Family history of other specified conditions documented in this encounter
--- OUTSIDE RECORDS SUMMARY | 2024-05-17 12:12 | XMS_ITS | Encounter Summary ---
Author Organization [facility] Healthcare Address [address] [place] [address] Care Team Providers Care Bicycle Mechanic Name Role Phone Naomy Maddox MD Primary Care Provider [phone] Encounter Details Date Type Department Care Team (Late st Contact Info) Description 06/25/2020 10:00 AM HELICOPTER ENGINEER Lab [facility] [address] [place] [address] Bryon Meeks MD [address] [place] [id number] Discharge Disposition: Discharge to home or self care Social History Tobacco Use Types Packs/Day Years Used Date Smoking Tobacco: Never Sex and Gender Information Value Date Recorded Sex Assigned at Not on file Legal Sex Male 9:23 PM HELICOPTER ENGINEER Gender Identity Not on file Sexual Orientation Not on file documented as of this encounter Discharge Disposition Disposition Code Departure Means Destination Discharge to home or self care documented in this encounter Plan of Treatment Not on file documented as of this encounter Procedures Procedure Name Priority Date/Time Associated Diagnosis Comments URINALYSIS AND REFLEX TO MICROSCOPIC AND CULTURE Routine 06/25/2020 10:15 AM HELICOPTER ENGINEER PROTEIN / CREATININE RATIO, URINE, RANDOM Routine 06/25/2020 10:15 AM HELICOPTER ENGINEER URINALYSIS, MICROSCOPIC ONLY Routine 06/25/2020 10:15 AM HELICOPTER ENGINEER SHARON QUALITATIVE WITH REFLEX TO SHARON QUANTITATIVE Routine 06/25/2020 10:10 AM HELICOPTER ENGINEER CLINICAL PATHOLOGY REPORT Routine 06/25/2020 10:10 AM HELICOPTER ENGINEER EGFR Routine 06/25/2020 10:10 AM HELICOPTER ENGINEER DIFFERENTIAL AUTO Routine 06/25/2020 10: 10 AM HELICOPTER ENGINEER C4 COMPLEMENT Routine 06/25/2020 10:10 AM HELICOPTER ENGINEER CBC WITH AUTO DIFFERENTIAL Routine 06/25/2020 10:10 AM HELICOPTER ENGINEER ERYTHROCYTE SEDIMENTATION RATE Routine 06/25/2020 10:10 AM HELICOPTER ENGINEER C3 COMPLEMENT Routine 06/25/2020 10:10 AM HELICOPTER ENGINEER URIC ACID Routine 06/25/2020 10:10 AM HELICOPTER ENGINEER TSH Routine 06/25/2020 10:10 AM HELICOPTER ENGINEER T4, FREE Routine 06/25/2020 10:10 AM HELICOPTER ENGINEER PROTEIN ELECTROPHORESIS, WITH REFLEX, SERUM Routine 06/25/2020 10:10 AM HELICOPTER ENGINEER PHOSPHORUS Routine 06/25/2020 10:10 AM HELICOPTER ENGINEER PTH Routine 06/25/2020 10:10 AM HELICOPTER ENGINEER BILIRUBIN, DIRECT Routine 06/25/2020 10: 10 AM HELICOPTER ENGINEER COMPREHENSIVE METABOLIC PANEL Routine 06/25/2020 10:10 AM HELICOPTER ENGINEER documented in this encounter Results * (ABNORMAL) Urinalysis, microscopic only (06/25/2020 10:15 AM HELICOPTER ENGINEER) WBC, ur 0-5 0 - 5 /HPF [facility] RBC, ur 0-2 0 - 2 /HPF [facility] [place] Bacteria, ur Trace(A) [facility] [place] Mucous, ur Present(A) [facility] ([place]) Hyaline casts, ur 21-50(A) 0 - 10 /LPF [facility] [place]) Culture Reflex Comment Reflex conditions for urine culture (WBC >10) not met. [facility] [place]) Urine, clean voided 06/25/2020 10:15 AM HELICOPTER ENGINEER 06/25/2020 10:32 AM HELICOPTER ENGINEER us Bryon Meeks MD LAB URINE ORDERABLES Final Re sult [facility] ([place]) 1 [facility] [place] [address] * (ABNORMAL) Urinalysis reflex to microscopic and culture Urine, clean voided (06/25/2020 10:15 AM HELICOPTER ENGINEER) Color, ur Yellow Yellow [facility] [place]) Clarity, ur Clear Clear [facility] [place]) Specific gravity, ur 1.030(H) 1.010 - 1.025 [facility] [place]) pH, urine 6.0 [facility] [place] Protein, ur ql 2+(A) Negative [facility] [place]) Glucose, ur ql Negative Negative [facility] [place]) Ketones, ur Trace Negative [facility] ([place]) Bilirubin, ur Negative Negative [facility] [place]) Blood, ur Trace(A) Negative [facility] [place]) Urobilinogen, ur 2.0(A) <2.0 mg/dL [facility] ([place]) Nitrite, ur Negative Negative [facility] ([place]) Leukocyte esterase, ur Negative Negative [facility] [place]) UA reflex comment Reflex to microscopic UA will be performed. [facility]) Urine, clean voided 06/25/2020 10:15 AM HELICOPTER ENGINEER 06/25/2020 10:32 AM HELICOPTER ENGINEER Narrative [facility]) - 06/25/2020 10:35 AM HELICOPTER ENGINEER ?? Urine pH is affected by diet, medications, systemic acid-base disturbances, and renal tubular function. ??pH may affect urinary stone formation. ??For example, urine pH below 6.0 may help reduce the tendency for calcium phosphate stones and pH greater than 6.0 may reduce the tendency for uric acid stone formation. Source: [place] [employer]. Last revised 05-26-2017 Bryon Meeks MD LAB MICROBIOLOGY - GENERAL OR DERABLES Final Result Performing Organization Address [facility] Co de Phone Number [facility] ([place]) [address] [place] [address] Department [place] [address] * Protein / creatinine ratio, urine, random (06/25/2020 10:15 AM HELICOPTER ENGINEER) Protein, ur, quant 85.0 mg/dL [facility] ([place]) Comment: Interpretive Data No reference range established. Current interpretive data was last revised 2018. Creatinine Ur 606.9 mg/dL [facility] ([place]) Comment: Interpretive Data No reference range established. Current interpretive data was last revised 2018. Protein/creatinin e ratio 140.1 0.0 - 180.0 mg/g [facility] ([place]) Urine 06/25/2020 10:1 5 AM HELICOPTER ENGINEER 06/25/2020 10:32 AM HELICOPTER ENGINEER Bryon Meeks MD LAB URINE ORDERABLES Final Re sult Performing Organization Address [facility] Co de Phone Number [facility] ([place]) [address] [place] [address] Department [place] [address] * Clinical pathology report (06/25/2020 10:10 AM HELICOPTER ENGINEER) Miscellaneous 06/25/2020 10: 10 AM HELICOPTER ENGINEER 06/26/2020 8:50 AM HELICOPTER ENGINEER Narrative 06/26/2020 4:57 PM HELICOPTER ENGINEER EPIC results best viewed via link to PDF [facility] Department of Pathology [address] [place] [address] Final Report Patient Name: ? NATAN RIVERA Address: ??[address], [place] [address] Gender: ??M : ??1965 (Age: 54) Service: ??Laboratory Location: ??Lab Hospital #: ??[id number] Patient Type: ??[facility] EP ANCILLARY Taken: ??06/25/2020 Received: ?? 06/26/2020 Accessioned: ??06/26/2020 Physician(s): ??Bryon Meeks M.D. [facility] Specimen(s) Received A: Blood (serum) Serum Protein Electrophoresis Reported: 06/26/2020 Interpretation: Normal serum protein electrophoresis pattern. Comment: There are no significant abnormalities of the protein fractions. See Clinical Desktop and/or separate report for protein fraction table. ?? Zach Chen MD ??Report Electronically Reviewed and Signed Out By ??Zach Chen MD ??06/26/2020 16:56:18 ? The performance characteristics of some immunohistochemical stains, fluorescence in-situ hybridization tests and immunophenotyping by flow cytometry cited in this report (if any) were determined by the Surgical Pathology Department at [facility] as part of an ongoing software quality analyst program and in compliance with federally mandated regulations drawn from the Clinical Laboratory Improvement Act of 1988 (CLIA '88). ??Some of these tests rely on the use of analyte specific reagents and are subject to specific labeling requirements by the US Food and Drug Administration. ??Such diagnostic tests may only be performed in a facility that is certified by the Department of Health and Human Services as a high complexity laboratory under CLIA '88. The FDA has determined that such clearance or approval is not necessary. ??This test is used for clinical purposes. ??It should not be regarded as investigational or for research. ??Nevertheless, federal rules concerning the medical use of analyte specific reagents require that the following disclaimer be attached to the report: This test was developed and its performance characteristics determined by the Surgical Pathology Department [facility]. ??It has not been cleared or approved by the U. S. Food and Drug Administration. REPORT IMAGES AND SCANNED DOCUMENTS, IF INCLUDED, ONLY VIEWABLE IN PDF VERSION OF REPORT us Bryon Meeks MD LAB PATHOLOGY ORDERABLES Claire l Result * eGFR (06/25/2020 10:10 AM HELICOPTER ENGINEER) eGFR 50 mL/min/1.7 3 m2 [facility] ([place]) Comment: Interpretive Data Reference Interval Normal ?>/= [...] Current interpretive data was last reviewed 2020 Blood specimen (specimen) 06/25/2020 10:10 AM HELICOPTER ENGINEER 06/25/2020 10:38 AM HELICOPTER ENGINEER us Bryon Meeks MD LAB BLOOD ORDERABLES Final Re sult [facility] ([place] [address] [facility] [place] [address] * Phosphorus (06/25/2020 10:10 AM HELICOPTER ENGINEER) Pathologist [facility] Phosphorus, pl 2.3 2.3 - 4.5 mg/dL [facility] ([place]) Blood specimen (specimen) 06/25/2020 10:10 AM HELICOPTER ENGINEER 06/25/2020 10:38 AM HELICOPTER ENGINEER us Bryon Meeks MD LAB BLOOD ORDERABLES Final Re sult [facility] ([place]) 1 [facility] [place] [address] * Bilirubin, direct (06/25/2020 10:10 AM HELICOPTER ENGINEER) Bilirubin, direct <0.2 0.1 - 0.3 mg/dL [facility] ([place]) Blood specimen (specimen) 06/25/2020 10:10 AM HELICOPTER ENGINEER 06/25/2020 10:38 AM HELICOPTER ENGINEER Bryon Meeks MD LAB BLOOD ORDERABLES Final Re sult Performing Organization Address [facility] Co de Phone Number [facility] ([place] 1 [facility] [place] [address] * (ABNORMAL) Comprehensive metabolic panel (06/25/2020 10:10 AM HELICOPTER ENGINEER) Sodium 137 135 - 145 mmol/L [facility] ([place]) Potassium, pl 3.9 3.3 - 4.9 mmol/L [facility] ([place]) Chloride 103 97 - 110 mmol/L [facility] ([place]) CO2 24 22 - 32 mmol/L [facility] ([place]) Anion gap 10 2 - 15 mmol/L [facility] ([place]) BUN 13 8 - 25 mg/dL [facility] ([place]) Creatinine 1.57(H) 0.80 - 1.30 mg/dL [facility] Glucose 99 70 - 199 mg/dL [facility] ([place]) Comment: Interpretive Data Fasting glucose [...] interpretive data was last revised 2017. Calcium 9.1 8.5 - 10.3 mg/dL [facility]) Bilirubin, total 0.4 0.1 - 1.2 mg/dL [facility] ([place]) Protein, pl 7.5 6.5 - 8.5 g/dL [facility] [place]) Albumin 4.2 3.5 - 5.0 g/dL [facility]) Alk phos 106 40 - 130 Units/L [facility]) ALT 16 7 - 55 Units/L [facility] [place]) AST 20 10 - 50 Units/L [facility] [place]) Blood specimen (specimen) 06/25/2020 10:10 AM HELICOPTER ENGINEER 06/25/2020 10:38 AM HELICOPTER ENGINEER us Bryon Meeks MD LAB BLOOD ORDERABLES Final Re sult [facility] ([place]) [address] [facility] Department [place] [address] * Differential, auto (06/25/2020 10:10 AM HELICOPTER ENGINEER) Neutrophil abs 4.0 1.7 - 6.5 K/cumm [facility] ([place]) Imm gran abs 0.0 0.0 - 0.1 K/cumm [facility] ([place]) Lymphocyte abs 0.9 0.8 - 3.3 K/cumm [facility] ([place]) Monocyte abs 0.5 0.2 - 0.8 K/cumm [facility] ([place]) Eosinophil abs 0.5 0.0 - 0.5 K/cumm [facility] ([place]) Basophil abs 0.0 0.0 - 0.1 K/cumm [facility] ([place]) Neutrophil pct 68.4 % [facility] ([place]) Comment: Interpretive [...] was last revised on 2017. Lymphocyte pct 15.6 % [facility] ([place]) Comment: Interpretive Data Percent cell count reference ranges are not reported, since discordance with absolute values may lead to misinterpretation of CBC data. Current Interpretive Data was last revised on 2017. Monocyte pct 7.6 % [facility] ([place]) Comment: Interpretive Data Percent cell count reference ranges are not reported, since discordance with absolute values may lead to misinterpretation of CBC data. Current Interpretive Data was last revised on 2017. Eosinophil pct 7.6 % [facility] ([place]) Comment: Interpretive [...] Data was last revised on 2017. Blood specimen (specimen) 06/25/2020 10:10 AM HELICOPTER ENGINEER 06/25/2020 10:38 AM HELICOPTER ENGINEER us Bryon Meeks MD LAB BLOOD ORDERABLES Final Re sult [facility] ([place]) 1 [facility] Department of Laboratories [place], [place] [id number] * Erythrocyte sedimentation rate (06/25/2020 10:10 AM HELICOPTER ENGINEER) Erythrocyte sedimentation rate 10 1 - 20 mm/hr [facility] ([place]) Blood specimen (specimen) 06/25/2020 10:10 AM HELICOPTER ENGINEER 06/25/2020 10:38 AM HELICOPTER ENGINEER us Bryon Meeks MD LAB BLOOD ORDERABLES Final Re sult Performing Organization Address [facility] Co de Phone Number [facility] ([place]) 1 [facility] [place] [address] * C4 complement (06/25/2020 10:10 AM HELICOPTER ENGINEER) Complement C4 35 10 - 40 mg/dL [facility] ([place]) Comment:Testing performed by : [facility], [address] [place] [address], [id number] Blood specimen (specimen) 06/25/2020 10:10 AM HELICOPTER ENGINEER 06/25/2020 1:40 PM HELICOPTER ENGINEER us Bryon Meeks MD LAB BLOOD ORDERABLES Final Re sult Performing Organization Address [facility] de Phone Number [facility] ([place]) 1 [facility] [place] [address] * C3 complement (06/25/2020 10:10 AM HELICOPTER ENGINEER) Complement C3 154 90 - 180 mg/dL [facility] ([place]) Comment:Testing performed by : [facility], [address] [place] [address], [address] Blood specimen (specimen) 06/25/2020 10:10 AM HELICOPTER ENGINEER 06/25/2020 1:40 PM HELICOPTER ENGINEER us Bryon Meeks MD LAB BLOOD ORDERABLES Final Re sult Performing Organization Address [facility] Co de Phone Number [facility] ([place] 1 [facility] [place] [address] * SHARON qualitative with reflex to SHARON Quantitative (06/25/2020 10:10 AM HELICOPTER ENGINEER) SHARON Negative Negative [facility] ([place]) Comment: Interpretive Data Normal range for Sharon Qualitative Antibody = Negative. 1. ??SHARON titers are performed on all positive qualitative results. 2. ??A significantly positive SHARON result is defined as a positive nuclear fluorescence at a titer of 1:80 or greater. 3. ??15% of normal people above age 65 have significantly positive SHARON results. ??5% or less of normal people age 65 or under have significantly positive SHARON results. Current interpretive data was last revised on 03. Testing performed by: [facility], [address] [place] [address]., [address] Blood specimen (specimen) 06/25/2020 10:10 AM HELICOPTER ENGINEER 06/25/2020 1:40 PM HELICOPTER ENGINEER us Bryon Meeks MD LAB BLOOD ORDERABLES Final Re sult [facility] ([place] [address] [facility] Department [place] [address] * Protein Electrophoresis, With Reflex, Serum (06/25/2020 10:10 AM HELICOPTER ENGINEER) Protein, sr 7.3 6.2 - 8.2 g/dL [facility] ([place]) Comment:Testing performed by : [address] [address] Albumin 4.2 3.2 - 5.0 g/dL [facility] ([place]) Comment:Testing performed by : [address] [address] Alpha-1 globulin 0.3 0.2 - 0.4 g/dL [facility] ([place]) Comment:Testing performed by : [address] [address] Alpha-2 globulin 0.8 0.5 - 1.0 g/dL [facility] ([place]) Comment:Testing performed by : [address] [address] Beta-1 globulin 0.4 0.3 - 0.6 g/dL [facility] ([place]) Comment:Testing performed by : [address] [address] Beta-2 globulin 0.4 0.2 - 0.6 g/dL [facility] ([place]) Comment:Testing performed by : [address] [place]., [address] Gamma globulin 1.2 0.5 - 1.7 g/dL [facility] ([place]) Comment:Testing performed by : [facility], [address] [place] [address]., [address] SPEP interp See Cl Path Rpt [facility] ([place]) Comment:Testing performed by : [facility], [address] [place] [address]., [address] Blood specimen (specimen) 06/25/2020 10:10 AM HELICOPTER ENGINEER 06/25/2020 1:40 PM HELICOPTER ENGINEER us Bryon Meeks MD LAB BLOOD ORDERABLES Final Re sult Performing Organization Address [facility]/ZIP Co de Phone Number [facility] ([place]) 1 [facility] [place] [address] * Uric acid (06/25/2020 10:10 AM HELICOPTER ENGINEER) Uric acid 7.0 3.0 - 8.0 mg/dL [facility] ([place]) Blood specimen (specimen) 06/25/2020 10:10 AM HELICOPTER ENGINEER 06/25/2020 10:38 AM HELICOPTER ENGINEER us Bryon Meeks MD LAB BLOOD ORDERABLES Final Re sult Performing Organization Address [facility] Co de Phone Number [facility] ([place] 1 [facility] [place] [address] * T4, free (06/25/2020 10:10 AM HELICOPTER ENGINEER) Free T4 0.98 0.90 - 1.70 ng/dL [facility] ([place]) Blood specimen (specimen) 06/25/2020 10:10 AM HELICOPTER ENGINEER 06/25/2020 10:38 AM HELICOPTER ENGINEER us Bryon Meeks MD LAB BLOOD ORDERABLES Final Re sult Performing Organization Address [facility]/ZIP Co de Phone Number [facility] ([place] 1 [facility] [place] [address] * TSH (06/25/2020 10:10 AM HELICOPTER ENGINEER) [facility] Thyroid Stimulating Hormone 1.60 0.30 - 4.20 mcIUnit/mL [facility] ([place]) Blood specimen (specimen) 06/25/2020 10:10 AM HELICOPTER ENGINEER 06/25/2020 10:38 AM HELICOPTER ENGINEER us Bryon Meeks MD LAB BLOOD ORDERABLES Final Re sult [facility] ([place]) 1 [place] [address] * (ABNORMAL) PTH (06/25/2020 10:10 AM HELICOPTER ENGINEER) [facility] PTH 116(H) 15 - 65 pg/mL [facility] Blood specimen (specimen) 06/25/2020 10:10 AM HELICOPTER ENGINEER 06/25/2020 10:38 AM HELICOPTER ENGINEER Bryon Meeks MD LAB BLOOD ORDERABLES Final Re sult [facility] ([place] 1 [facility] [place] [address] * (ABNORMAL) CBC with auto differential (06/25/2020 10:10 AM HELICOPTER ENGINEER) [facility] WBC 5.9 3.8 - 9.9 K/cumm [facility] ([place]) Hgb 14.6 13.0 - 17.5 g/dL [facility] ([place]) Hct 42.1 38.9 - 50.3 % [facility] ([place]) Plt 294 150 - 400 K/cumm [facility] ([place]) MPV 9.0(L) 9.1 - 12.3 fL [facility] ([place]) RBC 5.16 4.30 - 5.80 M/cumm [facility] ([place]) MCV 81.6 81.3 - 96.4 fL [facility]) MCH 28.3 27.1 - 33.3 pg [facility] ([place]) MCHC 34.7 32.3 - 35.7 g/dL [facility]) RDW CV 13.0 11.1 - 14.9 % [facility]) RDW SD 38.3 35.7 - 48.1 fL [facility] ([place]) NRBC abs 0.00 0.00 - 0.01 K/cumm [facility] ([place]) Blood specimen (specimen) 06/25/2020 10:10 AM HELICOPTER ENGINEER 06/25/2020 10:38 AM HELICOPTER ENGINEER us Bryon Meeks MD LAB BLOOD ORDERABLES Final Re sult [facility] Organization Address City/State/ZIP Co de Phone Number [facility] ([place]) [address] [facility] [place] [address] documented in this encounter Visit Diagnoses Not on filedocumented in this encounter Care Teams Bicycle Mechanic Relationship Specialty Start Date End Date Naomy Maddox MD [address] [place] [address] PCP - General Internal Medicine 05/06/20 documented as of this encounter
--- OUTSIDE RECORDS SUMMARY | 2024-05-17 12:12 | XMS_ITS | Encounter Summary ---
Author Organization [facility] Medical Group Address [address] [facility] [facility] [address] [place] [address] Care Team Providers Care Environmental Field Office Manager Name Role Phone Naomy Maddox MD Primary Care Provider [phone] Encounter Details Date Type Department Care Team (Late st Contact Info) Description 05/12/2020 Telephone [place] [facility] [address] [facility] [address] [place] [address] Tamra Zuniga MA Social History Tobacco Use Types Packs/Day Years Used Date Smoking Tobacco: Never Assessed Sex and Gender Information Value Date Recorded Sex Assigned at Not on file Legal Sex Male 9:23 PM BUCKLE GLUER Gender Identity Not on file Sexual Orientation Not on file documented as of this encounter Miscellaneous Notes * Telephone Encounter - Tamra Zuniga MA - 05/12/2020 9:19 AM CST Called pt to schedule New pt appointment but no answer and unable to leave . LE GLUER documented in this encounter Plan of Treatment Not on file documented as of this encounter Visit Diagnoses Not on filedocumented in this encounter Care Teams Environmental Field Office Manager Relationship Specialty Start Date End Date Naomy Maddox MD [address] [place] [address] PCP - General Internal Medicine 05/06/20 documented as of this encounter
--- OUTSIDE RECORDS SUMMARY | 2024-05-17 12:12 | XMS_ITS | Encounter Summary ---
Author Organization [facility] Medical Group Address [address] [place] [address] Care Team Providers Care Information Systems Administrator Name Role Phone Naomy Maddox MD Primary Care Provider [phone] Encounter Details Date Type Department Care Team (Late st Contact Info) Description 05/23/2020 Telephone [facility] [address] [place] [address] Scot Solis MD [address] [place] [address] [address] [place] [address] Social History Tobacco Use Types Packs/Day Years Used Date Smoking Tobacco: Never Sex and Gender Information Value Date Recorded Sex Assigned at Not on file Legal Sex Male 9:23 PM WHISKEY FILTERER Gender Identity Not on file Sexual Orientation Not on file documented as of this encounter Miscellaneous Notes * Telephone Encounter - Gisela Jones MA - 05/23/2020 1:35 PM CST LMOVM for patient to , see message below KEY FILTERER * Telephone Encounter - Gisela Jones MA - 05/23/2020 1:35 PM CST ----- Message from Scot Solis MD sent at 05/23/2020 1:24 PM WHISKEY FILTERER ----- Cortisol level and pituitary hormone from our reliable lab is normal. No adrenal problem detected. KEY FILTERER documented in this encounter Plan of Treatment Not on file documented as of this encounter Visit Diagnoses Not on filedocumented in this encounter Care Teams Information Systems Administrator Relationship Specialty Start Date End Date Naomy Maddox MD [address] [place] [address] PCP - General Internal Medicine 05/06/20 documented as of this encounter
--- OUTSIDE RECORDS SUMMARY | 2024-05-17 12:12 | XMS_ITS | Encounter Summary ---
Author Organization [facility] Address [address] [place] [address] Care Team Providers Care Employee Development Director Name Role Phone Naomy Maddox MD Primary Care Provider [phone] Encounter Details Date Type Department Care Team (Late st Contact Info) Description 05/12/2020 Telephone [facility] of [address] [place] [address] Tamra Zuniga MA Social History Tobacco Use Types Packs/Day Years Used Date Smoking Tobacco: Never Assessed Sex and Gender Information Value Date Recorded Sex Assigned at Not on file Legal Sex Male 9:23 PM ELECTROLY[employer] Gender Identity Not on file Sexual Orientation Not on file documented as of this encounter Miscellaneous Notes * Telephone Encounter - Tamra Zuniga MA - 05/12/2020 1:41 PM CST LMOM to cb to make new pt appt with [facility] for Low Cortisol. TROLYTIC DE SCALER documented in this encounter Plan of Treatment Not on file documented as of this encounter Visit Diagnoses Not on filedocumented in this encounter Care Teams Employee Development Director Relationship Specialty Start Date End Date Naomy Maddox MD [address] [place] [address] PCP - General Internal Medicine 05/06/20 documented as of this encounter
--- OUTSIDE RECORDS SUMMARY | 2024-05-17 12:12 | XMS_ITS | Encounter Summary ---
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 PAINTER [employer] GRAD[employer] Office Visit [facility] of [address] [place] [address] Scot Solis MD [address] [place] [address] [address] [place] [address] Abnormal cortisol level (Primary Dx); Chronic fatigue syndrome; Essential hypertension Social History Tobacco Use Types Packs/Day Years Used Date Smoking Tobacco: Never Sex and Gender Information Value Date Recorded Sex Assigned at Not on file Legal Sex Male 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 Gender Identity Not on file Sexual Orientation Not on file documented as of this encounter Last Filed Vital Signs Vital Sign Reading Time Taken Comments Blood Pressure 130/62 05/20/2020 2:51 PM CORK [employer]AD[employer] Pulse - - Temperature - - Respiratory Rate - - Oxygen Saturation - - Inhaled Oxygen Concentration - - Weight 92.1 kg (203 lb) 05/20/2020 2:51 PM [employer]ORK [employer]AD[employer] Height 177.8 cm (5' 10 ) 05/20/2020 2:51 PM [employer]AD[employer] Body Mass Index 29.13 05/20/2020 2:51 PM [employer]ORK [employer]INTER [employer]ADER documented in this encounter Progress Notes * Scot Solis MD - 05/20/2020 3:00 PM CST Subjective/Objective Patient ID: Saroj Rivera is a 54 y.o. male. Chief Complaint New Patient (Low Coritsol) 54 years old male, referred for evaluation of abnormal low Cortisol Patient has been having fatigue for about 10 years. He denied taking steroids in the last 3-6 month. Patient reports stable weight. He denied nausea or vomiting. He has occasional mild dizziness. Hypertension This is a chronic problem. The problem has been unchanged. Associated symptoms include fatigue and headaches. Pertinent negatives include no chest pain, coughing, diaphoresis, myalgias, nausea or rash. Fatigue This is a chronic problem. The problem has been unchanged. Associated symptoms include fatigue and headaches. Pertinent negatives include no chest pain, coughing, diaphoresis, myalgias, nausea or rash. Vitamin D Deficiency This is a chronic problem. The problem has been unchanged. Associated symptoms include fatigue and headaches. Pertinent negatives include no chest pain, coughing, diaphoresis, myalgias, nausea or rash. Review of Systems Constitutional: Positive for fatigue. Negative for diaphoresis and unexpected weight change. HENT: Positive for sinus pressure. Negative for facial swelling, trouble swallowing and voice change. Eyes: Negative for visual disturbance. Respiratory: Negative for cough and shortness of breath. Cardiovascular: Negative for chest pain, palpitations and leg swelling. Gastrointestinal: Negative for constipation, diarrhea and nausea. Endocrine: Negative for cold intolerance and heat intolerance. No goiter or neck swelling Genitourinary: Negative for difficulty urinating and frequency. Musculoskeletal: Negative for back pain and myalgias. Skin: Negative for rash. Allergic/Immunologic: Positive for environmental allergies. Neurological: Positive for headaches. Negative for dizziness, tremors and light-headedness. Psychiatric/Behavioral: Negative for sleep disturbance. Physical Exam Vitals signs reviewed. Constitutional: Appearance: Normal appearance. He is well-developed. Neck: Thyroid: No thyroid mass or thyromegaly. Trachea: No tracheal deviation. Cardiovascular: Rate and Rhythm: Normal rate and regular rhythm. Heart sounds: Normal heart sounds. Pulmonary: Breath sounds: Normal breath sounds. No wheezing. Abdominal: General: Bowel sounds are normal. There is no distension. Palpations: Abdomen is soft. Lymphadenopathy: Cervical: No cervical adenopathy. Skin: Findings: No erythema or rash. Neurological: Mental Status: He is alert. Assessment/Plan Diagnoses and all orders for this visit: Abnormal cortisol level (R79.89) (Primary) Assessment & Plan: Random am serum Cortisol of 4.2 ( 6-19) Done of 04/24/20 to investigate fatigue Labs and notes from PCP reviewed. Normal electrolytes Na 140- K of 4.5 No clinical evidence of low cortisol syndrome Plan: We will re-check Am serum Cortisol with ACTH Follow up and further investigation will be decided after we obtain above test results. Orders: - TSH; Future - T4, free; Future - Cortisol; Standing - ACTH; Standing Chronic fatigue syndrome (R53.82) Assessment & Plan: Patient with chronic depression / bipolar disease Has family history of thyroid disease. Plan: We will screen for Hypothyroidism. Orders: - TSH; Future - T4, free; Future Essential hypertension (I10) Assessment & Plan: Controlled with medication Complicated with CKD Labs on 04/24/20 showing creatinine 1.93 with GFR 45 - patient will be starting with a engrosser. 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 Plan: We will screen for Hypothyroidism. PAINTER AND GRADER * Assessment & Plan Note - Scot Solis MD - 05/20/2020 3:31 PM [employer]ADER Associated Problem(s): Abnormal cortisol level Random am serum Cortisol of 4.2 ( 6-19) Done of 04/24/20 to investigate fatigue Labs and notes from PCP reviewed. Normal electrolytes Na 140- K of 4.5 No clinical evidence of low cortisol syndrome Plan: We will re-check Am serum Cortisol with ACTH Follow up and further investigation will be decided after we obtain above test results. PAINTER AND GRADER * Assessment & Plan Note - Scot Solis MD - 05/20/2020 3:30 PM CORK [employer] GRADER Associated Problem(s): Essential hypertension Controlled with medication Complicated with CKD Labs on 04/24/20 showing creatinine 1.93 with GFR 45 - patient will be starting with a engrosser. PAINTER AND GRADER documented in this encounter Plan of Treatment Not on file documented as of this encounter Results * ACTH (05/22/2020 8:32 AM CORK PAINTER AND GRADER) Pathologist [facility] ACTH 17 pg/mL YVAN MARTINS ([place]) Comment: REFERENCE VALUE 7.2-63 (a.m. collection) Test Performed by: [facility] [address] [place] [address] Olericulture Professor: Yoshi Brown M.D. Ph.D.; CLIA# [id number] Blood specimen (specimen) 05/22/2020 8:32 AM CORK PAINTER [employer] GRADER 05/22/2020 8:36 AM CORK PAINTER AND GRADER Scot Solis MD LAB BLOOD ORDERABLES Final Res ult YVAN MARTINS ([place]) [address] [facility] [place] [address] * Cortisol (05/22/2020 8:32 AM CORK PAINTER AND GRADER) Pathologist [facility] Cortisol 12.0 4.8 - 19.5 mcg/dl YVAN MARTINS ([place]) Comment: Interpretive Data Normal Range: ??4.8 - 19.5 mcg/dL; ??Evening: ??Half of morning value. ?? This analyte undergoes marked diurnal variation. ??Ranges indicated apply to morning specimens. ?? Current interpretive data was last revised 2018. Testing performed by: [facility] [address] [place] [address], [place]., [address] Blood specimen (specimen) 05/22/2020 8:32 AM CORK PAINTER [employer] GRADER 05/22/2020 1:10 PM CORK PAINTER [employer] GRADER Scot Solis MD LAB BLOOD ORDERABLES Final Res ult [facility] MARTINS ([place]) [address] [facility] [place] [address] * T4, free (05/22/2020 8:32 AM CORK PAINTER [employer] GRADER) Free T4 1.13 0.90 - 1.70 ng/dL [facility]VAN MARTINS ([place]) Blood specimen (specimen) 05/22/2020 8:32 AM CORK PAINTER [employer] GRADER 05/22/2020 8:36 AM C[employer] PAINTER [employer] GRADER Scot Solis MD LAB BLOOD ORDERABLES Final Res ult Performing Organization Address [facility]/ZIP Co de Phone Number YVAN MARTINS ([place]) [address] [facility] [place] [address] * TSH (05/22/2020 8:32 AM CORK PAINTER AND GRADER) Thyroid Stimulating Hormone 2.80 0.30 - 4.20 mcIUnit/mL YVAN MARTINS ([place]) Blood specimen (specimen) 05/22/2020 8:32 AM CORK PAINTER [employer] GRADER 05/22/2020 8:36 AM [employer] PAINTER [employer] GRADER Scot Solis MD LAB BLOOD ORDERABLES Final Res ult Performing Organization Address City/[facility]/ZIP Co de Phone Number YVAN MARTINS ([place]) [address] [facility] [place] [place] [address] documented in this encounter Visit Diagnoses Diagnosis Abnormal cortisol level- Primary Chronic fatigue syndrome Essential hypertension Unspecified essential hypertension documented in this encounter Historical Medications * This list may reflect changes made after this encounter. amitriptyline (ELAVIL) 25 mg tablet Take 1 [...] ARIPiprazole (ABILIFY) 10 mg tablet 05/19/2020 02/23/2023 losartan (COZAAR) 100 mg tablet 05/19/2020 11/05/2022 triamterene-hydro CHLOROthiazide (MAXZIDE,DYAZIDE) 37.5-25 mg per tablet/capsule 02/23/2023 TiZANidine (ZANAFLEX) 4 mg capsule Take 4 mg by mouth 2 (two) times a day as needed 04/12/2022 pravastatin (PRAVACHOL) 40 mg tablet Take 40 mg by mouth daily 04/12/2022 added in this encounter Care Teams Voice Coach Relationship Specialty Start Date End Date Naomy Maddox MD [address] [place] [address] PCP - General Internal Medicine 05/06/20 documented as of this encounter
== END 2024-05-10 11:49 | disposition home or self-care (01) ==
PROVIDERS: Emergency Provider Emergency Medicine; PCP Internal Medicine
DX: J18.9 Pneumonia, unspecified organism (principal); Z20.822 Contact with and (suspected) exposure to COVID-19; J45.909 Unspecified asthma, uncomplicated; I13.0 Hypertensive heart and chronic kidney disease with heart failure and stage 1 through stage 4 chronic kidney disease, or unspecified chronic kidney disease; N18.2 Chronic kidney disease, stage 2 (mild); I50.9 Heart failure, unspecified; K21.9 Gastro-esophageal reflux disease without esophagitis; F32.A Depression, unspecified; F41.9 Anxiety disorder, unspecified
CPT/HCPCS: 36415; 71046; 80053; 81001; 83880; 85025; 85610; 85730; 87637; 93005; 94640; 99284